=== PATIENT | male | born 1955 | race African-American/Black ===

== ENCOUNTER 2023-06-29 08:53 | Emergency (ER) | payer MEDICARE, SELFPAY ==
[2023-06-29 08:54] VITALS: BP 168/97; PULSE 81; RESP 14; TEMP 36.6; O2SAT 100; BMI 18.3
--- NOTE | 2023-06-29 09:11 | EDS_ITS ---
HPI History of Present Illness Chief Complaint: Hypertension Informant: patient Narrative Narrative: 67-year-old male with a history of hypertension presenting to the emergency room with a chief complaint of hypertension. Patient states he sees the MA in [place]. He states he was on a diuretic but does not know the name of it. He reports not being seen at the [facility] for some time . He states he ran out of his medication a month ago. He really has not been feeling too bad. The patient notes some lightheadedness intermittently. Took his blood pressure at home today and it was elevated so he came to emergency. He does not recall what his blood pressure was at home. Triage blood pressure 168/97. He states while he was on his blood pressure medication. His blood pressure was controlled. [facility] Medical History Hypertension Allergy/AdvReac Type Severity Reaction Status Date / Time No Known Allergies Allergy Verified 06/29/23 08:54 Social History Smoking Status: Current every day smoker ROS ROS ED ROS Narrative Intermittent lightheadedness Constitutional Constitutional ED: Denies chills, fever(s) or weight loss Eyes Eyes: Denies blurry vision, change in vision or diplopia ENT ENT ED: Denies ear pain, rhinorrhea or sore throat Cardiovascular Cardiovascular: Denies chest pain, orthopnea, palpitations or racing heartbeat Respiratory/Chest Respiratory/Chest: Denies cough, dyspnea or orthopnea Gastrointestinal Gastrointestinal: Denies abdominal pain, diarrhea, nausea or vomiting Genitourinary Genitourinary ED: Denies dysuria, hematuria or urinary frequency Musculoskeletal Musculoskeletal: Denies arthralgias or myalgias Integumentary Denies abscess or rash Neurologic Neurologic: Denies headache(s) or weakness Psychiatric Psychiatric: Denies anxiety, depression, suicidal ideation or suicidal thoughts Endocrine Endocrinology: Denies polydipsia, polyphagia or polyuria Allergic/Immunologic Allergic/Immunologic ED: Denies mouth swelling, tongue swelling or urticaria EXAM Physical Exam Const Vital Signs: 06/29/23 08:54 Temperature 97.8 F Temperature Source Temporal Pulse Rate 81 Respiratory Rate 14 Blood Pressure 168/97 H Blood Pressure Mean 120 Pulse Ox 100 Oxygen Delivery Method Room Air Positive well nourished and well developed General Appearance ED: well developed HEENT Reports normocephalic, head/scalp atraumatic and moist mucous membranes Eyes PERRL and EOMs intact bilaterally Neck no lymphadenopathy, supple and no JVD Resp normal respiratory effort and clear to auscultation bilaterally Cardio regular rate, regular rhythm and no murmurs GI normal to inspection, nondistended, normoactive bowel sounds and non-tender Palpation: soft Back/Spine no CVA tenderness and normal ROM Extremity normal to inspection General Extremety ED: Negative for edema General Extremity: Negative for edema Neuro oriented x3 and CN's II-XII intact bilaterally Sensorium / Orientation: alert Motor Exam: strength 5/5 throughout Psych mental status grossly normal Mood & Affect: Negative for depressed or tearful Skin no rashes or lesions noted and no wounds MDM MDM MDM Narrative Medical decision making narrative: [facility] [place] Patient has not been seen in their clinic since 2021. He states that he was a no-show for 2 appointments in August 2022. The patient was reported to be on hydrochlorothiazide 12.5 mg. I am going to prescribe 25 mg of HCTZ. I highly encouraged the patient to schedule an appointment to be seen at the clinic. At this point I do not see an emergent reason for emergency workup. He is otherwise basically asymptomatic. Discharge Plan Triage Chief Complaint: Hypertension ED Provider: Robbi Art
--- NOTE | 2023-06-29 09:30 | NURSING ---
[facility]
[2023-06-29 09:44] VITALS: BP 156/78; PULSE 64; RESP 14; TEMP 36.4; O2SAT 99
== END 2023-06-29 10:08 | disposition home or self-care (01) ==
LOC: ED 10:01
PROVIDERS: Emergency Provider Emergency Medicine; Visit Provider Emergency Medicine
DX: I10 Essential (primary) hypertension (principal); F17.200 Nicotine dependence, unspecified, uncomplicated
CPT/HCPCS: 99282

== ENCOUNTER → 2023-12-02 | Outpatient (CLI) | payer MEDICARE, SELFPAY ==
[2023-12-02 12:45] LABS: Absolute Lymphocyte Count 1.48 X10^3/uL (0.83-4.51); Absolute Neutrophil Count 4.4 X10^3/uL (2.0-7.7); Basophil# 0.04 X10^3/uL; Basophil% 0.6 % (0-1); Hematocrit 40.2 % (40-54); Hemoglobin 13.4 g/dL (13.0-16.5); Lymphocyte # 1.48 X10^3/ul (0.83-4.51); Lymphocyte % 21.9 % (19-41); Mean Corp Hgb Conc 33.3 g/dL (32-36); Mean Corpuscular Hgb 31.8 pg (27.0-32.0); Mean Corpuscular Volume 95.3 fL (80-94); Mean Platelet Vol. 11.2 fl (6.2-12.0); Monocyte# 0.59 X10^3/uL; Monocyte% 8.7 % (0-10); NRBC Flagged by Analyzer 0 % (0-5); Neutrophil # 4.44 X10^3/uL (2.7-7.7); Neutrophil % 65.7 % (47-70); Platelet Count 256 K/mm3 (150-450); RBC Distribution Width CV 13.1 % (11.6-14.6); RBC Distribution Width SD 45.8 fl (35.1-43.9); Red Blood Count 4.22 M/mm3 (4.6-6.2); White Blood Count 6.8 K/mm3 (4.4-11.0)
[2023-12-02 13:02] LABS: ALB/GLOB Ratio 0.8 RATIO (0.9-2.4); AST(SGOT) 26 U/L (15-37); Alanine Aminotransfer ALT/SGPT 23 U/L (16-61); Albumin, Serum 3.4 g/dL (3.2-5.0); Alkaline Phosphatase 98 U/L (45-117); Anion Gap 8 (5-15); BUN 7 mg/dL (7-18); BUN/Creat Ratio 8.9 RATIO (10-20); Calcium,Total 9.1 mg/dL (8.5-10.1); Chloride 102 mmol/L (98-107); Cholesterol 161 mg/dL (200); Creatinine, Serum 0.78 mg/dL (0.70-1.30); EST Glomerular Filtration Rate 105 mL/min (>60); Est Glom Filt Rate - Afr Amer 127 mL/min (>60); Globulin 4.3 g/dL (2.2-4.2); Glucose 99 mg/dL (74-106); High Density Lipoprotein 93 mg/dL; Potassium 3.9 mmol/L (3.5-5.1); Protein, Total 7.7 g/dL (6.4-8.2); Sodium Level 137 mmol/L (136-145); Thyroid Stim Hormone (TSH) 0.47 uIU/mL (0.358-3.74); Triglycerides 89 mg/dL; Very Low Density Lipoprotein 18 mg/dL (5-40)
== END | disposition home or self-care (01) ==
PROVIDERS: PCP Family Medicine; Visit Provider Family Medicine
DX: I10 Essential (primary) hypertension (principal); R35.0 Frequency of micturition
CPT/HCPCS: 36415; 80053; 80061; 84443; 85025

== ENCOUNTER → 2024-03-30 | Outpatient (CLI) | payer MEDICARE, SELFPAY ==
--- NOTE | 2024-03-30 08:26 | US_ITS ---
STUDY: SUPERFICIAL ULTRASOUND - LEFT WRIST REASON FOR EXAM: Male, 68 years old. left wrist dorsal ganglion cyst TECHNIQUE: A superficial ultrasound was performed with real-time and static galdamez-scale imaging. COMPARISON: Left wrist x-ray dated March 23, 2024 FINDINGS: There is no large or obvious wrist joint effusion. Normal visualized dorsal (extrinsic) ligaments. Normal visualized volar (extrinsic) ligaments. Significant extensor tenosynovitis is present in 4 compartments. The subcutaneous tissues are also diffusely swollen and edematous. Moderate tendinopathy/tendinosis is also present. This should be evaluated by MRI if the patient meets the criteria for MR imaging. Normal flexor tendons. Normal carpal tunnel with a normal median nerve. Normal carpometacarpal articulation of the thumb. Normal second through fifth carpometacarpal articulations. US/Ext Non Vasc Limited/Soft Tiss IMPRESSION: 1. Significant extensor tenosynovitis is present in 4 compartments. The subcutaneous tissues are also diffusely swollen and edematous. Moderate tendinopathy/tendinosis is also present. This should be evaluated by MRI if the patient meets the criteria for MR imaging. Electronically Signed: Cortes Waterman MD at 13:44 EDT ,
== END | disposition home or self-care (01) ==
LOC: US 08:23
PROVIDERS: PCP Family Medicine; Referring Provider Orthopaedic Surgery Sports Medicine; Visit Provider Orthopaedic Surgery Sports Medicine
DX: M67.432 Ganglion, left wrist (principal)
CPT/HCPCS: 76882

== ENCOUNTER → 2024-06-23 | Outpatient (CLI) | payer MEDICARE, SELFPAY ==
[2024-06-23 13:48] LABS: Magnesium 2.3 mg/dL (1.6-2.6)
== END | disposition home or self-care (01) ==
PROVIDERS: PCP Family Medicine
DX: N63.0 Unspecified lump in unspecified breast (principal)
CPT/HCPCS: 36415; 83735

== ENCOUNTER → 2024-07-03 | Outpatient (CLI) | payer MEDICARE, SELFPAY ==
[2024-07-03 12:53] LABS: Free T3 2.4 pg/mL (2.18-3.98); T4 Free Direct 0.77 ng/dL (0.76-1.46)
[2024-07-05 09:08] LABS: Thyroglobulin Antibody < 1.0 IU/mL (0.0-0.9); Thyroid Peroxidase AB 15 IU/mL (0-34); Thyroid Stim Immunoglob <0.10 IU/L (0.00-0.55)
== END | disposition home or self-care (01) ==
LOC: LAB 12:01
PROVIDERS: PCP Family Medicine; Referring Provider Family Medicine; Visit Provider Family Medicine
DX: R94.6 Abnormal results of thyroid function studies (principal)
CPT/HCPCS: 36415; 84439; 84443; 84445; 84481; 86376; 86800

== ENCOUNTER → 2024-07-07 | Outpatient (CLI) | payer MEDICARE, SELFPAY ==
--- NOTE | 2024-07-07 09:25 | BI_ITS ---
PROCEDURE: SCRN MAMM (CAD)W/JOCELYNN BILAT REASON FOR EXAM: M, Age 68 y/o , TECHNIQUE: Bilateral screening digital breast tomosynthesis with 2D and 3D images. Computer aided detection. COMPARISON: None. This is a baseline mammogram. FINDINGS: The breasts are heterogeneously dense which may obscure small masses. No suspicious masses, areas of developing architectural distortion, or suspicious calcifications. With the patient's history of a palpable lump in the left periareolar region, correlation with ultrasound recommended. BI/SCRN MAMM (CAD)W/JOCELYNN BILAT IMPRESSION: BI-RADS 0: INCOMPLETE - NEED ADDITIONAL IMAGING EVALUATION. Follow-up code: Ultrasound Recommended The patient will be notified of the results by letter. Reading Location: [place] [address]
--- NOTE | 2024-07-07 10:24 | US_ITS ---
PROCEDURE: BREAST LIMITED UNILATERAL REASON FOR EXAM: Left retroareolar lower palpable lump. COMPARISON: Comparison is made with prior mammogram done earlier in the day. Left retroareolar region. TECHNIQUE: Targeted bilateral breast ultrasound. FINDINGS: LEFT: Ultrasound targeted to the retroareolar region of the left breast. At the left breast. The breast tissue appears sonographically normal. No cyst, solid mass, or suspicious shadowing. US/Breast Limited Unilateral IMPRESSION: Findings suggestive of gynecomastia. BI-RADS 1: NEGATIVE. RECOMMEND ANNUAL MAMMOGRAPHIC SCREENING. Reading Location: [place] [id number]
== END | disposition home or self-care (01) ==
PROVIDERS: PCP Family Medicine; Referring Provider Family Medicine; Visit Provider Family Medicine
DX: Z12.31 Encounter for screening mammogram for malignant neoplasm of breast (principal); N63.25 Unspecified lump in the left breast, overlapping quadrants
CPT/HCPCS: 76642; 77062; 77063; 77067; G0279

== ENCOUNTER → 2024-07-18 | Outpatient (CLI) | payer MEDICARE, SELFPAY ==
--- NOTE | 2024-07-18 09:35 | RAD_ITS ---
EXAM: XR Abdomen, 1 View CLINICAL INDICATION: TECHNIQUE: Frontal supine view of the abdomen/pelvis. COMPARISON: No relevant prior studies available. FINDINGS: GASTROINTESTINAL TRACT: Unremarkable. No dilation. ORGANS: Probable punctate right nephrolithiasis. BONES/JOINTS: Unremarkable. No acute fracture. RAD/Abdomen Single View IMPRESSION: Probable punctate right nephrolithiasis. Reading Location: [facility]
--- NOTE | 2024-07-18 09:35 | RAD_ITS ---
PROCEDURE: CHEST PA AND LATERAL REASON FOR EXAM: Abnormal weight loss. TECHNIQUE: Three-view PA and lateral chest. COMPARISON: None. RAD/Chest PA and Lateral IMPRESSION: Lungs are moderately severely hyperinflated. No evidence of pulmonary edema. No focal infiltrate is seen. The lungs appear clear throughout. No pleural effusion or pneumothorax is seen. The cardiomediastinal silhouette is within the normal range for age. Mild thoracic spine degenerative changes are noted. No evidence of acute cardiopulmonary disease. Reading Location: [id number]
[2024-07-18 10:11] LABS: Absolute Lymphocyte Count 2.06 X10^3/uL (0.83-4.51); Absolute Neutrophil Count 2.5 X10^3/uL (2.0-7.7); Basophil# 0.03 X10^3/uL; Basophil% 0.6 % (0-1); Eosinophil# 0.09 X10^3/uL; Eosinophils% 1.7 % (0-5); Hematocrit 41.4 % (40-54); Hemoglobin 14.3 g/dL (13.0-16.5); Lymphocyte # 2.06 X10^3/ul (0.83-4.51); Lymphocyte % 38.6 % (19-41); Mean Corp Hgb Conc 34.5 g/dL (32-36); Mean Corpuscular Hgb 29.7 pg (27.0-32.0); Mean Corpuscular Volume 86.1 fL (80-94); Mean Platelet Vol. 10.3 fl (6.2-12.0); Monocyte# 0.66 X10^3/uL; Monocyte% 12.4 % (0-10); NRBC Flagged by Analyzer 0 % (0-5); Neutrophil # 2.48 X10^3/uL (2.7-7.7); Neutrophil % 46.3 % (47-70); Platelet Count 343 K/mm3 (150-450); RBC Distribution Width CV 13.5 % (11.6-14.6); RBC Distribution Width SD 42.5 fl (35.1-43.9); Red Blood Count 4.81 M/mm3 (4.6-6.2); White Blood Count 5.3 K/mm3 (4.4-11.0)
[2024-07-18 10:23] LABS: Erythrocyte Sedimentation Rate 25 mm/hr (0-20)
[2024-07-19 13:07] LABS: Anti-Centromere B Ab <0.2 AI (0.0-0.9); Anti-Chromatin <0.2 AI (0.0-0.9); Anti-Jo <0.2 AI (0.0-0.9); Anti-Scleroderma-70 AB <0.2 AI (0.0-0.9); Anti-dsDNA Ab 1 IU/mL (0-9); RNP Ab <0.2 AI (0.0-0.9); SJOGREN'S Anti-SS-A test < 0.2 AI (0.0-0.9); SJOGREN'S Anti-SS-B test < 0.2 AI (0.0-0.9); Smith Ab <0.2 AI (0.0-0.9)
== END | disposition home or self-care (01) ==
LOC: LAB 09:16
PROVIDERS: PCP Family Medicine
DX: R54 Age-related physical debility (principal); R63.4 Abnormal weight loss
CPT/HCPCS: 36415; 71046; 74018; 85025; 85652; 86140; 86225; 86235

== ENCOUNTER 2024-11-18 22:15 | Inpatient (IN) | payer MEDICARE, SELFPAY ==
[2024-11-18 22:16] VITALS: BP 131/85; PULSE 93; RESP 16; TEMP 35.8; O2SAT 100; BMI 17.4
--- NOTE | 2024-11-18 22:55 | CT_ITS ---
EXAM: BRAIN/HEAD WITHOUT CONTRAST CLINICAL HISTORY: 69 y/o M with DIZZINESS, HEADACHE. COMPARISON: None. TECHNIQUE: Routine CT imaging of the head without IV contrast. Additional multiplanar reformats were obtained. Dose reduction techniques were used including intermediate exposure control (AEC),iterative reconstruction technique, and/or mA and/or KV dose adjustments based on patient's size. FINDINGS: The ventricles, sulci and cisterns are prominent, suggestive of brain parenchymal volume loss. Asymmetric distention of the right lateral ventricle compared to the left with intraventricular septal bowing. There is no evidence of intracranial hemorrhage. There is no midline shift, mass effect, or extra-axial collection. Moderate patchy supratentorial white matter hypodensities. The orbits, visualized paranasal sinuses and mastoids are unremarkable. No acute calvarial fracture or scalp hematoma. CT/Brain/Head without Contrast IMPRESSION: 1. Asymmetric distention of the right lateral ventricle compared to the left wi th intraventricular septal bowing. Findings are indeterminate and may be an anatomic variant. Correlation with prior brain lenny ging recommended. 2. No acute intracranial finding. Reading Location: [id number]
--- NOTE | 2024-11-18 22:56 | EDS_ITS ---
HPI History of Present Illness Chief Complaint: Dizziness Informant: patient Narrative Narrative: Patient presents with dizziness. He states it feels like lightheadedness, like he could pass out or feel faint, when he stands. When he sits or lies down he feels better and it goes away. He also feels like when he is walking and he is feeling faint or dizzy, he is off balance and holding onto things. He denies any associated vision changes, focal neurologic deficits/symptoms, nausea or vomiting, tinnitus, diplopia. He states his appetite has been very poor for the past week, he has had diarrhea for the past week, watery nonbloody, he is not sure how many times a day, and he states his fluid intake he knows has been poor. He states in the past 2 days or so, he has had trouble swallowing. He states his throat feels like it may be a little swollen. He denies any odynophagia. He denies choking or vomiting or spitting up when trying to swallow liquids or foods, things are passing. He denies any abdominal pain or chest pain or cough or dyspnea. He states a month or so ago he had a biopsy in his left mandaen, he states it was normal, he had been having headaches before that but denied any vision changes then or now. He is urinating he denies d ysuria or hematuria. Patient is a very poor historian, answers all my questions but offers no additional information. [facility] Medical History Wears glasses Loose, teeth Alcohol use Marijuana use History of steroid therapy Rheumatoid arthritis Gastric reflux Shortness of breath on exertion Smoker Leg cramps Hypertension Osteoarthritis of right knee Extensor tenosynovitis of left wrist Ganglion cyst of dorsum of left wrist MCL sprain of right knee Right knee pain Home Medications ?Medication ?Instructions ?Recorded ?Last Taken ?Type lisinopril 20 1 tab PO QDAY 02/08/24 Unkno wn History mg-hydrochlorothiazide 25 mg tablet quinine-vitamin E capsule 1 cap PO QDAY 08/10/24 Unkno wn History tizanidine 4 mg capsule 4 mg PO QHS PRN muscle spast icity 08/10/24 Unknown History gabapentin 100 mg capsule 100 mg PO BID 11/18/24 Unkno wn History pantoprazole 40 mg tablet,delayed 40 mg PO DAILY 11/18 Unknown History release prednisone 20 mg tablet 20 mg PO DAILY 11/18/24 Unkn own History Allergy/AdvReac Type Severity Reaction Status Date / Time Penicillins Allergy Hives Verified 11/18/24 22:16 Surgical History No pertinent past surgical history Social History household members: none current occupational status: employed Smoking Status: Current every day smoker tobacco type: cigarettes alcohol intake: current substance use type: does not use ROS ROS ED Constitutional Constitutional ED: Reports anorexia, fatigue and weakness; Denies chills or fever(s) Eyes Eyes: Denies change in vision or diplopia ENT ENT ED: Reports other Details: dysphagia ; Denies rhinorrhea or sore throat Cardiovascular Cardiovascular: Denies chest pain or palpitations Respiratory/Chest Respiratory/Chest: Denies cough or dyspnea Gastrointestinal Gastrointestinal: Reports diarrhea; Denies abdominal pain, hematemesis, hematochezia, melena, nausea or vomiting Genitourinary Genitourinary ED: Denies dysuria or hematuria Musculoskeletal Musculoskeletal: Denies back pain or neck pain Integumentary Denies abscess or rash Neurologic Neurologic: Reports headache(s); Denies paresthesias or weakness Psychiatric Psychiatric: Denies anxiety or suicidal thoughts EXAM Physical Exam Const Vital Signs: 11/18/24 22:16 11/18/24 23:34 Temperature 96.5 F L Temperature Source Temporal Pulse Rate 93 Pulse Rate [Lying] 68 Pulse Rate [Sitting (for 1 minute prior to obtaining)] 65 Pulse Rate [Standing (for 1 minute prior to obtaining)] 93 Respiratory Rate 16 Blood Pressure 131/85 H Blood Pressure [Lying] 115/78 Blood Pressure [Sitting (for 1 minute prior to obtaining)] 130/80 H Blood Pressure [Standing (for 1 minute prior to obtaining)] 116/86 H Blood Pressure Mean 100 Blood Pressure Mean [Lying] 90 Blood Pressure Mean [Sitting (for 1 minute prior to obtaining)] 96 Blood Pressure Mean [Standing (for 1 minute prior to obtaining)] 96 Pulse Ox 100 Oxygen Delivery Method Room Air Positive well nourished and well developed Constitutional Narrative: thin General Appearance ED: well developed and NAD HEENT Reports moist mucous membranes HEENT Narrative: Prominent uvula normocephalic and atraumatic Eyes PERRL and EOMs intact bilaterally Neck full ROM and supple Resp normal respiratory effort and clear to auscultation bilaterally Cardio regular rate, regular rhythm and no murmurs Rate: Negative for tachycardic GI non-tender and non-distended Auscultation: normoactive bowel sounds Palpation: soft Back/Spine no CVA tenderness General Back: other FROM Extremity normal to inspection General Extremety ED: Negative for edema, pulses abnormal or tenderness General Extremity: Negative for edema or pulses abnormal Neuro oriented x3, CN's II-XII intact bilaterally and no sensory deficits noted Neuro Narrative: Negative Chuck-Hallpike Sensorium / Orientation: awake and alert Motor Exam: strength 5/5 throughout Psych mental status grossly normal Psych Narrative: Flat affect Skin no rashes or lesions noted and no wounds MDM MDM MDM Narrative Medical decision making narrative: I assessed patient many different ways about his dizziness, and he sounds like it is more likely to be orthostasis than vertigo but he has symptoms of both and with the dysphagia, I think reasonable to consider vertiginous symptoms and a possible central cause, so CT was obtained in addition to orthostatics which were negative, and a two-view chest x-ray which on my interpretation shows no pneumonia or other acute abnormality, and labs. The labs show sodium of 122, unclear if this is the etiology of his symptoms or the result of his symptoms, but he was started on slow normal saline. He is on HCTZ which may be related to this, in addition to his GI losses. He is certainly not fluid overloaded, he is either hypovolemic or euvolemic. I reviewed his CT images as well as result which I agree with, there is some asymmetry unclear if this is acute or chronic. And also unclear if this is related to any of this, certainly inconsistent with a stroke. His EKG is normal, initial troponin 23, still awaiting patient to be able to provide a urine specimen to rule out infection there; plan is for admission for further treatment and workup. Lab Data Attestation: I reviewed the patient's lab results. Labs: Laboratory Results - last 24 hr 11/18/24 22:37 WBC 4.4 RBC 4.83 Hgb 15.0 Hct 40.7 MCV 84.3 MCH 31.1 MCHC 36.9 H RDW Std Deviation 43.0 RDW Coeff of Brittany 14.0 Plt Count 221 MPV 9.9 Immature Gran % (Auto) 0.500 Neut % (Auto) 63.0 Lymph % (Auto) 30.8 [place] % (Auto) 5.7 Eos % (Auto) 0.0 Baso % (Auto) 0.0 Absolute Neuts (auto) 2.8 Absolute Lymphs (auto) 1.36 Nucleated RBC % 0 Sodium 122 L Potassium 4.2 Chloride 85 L Carbon Dioxide 19.6 L Anion Gap 17 H BUN 12 Creatinine 0.88 Estim Creat Clear Calc 64.43 Est GFR (MDRD) Non-Af 94 BUN/Creatinine Ratio 13.9 Glucose 106 H Calcium 8.6 Total Bilirubin 0.63 AST 33 ALT 34 Alkaline Phosphatase 75 Troponin T High Sens 23 H Total Protein 6.6 Albumin 3.9 Globulin 2.7 Albumin/Globulin Ratio 1.5 Radiography Diagnostic Testing: Clinical Impression(s) from Imaging Studies Brain CT 11/18/24 22:55 IMPRESSION: 1. Asymmetric distention of the right lateral ventricle compared to the left with intraventricular septal bowing. Findings are indeterminate and may be an anatomic variant. Correlation with prior brain imaging recommended. 2. No acute intracranial finding. Reading Location: [facility] Chest X-Ray 11/18/24 23:20 IMPRESSION: NO ACUTE FINDINGS. Reading Location: [facility] Rhythm Strip Rhythm Strip: Sinus Rhythm Rate: 65 Ectopy: None EKG Initial EKG: Attestation: I personally reviewed and interpreted this EKG as follows: Interpretation: Sinus Rhythm and No Acute Injury Pattern Management Discussion w/another healthcare provider: Hospitalist Discharge Plan Dx/Rx/DC Orders Clinical Impression: Acute hyponatremia, Acute diarrhea, Dizziness, Dysphagia, Abnormal brain CT Disposition Disposition: [facility]
--- NOTE | 2024-11-18 22:56 | EKG12_ITS ---
Test Reason : DYSRHYTHMIA Blood Pressure : */* mmHG Vent. Rate : 67 BPM Atrial Rate : 67 BPM P-R Int : 162 ms QRS Dur : 78 ms QT Int : 374 ms P-R-T Axes : 80 54 79 degrees QTcB Int : 395 ms Normal sinus rhythm Normal ECG Confirmed by FRANCIE MACEDO, RASHEED ([id number]), legal editor BUBBA ROGEL ([id number]) on 11/21/2024 7:41:50 AM Referred By: Confirmed By: RASHEED MARMOLEJO MD
--- OUTSIDE RECORDS SUMMARY | 2024-11-18 23:05 | XMS RPT_ITS | CCD ---
Author Organization [facility] Care Team Providers Care Marketing Director Name Role Phone Marjorie Be DO Unavailable [phone] Marjorie Be DO Primary Care Provider JOSÉ MIGUEL JIANG Admitting Unavailable JOSÉ MIGUEL JIANG Attending Unavailable [place] HUGO SUPRIYA Primary Care Unavailabl e [place] [facility], Holly Referring Unavailable Ghanshyam Stapleton Attending Unavailable [facility] Primary Care Unavailable [place] [facility], Holly Primary Care Unavailable Amena Cony N Referring Unavailable Amena, Cony N Attending Unavailable [place] [facility], Holly Primary Care Unavailable [place] [facility], Holly Attending Unavailable [place] [facility], Holly Primary Care Unavailable Steven Martinez Referring Unavailable Steven Martinez Attending Unavailable [place] [facility], Holly Primary Care Unavailable Steven Martinez Referring Unavailable Steven Martinez Attending Unavailable [place] [facility], Holly Primary Care Unavailable [place] [facility], Holly Referring Unavailable Steven Martinez Attending Unavailable Janis Bethea Attending Unavailable [place] [facility], Holly Primary Care Unavailable [place] [facility], Holly Primary Care Unavailable [place] [facility], Holly Referring Unavailable Steven Martinez Attending Unavailable [place] [facility], Holly Primary Care Unavailable [place] [facility], Holly Referring Unavailable Steven Martinez Attending Unavailable [place] [facility], Holly Primary Care Unavailable Xavier, Dewey Attending Unavailable [place] [facility], Holly Primary Care Unavailable Xavier, Sublimity Attending Unavailable [place] [facility], Holly Primary Care Unavailable Beam, Zebulun Referring Unavailable Beam, Zebulun Attending Unavailable [place] [facility], Holly Primary Care Unavailable [place] [facility], Holly Referring Unavailable [place] [facility], Holly Attending Unavailable [place] [facility], Holly Attending Unavailable [place] [facility], Holly Primary Care Unavailable [place] [facility], Holly Referring Unavailable [place] [facility], Holly Primary Care Unavailable Beam, Zebulun Attending Unavailable Beam, Zebulun Referring Unavailable [place] [facility], Holly Primary Care Unavailable [place] [facility], Holly Attending Unavailable AMENA, CONY Referring Unavailable AMENA, CONY Referring Unavailable AMENA, CONY Referring Unavailable MITZY, RENNY BEAN Attending Unavailable [place], MARJORIE EPPS Primary Care Unavailabl e AMENA, CONY Referring Unavailable AMENA, CONY Referring Unavailable AMENA, CONY Referring Unavailable AMENA, CONY Referring Unavailable AMENA, CONY Referring Unavailable AMENA, CONY Attending Unavailable [place]ORIE Referring Unavailabl e AMENA, CONY Referring Unavailable AMENA, CONY Attending Unavailable AMENA, CONY Referring Unavailable AMENA, CONY Attending Unavailable AMENA, CONY Referring Unavailable MITZY, RENNY BEAN Attending Unavailable MITZY, RENNY BEAN Referring Unavailable AMENA, CONY Attending Unavailable AMENA, CONY Referring Unavailable [place], MARJORIE EPPS Primary Care Unavailabl e Allergies Allergy Classification Reported Allergen(s) Allergy Type Date of Onset Reaction(s) Facility (10 sources) Penicillins; Translations: [PENICILLINS] Drug Allergy 5 Other: See Comments [facility] (1 source) Penicillins Drug allergy (disorder) 5 [facility] Repository Medications Current Medications Medication Drug Class(es) Dates Sig (Normalized) Sig (Original) iv contrast (will be provided with radiology test) (1 source) Start: 10-30-2024 End: 10-31-2024 inject 1 dose intravenously once iv contrast (will be provided with radiology test) CTA CHEST (NONGATED) ABD/PEL WO/W IVCON - No IV access, insert saline lock prior to the sedation, infusion, injection for imaging exam. Discontinue saline lock post exam. If Pt. has a central line or IVAD, may access for administration according to line specific nursing protocol. Once exam is complete flush line and de-access according to line specific nursing protocol in the CT contrast administration guidelines link. 1 each 10/30/2024 10/31/2024 Active lisinopril 10 mg oral tablet (20 sources) Angiotensin Converting Enzyme Inhibitor take 1 tablet by mouth once daily lisinopril (ZESTRIL) 10 mg tablet Take 10 mg by mouth once daily. Active pantoprazole 40 mg delayed release oral tablet (2 sources) Proton Pump Inhibitor Start: 10-25-2024 End: 01-23-2025 take 1 tablet by mouth once daily pantoprazole DR (PROTONIX) 40 mg tablet Take 1 tablet by mouth once daily. 30 tablet 2 10/25/2024 01/23/2025 Active predniSONE 20 mg oral tablet (19 sources) Start: 10-30-2024 End: 11-20-2024 take 2.5 tablets by mouth once daily, then take 2 tablets by mouth once daily predniSONE (DELTASONE) 20 mg tablet Take 2.5 tablets by mouth once daily for 7 days, THEN 2 tablets once daily for 14 days. 46 tablet 10/30/2024 11/20/2024 Active Start: 10-13-2024 End: 10-27-2024 take 3 tablets by mouth once daily predniSONE (DELTASONE) 20 mg tablet Take 3 tablets by mouth once daily. 21 tablet 10/25/2024 Active Start: 09-27-2024 End: 10-18-2024 take 1 tablet by mouth once daily predniSONE (DELTASONE) 20 mg tablet Take 1 tablet by mouth once daily for 14 days. Do not stop suddenly, call office when you are running low. 14 tablet 10/04/2024 10/13/2024 Discontinued tiZANidine 4 mg oral capsule (20 sources) Central alpha-2 Adrenergic Agonist Start: 06-18-2024 take 1 capsule by mouth once daily at bedtime as needed tiZANidine HCl (ZANAFLEX) 4 mg capsule Take 4 mg by mouth. Take 1 capsule everyday at bedtime as needed. 06/18/2024 Active Completed/Discontinued Medications Medication Drug Class(es) Dates Sig (Normalized) Sig (Original) naproxen 500 mg oral tablet (13 sources) Nonsteroidal Anti-inflammatory Drug Start: 04-15-2015 End: 10-13-2024 take 1 tablet by mouth twice daily as needed for pain naproxen (NAPROSYN) 500 mg tablet Indications: Rib pain on left side Take 1 tablet by mouth twice daily as needed (for pain/inflammation) . Take with food. 20 tablet 0 04/15/2015 10/13/2024 Discontinued Problems Active Problems Problem Classification Problem Date Documented Date Episodic/Chronic Delirium, dementia, and amnestic and other cognitive disorders (1 source) Age-related physical debility; Translations: [Age-related physical debility] Onset: 08-01-2024 Chronic Essential hypertension (20 sources) Essential hypertension; Translations: [Essential (primary) hypertension] Onset: 12-03-2023 09-14-2024 Chronic Immunizations and screening for infectious disease (6 sources) Autoantibody titer positive; Translations: [Other specified abnormal immunological findings in serum] Onset: 10-25-2024 10-14-2024 Episodic Malaise and fatigue (16 sources) Asthenia; Translations: [Weakness] Onset: 10-11-2024 09-14-2024 Episodic Other aftercare (1 source) Long-term current use of systemic steroid; Translations: [penitentiary (current) use of systemic steroids] 11-01-2024 Episodic 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; Translations: [Other specified congenital malformations of skin] Onset: 01-31-2010 01-31-2010 Chronic Other connective tissue disease (6 sources) Polymyalgia rheumatica; Translations: [Polymyalgia rheumatica] Onset: 11-01-2024 10-14-2024 Chronic Other connective tissue disease (2 sources) Polymyalgia rheumatica; Translations: [PMR (polymyalgia rheumatica) ([facility])] Onset: 10-25-2024 Chronic Other connective tissue disease (1 source) Ganglion cyst of left wrist; Translations: [Ganglion, left wrist] 09-14-2024 Episodic Other connective tissue disease (2 sources) Ganglion, left wrist; Translations: [Ganglion, left wrist] Onset: 04-24-2024 Episodic Other eye disorders (3 sources) Tear film insufficiency; Translations: [Dry eye syndrome of bilateral lacrimal glands] 09-14-2024 Episodic Other eye disorders (1 source) Dry eye syndrome of bilateral lacrimal glands; Translations: [Dry eye syndrome of both eyes] Onset: 09-14-2024 Episodic Other lower respiratory disease (6 sources) Interstitial lung disease; Translations: [Interstitial pulmonary disease, unspecified] 10-04-2024 Chronic Other lower respiratory disease (1 source) Interstitial pulmonary disease, unspecified; Translations: [Interstitial pulmonary disease (HCC)] Onset: 10-11-2024 Chronic Other lower respiratory disease (15 sources) Dyspnea; Translations: [Shortness of breath] 10-04-2024 Episodic Other lower respiratory disease (7 sources) Nodule of lung; Translations: [Solitary pulmonary nodule] Onset: 11-01-2024 10-14-2024 Episodic Other lower respiratory disease (1 source) Solitary pulmonary nodule; Translations: [Lung nodule] Onset: 10-25-2024 Episodic Other lower respiratory disease (2 sources) Shortness of breath; Translations: [Shortness of breath] Onset: 10-04-2024 Episodic Other nervous system disorders (2 sources) Other chronic pain; Translations: [Chronic pain of both shoulders] Onset: 09-14-2024 Chronic Other non-traumatic joint disorders (3 sources) Multiple joint pain; Translations: [Pain in unspecified joint] 09-14-2024 Episodic Other non-traumatic joint disorders (3 sources) Hip pain; Translations: [Pain in right hip] 09-14-2024 Episodic Other non-traumatic joint disorders (6 sources) Bilateral chronic pain of upper limbs; Translations: [Pain in right shoulder] 09-14-2024 Episodic Other non-traumatic joint disorders (4 sources) Pain in right knee; Translations: [Pain in joint, lower leg] Onset: 02-08-2024 09-14-2024 Episodic Other non-traumatic joint disorders (1 source) Pain in right shoulder; Translations: [Chronic pain of both shoulders] Onset: 10-11-2024 Episodic Other non-traumatic joint disorders (1 source) Pain in left shoulder; Translations: [Chronic pain of both shoulders] Onset: 10-11-2024 Episodic Other non-traumatic joint disorders (1 source) Pain in unspecified joint; Translations: [Polyarthralgia] Onset: 09-14-2024 Episodic Other non-traumatic joint disorders (1 source) Pain in right hip; Translations: [Bilateral hip pain] Onset: 09-14-2024 Episodic Other non-traumatic joint disorders (1 source) Pain in left hip; Translations: [Bilateral hip pain] Onset: 09-14-2024 Episodic Other non-traumatic joint disorders (1 source) Pain in left knee; Translations: [Chronic pain of both knees] Onset: 09-14-2024 Episodic Residual codes; unclassified (20 sources) Tobacco user; Translations: [Tobacco use] Onset: 09-14-2024 09-14-2024 Episodic Spondylosis; intervertebral disc disorders; other back problems (7 sources) Chronic neck pain; Translations: [Chronic low back pain] 11-01-2024 Episodic Systemic lupus erythematosus and connective tissue disorders (20 sources) Polymyositis; 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] Onset: 10-11-2024 10-04-2024 Chronic Unclassified (5 sources) Bilateral chronic pain of upper limbs 09-14-2024 Unclassified (1 source) Chronic pain of both knees 09-14-2024 Unclassified (1 source) Unspecified synovitis and tenosynovitis, left forearm; Translations: [Unspecified synovitis and tenosynovitis, left forearm] Onset: 04-04-2024 Past or Other Problems Problem Classification Problem Date Documented Da te Episodic/Chronic Nonmalignant breast conditions (1 source) Unspecified lump in unspecified breast; Translations: [Unspecified lump in unspecified breast] Onset: 07-13-2024 Episodic Other non-traumatic joint disorders (20 sources) Sesamoiditis; Translations: [Other specified joint disorders, unspecified joint] Onset: 01-31-2010 01-31-2010 Episodic Other screening for suspected conditions (not mental disorders or infectious disease) (2 sources) Encounter for screening mammogram for malignant neoplasm of breast; Translations: [Abnormal results of thyroid function studies] Onset: 07-19-2024 Episodic Sprains and strains (1 source) Sprain of medial collateral ligament of right knee, initial encounter; Translations: [Sprain of medial collateral ligament of right knee, initial encounter] Onset: 02-08-2024 Episodic Results Test Name Value Interpretation Reference Range Facility [facility] 11-07-2024 [facility] Telephone (RHWSTR) AROLDO NAVARRETE ([id number]) 1955 Jessica Date Time Provider Department 11/07/24 CONY BECKWITH [facility] During your visit today, we recorded the following information about you: Elizabeth Peters MA 11/07/2024 11:56 AM Signed Request for medical records from 10/05/2024 through [facility] All records have been faxed as requested. Allergies As of Date: 11/07/2024 Noted Allergy Reaction PENICILLINS 08/10/2024 14 - Other: See Comments Date Reviewed: 11/01/2024 Reviewed by: Elizabeth Peters MA - Fully Assessed Reason for Visit: Release Of Medical Records [2017] Prescriptions as of 11/07/2024 - predniSONE (DELTASONE) 20 mg tablet Take 2.5 tablets by mouth once daily for 7 days, THEN 2 tablets once daily for 14 days. - predniSONE (DELTASONE) 20 mg tablet Take 3 tablets by mouth once daily. - pantoprazole DR (PROTONIX) 40 mg tablet Take 1 tablet by mouth once daily. - tiZANidine HCl (ZANAFLEX) 4 mg capsule Take 4 mg by mouth. Take 1 capsule everyday at bedtime as needed. - lisinopril (ZESTRIL) 10 mg tablet Take 10 mg by mouth once daily. Problem List As Of Date 11/07/2024 Noted Resolved Porokeratosis [Q82.8] 01/31/2010 Sesamoiditis [M25.80] 01/31/2010 Hypertension [I10] 09/14/2024 Tobacco user [Z72.0] 09/14/2024 Lung nodule [R91.1] 11/01/2024 PMR (polymyalgia rheumatica) (HCC) [M35.3] 11/01/2024 MDA5 antibody positive [R76.8] 11/01/2024 Encounter Status:Closed by ELIZABETH PETERS on 11/07/24 [facility] CNOVon 11-01-2024 CNOV Office Visit (RHWSTR ) AROLDO NAVARRETE ([id number]) 1955 M Date Time Provider Department 11/01/24 2:00 PM CONY BECKWITH [facility] During your visit today, we recorded the following information about you: Pulse Blood pressure Weight 92/minute 127/82 59 kg Cony Beckwith PA-C 11/01/2024 4:24 PM Signed Rheumatology FOLLOW UP VISIT Date of Service: 11/01/2024 Patient: Aroldo Navarrete Medical Record: [id number] Primary Care Physician: Marjorie Be DO History of Present Illness Brief Rheum History: Diagnosis: PMR, ?GCA Year of diagnosis: 2024 Presentation at diagnosis: Early 2024 onset of muscle pain in shoulder/hip (described as achiness) as well as calves, back, and arms. Pain worse in the AM and improved during the day. Movement worsened symptoms. Significant Disease Course: - September 2024. 1st Rheum appt. Myalgias in hips/shoulders, mild weakness with cachexia, difficulty rising from chair. ESR, CRP, CK, aldolase normal. Started on prednisone 20mg for PMR with 40-60% improvement of symptoms but had persistent muscle pain. MDA5 Ab returned positive. - PFTs 10/04/24 - FVC 91, FEV1 64, FEV1/FVC 68, DLCO 58. - EMG without evidence of myopathy. CT Chest with emphysematous changes as well as 1 cm RUL ground glass nodule. - October 2024 1st appt with me. No signs/symptoms of dermatomyositis. Concern for GCA due to temporal headaches, fatigue, and incomplete resolution of symptoms on prednisone. Current Treatment Prednisone September 2024-present Previous Treatments None Case discussed with Dr. Forrester via shared medical record Her Last Phone Call patient visit follow up was 10/25/24 reviewed. Plan as below: Assessment Most likely diagnosis at this time remains PMR with concern for GCA given temporal headaches, fatigue, and incomplete resolution of his symptoms with moderate dose prednisone. Also consider paraneoplastic PMR rendering PMR difficult to treat given RUL nodule seen on CT Chest. He has had near resolution of his myalgias on high dose prednisone although has not had similar improvement in his temporal headache, although this is overall not very bothersome to him. Will plan for TA biopsy tomorrow for evaluation of GCA. If this is positive, will treat for GCA with steroid taper and consideration of Tocilizumab. If TA bx is negative, this would not exclude GCA given several weeks of prednisone prior to biopsy - would consider empiric treatment with prednisone taper given clinical suspicion and also obtain large vessel imaging + pulmonary consultation for lung nodule (due to potential paraneoplastic process and positive MDA5 Ab). For now, will continue on prednisone 60mg daily. Regarding positive MDA5 antibody, patient does not have clinical evidence of dermatomyositis at this time. EMG did not reveal and myopathy (normal CK and aldolase). Chest CT and PFTs are consistent with smoking related lung changes but are not consistent with ILD. He also does not have cutaneous manifestations or Raynaud's. An additional consideration is the RUL lung nodule seen on CT Chest which needs further surveillance for malignancy, especially considering patient's smoking history. If this is an early malignancy, then this could be driving this positive MDA5 antibody. Plan - Continue prednisone 60mg daily. Taper pending TA Bx result. - Start PPI for GI prophylaxis - TA biopsy tomorrow - If TA bx positive for GCA, will treat with prednisone taper + consider Tocilizumab - If TA bx negative for GCA, will obtain CTA C/A/P and pulmonary consult for lung nodule, and continue prednisone taper ---- INTERVAL HISTORY Aroldo is a 69-year-old male with a history of polymyalgia rheumatica, presenting for follow-up. He is currently taking prednisone. Aroldo is both RF - 12 (09/14/2024) and CCP - 13.5 (09/14/2024) negative. His most recent KAREN was negative (09/27/2024). Aroldo reports a 50% improvement in symptoms since starting prednisone 60?mg daily approximately 2.5 weeks ago, increased from 20?mg. He continues to experience intermittent, random pain in the bilateral shoulders and hips, described as an achy sensation located in the posterior regions. Pain is exacerbated by activities such as climbing stairs and carrying groceries or laundry. He also reports morning stiffness in the hips, making it difficult to get out of bed, though this improves as the day progresses. He continues to experience constant, dull, bilateral headaches described as a pressure sensation, unchanged since increasing the prednisone dose. He denies any improvement in headache symptoms. He reports weakness in the arms and legs, affecting his ability to perform heavy lifting and repetitive tasks at work, such as pushing heavy pipes and lifting buckets. He has been off work since June or July due to these (more content not included)... Normal [facility] NAV[facility] ([id number]) 1955 M Date Time Provider Department 10/30/24 CONY BECKWITH [facility] During your visit today, we recorded the following information about you: Cony Beckwith PA-C 10/30/2024 10:20 PM Signed Temporal Artery Biopsy result is negative for Giant Cell Arteritis I have been in discussion with Dr. Forrester from [facility]. She feels giant cell arteritis could still be at play even though the biopsy is negative. Since it is negative we would like to order additional CT/vessel imaging of the chest, abdomen, and pelvis to look for evidence of inflammation of large vessels. Also, she recommends pulmonary consult for the lung nodule We can taper the prednisone to 50 mg (2.5 tablets) x 1 week, then 40 mg until the imaging is complete. A new prescription was sent for him so he doesn't run out IF at any point he has return of his shoulder/hip symptoms, or headaches, or pain in his temples, or headaches, then at that time we would have to consider increasing the dose of prednisone again. HE should let us know. Please help schedule with me for follow up in the next 1-3 weeks whenever I have availability to review all these results in more detail and assess how he is doing with his prednisone taper. Thank you, Elizabeth Lechuga MA 10/31/2024 2:23 PM Addendum I called and spoke with the patient. Message from the provider given. Patient verbalized understanding. He reports he is currently on 60 mg of prednisone and his pain has slightly increased on the shoulders and hips. Patient asking if he should continue to be off work or if he should return? [facility] received to submit records from 10/05/2024 to present. Patient was transferred to [facility] to set up CTA's, consult to pulmonology and follow up with Cony Beckwith PA-C. Elizabeth Peters MA 10/31/2024 2:24 PM Signed Patient has been contacted and scheduled for a virtual visit tomorrow to discuss work restrictions. Allergies As of Date: 10/30/2024 Noted Allergy Reaction PENICILLINS 08/10/2024 14 - Other: See Comments Date Reviewed: 10/26/2024 Reviewed by: Coleen Coburn RN - Fully Assessed Reason for Visit: Results [95] Primary Visit Diagnosis:Giant cell arteritis (HCC) [M31.6] Other Visit Diagnoses:MDA5 antibody positive [R76.8] Lung nodule [R91.1] PMR (polymyalgia rheumatica) (HCC) [M35.3] Order(s):CTA CHEST (NONGATED) WO/W IVCON [[id number]] Order #: [id number] FUTURE CTA ABD/PEL WO/W IVCON [[id number]] Order #: [id number] FUTURE iv contrast (will be provided with radiology test)CTA CHEST (NONGATED) ABD/PEL WO/W IVCON - No IV access, insert saline lock prior to the sedation, infusion, injection for imaging exam. Discontinue saline lock post exam. If Pt. has a central line or IVAD, may access for administration according to line specific nursing protocol. Once exam is complete flush line and de-access according to line specific nursing protocol in the CT contrast administration guidelines link.Disp: 1 eachRfl: 0 CONSULT TO PULMONARY MEDICINE [[id number]] Order #: [id number]: 1 predniSONE (DELTASONE) 20 mg tabletTake 2.5 tablets by mouth once daily for 7 days, THEN 2 tablets once daily for 14 days.Disp: 46 tabletRfl: 0 Prescriptions as of 10/31/2024 - iv contrast (will be provided with radiology test) CTA CHEST (NONGATED) ABD/PEL WO/W IVCON - No IV access, insert saline lock prior to the sedation, infusion, injection for imaging exam. Discontinue saline lock post exam. If Pt. has a central line or IVAD, may access for administration according to line specific nursing protocol. Once exam is complete flush line and de-access according to line specific nursing protocol in the CT contrast administration guidelines link. - predniSONE (DELTASONE) 20 mg tablet Take 2.5 tablets by mouth once daily for 7 days, THEN 2 tablets once daily for 14 days. - predniSONE (DELTASONE) 20 mg tablet Take 3 tablets by mouth once daily. - pantoprazole DR (PROTONIX) 40 mg tablet Take 1 tablet by mouth once daily. - tiZANidine HCl (ZANAFLEX) 4 mg capsule Take 4 mg by mouth. Take 1 capsule everyday at bedtime as needed. - lisinopril (ZESTRIL) 10 mg tablet Take 10 mg by mouth once daily. Problem List As Of Date 10/30/2024 Noted Resolved Porokeratosis [Q82.8] 01/31/2010 Sesamoiditis [M25.80] 01/31/2010 Hypertension [I10] 09/14/2024 Tobacco user [Z72.0] 09/14/2024 Prescriptions ordered this encounter Disp Refills Start End IV CONTRAST (RADIOLOGY PROCEDURE) - * 1 ea* 0 10/30/2024 10/31/2024 Class: In Office Sig: CTA CHEST (NONGATED) ABD/PEL WO/W IVCON - No IV access, insert saline lock prior to the sedation, infusion, injection for imaging exam. Discontinue saline lock post exam. If Pt. has a central line or IVAD, may access for administration according to line specific nurs (more content not included)... Normal [facility] Basic metabolic 2000 panelon 10-26-2024 Anion gap [Moles/Vol] 14 mmol/L Normal 8-15 [facility] Comment on above: Order Comment: Speci men Type: BLOOD SPECIMEN Ordering Facility: [facility] Address: [address] [place] [address] Performed By: #### 2 4321-2 #### [facility] CLIA [id number] [address] [place] [address] [place] Calcium [Mass/Vol] 9.1 mg/dL Normal 8.5-10.2 [facility] Comment on above: Order Comment: Speci men Type: BLOOD SPECIMEN Ordering Facility: [facility] Address: [address] [place] [address] Performed By: #### 2 4321-2 #### [facility] CLIA [id number] [address] [place] [address] [place] [place] Chloride [Moles/Vol] 89 mmol/L Low 98-107 [facility] Comment on above: Order Comment: Speci men Type: BLOOD SPECIMEN Ordering Facility: [facility] Address: [address] [place] [address] Performed By: #### 2 4321-2 #### [facility] CLIA [id number] [address] [place] [address] [place] CO2 [Moles/Vol] 24 mmol/L Normal 22-30 [facility] Comment on above: Order Comment: Speci men Type: BLOOD SPECIMEN Ordering Facility: [facility] Address: [address] [place] [address] Performed By: #### 2 4321-2 #### [facility] CLIA [id number] [address] STATES OF [facility] Creatinine [Mass/Vol] 0.84 mg/dL Normal 0.73-1.22 [facility] Comment on above: Order Comment: Speci men Type: BLOOD SPECIMEN Ordering Facility: [facility] Address: [address] [place] [address] Performed By: #### 2 4321-2 #### [facility] CLIA [id number] [address] [place] Creatinine and Glomerular filtration rate.predicted panel (S/P/Bld) 95 mL/min/1.73m??? Normal >=60 [facility] Comment on above: Order Comment: Kenneth vogt Type: BLOOD SPECIMEN Ordering Facility: [facility] Address: [address] [place] [address] Result Comment: Jeannette mated Glomerular Filtration Rate (eGFR) is calculated using the 2020 CKD-EPI creatinine equation. This equation utilizes serum creatinine, sex, and age as parameters. The creatinine assay has traceable calibration to isotope dilution-mass spectrometry. Refer to KDIGO guidelines for clinical interpretation. In patients with unstable renal function, e.g. those with acute kidney injury, the eGFR may not accurately reflect actual GFR. Performed By: #### 2 4321-2 #### [facility] CLIA [id number] [address] [place] [address] [place] Glucose [Mass/Vol] 89 mg/dL Normal 74-99 [facility] Comment on above: Order Comment: Kenneth vogt Type: BLOOD SPECIMEN Ordering Facility: [facility] Address: [address] [place] [address] Result Comment: The [place] Diabetes Association (ADA) provides guidance for cutoff values for fasting glucose and random glucose. The ADA defines fasting as no caloric intake for at least 8 hours. Fasting plasma glucose results between 100 to 125 mg/dL indicate increased risk for diabetes (prediabetes). Fasting plasma glucose results greater than or equal to 126 mg/dL meet the criteria for diagnosis of diabetes. In the absence of unequivocal hyperglycemia, results should be confirmed by repeat testing. In a patient with classic symptoms of hyperglycemia or hyperglycemic crisis, random plasma glucose results greater than or equal to 200 mg/dL meet the criteria for diagnosis of diabetes. Reference: Standards of Medical Care in Diabetes 2016, [place] [employer] Association. Diabetes Care. 2016.39(Suppl 1). Performed By: #### 2 4321-2 #### [facility] CLIA [id number] [address] [place] [address] [place] Potassium [Moles/Vol] 4.4 mmol/L Normal 3.7-5.1 [facility] Comment on above: Order Comment: Kenneth vogt Type: BLOOD SPECIMEN Ordering Facility: [facility] Address: [address] [id number] Performed By: #### 2 4321-2 #### [facility] CLIA [id number] [address] [place] [address] [place] Sodium [Moles/Vol] 127 mmol/L Low 136-144 [facility] Comment on above: Order Comment: Speci men Type: BLOOD SPECIMEN Ordering Facility: [facility] Address: [address] [place] [address] Performed By: #### 2 4321-2 #### [facility] CLIA [id number] [address] [place] [address] [place] Urea nitrogen [Mass/Vol] 13 mg/dL Normal 9-24 [facility] Comment on above: Order Comment: Speci men Type: BLOOD SPECIMEN Ordering Facility: [facility] Address: [address] [place] [address] Performed By: #### 2 4321-2 #### [facility] CLIA [id number] [address] STATES OF [place] CBC panel Auto (Bld)on 10-26 Erythrocyte distribution width (RBC) [Ratio] 15.0 % Normal 11.5-15.0 [facility] Comment on above: Order Comment: Speci men Type: BLOOD SPECIMEN Ordering Facility: [facility] Address: [address] [place] [address] Performed By: #### 5 8410-2 #### [facility] CLIA [id number] [address] STATES [place] Hematocrit (Bld) [Volume fraction] 43.2 % Normal 39.0-51.0 [facility] Comment on above: Order Comment: Speci men Type: BLOOD SPECIMEN Ordering Facility: [facility] Address: [address] [place] [address] Performed By: #### 5 8410-2 #### [facility] CLIA [id number] [address] [place] [address] [place] Hemoglobin (Bld) [Mass/Vol] 15.6 g/dL Normal 13.0-17.0 [facility] Comment on above: Order Comment: Speci men Type: BLOOD SPECIMEN Ordering Facility: [facility] Address: [facility] [place] [address] Performed By: #### 5 8410-2 #### [facility] CLIA [id number] [address] MCH (RBC) [Entitic mass] 30.8 pg Normal 26.0-34.0 [facility] Comment on above: Order Comment: Speci men Type: BLOOD SPECIMEN Ordering Facility: [facility] Address: [address] [place] [address] Performed By: #### 5 8410-2 #### [facility] CLIA [id number] [address] MCHC (RBC) [Mass/Vol] 36.1 g/dL High 30.5-36.0 [facility] Comment on above: Order Comment: Speci men Type: BLOOD SPECIMEN Ordering Facility: [facility] Address: [address] [place] [address] Performed By: #### 5 8410-2 #### [facility] CLIA [id number] [address] MCV (RBC) [Entitic vol] 85.4 fL Normal 80.0-100.0 [facility] Comment on above: Order Comment: Speci men Type: BLOOD SPECIMEN Ordering Facility: [facility] Address: [address] [place] [address] Performed By: #### 5 8410-2 #### [facility] CLIA [id number] [address] Nucleated RBC (Bld) [#/Vol] 10*3/uL Normal <0.01 [facility] Comment on above: Order Comment: Speci men Type: BLOOD SPECIMEN Ordering Facility: [facility] Address: [address] [place] [address] Performed By: #### 5 8410-2 #### [facility] CLIA [id number] [address] Platelet mean volume (Bld) [Entitic vol] 9.4 fL Normal 9.0-12.7 [facility] Comment on above: Order Comment: Speci men Type: BLOOD SPECIMEN Ordering Facility: [facility] Address: [address] [place] [address] Performed By: #### 5 8410-2 #### [facility] CLIA [id number] [address] OF [place] Platelets (Bld) [#/Vol] 222 10*3/uL Normal 150-400 [facility] Comment on above: Order Comment: Speci men Type: BLOOD SPECIMEN Ordering Facility: [facility] Address: [address] [place] [address] Performed By: #### 5 8410-2 #### [facility] CLIA [id number] [address] OF [place] RBC (Bld) [#/Vol] 5.06 10*6/uL Normal 4.20-6.00 [facility] Comment on above: Order Comment: Speci men Type: BLOOD SPECIMEN Ordering Facility: [facility] Address: [address] [place] [address] Performed By: #### 5 8410-2 #### [facility] CLIA [id number] [address] WBC (Bld) [#/Vol] 8.51 10*3/uL Normal 3.70-11.00 [facility] Comment on above: Order Comment: Speci men Type: BLOOD SPECIMEN Ordering Facility: [facility] Address: [address] [place] [address] Performed By: #### 5 8410-2 #### [facility] CLIA [id number] [address] HISTORY PHYSICALon HISTORY PHYSICAL HNO ID: [id number] Author: JOSÉ MIGUEL JIANG MD Service: Vascular Surgery Author Type: Physician Type: H&P Filed: 10/26/2024 13:50 Note Text: UPDATED HISTORY AND PHYSICAL EXAMINATION SERVICE DATE: 10/26/2024 SERVICE TIME: 1:46 PM I had a discussion with Mr. Navarrete regarding the possibility of temporal arteritis. One option would be to move forward with bilateral biopsies. The technical aspects of the biopsy as well as the diagnostic benefit were explained in detail. The risks of the procedure were also discussed with the patient in detail including but not limited to bleeding, infection, DC, wound healing problems, nerve injury, negative biopsy, lingering pain. We also discussed the option of no biopsy with the inherent risk of missing the correct diagnosis. Mr. Navarrete expressed a clear understanding of our discussion and wish to proceed with temporal artery biopsy. PHYSICAL EXAM MUST BE COMPLETED ON ADMISSION The History and Physical (completed in the past 30 days) has been reviewed and the patient has been examined. The contents accurately reflect the patient's condition with the following additions or revisions since the HANDP was completed. General: WDWN in NAD Skin: No lesions; normal color, turgor HEENT: NCAT, EOMI, no icterus or adenopathy Carotid: Bruits none. Pulmonary: Clear to percussion and auscultation Coronary: Normal S1, S2; no murmurs, rubs or gallops Abdomen: No organomegaly, normal bowel sounds, non-tender Extremities: Normal range of motion, no edema or ulceration Vascular: 2+ Pulses throughout carotid, brachial radial, femoral, popliteal, PT, DP Neurologic: Awake, alert and oriented. Normal and symmetrical M/S function. This HANDP can be found in the Electronic Medical Record dated 10/14/2024. SIGNATURE: José Miguel Jiang MD PATIENT NAME: Aroldo Navarrete DATE: October 26, 2024 TIME: 1:46 PM [facility] OPERATIVE NOon 10-26-2024 OPERATIVE NO HNO ID: [id number] Author: JOSÉ MIGUEL JIANG MD Service: Vascular Surgery Author Type: Physician Type: Operative Report Filed: 11/06/2024 13:17 Note Text: OPERATIVE/PROCEDURE REPORT LOG ID: [id number] Surgery/Procedure Date: 10/26/2024 Incision/Procedure Start Time: 2:12 PM Incision Close/Procedure End Time: 2:40 PM Surgeon(s)/Procedurali st(s) and Php Magento Developer(s): Surgeons and Role: * José Miguel Jiang MD - Primary Registered Nurse Nurse Practical: Megan Napier RN Procedure(s): left temporal artery biopsy Anesthesia: Local Operative Indication: 69 year old male with left-sided headache, pain, vision changes with concern for temporal arteritis. Presents for biopsy. Procedure Details: Patient taken to the OR and laid supine on the table. The procedure as done under local. The patient's ipsilateral judaism and forehead were prepped and draped in the usual fashion. 1% lidocaine / 0.25% bupivacaine was used for local anesthetic. A 2 cm incision was made over the temporal artery pulse and the artery was identified with the use of a doppler, the artery was ligated with 3-0 silk in 2 areas and the portion between was cut and sent to pathology. The wound was irrigated, hemostasis achieved in the wound, and closed with 4-0 vicryl and 5-0 chromic suture. Skin glue was used for dressing. Patient was transferred to recovery in stable condition. Pre-Op/Pre-Procedure Diagnosis: left-sided headache, pain, vision changes Post-Op/Post-Procedure Diagnosis: same Estimated Blood Loss: 5 mls Specimens: left temporal artery Implantable Devices: None Drains: None Complications: None No qualified resident/fellow was available. I/primary surgeon/proceduralist performed the entire procedure. SIGNATURE: José Miguel Jiang MD PATIENT NAME: Aroldo Navarrete DATE: 10/26/2024 TIME: 2:41 PM PAGER/CONTACT #: [facility] Pathology biopsy report Ag (Tiss)on 10-26-2024 AP DISCLAIMER [facility] ital Comment on above: Order Comment: Speci men Type: TISSUE SPECIMEN Ordering Facility: [facility] Address: [address] [place] [address] Result Comment: Li hays Developed Test (LDT) Disclaimer: Performance characteristics of immunohistochemical, immunofluorescent, and chromogenic in-situ hybridization tests have been determined by the performing laboratory within [facility]'s [facility] Pathology and Laboratory Medicine Department ([facility], [facility], [facility], [facility], [facility], [facility], or [facility]) in a manner consistent with CLIA requirements. One or more of these tests may not have been cleared or approved by the FDA. [facility] is regulated under CLIA as qualified to perform high-complexity testing. These tests are used for clinical purposes. These should not be regarded as investigational or for research. Positive and negative controls stain appropriately. Performed By: #### 6 6121-5 #### [facility] CLIA [id number] [address] [place], [place] [address] [place] CASE REPORT Normal [facility] Comment on above: Order Comment: Speci men Type: TISSUE SPECIMEN Ordering Facility: [facility] Address: [address] [place] [address] Result Comment: Surg ica Pathology Report Case: [id number] Authorizing Provider: José Miguel Jiang MD Collected: 10/26/2024 02:12 PM Ordering Location: [facility] Surgery Received: 10/26/2024 02:55 PM Pathologist: Yani Trejo MD Specimen: Artery, Temporal, Biopsy, Left temporal artery Performed By: #### 6 6121-5 #### [facility] CLIA [id number] [address] [place] [address] OF [place] CLINICAL HISTORY Normal [facility] ospital Comment on above: Order Comment: Kenneth vogt Type: TISSUE SPECIMEN Ordering Facility: [facility] Address: [address] [place] [address] Result Comment: Pre- op diagnosis: GCA (giant cell arteritis) (HCC) [M31.6] Performed By: #### 6 6121-5 #### [facility] CLIA [id number] [address] [place] [address] [place] DIAGNOSIS COMMENT Movat stain was performed to assess the vascular architecture with adequate control. Movat stain shows a segment of muscular type artery with concentric intimal hyperplasia with approximately 40% luminal stenosis. There is focal loss and mild fragmentation of the internal elastic lamina involving half of the arterial circumference with elastic fiber reduplication. The subjacent media in this area shows no fibrosis or scarring. There is no neovascularization seen. There are no inflammatory infiltrates, giant cells or granulomas noted in the intima, media, adventitia or vasa vasorum. There is no evidence of active or healed arteritis. Normal [facility] Comment on above: Order Comment: Kenneth [facility] Type: TISSUE SPECIMEN Ordering Facility: [facility] Address: [address] [place] [address] Performed By: #### 6 6121-5 #### [facility] CLIA [id number] [address] [place] [address] [place] FINAL DIAGNOSIS Normal [facility] spital Comment on above: Order Comment: Speci men Type: TISSUE SPECIMEN Ordering Facility: [facility] Address: [address] [place] [address] Result Comment: A. L eft temporal artery, biopsy: - Negative for arteritis. at 1553 EDT Performed By: #### 6 6121-5 #### [facility] CLIA [id number] [address] [place] [address] FINAL PERFORMING LAB [facility] Comment on above: Order Comment: Speci men Type: TISSUE SPECIMEN Ordering Facility: [facility] Address: [address] [place] [address] Result Comment: Diag nostic interpretation performed at: [facility], [address] [place] [address] CLIA# [id number] Brand Sales Consultant: Caleb Hooper MD Performed By: #### 6 6121-5 #### [facility] CLIA [id number] [address] [place] [address] GROSS DESCRIPTION [facility] Comment on above: Order Comment: Speci men Type: TISSUE SPECIMEN Ordering Facility: [facility] Address: [address] [place] [address] Result Comment: A. A rtery, Temporal, Biopsy Received in formalin on Telfa gauze is one segment of cylindrical tissue measuring 1.5 x 0.3 x 0.2 cm, trejo-red and of a rubbery consistency. Totally submitted in one cassette. Gross examination performed at [facility], [address] [place] [address] AMS October 26, 2024 5:31 PM Performed By: #### 6 6121-5 #### [facility] CLIA [id number] [address] [place] [address] OF [place] CNPAlissa 10-18-2024 CNPN Telephone ([facility]) AROLDO NAVARRETE ([id number]) 1955 M Date Time Provider Department 10/18/24 CONY BECKWITHWSDIEGO During your visit today, we recorded the following information about you: Cony Beckwith PA-C 10/18/2024 11:08 AM Signed Repeat Chest CT ordered for 6-12 mo in future per radiology recommendation for lung nodule Cony Beckwith PA-C Allergies As of Date: 10/18/2024 Noted Allergy Reaction PENICILLINS 08/10/2024 14 - Other: See Comments Date Reviewed: 10/11/2024 Reviewed by: Salma Wilder RPFT - Fully Assessed Primary Visit Diagnosis:Lung nodule [R91.1] Order(s):CT CHEST WO NUNO [[id number]] Order #: [id number] FUTURE Prescriptions as of 10/18/2024 - predniSONE (DELTASONE) 20 mg tablet Take 3 tablets by mouth once daily for 14 days. Do not stop suddenly, call office when you are running low. - tiZANidine HCl (ZANAFLEX) 4 mg capsule Take 4 mg by mouth. Take 1 capsule everyday at bedtime as needed. - lisinopril (ZESTRIL) 10 mg tablet Take 10 mg by mouth once daily. Problem List As Of Date 10/18/2024 Noted Resolved Porokeratosis [Q82.8] 01/31/2010 Sesamoiditis [M25.80] 01/31/2010 Hypertension [I10] 09/14/2024 Tobacco user [Z72.0] 09/14/2024 Encounter Status:Closed by CONY BECKWITH on 10/18/24 Normal [facility] Telephone ([email or web address]) AROLDO NAVARRETE ([id number]) 1955 M Date Time Provider Department 10/18/24 CONY BECKWITH During your visit today, we recorded the following information about you: Ruby Fowler LPN 10/18/2024 2:11 PM Signed Received via fax: [facility] Date: 10/17/24 Noted: [facility] Ph. [phone] option #1 Requesting clarification to be faxed to their office regarding EMG on which side and which extremity Please fax back order to [phone] NILAY Aguilar Kaitlyn, PA-C 10/18/2024 3:19 PM Signed External order can be cancelled, pt had this done at [facility] on Wednesday. Cony Beckwith PA-C Allergies As of Date: 10/18/2024 Noted Allergy Reaction PENICILLINS 08/10/2024 14 - Other: See Comments Date Reviewed: 10/11/2024 Reviewed by: Salma Wilder RPFT - Fully Assessed Prescriptions as of 10/18/2024 - predniSONE (DELTASONE) 20 mg tablet Take 3 tablets by mouth once daily for 14 days. Do not stop suddenly, call office when you are running low. - tiZANidine HCl (ZANAFLEX) 4 mg capsule Take 4 mg by mouth. Take 1 capsule everyday at bedtime as needed. - lisinopril (ZESTRIL) 10 mg tablet Take 10 mg by mouth once daily. Problem List As Of Date 10/18/2024 Noted Resolved Porokeratosis [Q82.8] 01/31/2010 Sesamoiditis [M25.80] 01/31/2010 Hypertension [I10] 09/14/2024 Tobacco user [Z72.0] 09/14/2024 Encounter Status:Closed by RUBY FOWLER on 10/18/24 [facility] 10-16-2024 [facility] Telephone (WSTR) AROLDO NAVARRETE ([id number]) 1955 M Date Time Provider Department 10/16/24 CONY BECKWITH [facility] During your visit today, we recorded the following information about you: Roya Juarez LPN 10/16/2024 8:14 AM Signed Patient calling in wondering if his disability paperwork has been received via fax? Patient is requesting a call back. NILAY Fontenot Amy M, MA 10/17/2024 8:39 AM Signed Paperwork was received on 10/13/2024. I called and left a detailed message for the patient on his voicemail that it has been received, but has not been processed yet. Elizabeth Peters MA 10/18/2024 8:27 AM Signed Forms processed and records sent back to [facility] that have been requested. Confirmation received. Allergies As of Date: 10/16/2024 Noted Allergy Reaction PENICILLINS 08/10/2024 14 - Other: See Comments Date Reviewed: 10/11/2024 Reviewed by: Salma Wilder RPFT - Fully Assessed Reason for Visit: disability paperwork [Other] Prescriptions as of 10/18/2024 - predniSONE (DELTASONE) 20 mg tablet Take 3 tablets by mouth once daily for 14 days. Do not stop suddenly, call office when you are running low. - tiZANidine HCl (ZANAFLEX) 4 mg capsule Take 4 mg by mouth. Take 1 capsule everyday at bedtime as needed. - lisinopril (ZESTRIL) 10 mg tablet Take 10 mg by mouth once daily. Problem List As Of Date 10/16/2024 Noted Resolved Porokeratosis [Q82.8] 01/31/2010 Sesamoiditis [M25.80] 01/31/2010 Hypertension [I10] 09/14/2024 Tobacco user [Z72.0] 09/14/2024 Encounter Status:Closed by ELIZABETH PETERS on 10[facility]18/24 [facility] Tele[facility] (OPHTMN) AROLDO NAVARRETE ([id number]) 1955 M Date Time Provider Department 10/14/24 GUEVARA JIMÉNEZ [facility] During your visit today, we recorded the following information about you: Guevara Jiménez MD 10/14/2024 4:29 PM Signed Pre-Procedure Note Patient referred by Dr. Renny Forrester for consideration of GCA in setting of PMR symptoms with headache. Advised TABx, referred to oculofacial plastics. Treatment with oral prednisone 20 mg on 10/04/24, increased to 60 mg 10/13/24. Additional Work-up: TAUS pending 09/14/24 ESR 2 (nl), CRP <0.3 (nl), plt 173 (nl) Assessment: Concern for giant cell arteritis - Scenario described above. - Discussed temporal artery biopsy procedure in detail with patient. Goal is to take a segment of artery (~2cm) for the pathologist to examine for evidence of giant cell arteritis. Incision will be behind hairline or just in front of hairline (depending on artery course) usually 4-5 cm in length. A dressing will be placed and after removal on post-op day 2, bacitracin or erythromycin ointment will be applied 4x daily for 5 days. All sutures dissolve, no need for post op appt with Dr. Jiménez. A false negative result is possible and in some cases the referring doctor will subsequently recommend biopsy of the contralateral side in the setting of an initial negative result. This is at the discretion of the referring doctor. Risks of procedure include temporary discomfort or numbness in the area of the surgery. There will be a scar anywhere an incision is made, though behind hairline to make it less obvious. Less likely risks include inadequate specimen, hypertrophic scar, bleeding, hematoma, infection, inflammation, damage to nearby structures (nerve or muscle). Patient understands and would like to proceed. - Steroids managed by referring doctor, not Dr. Jiménez Plan: Patient will try to find another doctor to do the biopsy closer to his home in [place], [place]. Allergies As of Date: 10/14/2024 Noted Allergy Reaction PENICILLINS 08/10/2024 14 - Other: See Comments Date Reviewed: 10/11/2024 Reviewed by: Salma Wilder RPFT - Fully Assessed Prescriptions as of 10/14/2024 - predniSONE (DELTASONE) 20 mg tablet Take 3 tablets by mouth once daily for 14 days. Do not stop suddenly, call office when you are running low. - tiZANidine HCl (ZANAFLEX) 4 mg capsule Take 4 mg by mouth. Take 1 capsule everyday at bedtime as needed. - lisinopril (ZESTRIL) 10 mg tablet Take 10 mg by mouth once daily. Problem List As Of Date 10/14/2024 Noted Resolved Porokeratosis [Q82.8] 01/31/2010 Sesamoiditis [M25.80] 01/31/2010 Hypertension [I10] 09/14/2024 Tobacco user [Z72.0] 09/14/2024 Encounter Status:Closed by GUEVARA JIMÉNEZ on 10/14/24 [facility] CNOVon 10-13-2024 CNOV Office Visit (RHEUMN ) AROLDO NAVARRETE ([id number]) 1955 M Date Time Provider Department 10/13/24 3:00 PM RENNY FORRESTER During your visit today, we recorded the following information about you: Weight Height 59.4 kg 1.81 m Renny Forrester MD 10/14/2024 2:11 PM Addendum Rheumatology Clinic Follow-up Visit Date of Service: 10/13/2024 Patient: Aroldo Navarrete Medical Record: [id number] Primary Care Physician: No primary care provider on file. 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 History obtain from patient interview and chart review. - 3-4 months ago, onset of muscle pain in shoulder/hip (described as achiness) as well as calves, back, and arms. Pain worse in the AM and improved during the day. Movement worsened symptoms. - July 2024. He was seen at [facility] for headache, myalgia, fatigue, cough, congestion. Dx viral syndrome. - September 2024. 1st Rheum appt. Myalgias in hips/shoulders, mild weakness with cachexia, difficulty rising from chair. ESR, CRP, CK, aldolase normal. Started on prednisone 20mg for PMR with 40-60% improvement of symptoms but had persistent muscle pain. - PFTs 10/04/24 - FVC 91, FEV1 64, FEV1/FVC 68, DLCO 58. - EMG without evidence of myopathy. CT Chest with emphysematous changes as well as 1 cm RUL ground glass nodule. Other symptoms include - Blurrier vision over the past few months, no episodes of vision loss - Headache in temples bilaterally - No jaw issues, no scalp sensitivity, no anterior neck pain, no fever - He has had more fatigue and felt run down over the past few months. Unintentional 5-10 pound weight loss, attributes to lower appetite. - Trouble breathing going up stairs. This is not particularly new. He is a long time smoker. - About 1 month ago, developed all over muscle weakness. This started after his muscle pain. He was not on steroids when this started. - 1 month of all over muscle weakness, noticeable going up stairs - No raynauds - No rash, skin changes, photosensitiivty With prednisone 20mg, pain has improved 40%. Reports he is eating more but no other side effects. Notes he has been thin his whole life. No FH of autoimmune disease. Review of Systems Review of Systems CONSTITUTION: Positive for: Recent weight change Negative for: Fever HEENT: Negative for: Mouth sores, Trouble swallowing and Dry mouth RESPIRATORY: Positive for: Cough and Shortness of breath GASTROINTESTINAL: Negative for: Melena, Diarrhea and Abdominal pain MUSCULOSKELETAL: Positive for: Myalgias, Muscle weakness and Morning Joint Stiffness Negative for: Arthralgias and Joint swelling NEUROLOGICAL: Positive for: Headaches Negative for: Numbness SKIN: Negative for: Rash, Sun Sensitive Rash and Skin changes EYES: Negative for: Eye pain, Eye redness and Eye dryness CARDIOVASCULAR: Negative for: Chest pain and Leg swelling GENITOURINARY: Negative for: Dysuria and Hematuria HEMATOLOGIC/LYMPHATIC: Negative for: Swollen glands All other reviewed and negative other than HPI. Relevant Data Creatinine (mg/dL) Date Value 09/14/2024 0.97 AST (U/L) Date Value 09/14/2024 46 (H) ALT (U/L) Date Value 09/14/2024 34 WBC (k/uL) Date Value 09/14/2024 7.43 Hemoglobin (g/dL) Date Value 09/14/2024 16.6 Platelet Count (k/uL) Date Value 09/14/2024 173 CRP (mg/dL) Date Value 09/14/2024 <0.3 Sed Rate, Westergren (mm/hr) Date Value 09/14/2024 2 Current Medications Current Outpatient Medications on File Prior to Visit Medication Sig predniSONE (DELTASONE) 20 mg tablet Take 1 tablet by mouth once daily for 14 days. Do not stop suddenly, call office when you are running low. tiZANidine HCl (ZANAFLEX) 4 mg capsule Take 4 mg by mouth. Take 1 capsule everyday at bedtime as needed. lisinopril (ZESTRIL) 10 mg tablet Take 10 mg by mouth once daily. naproxen (NAPROSYN) 500 mg tablet Take 1 tablet by mouth twice daily as needed (for pain/inflammation). Take with food. (Patient not taking: Reported on 09/14/2024) No current facility-administered medications on file prior to visit. Physical Exam Ht 181 cm (5' 11.26) Wt 59.4 kg (130 lb 15.3 oz) BMI 18.13 kg/m? GENERAL: Well-appearing, no acute distress. HEENT: EOMI. No oral lesions. Moist mucous membranes. NODES: No cervical, submandibular, or subclavian LAD HEART: RRR, no murmur LUNGS: CTAB, no increased WOB SKIN: No rash, no excessive bruising, petechiae, or purpura. NEUROLOGIC: Alert and oriented. Neck flexion/extension 5/5 Shoulder abduction/adduction R 5/5, L 5/5 Elbow flexion R 4+/5, L 4+/5 Elbow extension R 4+/5, L 4+/5 Wrist extension R 5/5, L 5/5 Fruit Grading [employer] strength R 5/5, L 5/5 Hip flexion R 4+/5, L 4+/5 Knee flexion R 4+/5, L 4+/5 Knee (more content not included)... Normal [facility] EMG(NEURO/NI)on 10-13-2024 Results can be seen in attached scanned documents. If you are a patient reviewing this test result, call the doctor who ordered the test with any questions. [facility] CNCOon 10-12-2024 CNCO Letter Text Normal [facility] CT CHEST WO IVCONon 10-12-19 CT CHEST WO IVCON * * *Final Report* * * DATE OF EXAM: Oct 11 2024 10:57AM [facility] 0541 - CT CHEST WO IVCON / PROCEDURE REASON: multiple diagnoses * * * * Physician Interpretation * * * * EXAMINATION: CHEST CT WITHOUT CONTRAST CLINICAL HISTORY: Weakness Polymyositis with myopathy (HCC) Chronic pain of both shoulders Chronic pain of both shoulders Technique: Spiral CT acquisition of the chest from the thoracic inlet to the upper abdomen without contrast. MQ: CTCWO_6 CT Radiation dose: Integrated Dose-length product (DLP) for this visit = 171 mGy*cm CT Dose Reduction Employed: Automated exposure control(AEC) and iterative recon Comparison: None. RESULT: Limitations: None. Lines, tubes, and devices: None. Lung parenchyma and airways: No consolidation. A 5 mm anterior right upper lobe pulmonary nodule and adjacent linear scarring on image 81. A 10 mm groundglass nodule at the lateral right upper lobe on image 84. A few scattered calcified granulomas. Moderate upper lung predominant centrilobular and paraseptal emphysema. Mild biapical scarring, likely post inflammatory.. Layering nonobstructive secretions in the bilateral main bronchi.There are areas of mucus plugging and bronchial wall thickening in both lungs. Pleural space: No pleural effusion or thickening. No pneumothorax. Lower neck, lymph nodes, and mediastinum: The imaged thyroid gland is normal. No enlarged thoracic lymph nodes. Calcified aortopulmonary lymph nodes indicates evidence of prior granulomatous infection, such as histoplasmosis or tuberculosis There is mild diffuse esophageal dilatation. Heart, pericardium, and thoracic vessels: The thoracic aorta and main pulmonary artery are normal in caliber. The cardiac chambers are normal in size. No detectable coronary artery atherosclerotic calcifications are noted, although the study is not optimized for coronary assessment. No pericardial effusion or thickening. Mild atherosclerotic calcifications of the thoracic aorta and arch vessels. Bones and soft tissues: Degenerative changes are seen. Upper abdomen: No acute abnormality in the imaged upper abdomen. Localizer images: No additional findings. IMPRESSION: 1. A 1 cm right upper lobe groundglass nodule, which may be infectious/inflammator y vs. Lesion along the adenocarcinoma spectrum. Attention on follow-up is recommended. 2. No thoracic lymphadenopathy. 3. Smoking related lung injury. Incidental Finding: Follow-up Acuity: Incidental Finding: Non solid: 6 mm or greater (solitary nodule) Routing Code: RI_1 Recommendation: CT Chest WO IVCON Time Frame: 6-12 months Comments: If stable on follow-up imaging, repeat chest CT exams in 24 and 48 months are recommended (at 30-36 and 54-60 months from the initial exam) --END OF FINDING-- Airconditioning Drafting Officer: CLARSISA Transcribe Date/Time: Oct 11 2024 10:03P Dictated by : JEAN STOVER MD This examination was interpreted and the report reviewed and electronically signed by: JEAN STOVER MD on Oct 11 2024 10:07PM EST [id number] [id number] Invalid Interpretation Code [facility] CT Chest WO contrastOrdered By: [facility] Provider on 10-11-2024 Interpretation and review of laboratory results Abnormal [facility] Radiology Result ACTIONABLE Abnormal [facility] Comment on above: This report contains an incidental or actionable finding. This finding may be a new finding separate from the reason your provider ordered the imaging test or it may be an already known finding that needs additional or continued follow-up. Because of this incidental or actionable finding, you may need another test (imaging or a different type of test). Please contact your provider for the next steps. [facility] CT Chest WO contraston 10-11 IMPRESSION: 1. A 1 cm right upper lobe groundglass nodule, which may be infectious/inflammator y vs. Lesion along the adenocarcinoma spectrum. Attention on follow-up is recommended. 2. No thoracic lymphadenopathy. 3. Smoking related lung injury. Incidental Finding: Follow-up Acuity: Incidental Finding: Non solid: 6 mm or greater (solitary nodule) Routing Code: RI_1 Recommendation: CT Chest WO IVCON Time Frame: 6-12 months Comments: If stable on follow-up imaging, repeat chest CT exams in 24 and 48 months are recommended (at 30-36 and 54-60 months from the initial exam) --END OF FINDING-- Airconditioning Drafting Officer: CLARISSA Transcribe Date/Time: Oct 11 2024 10:03P Dictated by : JEAN STOVER MD This examination was interpreted and the report reviewed and electronically signed by: JEAN STOVER MD on Oct 11 2024 10:07PM [facility] DIVISION OF RADIOLOGY * * *Final Report* * * DATE OF EXAM: Oct 11 2024 10:57AM [facility] 0541 - CT CHEST WO IVCON / PROCEDURE REASON: multiple diagnoses * * * * Physician Interpretation * * * * EXAMINATION: CHEST CT WITHOUT CONTRAST CLINICAL HISTORY: Weakness Polymyositis with myopathy (HCC) Chronic pain of both shoulders Chronic pain of both shoulders Technique: Spiral CT acquisition of the chest from the thoracic inlet to the upper abdomen without contrast. MQ: CTCWO_6 CT Radiation dose: Integrated Dose-length product (DLP) for this visit = 171 mGy*cm CT Dose Reduction Employed: Automated exposure control(AEC) and iterative recon Comparison: None. RESULT: Limitations: None. Lines, tubes, and devices: None. Lung parenchyma and airways: No consolidation. A 5 mm anterior right upper lobe pulmonary nodule and adjacent linear scarring on image 81. A 10 mm groundglass nodule at the lateral right upper lobe on image 84. A few scattered calcified granulomas. Moderate upper lung predominant centrilobular and paraseptal emphysema. Mild biapical scarring, likely post inflammatory.. Layering nonobstructive secretions in the bilateral main bronchi.There are areas of mucus plugging and bronchial wall thickening in both lungs. Pleural space: No pleural effusion or thickening. No pneumothorax. Lower neck, lymph nodes, and mediastinum: The imaged thyroid gland is normal. No enlarged thoracic lymph nodes. Calcified aortopulmonary lymph nodes indicates evidence of prior granulomatous infection, such as histoplasmosis or tuberculosis There is mild diffuse esophageal dilatation. Heart, pericardium, and thoracic vessels: The thoracic aorta and main pulmonary artery are normal in caliber. The cardiac chambers are normal in size. No detectable coronary artery atherosclerotic calcifications are noted, although the study is not optimized for coronary assessment. No pericardial effusion or thickening. Mild atherosclerotic calcifications of the thoracic aorta and arch vessels. Bones and soft tissues: Degenerative changes are seen. Upper abdomen: No acute abnormality in the imaged upper abdomen. Localizer images: No additional findings. DIVISION OF RADIOLOGY Provider, [facility] - 10/11/2024 * * *Final Report* * * DATE OF EXAM: Oct 11 2024 10:57AM [facility] 0541 - CT CHEST WO IVCON / PROCEDURE REASON: multiple diagnoses * * * * Physician Interpretation * * * * EXAMINATION: CHEST CT WITHOUT CONTRAST CLINICAL HISTORY: Weakness Polymyositis with myopathy (HCC) Chronic pain of both shoulders Chronic pain of both shoulders Technique: Spiral CT acquisition of the chest from the thoracic inlet to the upper abdomen without contrast. MQ: CTCWO_6 CT Radiation dose: Integrated Dose-length product (DLP) for this visit = 171 mGy*cm CT Dose Reduction Employed: Automated exposure control(AEC) and iterative recon Comparison: None. RESULT: Limitations: None. Lines, tubes, and devices: None. Lung parenchyma and airways: No consolidation. A 5 mm anterior right upper lobe pulmonary nodule and adjacent linear scarring on image 81. A 10 mm groundglass nodule at the lateral right upper lobe on image 84. A few scattered calcified granulomas. Moderate upper lung predominant centrilobular and paraseptal emphysema. Mild biapical scarring, likely post inflammatory.. Layering nonobstructive secretions in the bilateral main bronchi.There are areas of mucus plugging and bronchial wall thickening in both lungs. Pleural space: No pleural effusion or thickening. No pneumothorax. Lower neck, lymph nodes, and mediastinum: The imaged thyroid gland is normal. No enlarged thoracic lymph nodes. Calcified aortopulmonary lymph nodes indicates evidence of prior granulomatous infection, such as histoplasmosis or tuberculosis There is mild diffuse esophageal dilatation. Heart, pericardium, and thoracic vessels: The thoracic aorta and main pulmonary artery are normal in caliber. The cardiac chambers are normal in size. No detectable coronary artery atherosclerotic calcifications are noted, although the study is not optimized for coronary assessment. No pericardial effusion or thickening. Mild atherosclerotic calcifications of the thoracic aorta and arch vessels. Bones and soft tissues: Degenerative changes are seen. Upper abdomen: No acute abnormality in the imaged upper abdomen. Localizer images: No additional findings. IMPRESSION IMPRESSION: 1. A 1 cm right upper lobe groundglass nodule, which may be infectious/inflammator y vs. Lesion along the adenocarcinoma spectrum. Attention on follow-up is recommended. 2. No thoracic lymphadenopathy. 3. Smoking related lung injury. Incidental Finding: Follow-up Acuity: Incidental Finding: Non solid: 6 mm or greater (solitary nodule) Routing Code: RI_1 Recommendation: CT Chest WO IVCON Time Frame: 6-12 months Comments: If stable on follow-up imaging, repeat chest CT exams in 24 and 48 months are recommended (at 30-36 and 54-60 months from the initial exam) --END OF FINDING-- Airconditioning Drafting Officer: CLARISSA Transcribe Date/Time: Oct 11 2024 10:03P Dictated by : JEAN STOVER MD This examination was interpreted and the report reviewed and electronically signed by: JEAN STOVER MD on Oct 11 2024 10:07PM EST [facility] Radiology Study observation (narrative) [facility] LUNG VOLUMESon 10-11-2024 ERV BOX (L) 1.78 L [facility] ERV PREDICTED (L) 1.44 L/S [facility] FRC Box (L) 4.7 L [facility] IC BOX (L) 2.02 L [facility] IC PREDICTED (L) 2.88 L/S [facility] d [facility] RV Box (L) 2.91 L [facility] RV Box PREDICTED (L) 2.48 L [facility] RV/TLC Box (%) 43 % [facility] RV/TLC Box PREDICTED (%) 35 % [facility] SVC LLN (L) 3.22 L/S [facility] SVC PREDICTED (L) 4.32 L/S [facility] SVC ULN (L) 5.43 L/S [facility] TLC Box (L) 6.69 L [facility] TLC Box PREDICTED (L) 7.27 L [facility] VC (L) BOX 3.8 L [facility] [address] [place] [address] Test Date: 2024-10-11 Pat Name: AROLDO NAVARRETE Department: Room: Gender: Male Residential Coordinator: : 1955 Requested By: Order Number: [id number] Reading MD: Irina Pretty MD Interpretive Statements Current ATS/ERS acceptability and repeatability standards for lung volumes met. IMPRESSION: Elevated lung volumes (RV and/or RV/TLC) indicate minimal air trapping. Electronically Signed On 10-11-2024 11:38:37 EDT by Irina Pretty MD ID: [id number] Name: AROLDO NAVARRETE Race: Black or Ht: 71.26 in Wt: 126.00 lbs Age: 69 Gender: Male : 1955 Dx: Shortness of breath Smoking Hx: Non-smoker Doctor: CONY BECKWITH Test Date: 10/11/2024 Site: WO Tech: Petush, Salma PRE-BRONCH POST-BRONCH Corinne LLN Pred ULN %Pred ZScore Cornine %Pred %Chg ZScore LUNG VOLUMES FRC(Pleth) 4.70 2.68 3.87 5.05 121 1.16 ERV 1.78 1.44 123 RV(Pleth) 2.91 1.86 2.48 3.09 117 1.15 SVC 3.80 3.22 4.32 5.43 88 -0.77 IC 2.02 2.88 70 TLC(Pleth) 6.69 5.97 7.27 8.58 92 -0.73 RV/TLC(Pleth) 43 28 35 42 123 1.90 Comments: Current ATS/ERS acceptability and repeatability standards for lung volumes met. PULMONARY FUNCTION LAB [facility] LUNG VOLUMES [facility] [place] [address] [place] [address] Test Date: 2024-10-11 Pat Name: AROLDO NAVARRETE Department: Room: Gender: Male Residential Coordinator: : 1955 Requested By: Order Number: [id number] Reading MD: Irina Pretty MD Interpretive Statements Current ATS/ERS acceptability and repeatability standards for lung volumes met. IMPRESSION: Elevated lung volumes (RV and/or RV/TLC) indicate minimal air trapping. Electronically Signed On 10-11-2024 11:38:37 EDT by Irina Pretty MD ID: [id number] Name: AROLDO NAVARRETE Race: Black or Ht: 71.26 in Wt: 126.00 lbs Age: 69 Gender: Male : 1955 Dx: Shortness of breath Smoking Hx: Non-smoker Doctor: CONY BECKWITH Test Date: 10/11/2024 Site: Tech: Meño Salma PRE-BRONCH POST-BRONCH Corinne LLN Pred ULN %Pred ZScore Corinne %Pred %Chg ZScore LUNG VOLUMES FRC(Pleth) 4.70 2.68 3.87 5.05 121 1.16 ERV 1.78 1.44 123 RV(Pleth) 2.91 1.86 2.48 3.09 117 1.15 SVC 3.80 3.22 4.32 5.43 88 -0.77 IC 2.02 2.88 70 TLC(Pleth) 6.69 5.97 7.27 8.58 92 -0.73 RV/TLC(Pleth) 43 28 35 42 123 1.90 Comments: Current ATS/ERS acceptability and repeatability standards for lung volumes met. VC BOX (L) : 3.80 L SVC_PRED (L) : 4.32 L/S SVC_LLN (L) : 3.22 L/S SVC_ULN (L/S) : 5.43 L/S IC BOX (L) : 2.02 L IC_PRED (L) : 2.88 L/S ERV BOX (L) : 1.78 L ERV_PREDICTED (L) : 1.44 L/S FRC BOX (L) : 4.70 L RV BOX (L) : 2.91 L RV_PLETH_PRED (L) : 2.48 L TLC BOX (L) : 6.69 L TLC_PLETH_PRED (L) : 7.27 L RV/TLC BOX (%) : 43 % RV_TLC_PLETH_PRED (%) : 35 % Normal [facility] CNOVon 10-04-2024 CNOV Office Visit (RHWSTR ) AROLDO NAVARRETE ([id number]) 1955 M Date Time Provider Department 10/04/24 10:00 AM CONY BECKWITH During your visit today, we recorded the following information about you: Pulse Respiration Blood pressure 75/minute 17/minute 118/82 Cony Beckwith PA-C 10/04/2024 11:13 AM Addendum Continue taking your prednisone as prescribed; a refill has been sent to [facility] in [place]. Schedule an EMG (nerve study) at any [facility] within the week - a referral has been provided to help confirm your diagnosis. Complete pulmonary function tests (breathing tests) to assess your lung function; these tests are important given your symptoms. Expect to be contacted regarding scheduling a follow-up appointment with a specialist experienced in this condition, preferably at a location closer to [place] if possible. The note from your visit on September 19 is on file with your employer; if additional paperwork is needed, they can send a fax request. You have an appointment at [facility] on 10/13/2024 at 3:[address] Forrester of [facility] rheumatology. Please arrive at 2:45 for this appointment/. Cony Beckwith PA-C 10/04/2024 4:21 PM Signed Rheumatology FOLLOW UP VISIT Date of Service: 10/04/2024 Patient: Aroldo Navarrete Medical Record: [id number] Primary Care Physician: No primary care provider on file. History of Present Illness Aroldo is a 69-year-old male presenting for follow-up on muscle pain and weakness. He is currently taking naproxen, prednisone. Aroldo is both RF - 12 (09/14/2024) and CCP - 13.5 (09/14/2024) negative. His most recent KAREN was negative (09/27/2024). Aroldo reports a 60% improvement in muscle pain since starting prednisone but notes persistent weakness. He also experiences intermittent dysphagia and dyspnea, which began around the same time as the muscle symptoms and have worsened concurrently. He reports ongoing lightheadedness, particularly when sitting up quickly or turning his head, but denies vertigo. He denies any rashes or ocular symptoms. He is currently out of prednisone and requests a refill. He is covered off work until next week and [facility] Pain Evaluation 04/15/2015 09/14/2024 09/27/2024 Pain Evaluation Pain Score 6 7 10 Location Chest -- -- Location Comment All over everywhere Description Aching;Sore Aching Cramping Duration (#) 1 4 -- Duration (Timeframe) Weeks Months Frequency Continuous Continuous Continuous Intervention Medication Other: See comment Patient-Entered Data None Review of Systems No Jaw claudication, no judaism swanson, no sudden vision loss. + Vision changes over time. Denies rashes on his eyelids, chest, Fingers. Admits shortness of breath. Admits dysphagia Past Medical History History reviewed. No pertinent past medical history. Past Surgical History History reviewed. No pertinent surgical history. Family History No family history on file. Social History Social History Tobacco Use Smoking status: Every Day Current packs/day: 0.50 Average packs/day: 0.5 packs/day for 20.0 years (10.0 ttl pk-yrs) Types: Cigarettes Smokeless tobacco: Never Vaping Use Vaping status: Former Substances: THC Substance Use Topics Alcohol use: Yes Comment: Beer everyday - 3- 16 oz cans Drug use: No Current Medications Current Outpatient Medications Medication Sig tiZANidine HCl (ZANAFLEX) 4 mg capsule Take 4 mg by mouth. Take 1 capsule everyday at bedtime as needed. lisinopril (ZESTRIL) 10 mg tablet Take 10 mg by mouth once daily. predniSONE (DELTASONE) 20 mg tablet Take 1 tablet by mouth once daily for 14 days. Do not stop suddenly, call office when you are running low. naproxen (NAPROSYN) 500 mg tablet Take 1 tablet by mouth twice daily as needed (for pain/inflammation). Take with food. (Patient not taking: Reported on 09/14/2024) Labs Latest Ref Rng AND Units 01/05/2012 09/14/2024 CBC WBC 3.70 - 11.00 k/uL 7.43 Hemoglobin 13.0 - 17.0 g/dL 16.6 Hemoglobin, [place] 13.0 - 17.0 g/dL 16.7 Hematocrit 39.0 - 51.0 % 48.1 Platelet Count 150 - 400 k/uL 173 Abs Neut, [place] 1.45 - 7.50 k/uL 2.73 Abs Lymp, [place] 1.00 - 4.00 k/uL 2.28 Latest Ref Rng AND Units 01/05/2012 09/14/2024 CMP Sodium 136 - 144 mmol/L 141 Sodium, [place] 135 - 146 mmol/L 142 Potassium 3.7 - 5.1 mmol/L 4.3 Potassium, [place] 3.5 - 5.0 mmol/L 4.7 Chloride 98 - 107 mmol/L 102 Chloride, [place] 98 - 110 mmol/L 102 CO2 22 - 30 mmol/L 28 CO2, [place] 23.0 - 32.0 mmol/L 29.6 Glucose 74 - 99 mg/dL 102 Glucose, [place] 65 - 100 mg/dL 97 BUN 9 - 24 mg/dL 11 BUN, [place] 10 - 25 mg/dL 9 Creatinine 0.73 - 1.22 mg/dL 0.97 Creatinine, [place] 0.7 - 1.4 mg/dL 1.1 Calcium, [place] 8.5 - 10.5 mg/dL 9.1 Calcium 8.5 - 10.2 mg/dL 10.0 AST 14 - 40 U/L 46 AST, [place] 7 - 40 (more content not included)... Normal [facility] AROLDO NAVARRETE ([id number]) 1955 M Date Time Provider Department 10/04/24 CONY BECKWITH [facility] During your visit today, we recorded the following information about you: Cony Beckwith PA-C 10/04/2024 11:59 AM Signed Patient needs CT scan, and EMG preferably before he goes to [facility] next week. Can this be scheduled in [place]? Cony Beckwith PA-C 10/04/2024 2:31 PM Signed Also, sorry for the trouble, but I forgot to order one of the pulmonary function tests before he went today (I wasn't expecting him to get in same day). Can we arrange for him to get that done before/After the CT scan? Order is in. Thanks! Sheryl Navarrete RN 10/04/2024 3:31 PM [facility]igned [facility] [facility] and Referral started. Made note asking for it to be done before 10/13/24. CT and Lung Volumes scheduled for 10/11. Called and left VM informing the patient. ELIZABETH Welch Amy M, MA 10/10/2024 11:37 AM Signed Received fax back from [facility] that the EMG order needs to be changed to include which side and whether this is upper or lower extremities. Cony Beckwith PA-C 10/10/2024 1:13 PM Signed New order placed. Lower extremity, would defer which extremity to the performing neurologist. Symptoms are bilateral in nature. If not able to get done at [facility] prior to Wednesday, maybe see if it can be done Wednesday at [facility] at the same time as the Rheum apt? Thanks Cony Christianson PA-C 10/10/2024 1:13 PM Signed Addended by: CONY BECKWITH on: 10/10/2024 01:13 PM Modules accepted: Sheryl Wu RN 10/11/2024 8:34 AM Signed New EMG order faxed to [facility]. Included request that they call us if patient unable to have done before Wednesday10/13/24. ELIZABETH Welch Amy M, MA 10/11/2024 9:31 AM Addendum Received a call from [facility] Neurology scheduling. They just received a new order, but it needs to specifically state which side is to be performed. Please addend and resend. They are currently scheduling out into November as they only perform testing one day per week. Sheryl Fried RN 10/11/2024 9:42 AM Signed Patient needs testing done before Rheumatology Appointment on 10/13 at [facility]. PSS to work on scheduling at [facility] 10/13. ELIZABETH Welch Danelle, RN 10/11/2024 11:10 AM Signed EMG scheduled for 10/13. Patient notified in person. ELIZABETH Welch Danelle, RN 10/12/2024 3:23 PM Signed Disability paperwork received with request for medical records. Forms given to Cony to fill out. Patient has testing and office visit at [facility]. Will wait for results to fax. ELIZABETH Welch Amy M, MA 10/18/2024 9:34 AM Signed Records sent to [facility]. Confirmation received. 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] Order(s):EMG(NEURO/NI) [[id number]] Order #: [id number]: 1 FUTURE Prescriptions as of 10/18/2024 - predniSONE (DELTASONE) 20 mg tablet Take 3 tablets by mouth once daily for 14 days. Do not stop suddenly, call office when you are running low. - tiZANidine HCl (ZANAFLEX) 4 mg capsule Take 4 mg by mouth. Take 1 capsule everyday at bedtime as needed. - lisinopril (ZESTRIL) 10 mg tablet Take 10 mg by mouth once daily. Problem List As Of Date 10/04/2024 Noted Resolved Porokeratosis [Q82.8] 01/31/2010 Sesamoiditis [M25.80] 01/31/2010 Hypertension [I10] 09/14/2024 Tobacco user [Z72.0] 09/14/2024 Encounter Status:Closed by CONY BECKWITH on 10/04/24 Normal [facility] Ferritin SerPl-mCncon 2024 Ferritin [Mass/Vol] 801.0 ng/mL High 30.3-565.7 [facility] Comment on above: Order Comment: Speci men Type: BLOOD SPECIMEN Ordering Facility: [facility] Address: [address] [place] [address] Performed By: #### 4 537-7 #### [facility] CLIA [id number] [address] [place] [address] [place] [address] [place] LUNG DIFFUSION CAPACITY (HAI O)on 10-04-2024 LUNG DIFFUSION CAPACITY (DLCO) [facility] [address] [place] [address] Test Date: 2024-10-04 Pat Name: AROLDO NAVARRETE Department: Room: Gender: Male Residential Coordinator: : 1955 Requested By: Order Number: [id number] Reading MD: Irina Pretty MD Interpretive Statements Medications and Allergies were reviewed for possible drug interactions per policy. No contraindications or sensitivities were noted. Meds taken: No inhaled respiratory medications taken before testing. Current ATS/ERS acceptability and repeatability standards for spirometry met. Start of test and EOFE criteria met. Current ATS/ERS acceptability and repeatability standards for DLCO met with 2 acceptable maneuvers. IMPRESSION: Spirometry indicates moderate obstruction. The diffusing capacity (uncorrected for hemoglobin) is reduced. The reduced kCO (DLCO/VA) reflects an alteration of the normal transfer/diffusion of CO from the alveolar regions to the blood. Clinical correlation recommended. Electronically Signed On 10-05-2024 12:47:57 EDT by Irina Pretty MD ID: [id number] Name: AROLDO NAVARRETE Race: Black or Ht: 71.26 in Wt: 126.00 lbs Age: 69 Gender: Male : 1955 Dx: Shortness of breath Smoking Hx: Non-smoker Doctor: CONY BECKWITH Test Date: 10/04/2024 Site: [facility] [place]: Salma Wilder PRE-BRONCH POST-BRONCH Corinne LLN Pred ULN %Pred ZScore Corinne %Pred %Chg ZScore SPIROMETRY FVC 3.97 3.22 4.32 5.43 91 -0.52 FEV1 2.09 2.39 3.27 4.09 64 -2.18 FEV1/FVC 0.53 0.64 0.77 0.87 68 -2.72 FEFMax 5.73 5.65 8.40 11.15 68 -1.60 FEF50 0.95 2.23 4.35 6.48 21 -2.63 FIF50 5.09 FEF50/FIF50 0.19 90-100 FIVC 3.77 RQQ65-70 0.67 0.85 2.28 4.42 29 -1.93 ExpiredTime 11.01 TimeToFEFMax 0.07 TIANA 0.05 VolExtrap% 1 LUNG DIFFUSION DLCOunc 16.03 17.19 27.13 37.06 59 -1.84 DLCOStdPB 15.78 17.19 27.13 37.06 58 -1.88 VA 5.85 5.70 7.06 8.43 82 -1.46 Kco 2.70 3.02 4.06 5.19 66 -2.20 Comments: Medications and Allergies were reviewed for possible drug interactions per policy. No contraindications or sensitivities were noted. Meds taken: No inhaled respiratory medications taken before testing. Current ATS/ERS acceptability and repeatability standards for spirometry met. Start of test and EOFE criteria met. Current ATS/ERS acceptability and repeatability standards for DLCO met with 2 acceptable maneuvers. FVC_PRE (L) : 3.97 L FVC_PRED (L) : 4.32 L FVC_LLN (L) : 3.22 L FVC_ULN (L) : 5.43 L FEV1_PRE (L) : 2.09 L FEV1_PRED (L) : 3.27 L FEV1_LLN (L) : 2.39 L FEV1_ULN (L) : 4.09 L FEV1/FVC_PRE (%) : 53 % FEV1/FVC_PRED (%) : 77 % FEV1/FVC_LLN (%) : 64 % PBE38_FRP (L/S) : 3.02 L/S CSN49_GUM (L/S) : 0.22 L/S ESN64_QAGV (L/S) : 0.55 L/S UAO72_ZOR (L/S) : 0.18 L/S LJJ44_ESF (L/S) : 1.56 L/S MMZ48-72%_PRE (L/S) : 0.67 L/S WFW70-01%_PRED (L/S) : 2.28 L/S AIN65-85%_LLN (L/S) : 0.85 L/S PEF_PRE (L/S) : 5.73 L/S PEFMAX_LLN (L/S) : 5.65 L/S PEFMAX_ULN (L/S) : 11.15 L/S SVC_PRED (L) : 4.32 L/S SVC_LLN (L) : 3.22 L/S SVC_ULN (L/S) : 5.43 L/S IC_PRED (L) : 2.88 L/S ERV_PREDICTED (L) : 1.44 L/S DLCO (ML/MIN/MMHG) : 16.03 ml/min/mmHg DLCO_PRED (ML/MIN/MMHG) : 27.13 ml/min/mmHg DLCO_LLN(ML/MIN/MMHG) : 17.19 ml/min/mmHg DLCO_ULN (ML/MIN/MMHG) : 37.06 ml/min/mmHg FET_PRE (S) : 11.01 S VA (L) : 5.85 L VA_PRD (L) : 7.06 L DLCO/VA (ML/MIN/MMHG/L) : 0.03 ml/min/mmHg/L DLCO_VA_PRED (L) : 0.04 ml/min/mmHg/L DLCOCOR (ML/MIN/MMHG) : 15.78 ml/min/mmHg DLCOCOR_PRED (ML/MIN/MMHG) : 27.13 ml/min/mmHg DLCO/VACOR (ML/MIN/MMHG/L) : 0.03 ml/min/mmHg/L Normal [facility] SPIROMETRY BASELINE ONLYon 0 10-04-2024 SPIROMETRY BASELINE ONLY [facility] [address] [place] [address] Test Date: 2024-10-04 Pat Name: AROLDO NAVARRETE Department: Room: Gender: Male Residential Coordinator: : 1955 Requested By: Order Number: [id number] Reading MD: Irina Pretty MD Interpretive Statements Medications and Allergies were reviewed for possible drug interactions per policy. No contraindications or sensitivities were noted. Meds taken: No inhaled respiratory medications taken before testing. Current ATS/ERS acceptability and repeatability standards for spirometry met. Start of test and EOFE criteria met. Current ATS/ERS acceptability and repeatability standards for DLCO met with 2 acceptable maneuvers. IMPRESSION: Spirometry indicates moderate obstruction. The diffusing capacity (uncorrected for hemoglobin) is reduced. The reduced kCO (DLCO/VA) reflects an alteration of the normal transfer/diffusion of CO from the alveolar regions to the blood. Clinical correlation recommended. Electronically Signed On 10-05-2024 12:47:57 EDT by Irina Pretty MD ID: [id number] Name: AROLDO NAVARRETE Race: Black or Ht: 71.26 in Wt: 126.00 lbs Age: 69 Gender: Male : 1955 Dx: Shortness of breath Smoking Hx: Non-smoker Doctor: CONY BECKWITH Test Date: 10/04/2024 Site: Tech: Salma Wilder PRE-BRONCH POST-BRONCH Corinne LLN Pred ULN %Pred ZScore Corinne %Pred %Chg ZScore SPIROMETRY FVC 3.97 3.22 4.32 5.43 91 -0.52 FEV1 2.09 2.39 3.27 4.09 64 -2.18 FEV1/FVC 0.53 0.64 0.77 0.87 68 -2.72 FEFMax 5.73 5.65 8.40 11.15 68 -1.60 FEF50 0.95 2.23 4.35 6.48 21 -2.63 FIF50 5.09 FEF50/FIF50 0.19 90-100 FIVC 3.77 MAP08-93 0.67 0.85 2.28 4.42 29 -1.93 ExpiredTime 11.01 TimeToFEFMax 0.07 TIANA 0.05 VolExtrap% 1 LUNG DIFFUSION DLCOunc 16.03 17.19 27.13 37.06 59 -1.84 DLCOStdPB 15.78 17.19 27.13 37.06 58 -1.88 VA 5.85 5.70 7.06 8.43 82 -1.46 Kco 2.70 3.02 4.06 5.19 66 -2.20 Comments: Medications and Allergies were reviewed for possible drug interactions per policy. No contraindications or sensitivities were noted. Meds taken: No inhaled respiratory medications taken before testing. Current ATS/ERS acceptability and repeatability standards for spirometry met. Start of test and EOFE criteria met. Current ATS/ERS acceptability and repeatability standards for DLCO met with 2 acceptable maneuvers. Normal [facility] TPMT PHENOTYPE/ENZYME ACTIVI TYon 10-04-2024 TPMT ACTIVITY 24.5 U/mL Normal 24.0-44.0 [facility] Comment on above: Order Comment: Speci men Type: BLOOD SPECIMENOrdering Facility: [facility] Address: [address] [place] [address] Result Comment: INTE RPRETIVE INFORMATION: Thiopurine Methyltransferase, RBC Normal TPMT activity: 24.0-44.0 U/mL................Individuals are predicted to be at low risk of bone marrow toxicity (myelosuppression) as a consequence of standard thiopurine therapy; no dose adjustment is recommended. Intermediate TPMT activity: 17.0-23.9 U/mL................Individuals are predicted to be at intermediate risk of bone marrow toxicity (myelosuppression) as a consequence of standard thiopurine therapy; a dose reduction and therapeutic drug management is recommended. Low TPMT activity: less than 17.0 U/mL...........Individuals are predicted to be at high risk of bone marrow toxicity (myelosuppression) as a consequence of standard thiopurine dosing. It is recommended to avoid the use of thiopurine drugs. High TPMT activity: greater than 44.0 U/mL........Individuals are not predicted to be at risk for bone marrow toxicity (myelosuppression) as a consequence of standard thiopurine dosing, but may be at risk for therapeutic failure due to excessive inactivation of thiopurine drugs. Individuals may require higher than the normal standard dose. Therapeutic drug management is recommended. The TPMT, RBC assay is used as a screen to detect individuals with low and intermediate TPMT activity who may be at risk for myelosuppression when exposed to standard doses of thiopurines, including azathioprine (Imuran) and 6-mercaptopurine (Purinethol). TPMT is the primary metabolic route for inactivation of thiopurine drugs in the bone marrow. When TPMT activity is low, it is predicted that proportionately more 6-mercaptopurine can be converted into the cytotoxic 6-thioguanine nucleotides that accumulate in the bone marrow causing excessive toxicity. The activity of TPMT is measured by the nanomoles of 6-methylmercaptopurine (inactive metabolite) produced per 1 mL of packed red blood cells, (U/mL). TPMT phenotype testing does not replace the need for clinical monitoring of patients treated with thiopurine drugs. Genotype for TPMT cannot be inferred from TPMT activity (phenotype). Phenotype testing should not be requested for patients currently treated with thiopurine drugs. Current TPMT phenotype may not reflect future TPMT phenotype, particularly in patients who received blood transfusion within 30-60 days of testing. TPMT enzyme activity can be inhibited by several drugs such as: naproxen (Aleve), ibuprofen (Advil, Motrin), ketoprofen (Orudis), furosemide (Lasix), sulfasalazine (Azulfidine), mesalamine (Asacol), olsalazine (Dipentum), mefenamic acid (Ponstel), thiazide diuretics, and benzoic acid inhibitors. TPMT inhibitors may contribute to falsely low results; patients should abstain from these drugs for at least 48 hours prior to TPMT testing. Falsely low results may also occur as a result of inappropriate specimen handling and hemolysis. This test was developed and its performance characteristics determined by [facility]. It has not been cleared or approved by the [place] Food and Drug Administration. This test was performed in a CLIA certified laboratory and is intended for clinical purposes. Performed By: [facility] [address] [id number] Brand Sales Consultant: Easton Wilde MD, PhD CLIA Number: [id number] Performed By: #### P MAGALIZ ####[facility] [id number] [place] [address] Brennen 09-28-2024 CADY Telephone (RHWSTR) AROLDO NAVARRETE ([id number]) 1955 M Date Time Provider Department 09/28/24 CONY BECKWITH WSTR During your visit today, we recorded the following information about you: Sheryl Fried RN 09/28/2024 2:03 PM Signed Patient called needing a date to give for extension of disability. Per letter patient given 2 week extension. Patient rescheduled to 2 week follow up to have date of 10/11/24. Discussed with Cony and patient needs both 1 week and 2 week follow up. Patient rescheduled for same time and called and left VM notifying the patient. Sheryl Fried RN Allergies As of Date: 09/28/2024 (No Known Allergies) Date Reviewed: 09/27/2024 Reviewed by: Elizabeth Peters MA - Fully Assessed Reason for Visit: Appointment [186] Prescriptions as of 10/04/2024 - predniSONE (DELTASONE) 20 mg tablet Take 1 tablet by mouth once daily for 14 days. Do not stop suddenly, call office when you are running low. - tiZANidine HCl (ZANAFLEX) 4 mg capsule Take 4 mg by mouth. Take 1 capsule everyday at bedtime as needed. - lisinopril (ZESTRIL) 10 mg tablet Take 10 mg by mouth once daily. - naproxen (NAPROSYN) 500 mg tablet Take 1 tablet by mouth twice daily as needed (for pain/inflammation). Take with food. Problem List As Of Date 09/28/2024 Noted Resolved Porokeratosis [Q82.8] 01/31/2010 Sesamoiditis [M25.80] 01/31/2010 Hypertension [I10] 09/14/2024 Tobacco user [Z72.0] 09/14/2024 Encounter Status:Closed by SHERYL FRIED on 10/04/24 Normal [facility] KAREN BY IFA SCREENon 09-28-19 Nuclear Ab Ql (S) Negative Normal Negative [facility] Comment on above: Order Comment: Speci men Type: BLOOD SPECIMEN Ordering Facility[facility] Address: [address] [place] [address] Result Comment: Anti -nuclear antibody test is used as an aid in diagnosis of systemic autoimmune diseases. Where positive and clinically warranted, follow-up using disease-specific testing is recommended. Low positive titers are not uncommon with advanced age, certain chronic infections, and malignancies among others. Test methodology: Indirect fluorescence immunoassay (IFA) using HEp-2 cells. Performed By: #### 4 537-7 #### [facility] CLIA [id number] [address] [place] [address] [place] ANTINUCLEAR AB, ALEXI GEIGER RN (REFLEX ONLY)on 09-27-2024 KAREN PATTERN Homogeneous Abnormal [facility] Comment on above: Order Comment: Kenneth vogt Type: BLOOD SPECIMEN Ordering Facility[facility] Address: [address] [place] [address] Performed By: #### 4 537-7 #### [facility] CLIA [id number] [address] [place] [address] [place] KAREN TITER 1:320 Abnormal [facility] Comment on above: Order Comment: Kenneth vogt Type: BLOOD SPECIMEN Ordering Facility: [facility] Address: [address] [place] [address] Result Comment: Perf ormed By: [facility] [address] [place] [address] Brand Sales Consultant: Easton Wilde MD, PhD CLIA Number: [id number] Performed By: #### 4 537-7 #### [facility] CLIA [id number] [address] [place] [address] [place] CNOVon 09-27-2024 CNOV Office Visit (RHWSTR ) AROLDO NAVARRETE ([id number]) 1955 M Date Time Provider Department 09/27/24 8:30 AM CONY BECKWITH During your visit today, we recorded the following information about you: Pulse Blood pressure Weight 97/minute 110/79 57.2 kg Cony Beckwith PA-C 09/27/2024 4:29 PM Signed Rheumatology FOLLOW UP VISIT Date of Service: 09/27/2024 Patient: Aroldo Navarrete Medical Record: [id number] Primary Care Physician: No primary care provider on file. Last Rheumatology visit: None at [facility] History of Present Illness Aroldo is a 68-year-old male presenting for follow-up and review of lab results. He is currently taking naproxen, prednisone. Aroldo reports a current pain level of 10 . He describes the pain as Cramping. The pain is Continuous . Interventions tried include Other: See comment (none). Aroldo is both RF - 12 (09/14/2024) and CCP - 13.5 (09/14/2024) negative. Aroldo reports persistent joint pain primarily in the neck, shoulders, and hips. He was previously prescribed gabapentin 100 mg for nerve pain but discontinued it after a few days due to lack of efficacy. He was also prescribed prednisone for a knee injury approximately 6 months ago, which he tolerated without side effects. He experiences lightheadedness and dizziness, which began 2 days ago and worsened last night, leading to a fall while going to the restroom. The dizziness is exacerbated by sitting up quickly. He also reports dyspnea associated with dizziness. He denies cephalalgia, jaw pain with mastication, or significant vision loss but notes blurry vision. He denies a history of vertigo. He reports a decreased appetite and is currently not working due to his symptoms, particularly the dizziness. He has not yet discussed the dizziness with his primary care provider. Pain Evaluation 04/15/2015 09/14/2024 09/27/2024 Pain Evaluation Pain Score 6 7 10 Location Chest -- -- Location Comment All over everywhere Description Aching;Sore Aching Cramping Duration (#) 1 4 -- Duration (Timeframe) Weeks Months Frequency Continuous Continuous Continuous Intervention Medication Other: See comment Patient-Entered Data None Review of Systems No Jaw claudication, no judaism swanson, no sudden vision loss. + Vision changes over time. Past Medical History No past medical history on file. Past Surgical History No past surgical history on file. Family History No family history on file. Social History Social History Tobacco Use Smoking status: Every Day Current packs/day: 0.50 Average packs/day: 0.5 packs/day for 20.0 years (10.0 ttl pk-yrs) Types: Cigarettes Smokeless tobacco: Never Vaping Use Vaping status: Former Substances: THC Substance Use Topics Alcohol use: Yes Comment: Beer everyday - 3- 16 oz cans Drug use: No Current Medications Current Outpatient Medications Medication Sig lisinopril (ZESTRIL) 10 mg tablet Take 10 mg by mouth once daily. predniSONE (DELTASONE) 20 mg tablet Take 1 tablet by mouth once daily for 7 days. tiZANidine HCl (ZANAFLEX) 4 mg capsule Take 4 mg by mouth. Take 1 capsule everyday at bedtime as needed. naproxen (NAPROSYN) 500 mg tablet Take 1 tablet by mouth twice daily as needed (for pain/inflammation). Take with food. (Patient not taking: Reported on 09/14/2024) Labs Latest Ref Rng AND Units 01/05/2012 09/14/2024 CBC WBC 3.70 - 11.00 k/uL 7.43 Hemoglobin 13.0 - 17.0 g/dL 16.6 Hemoglobin, [place] 13.0 - 17.0 g/dL 16.7 Hematocrit 39.0 - 51.0 % 48.1 Platelet Count 150 - 400 k/uL 173 Abs Neut, [place] 1.45 - 7.50 k/uL 2.73 Abs Lymp, [place] 1.00 - 4.00 k/uL 2.28 Latest Ref Rng AND Units 01/05/2012 09/14/2024 CMP Sodium 136 - 144 mmol/L 141 Sodium, [place] 135 - 146 mmol/L 142 Potassium 3.7 - 5.1 mmol/L 4.3 Potassium, [place] 3.5 - 5.0 mmol/L 4.7 Chloride 98 - 107 mmol/L 102 Chloride, [place] 98 - 110 mmol/L 102 CO2 22 - 30 mmol/L 28 CO2, [place] 23.0 - 32.0 mmol/L 29.6 Glucose 74 - 99 mg/dL 102 Glucose, [place] 65 - 100 mg/dL 97 BUN 9 - 24 mg/dL 11 BUN, [place] 10 - 25 mg/dL 9 Creatinine 0.73 - 1.22 mg/dL 0.97 Creatinine, [place] 0.7 - 1.4 mg/dL 1.1 Calcium, [place] 8.5 - 10.5 mg/dL 9.1 Calcium 8.5 - 10.2 mg/dL 10.0 AST 14 - 40 U/L 46 AST, [place] 7 - 40 U/L 18 ALT 10 - 54 U/L 34 ALT, [place] 5 - 50 U/L 12 Alkaline Phosphatase 38 - 113 U/L 105 Latest Ref Rng AND Units 09/14/2024 ESR, WSR WSR 0 - 15 mm/hr 2 Latest Ref Rng AND Units 09/14/2024 CRP CRP <0.9 mg/dL <0.3 Latest Ref Rng AND Units 09/14/2024 CK CK 51 - 298 U/L 107 Latest Ref Rng AND Units 09/14/2024 RF and CCP Rheumatoid Factor <16 IU/mL 12 CCP Antibody IgG Qualitative Negative Negative CCP Antibody, IgG <20 Units <15 Imaging Last XR Knee - Impression Only XR KNEE GENERAL 4V AP BOTH/PA BOTH/LAT/MERC LEFT Exam End: 09/14/2024 3:43 PM (F (more content not included)... Normal [facility] POLYMYOSITIS AND DERMATOMYOS ITIS PANELon 09-27-2024 KAREN INTERP COMMENT See Note Normal [facility] Comment on above: Order Comment: Speci men Type: BLOOD SPECIMEN [facility] Facility[facility] Address: [address] [place] [address] [place] [address] Result Comment: Homo geneous Pattern Clinical associations: SLE, drug-induced SLE or MAIDA. Main autoantibodies: Anti-dsDNA, anti-histones or anti-chromatin (anti-nucleosome) List of Abbreviations Antimitochondrial antibodies (AMA), Antisynthetase syndrome (ARS), chronic active hepatitis (CAH), inflammatory myopathies (IM) [dermatomyositis (DM), polymyositis (PM), necrotizing autoimmune myopathy (NAM)], interstitial lung disease (ILD), juvenile idiopathic arthritis (MAIDA), mixed connective tissue disease (MCTD), primary biliary cholangitis (PBC), rheumatoid arthritis (RA), systemic autoimmune rheumatic diseases (SARD), Sjogren syndrome (SjS), systemic lupus erythematosus (SLE), systemic sclerosis (SSc), undifferentiated connective tissue disease (UCTD). INTERPRETIVE INFORMATION: KAREN Interpretive Comment Presence of antinuclear antibodies (KAREN) is a hallmark feature of systemic autoimmune rheumatic diseases (SARD). However, KAREN lacks diagnostic specificity and is associated with a variety of diseases (cancers, autoimmune, infectious, and inflammatory conditions) and may also occur in healthy individuals in varying prevalence. The lack of diagnostic specificity requires confirmation of positive KAREN by more specific serologic tests. KAREN (nuclear reactivity) positive patterns reported include centromere, homogeneous, nuclear dots, nucleolar, or speckled. KAREN (cytoplasmic reactivity) positive patterns reported include reticular/AMA, discrete/GW body-like, polar/golgi-like, cytoplasmic speckled or rods and rings. All positive patterns are reported to endpoint titers (1:2560). Reported patterns may help guide differential diagnosis, although they may not be specific for individual antibodies or diseases. Mitotic staining patterns not reported. Negative results do not necessarily rule out SARD. Performed By: #### 4 537-7 #### [facility] CLIA [id number] [address] [place] [address] [place] ANTINUCLEAR ANTIBODY (KAREN) HEP-2, IGG Detected High <1:80 [facility] Comment on above: Order Comment: Speci men Type: BLOOD SPECIMEN [facility]ing [facility] Address: [address] [place] [address] Performed By: #### 4 537-7 #### [facility] CLIA [id number] [address] [place] [address] [place] EJ (GLYCYL-TRNA SYNTHETASE) ANTIBODY Negative Normal Negative [facility] Comment on above: Order Comment: Speci men Type: BLOOD SPECIMEN Ordering Facility: [facility] Address: [address] [place] [address] Performed By: #### 4 537-7 #### [facility] CLIA [id number] [address] [place] [address] [place] ZHAO (TYROSYL-TRNA SYNTHETASE) AB Negative Normal Negative [facility] Comment on above: Order Comment: Speci men Type: BLOOD SPECIMEN Ordering Facility: [facility] Address: [address] [place] [address] Result Comment: Zhao a ntibody negative by line immunoassay. No band corresponding to 65 kDa observed by immunoprecipitation. Performed By: #### 4 537-7 #### [facility] CLIA [id number] [address] [place] [address] CIARRA-1 (HISTIDYL-TRNA SYNTHETASE) AB, IGG 2 AU/mL Normal 0-40 [facility] Comment on above: Order Comment: Speci men Type: BLOOD SPECIMEN Ordering Facility: [facility] Address: [address] [place] [address] Result Comment: INTE RPRETIVE INFORMATION: Ciarra-1 Antibody, IgG 29 AU/mL or less.........Negative 30-40 AU/mL..............Equivocal 41 AU/mL or greater......Positive Presence of Ciarra-1 (antihistidyl transfer RNA [t-RNA] synthetase) antibody is associated with polymyositis and may also be seen in patients with dermatomyositis. Ciarra-1 antibody is associated with pulmonary involvement (interstitial lung disease), Raynaud phenomenon, arthritis, and new car make ready mechanic's hands (implicated in antisynthetase syndrome). Performed By: #### 4 537-7 #### [facility] CLIA [id number] [address] [place] [address] OF [facility] [place] (ASPARAGINYL-TRNA SYNTHETASE) AB Negative Normal Negative [facility] Comment on above: Order Comment: Speci men Type: BLOOD SPECIMEN Ordering Facility: [facility] Address: [address] [place] [address] Result Comment: Ks a ntibody negative by line immunoassay. No band corresponding to 65 kDa observed by immunoprecipitation. Performed By: #### 4 537-7 #### [facility] CLIA [id number] [address] [place] [address] [place] MDA5 (CADM-140) AB Positive Abnormal Negative [facility] Comment on above: Order Comment: Kenneth vogt Type: BLOOD SPECIMEN Ordering Facility: [facility] Address: [address] [place] [address] Performed By: #### 4 537-7 #### [facility] CLIA [id number] [address] [place] [address] OF [place] DC-2 (NUCLEAR HELICASE PROTEIN) ANTIBODY Negative Normal Negative [facility] Comment on above: Order Comment: Speci men Type: BLOOD SPECIMEN Ordering Facility: [facility] Address: [address] [place] [address] Performed By: #### 4 537-7 #### [facility] CLIA [id number] [address] [place] [address] [place] MYOSITIS INTERPRETIVE INFORMATION See Note Normal [facility] Comment on above: Order Comment: Ashleyi torie Type: BLOOD SPECIMEN Ordering Facility: [facility] Address: [address] [place] [address] Result Comment: INTE RPRETIVE INFORMATION: Dermatomyositis and Polymyositis Panel 2 If present, myositis-specific antibodies (MSAs) are specific for myositis, and may be useful in establishing diagnosis as well as prognosis. MSAs are generally regarded as mutually exclusive with rare exceptions; the occurrence of two or more MSAs should be carefully evaluated in the context of patient's clinical presentation. Myositis-associated antibodies (Venecia) may be found in patients with CTD, including overlap syndromes, and are generally not specific for myositis. The following table will help in identifying the association of any antibodies found as either MSAs or Venecia. Antibody Specificity . . . . . . . . . . . . MSAs . . . . Venecia Ciarra-1 (histidyl-tRNA synthetase) Ab, IgG . . X PL-12 (alanyl-tRNA synthetase) Antibody . . X PL-7 (threonyl-tRNA synthetase) Antibody . . X EJ (glycyl-tRNA synthetase) Antibody . . . . X OJ (isoleucyl-tRNA synthetase) Antibody . . X SRP (Signal Recognition Particle) Ab . . . . X Mi-2 (nuclear helicase protein) Antibody . . X P155/140 Antibody . . . . . . . . . . . . . X TIF-1 gamma (155 kDA) Ab . . . . . . . . . X SAE1 (SUMO activating enzyme) Ab . . . . . . X MDA5 (CADM-140) Ab . . . . . . . . . . . . . X NXP2 (Nuclear matrix protein-2) Ab . . . . . X Zhao (tyrosyl-tRNA synthetase) Ab. . . . . . . X Ks (asparaginyl-tRNA synthetase) Ab . . . . X Zo (phenylalanyl-tRNA synthetase) Ab . . . . X This test was developed and its performance characteristics determined by [facility]. It has not been cleared or approved by the US Food and Drug Administration. This test was performed in a CLIA certified laboratory and is intended for clinical purposes. Performed By: #### 4 537-7 #### [facility] [place] [id number] [address] [place] [address] [place] NXP2 (NUCLEAR MATRIX PROTEIN-2) AB Negative Normal Negative [facility] Comment on above: Order Comment: Speci men Type: BLOOD SPECIMEN Ordering Facility: [facility] Address: [address] [place] [address] Performed By: #### 4 537-7 #### [facility] [place] [id number] [address] [place] [address] [place] OJ (ISOLEUCYL-TRNA SYNTHETASE) ANTIBODY Negative Normal Negative [facility] Comment on above: Order Comment: Speci men Type: BLOOD SPECIMEN Ordering Facility: [facility] Address: [address] [place] [address] Performed By: #### 4 537-7 #### [facility] [place] [id number] [address] [place] [address] [place] P155/140 ANTIBODY Negative Normal Negative [facility] Comment on above: Order Comment: Speci men Type: BLOOD SPECIMEN Ordering Facility: [facility] Address: [address] [place] [address] Performed By: #### 4 537-7 #### [facility] CLIA [id number] [address] [place] [address] [place] PL-12 (ALANYL-TRNA SYNTHETASE) ANTIBODY Negative Normal Negative [facility] Comment on above: Order Comment: Speci men Type: BLOOD SPECIMEN Ordering Facility: [facility] Address: [address] [place] [address] Performed By: #### 4 537-7 #### [facility] CLIA [id number] [address] [place] [address] [place] PL-7 (THREONYL-TRNA SYNTHETASE) ANTIBODY Negative Normal Negative [facility] Comment on above: Order Comment: Speci men Type: BLOOD SPECIMEN Ordering Facility: [facility] Address: [address] [place] [address] Performed By: #### 4 537-7 #### [facility] CLIA [id number] [address] [place] [address] [place] SAE1 (SUMO ACTIVATING ENZYME) AB Negative Normal Negative [facility] Comment on above: Order Comment: Speci men Type: BLOOD SPECIMEN Ordering Facility: [facility] Address: [address] [place] [address] Performed By: #### 4 537-7 #### [facility] CLIA [id number] [address] [place] [address] [place] SRP (SIGNAL RECOGNITION PARTICLE) AB Negative Normal Negative [facility] Comment on above: Order Comment: Speci men Type: BLOOD SPECIMEN Ordering Facility: [facility] Address: [address] [place] [address] Performed By: #### 4 537-7 #### [facility] CLIA [id number] [address] [place] [address] [place] TIF-1 GAMMA (155 KDA) AB Negative Normal Negative [facility] Comment on above: Order Comment: Speci men Type: BLOOD SPECIMEN Ordering Facility: [facility] Address: [address] [place] [address] Performed By: #### 4 537-7 #### [facility] CLIA [id number] [address] [place] [address] [place] ZO (PHENYLALANYL-TRNA SYNTHETASE) AB Negative Normal Negative [facility] Comment on above: Order Comment: Speci men Type: BLOOD SPECIMEN Ordering Facility: [facility] Address: [address] [place] [address] Result Comment: Zo a ntibody negative by line immunoassay. No bands corresponding to 68 and 58 kDa observed by immunoprecipitation. Performed By: [facility] [address] [place] [address] Brand Sales Consultant: Easton Wilde MD, PhD CLIA Number: [id number] Performed By: #### 4 537-7 #### [facility] CLIA [id number] [address] [place] [address] [place] Brennen 09-18-2024 CNPN Telephone (WSTR) AROLDO NAVARRETE ([id number]) 1955 M Date Time Provider Department 09/18/24 CONY BECKWITH [facility] During your visit today, we recorded the following information about you: Roya Juarez LPN 09/18/2024 11:24 AM Signed Patient calling in wondering if a fax has been received from his [employer]. Patient requesting a call back. NILAY Fontenot Amy M, MA 09/19/2024 1:58 PM Signed Forms received from [employer] asking for office notes from visit. Notes were faxed back to the fax number on the forms. Confirmation received. Allergies As of Date: 09/18/2024 (No Known Allergies) Date Reviewed: 09/14/2024 Reviewed by: Cony Beckwith PA-C - Fully Assessed Reason for Visit: Insurance information [Other] Prescriptions as of 09/19/2024 - tiZANidine HCl (ZANAFLEX) 4 mg capsule Take 4 mg by mouth. Take 1 capsule everyday at bedtime as needed. - lisinopril (ZESTRIL) 10 mg tablet Take 10 mg by mouth once daily. - naproxen (NAPROSYN) 500 mg tablet Take 1 tablet by mouth twice daily as needed (for pain/inflammation). Take with food. Problem List As Of Date 09/18/2024 Noted Resolved Porokeratosis [Q82.8] 01/31/2010 Sesamoiditis [M25.80] 01/31/2010 Hypertension [I10] 09/14/2024 Tobacco user [Z72.0] 09/14/2024 Encounter Status:Closed by ELIZABETH PETERS on 09/19/24 Normal [facility] Aldolase SerPl-cCncon 2024 Aldolase [Catalytic activity/Vol] 6.7 mU/mL Normal 1.5-8.1 [facility] Comment on above: Order Comment: Speci men Type: BLOOD SPECIMEN Ordering Facility: [facility] Address: [address] [place] [address] Result Comment: This test was developed, and its performance characteristics determined by the [facility] Department of Pathology and Laboratory Medicine. It has not been cleared or approved by the FDA. The [facility] Department of Pathology and Laboratory Medicine is regulated under CLIA as qualified to perform high-complexity testing. This test is used for clinical purposes. It should not be regarded as investigational or for research. Performed By: #### 4 537-7 #### [facility] CLIA [id number] [address] [place] [address] [place] CBC panel Auto (Bld)on 09-14 Erythrocyte distribution width (RBC) [Ratio] 14.6 % 11.5 - 15.0 % [facility] Hematocrit (Bld) [Volume fraction] 48.1 % 39.0 - 51.0 % [facility] Hemoglobin (Bld) [Mass/Vol] 16.6 g/dL 13.0 - 17.0 g/dL [facility] Interpretation and review of laboratory results Normal [facility] MCH (RBC) [Entitic mass] 29.8 pg 26.0 - 34.0 pg [facility] MCHC (RBC) [Mass/Vol] 34.5 g/dL 30.5 - 36.0 g/dL [facility] MCV (RBC) [Entitic vol] 86.4 fL 80.0 - 100.0 fL [facility] Nucleated RBC (Bld) [#/Vol] NINF [facility] Platelet mean volume (Bld) [Entitic vol] 9.9 fL 9.0 - 12.7 fL [facility] Platelets (Bld) [#/Vol] 173 10*3/uL [facility] RBC (Bld) [#/Vol] 5.57 10*6/uL 4.20 - 6.0 0 m/uL [facility] WBC (Bld) [#/Vol] 7.43 10*3/uL [facility] Erythrocyte distribution width (RBC) [Ratio] 14.6 % Normal 11.5-15.0 [facility] Comment on above: Order Comment: Speci men Type: BLOOD SPECIMENOrdering Facility: [facility] Address: [address] [place] [address] Performed By: #### 5 8410-2 ####[facility] [id number] [address] STATES OF [facility] Hematocrit (Bld) [Volume fraction] 48.1 % Normal 39.0-51.0 [facility] Comment on above: Order Comment: Speci men Type: BLOOD SPECIMENOrdering Facility: [facility] Address: [address] [place] [address] Performed By: #### 5 8410-2 ####[facility] [id number] [place] [address] [place] Hemoglobin (Bld) [Mass/Vol] 16.6 g/dL Normal 13.0-17.0 [facility] Comment on above: Order Comment: Speci men Type: BLOOD SPECIMENOrdering Facility: [facility] Address: [address] [place] [address] Performed By: #### 5 8410-2 ####[facility] [id number] [place] [address] [place] MCH (RBC) [Entitic mass] 29.8 pg Normal 26.0-34.0 [facility] Comment on above: Order Comment: Speci men Type: BLOOD SPECIMENOrdering Facility: [facility] Address: [address] [place] [address] Performed By: #### 5 8410-2 ####[facility] [id number] [address] [place] MCHC (RBC) [Mass/Vol] 34.5 g/dL Normal 30.5-36.0 [facility] Comment on above: Order Comment: Speci men Type: BLOOD SPECIMENOrdering Facility: [facility] Address: [address] [place] [address] Performed By: #### 5 8410-2 ####[facility] [id number] [place] [address] [place] MCV (RBC) [Entitic vol] 86.4 fL Normal 80.0-100.0 [facility] Comment on above: Order Comment: Speci men Type: BLOOD SPECIMENOrdering Facility: [facility] Address: [address] [place] [address] Performed By: #### 5 8410-2 ####[facility] [id number] [place] [address] [place] Nucleated RBC (Bld) [#/Vol] 10*3/uL Normal <0.01 [facility] Comment on above: Order Comment: Speci men Type: BLOOD SPECIMENOrdering Facility: [facility] Address: [address] [place] [address] Performed By: #### 5 8410-2 ####[facility] SALLIE [id number] [place] [address] [place] Platelet mean volume (Bld) [Entitic vol] 9.9 fL Normal 9.0-12.7 [facility] Comment on above: Order Comment: Speci men Type: BLOOD SPECIMENOrdering Facility: [facility] Address: [address] [place] [address] Performed By: #### 5 8410-2 ####[facility] PENNIEYORKMICHELLEAyde [id number] [place] [address] [place] Platelets (Bld) [#/Vol] 173 10*3/uL Normal 150-400 [facility] Comment on above: Order Comment: Speci men Type: BLOOD SPECIMENOrdering Facility: [facility] Address: [address] [place] [address] Performed By: #### 5 8410-2 ####[facility] PENNIEYORKMICHELLETRACYA [id number] [place] [address] [place] RBC (Bld) [#/Vol] 5.57 10*6/uL Normal 4.20-6.00 [facility] Comment on above: Order Comment: Speci men Type: BLOOD SPECIMENOrdering Facility: [facility] Address: [address] [place] [address] Performed By: #### 5 8410-2 ####[facility] [id number] [place] [address] [place] WBC (Bld) [#/Vol] 7.43 10*3/uL Normal 3.70-11.00 [facility] Comment on above: Order Comment: Speci men Type: BLOOD SPECIMENOrdering Facility: [facility] Address: [address] [place] [address] Performed By: #### 5 8410-2 ####[facility] [id number] [place] [address] [place] CK SerPl-cCncon 09-14-2024 CK [Catalytic activity/Vol] 107 U/L Normal 51-298 [facility] Comment on above: Order Comment: Speci men Type: BLOOD SPECIMEN Ordering Facility: [facility] Address: [address] [place] [address] Performed By: #### 4 537-7 #### [facility] CLIA [id number] [address] [place] [address] [place] [address] [place] CNCOon 09-14-2024 CNCO Letter Text Normal [facility] CNOVon 09-14-2024 CNOV Office Visit (RHWSTR ) AROLDO NAVARRETE ([id number]) 1955 M Date Time Provider Department 09/14/24 2:30 PM CONY BECKWITH RHWSTR During your visit today, we recorded the following information about you: Pulse Blood pressure Weight 108/minute 150/102 57.2 kg Cony Beckwith PA-C 09/14/2024 3:51 PM Signed Rheumatology CONSULTATION Date of Service: 09/14/2024 Patient: Aroldo Navarrete Medical Record: [id number] Primary Care Physician: No primary care provider on file. Last Rheumatology visit: None at [facility] Referring Provider: Marjorie Be [address] [facility] [address] Aroldo Navarrete is here today at request of Dr. Marjorie Be specifically for consultation of my opinion in regards to the chief complaint listed below. Correspondence will be shared today via the [facility] electronic health record or through regular mail, where applicable. History of Present Illness Aroldo is a 68-year-old male with a history of HTN, presenting for evaluation of multiple joint pains and stiffness. Aroldo reports a current pain level of 7 . He describes the pain as Aching. The pain is Continuous, and has lasted for 4 Months. Interventions tried include Medication. He is currently taking naproxen. RHEUMATOLOGIC REVIEW OF SYSTEMS: NO ulcers in mouth or nose No photosensenitivity No history of blood clots + fatigue - Started around same time No fevers No painful eyes - Not painful, not red. + sicca Occasional sob with stairs or exertion. Years, no change recently. + cough - Longstanding, year, no hemoptysis NO diarrhea, no constipation No chronic back pain prior to this episode No history of psoriasis 4 lb weight loss in the last few months No Night sweats NO neuropathy FMHx - Denies family history of rheumatoid arthritis, SLE, PsA, IBD Pain Evaluation 04/15/2015 09/14/2024 Pain Evaluation Pain Score 6 7 Location Chest -- Location Comment All over Description Aching;Sore Aching Duration (#) 1 4 Duration (Timeframe) Weeks Months Frequency Continuous Continuous Intervention Medication Patient-Entered Data None Review of Systems Review of Systems CONSTITUTION: Positive for: Recent weight change Negative for: Fever HEENT: Negative for: Nosebleeds, Mouth sores, Trouble swallowing and Dry mouth RESPIRATORY: Positive for: Cough and Shortness of breath Negative for: Pain with breathing and Coughing up blood GASTROINTESTINAL: Negative for: Melena, Diarrhea and Abdominal pain MUSCULOSKELETAL: Positive for: Arthralgias, Myalgias, Muscle weakness, Joint swelling and Morning Joint Stiffness NEUROLOGICAL: SKIN: Positive for: Nail changes (brittle) Negative for: Rash EYES: Positive for: Eye redness and Eye dryness Negative for: Eye pain CARDIOVASCULAR: Positive for: Chest pain (occasional, burning pain, heartburn, Feels like he can't catch his breath) Negative for: Leg swelling GENITOURINARY: HEMATOLOGIC/LYMPHATIC: All other reviewed and negative other than HPI. Past Medical History History reviewed. No pertinent past medical history. Past Surgical History History reviewed. No pertinent surgical history. Family History History reviewed. No pertinent family history. FMHx - Denies family history of rheumatoid arthritis, SLE, PsA, IBD Social History Social History Tobacco Use Smoking status: Every Day Current packs/day: 0.50 Average packs/day: 0.5 packs/day for 20.0 years (10.0 ttl pk-yrs) Types: Cigarettes Smokeless tobacco: Never Vaping Use Vaping status: Some Days Substances: THC Substance Use Topics Alcohol use: Yes Comment: Beer everyday - 3- 16 oz cans Drug use: No Social Hx - Tobacco use: 1 pack per day - Alcohol use: 3 cans of 16 oz beer daily - Illicit drug use: Smokes and vapes marijuana - Occupation: Formerly employed at [employer] - Living conditions: Resides in [place] Current Medications Current Outpatient Medications Medication Sig tiZANidine HCl (ZANAFLEX) 4 mg capsule Take 4 mg by mouth. Take 1 capsule everyday at bedtime as needed. lisinopril (ZESTRIL) 10 mg tablet Take 10 mg by mouth once daily. naproxen (NAPROSYN) 500 mg tablet Take 1 tablet by mouth twice daily as needed (for pain/inflammation). Take with food. (Patient not taking: Reported on 09/14/2024) Labs Latest Ref Rng AND Units 01/05/2012 CBC Hemoglobin, [place] 13.0 - 17.0 g/dL 16.7 Abs Neut, [place] 1.45 - 7.50 k/uL 2.73 Abs Lymp, [place] 1.00 - 4.00 k/uL 2.28 Latest Ref Rng AND Units 01/05/2012 CMP Sodium, [place] 135 - 146 mmol/L 142 Potassium, [place] 3.5 - 5.0 mmol/L 4.7 Chloride, [place] 98 - 110 mmol/L 102 CO2, [place] 23.0 - 32.0 mmol/L 29.6 Glucose, [place] 65 - 100 mg/dL 97 BUN, [place] 10 - 25 mg/dL 9 Creatinine, [place] 0.7 - 1.4 mg/dL 1.1 Calcium, [place] 8.5 - 10.5 mg/dL 9.1 AST, [place] 7 - 40 U/L 18 (more content not included)... Normal [facility] Brennen 09-14-2024 CNPN Telephone (RHWSTR) AROLDO NAVARRETE ([id number]) 1955 M Date Time Provider Department 09/14/24 CONY BECKWITH During your visit today, we recorded the following information about you: Elizabeth Peters MA 09/14/2024 3:43 PM Signed Patient was referred here by [facility]. Patient had 3 high blood pressure readings today in the office. Provider asked if we could let [facility] know about the readings and see if they can follow up with the patient in the next day or two. I called and left a detailed message on nurse voicemail. Asked for them to contact the office back to confirm they received the message. If I don't hear back from them, I will follow up again tomorrow. Also, asked for them to fax over records from their office. Sheryl Fried RN 09/14/2024 4:31 PM Signed [facility] calling to update us that the patient is having a nurse visit for BP and med check at 9:30am tomorrow. ELIZABETH Welch Danelle, ELIZABETH 09/18/2024 12:50 PM Signed Notes from recent office visit with [facility] received and sent to [facility]. BP at was 138/84. ELIZABETH Welch Kaitlyn, PA-C 09/27/2024 1:32 PM Signed Additional Records from [facility] Dated 07/12/24 Pt reported 2 weeks of body aches, headaches, fatigue, cough, congestion. - initially attributed this to viral illness + Also noted gynecomastia causing his lump on chest Dated 07/17/24 Pt reported fatigue x few months. Body aches and cramping since this time. Also reported unexplained weight loss since mid 2023 despite trying to increase protein and put on more weight. - ordered labs (results in my original consult note, scanned), CXR, abdominal XR - Referred to GI fr colonoscopy Sent for scanning. [facility] Allergies As of Date: 09/14/2024 (No Known Allergies) Date Reviewed: 09/14/2024 Reviewed by: Cony Beckwith PA-C - Fully Assessed Prescriptions as of 09/27/2024 - predniSONE (DELTASONE) 20 mg tablet Take 1 tablet by mouth once daily for 7 days. - tiZANidine HCl (ZANAFLEX) 4 mg capsule Take 4 mg by mouth. Take 1 capsule everyday at bedtime as needed. - lisinopril (ZESTRIL) 10 mg tablet Take 10 mg by mouth once daily. - naproxen (NAPROSYN) 500 mg tablet Take 1 tablet by mouth twice daily as needed (for pain/inflammation). Take with food. Problem List As Of Date 09/14/2024 Noted Resolved Porokeratosis [Q82.8] 01/31/2010 Sesamoiditis [M25.80] 01/31/2010 Hypertension [I10] 09/14/2024 Tobacco user [Z72.0] 09/14/2024 Encounter Status:Closed by SHERYL FRIED on 09/18/24 Normal [facility] CRP SerPl-mCncon 09-14-2024 CRP [Mass/Vol] mg/L Normal <0.9 [facility] Comment on above: Order Comment: Speci men Type: BLOOD SPECIMEN Ordering Facility: [facility] Address: [address] [place] [address] Performed By: #### 4 537-7 #### [facility] CLIA [id number] [address] [place] [address] [place] Comprehensive metabolic 2000 panelOrdered By: Lyric Kirby on 09-14-2024 Albumin [Mass/Vol] 4.7 g/dL 3.9 - 4.9 g/dL [facility] ALP [Catalytic activity/Vol] 105 U/L 38 - 113 U/L [facility] ALT [Catalytic activity/Vol] 34 U/L 10 - 54 U/L [facility] Anion gap [Moles/Vol] 11 mmol/L 8 - 15 mmol/L [facility] AST [Catalytic activity/Vol] 46 U/L High 14 - 40 U/L [facility] Bilirubin [Mass/Vol] 0.8 mg/dL 0.2 - 1.3 mg/dL [facility] Calcium [Mass/Vol] 10 mg/dL 8.5 - 10. 2 mg/dL [facility] Chloride [Moles/Vol] 102 mmol/L 98 - 107 mmol/L [facility] CO2 [Moles/Vol] 28 mmol/L 22 - 30 mmol/L [facility] Creatinine [Mass/Vol] 0.97 mg/dL 0.73 - 1.22 mg/dL [facility] GFR/1.73 sq M.predicted among non-blacks MDRD (S/P/Bld) [Vol rate/Area] 86 mL/min/{1.73_m2} - PINF [facility] Comment on above: Estimated Glomerular Filtration Rate (eGFR) is calculated using the 2020 CKD-EPI creatinine equation. This equation utilizes serum creatinine, sex, and age as parameters. The creatinine assay has traceable calibration to isotope dilution-mass spectrometry. Refer to KDIGO guidelines for clinical interpretation. In patients with unstable renal function, e.g. those with acute kidney injury, the eGFR may not accurately reflect actual GFR. Glucose [Mass/Vol] 102 mg/dL High 74 - 99 mg/dL [facility] Comment on above: The [place] Di[employer] s Association (ADA) provides guidance for cutoff values for fasting glucose and random glucose. The ADA defines fasting as no caloric intake for at least 8 hours. Fasting plasma glucose results between 100 to 125 mg/dL indicate increased risk for diabetes (prediabetes). Fasting plasma glucose results greater than or equal to 126 mg/dL meet the criteria for diagnosis of diabetes. In the absence of unequivocal hyperglycemia, results should be confirmed by repeat testing. In a patient with classic symptoms of hyperglycemia or hyperglycemic crisis, random plasma glucose results greater than or equal to 200 mg/dL meet the criteria for diagnosis of diabetes. Reference: Standards of Medical Care in Diabetes 2016, [place] Diabetes Association. Diabetes Care. 2016.39(Suppl 1). Interpretation and review of laboratory results Abnormal [facility] Potassium [Moles/Vol] 4.3 mmol/L 3.7 - 5.1 mmol/L [facility] Protein [Mass/Vol] 7.9 g/dL 6.3 - 8.0 g/dL [facility] Sodium [Moles/Vol] 141 mmol/L 136 - 144 mmol/L [facility] Urea nitrogen [Mass/Vol] 11 mg/dL 9 - 24 mg/dL [facility] Comprehensive metabolic 2000 panelon 09-14-2024 Albumin [Mass/Vol] 4.7 g/dL Normal 3.9-4.9 [facility] Comment on above: Order Comment: Speci men Type: BLOOD SPECIMEN Ordering Facility: [facility] Address: [address] [place] [address] Performed By: #### 2 4323-8 #### [facility] CLIA [id number] [address] [place] [address] [place] ALP [Catalytic activity/Vol] 105 U/L Normal 38-113 [facility] Comment on above: Order Comment: Speci men Type: BLOOD SPECIMEN Ordering Facility: [facility] Address: [address] [place] [address] Performed By: #### 2 4323-8 #### [facility] CLIA [id number] [address] [place] [address] [place] ALT [Catalytic activity/Vol] 34 U/L Normal 10-54 [facility] Comment on above: Order Comment: Speci men Type: BLOOD SPECIMEN Ordering Facility: [facility] Address: [address] [place] [address] Performed By: #### 2 4323-8 #### [facility] CLIA [id number] [address] [place] [address] [place] Anion gap [Moles/Vol] 11 mmol/L Normal 8-15 [facility] Comment on above: Order Comment: Speci men Type: BLOOD SPECIMEN Ordering Facility: [facility] Address: [address] [place] [address] Performed By: #### 2 4323-8 #### [facility] CLIA [id number] [address] [place] [address] [place] AST [Catalytic activity/Vol] 46 U/L High 14-40 [facility] Comment on above: Order Comment: Speci men Type: BLOOD SPECIMEN Ordering Facility: [facility] Address: [address] [place], [place] [address], [place] [address] Performed By: #### 2 4323-8 #### [facility] CLIA [id number] [address] [place] [address] [place] Bilirubin [Mass/Vol] 0.8 mg/dL Normal 0.2-1.3 [facility] Comment on above: Order Comment: Speci men Type: BLOOD SPECIMEN Ordering Facility: [facility] Address: [address] [place] [address] Performed By: #### 2 4323-8 #### [facility] CLIA [id number] [address] [place] [address] [place] Calcium [Mass/Vol] 10.0 mg/dL Normal 8.5-10.2 [facility] Comment on above: Order Comment: Speci men Type: BLOOD SPECIMEN Ordering Facility: [facility] Address: [address] [place] [address] Performed By: #### 2 4323-8 #### [id number] [address] [place] [address] [place] Chloride [Moles/Vol] 102 mmol/L Normal 98-107 [facility] Comment on above: Order Comment: Speci men Type: BLOOD SPECIMEN Ordering Facility: [facility] Address: [address] [facility] [place] [address] Performed By: #### 2 4323-8 #### [facility] CLIA [id number] [address] [place] [address] [place] CO2 [Moles/Vol] 28 mmol/L Normal 22-30 [facility] Comment on above: Order Comment: Speci men Type: BLOOD SPECIMEN Ordering Facility: [facility] Address: [address] [place] [address] Performed By: #### 2 4323-8 #### [facility] CLIA [id number] [address] [place] [address] [place] Creatinine [Mass/Vol] 0.97 mg/dL Normal 0.73-1.22 [facility] Comment on above: Order Comment: Kenneth vogt Type: BLOOD SPECIMEN Ordering Facility: [facility] Address: [address] [place] [address] Performed By: #### 2 4323-8 #### [id number] [address] [place] [address] [place] Creatinine and Glomerular filtration rate.predicted panel (S/P/Bld) 86 mL/min/1.73m??? Normal >=60 [facility] Comment on above: Order Comment: Kenneth vogt Type: BLOOD SPECIMEN Ordering Facility: [facility] Address: [address] [place] [address] Result Comment: Jeannette mated Glomerular Filtration Rate (eGFR) is calculated using the 2020 CKD-EPI creatinine equation. This equation utilizes serum creatinine, sex, and age as parameters. The creatinine assay has traceable calibration to isotope dilution-mass spectrometry. Refer to KDIGO guidelines for clinical interpretation. In patients with unstable renal function, e.g. those with acute kidney injury, the eGFR may not accurately reflect actual GFR. Performed By: #### 2 4323-8 #### [facility] [id number] [address] [place] [address] [place] Glucose [Mass/Vol] 102 mg/dL High 74-99 [facility] Comment on above: Order Comment: Kenneth vogt Type: BLOOD SPECIMEN Ordering Facility: [facility] Address: [address] [place] [address] Result Comment: The [place] Diabetes Association (ADA) provides guidance for cutoff values for fasting glucose and random glucose. The ADA defines fasting as no caloric intake for at least 8 hours. Fasting plasma glucose results between 100 to 125 mg/dL indicate increased risk for diabetes (prediabetes). Fasting plasma glucose results greater than or equal to 126 mg/dL meet the criteria for diagnosis of diabetes. In the absence of unequivocal hyperglycemia, results should be confirmed by repeat testing. In a patient with classic symptoms of hyperglycemia or hyperglycemic crisis, random plasma glucose results greater than or equal to 200 mg/dL meet the criteria for diagnosis of diabetes. Reference: Standards of Medical Care in Diabetes 2016, [place] Diabetes [employer]. Diabetes Care. 2016.39(Suppl 1). Performed By: #### 2 4323-8 #### [facility] CLIA [id number] [address] [place] [address] [place] Potassium [Moles/Vol] 4.3 mmol/L Normal 3.7-5.1 [facility] Comment on above: Order Comment: Speci men Type: BLOOD SPECIMEN Ordering Facility: [facility] Address: [address] [place] [address] Performed By: #### 2 4323-8 #### [facility] [id number] [address] [place] [address] [place] Protein [Mass/Vol] 7.9 g/dL Normal 6.3-8.0 [facility] Comment on above: Order Comment: Speci men Type: BLOOD SPECIMEN Ordering Facility: [facility] Address: [address] [place], [place] [address] Performed By: #### 2 4323-8 #### [facility] [id number] [address] [place] [address] [place] Sodium [Moles/Vol] 141 mmol/L Normal 136-144 [facility] Comment on above: Order Comment: Speci men Type: BLOOD SPECIMEN Ordering Facility: [facility] Address: [address] [place] [address] Performed By: #### 2 4323-8 #### [facility] [id number] [address] [place] [address] [place] Urea nitrogen [Mass/Vol] 11 mg/dL Normal 9-24 [facility] Comment on above: Order Comment: Speci men Type: BLOOD SPECIMEN Ordering Facility: [facility] Address: [address] [place] [address] Performed By: #### 2 4323-8 #### [facility] CLIA [id number] [address] [place] [address] [place] Cyclic citrullinated peptide IgG Qnon 09-14-2024 CCP ANTIBODY IGG QUALITATIVE Negative Normal Negative [facility] Comment on above: Order Comment: Speci men Type: BLOOD SPECIMENOrdering Facility: [facility] Address: [address] [place] [address] Performed By: #### 3 3935-8 ####[facility] [id number] [place] [address] [place] ESR Westergren method (Bld) [Velocity]on 09-14-2024 ESR (Bld) [Velocity] 2 mm/h Normal 0-15 [facility] Comment on above: Order Comment: Speci men Type: BLOOD SPECIMEN Ordering Facility: [facility] Address: [address] [place] [address] Performed By: #### 4 537-7 #### [facility] CLIA [id number] [address] [place] [address] [place] Rheumatoid fact SerPl-aCncon 09-14-2024 Rheumatoid factor Qn 12 [IU]/mL Normal <16 [facility] Comment on above: Order Comment: Speci men Type: BLOOD SPECIMEN Ordering Facility: [facility] Address: [address] [place] [address] Performed By: #### 4 537-7 #### [facility] CLIA [id number] [address] [place] [address] [place] XR KNEE 4V AP/PA BOTH+LAT/ME R LTon 09-14-2024 XR KNEE 4V AP/PA BOTH+LAT/LUCA LT * * *Final Report* * * DATE OF EXAM: Sep 14 2024 3:43PM WRX 5202 - XR KNEE 4V AP/PA BOTH+LAT/LUCA LT / PROCEDURE REASON: multiple diagnoses * * * * Physician Interpretation * * * * TECHNIQUE: XR KNEE 4V AP/PA BOTH+LAT/LUCA LT, 4 views EXAM DATE: 09/14/2024 3:43 PM CLINICAL HISTORY: 68 years Male with Polyarthralgia Dry eye syndrome of both eyes Weakness Chronic pain of both shoulders; pain ofr 6 months medial left knee no inj COMPARISON: None RESULT: Bone mineralization is normal. No significant joint space narrowing. No erosions, abnormal bone lesion or joint effusion. 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 No bony erosions, abnormal bone lesion or fracture. IMPRESSION: Unremarkable left knee. Right knee Owen-Stieda lesion. Airconditioning Drafting Officer: PSCB Transcribe Date/Time: Sep 17 2024 10:08P Dictated by : JOE MUSA MD This examination was interpreted and the report reviewed and electronically signed by: JOE MUSA MD on Sep 17 2024 10:10PM EST [id number] Normal [facility] cCP IgG SerPl-aCncon 04-10-2 025 Cyclic citrullinated peptide IgG Qn <15 Normal <20 [facility] Comment on above: Order Comment: Speci men Type: BLOOD SPECIMENOrdering Facility: [facility] Address: [address] [place] [address] Performed By: #### 3 3935-8 ####[facility] [id number] [place] [address] [place] KAREN Comprehensive Panelon ANTI-DNA (DS)AB 1 IU/mL Normal 0-9 [facility] Comment on above: Result Comment: Nega tive <5 Equivocal 5 - 9 Positive >9 Performed By: #### L 101.9900, L100.0100, L3100.5440, L501.6710 #### [facility] [address], [address] ANTISCLERODERM <0.2 Normal 0.0-0.9 [facility] Comment on above: Performed By: #### L 101.9900, L100.0100, L3100.5440, L501.6710 #### [facility] [address] [place], [address] Abdomen Single Viewon 2024 Abdomen Single View [facility] Imaging Services [address] [place] [address] Abdomen Single View MR#: [id number] Acct: [id number] Name: AROLDO NAVARRETE Rep #: [id number] : 1955 M 68 From: Edd Ayers MD PCP: Holly Be DO Status: REG CLI Study: Abdomen Single View Date of Exam: 07/18/24 Exam# [id number] Ordering Dr: Fede Davenport [facility] [employer] C EXAM: XR Abdomen, 1 View CLINICAL INDICATION: TECHNIQUE: Frontal supine view of the abdomen/pelvis. COMPARISON: No relevant prior studies available. FINDINGS: GASTROINTESTINAL TRACT: Unremarkable. No dilation. ORGANS: Probable punctate right nephrolithiasis. BONES/JOINTS: Unremarkable. No acute fracture. RAD/Abdomen Single View IMPRESSION: Probable punctate right nephrolithiasis. Reading Location: [facility] CC: Holly Be DO; Fede [facility] [employer] Ethel Airconditioning Drafting Officer: Signed Normal [facility] CBC W/Diff, Automatedon 07-08 Absolute Lymph 2.06 X10 3/uL Normal 0.83-4.51 [facility] Comment on above: Performed By: #### L 101.9900, L100.0100, L3100.5440, L501.6710 #### [facility] [address] [place], [address] Absolute Neut 2.5 X10 3/uL Normal 2.0-7.7 [facility] Comment on above: Performed By: #### L 101.9900, L100.0100, L3100.5440, L501.6710 #### [facility] [address] [place], [address] Basophils/100 WBC (Bld) 0.6 % Normal 0-1 [facility] Comment on above: Performed By: #### L 101.9900, L100.0100, L3100.5440, L501.6710 #### [facility] [address] [place], [address] Eosinophils/100 WBC (Bld) 1.7 % Normal 0-5 [facility] Comment on above: Performed By: #### L 101.9900, L100.0100, L3100.5440, L501.6710 #### [facility] [address] [place], [address] Erythrocyte distribution width (RBC) [Ratio] 13.5 % Normal 11.6-14.6 [facility] Comment on above: Performed By: #### L 101.9900, L100.0100, L3100.5440, L501.6710 #### [facility] [address] [place], [address] Hematocrit (Bld) [Volume fraction] 41.4 % Normal 40-54 [facility] Comment on above: Performed By: #### L 101.9900, L100.0100, L3100.5440, L501.6710 #### [facility] [address] [place], [address] Hemoglobin (Bld) [Mass/Vol] 14.3 g/dL Normal 13.0-16.5 [facility] Comment on above: Performed By: #### L 101.9900, L100.0100, L3100.5440, L501.6710 #### [facility] [address] [place], [address] IG% 0.400 Normal 0.0-0.9 [facility] Comment on above: Result Comment: IG% - Immature Granulocytes (promyelocytes, myelocytes and metamyelocytes) > 1% indicates that a LEFT SHIFT is Present. Performed By: #### L 101.9900, L100.0100, L3100.5440, L501.6710 #### [facility] [address] [place], [address] Lymphocytes/100 WBC (Bld) 38.6 % Normal 19-41 [facility] Comment on above: Performed By: #### L 101.9900, L100.0100, L3100.5440, L501.6710 #### [facility] [address] [place], [address] MCH (RBC) [Entitic mass] 29.7 pg Normal 27.0-32.0 [facility] Comment on above: Performed By: #### L 101.9900, L100.0100, L3100.5440, L501.6710 #### [facility] [address] [place], [address] MCHC (RBC) [Mass/Vol] 34.5 g/dL Normal 32-36 [facility] Comment on above: Performed By: #### L 101.9900, L100.0100, L3100.5440, L501.6710 #### [facility] [address] [place], [address] MCV (RBC) [Entitic vol] 86.1 fL Normal 80-94 [facility] Comment on above: Performed By: #### L 101.9900, L100.0100, L3100.5440, L501.6710 #### [facility] [address] [place], [address] Monocytes/100 WBC (Bld) 12.4 % High 0-10 [facility] Comment on above: Performed By: #### L 101.9900, L100.0100, L3100.5440, L501.6710 #### [facility] [address] [place], [address] Neutrophils/100 WBC (Bld) 46.3 % Low 47-70 [facility] Comment on above: Performed By: #### L 101.9900, L100.0100, L3100.5440, L501.6710 #### [facility] [address] [place], [address] Nucleated RBC (Bld) [#/Vol] 0 10*3/uL Normal 0-5 [facility] Comment on above: Performed By: #### L 101.9900, L100.0100, L3100.5440, L501.6710 #### [facility] [address] [place], [address] Platelet mean volume (Bld) [Entitic vol] 10.3 fL Normal 6.2-12.0 [facility] Comment on above: Performed By: #### L 101.9900, L100.0100, L3100.5440, L501.6710 #### [facility] [address] [place], [address] Platelets (Bld) [#/Vol] 343 10*3/uL Normal 150-450 [facility] Comment on above: Performed By: #### L 101.9900, L100.0100, L3100.5440, L501.6710 #### [facility] [address] [place], [address] RBC (Bld) [#/Vol] 4.81 10*6/uL Normal 4.6-6.2 [facility] Comment on above: Performed By: #### L 101.9900, L100.0100, L3100.5440, L501.6710 #### [facility] [address] [place], [address] RDW SD 42.5 fl Normal 35.1-43.9 [facility] Comment on above: Performed By: #### L 101.9900, L100.0100, L3100.5440, L501.6710 #### [facility] [address] [place], [address] WBC (Bld) [#/Vol] 5.3 10*3/uL Normal 4.4-11.0 [facility] Comment on above: Performed By: #### L 101.9900, L100.0100, L3100.5440, L501.6710 #### [facility] [address] [place], [address] CRPon 07-18-2024 C-REACTIVE PROT 29.30 mg/L High 0.0-3.0 [facility] Comment on above: Result Comment: C-Re active Protein (CRP) provides useful information for the diagnosis, therapy and monitoring of inflammatory processes and associated diseases. For the evaluation of Relative Risk for Cardiovascular Disease, a High Sensitivity CRP (HSCRP) should be ordered. Performed By: #### L 101.9900, L100.0100, L3100.5440, L501.6710 ####[facility] [address] [place], [address] Chest PA and Lateralon 07-18 Chest PA and Lateral [facility] Imaging Services [address] [place] [address] Chest PA and Lateral MR#: [id number] Acct: [id number] Name: AROLDO NAVARRETE Rep #: [id number] : 1955 M 68 From: Soren Garcia PCP: Holly Be DO Status: REG CLI Study: Chest PA and Lateral Date of Exam: 07/18/24 Exam# [id number] Ordering Dr: Fede Davenport [facility] [employer] C PROCEDURE: CHEST PA AND LATERAL REASON FOR EXAM: Abnormal weight loss. TECHNIQUE: Three-view PA and lateral chest. COMPARISON: None. RAD/Chest PA and Lateral IMPRESSION: Lungs are moderately severely hyperinflated. No evidence of pulmonary edema. No focal infiltrate is seen. The lungs appear clear throughout. No pleural effusion or pneumothorax is seen. The cardiomediastinal silhouette is within the normal range for age. Mild thoracic spine degenerative changes are noted. No evidence of acute cardiopulmonary disease. Reading Location: [address] CC: Holly Be DO; Fede [facility] [employer] Beam Airconditioning Drafting Officer: Signed Normal [facility] Erythrocyte Sed Rateon 07-18 SED RATE 25 mm/hr High 0-20 [facility] Comment on above: Performed By: #### L 101.9900, L100.0100, L3100.5440, L501.6710 #### [facility] [address] [place], [place], [address] Breast Limited Unilateralon 07-07-2024 Breast Limited Unilateral [facility] Imaging Services [address] [place], [place] [address] Breast Limited Unilateral MR#: [id number] Acct: [id number] Name: AROLDO NAVARRETE Rep #: [id number] : 1955 M 68 From: Yuval winston MD PCP: Holly Be DO Status: REG CLI Study: Breast Limited Unilateral Date of Exam: Exam# [id number] Ordering Dr: Holly Be [facility] D O PROCEDURE: BREAST LIMITED UNILATERAL REASON FOR EXAM: Left retroareolar lower palpable lump. COMPARISON: Comparison is made with prior mammogram done earlier in the day. Left retroareolar region. TECHNIQUE: Targeted bilateral breast ultrasound. FINDINGS: LEFT: Ultrasound targeted to the retroareolar region of the left breast. At the left breast. The breast tissue appears sonographically normal. No cyst, solid mass, or suspicious shadowing. US/Breast Limited Unilateral IMPRESSION: Findings suggestive of gynecomastia. BI-RADS 1: NEGATIVE. RECOMMEND ANNUAL MAMMOGRAPHIC SCREENING. Reading Location: [place] [address] CC: Holly Be DO Airconditioning Drafting Officer: Signed Normal [facility] SCRN MAMM (CAD)W/JOCELYNN BILATo n 07-07-2024 SCRN MAMM (CAD)W/JOCELYNN BILAT [facility] Imaging Services [address] [place] [address] SCRN MAMM (CAD)W/JOCELYNN BILAT MR#: [id number] Acct: [id number] Name: AROLDO NAVARRETE Rep #: [id number] : 1955 M 68 From: Yuval winston MD PCP: Holly Be DO Status: REG CLI Study: SCRN MAMM (CAD)W/JOCELYNN BILAT Date of Exam: 06/09 07/01 Exam# [id number] Ordering Dr: Holly Be [facility] D O PROCEDURE: SCRN MAMM (CAD)W/JOCELYNN BILAT REASON FOR EXAM: M, Age 68 y/o , TECHNIQUE: Bilateral screening digital breast tomosynthesis with 2D and 3D images. Computer aided detection. COMPARISON: None. This is a baseline mammogram. FINDINGS: The breasts are heterogeneously dense which may obscure small masses. No suspicious masses, areas of developing architectural distortion, or suspicious calcifications. With the patient's history of a palpable lump in the left periareolar region, correlation with ultrasound recommended. BI/SCRN MAMM (CAD)W/JOCELYNN BILAT IMPRESSION: BI-RADS 0: INCOMPLETE - NEED ADDITIONAL IMAGING EVALUATION. Follow-up code: Ultrasound Recommended The patient will be notified of the results by letter. Reading Location: [place] [address] CC: Holly Be DO Airconditioning Drafting Officer: Signed Normal [facility] Thyroid Antibodieson 025 TG AB < 1.0 Normal 0.0-0.9 [facility] Comment on above: Result Comment: Thyr oglobulin Antibody measured by Tabatha [place] Methodology It should be noted that the presence of thyroglobulin antibodies may not be pathogenic nor diagnostic, especially at very low levels. The assay sql database developer has found that four percent of individuals without evidence of thyroid disease or autoimmunity will have positive TgAb levels up to 4 IU/mL. Performed at: [address] [id number] Hothouse Worker: Ovidio Edwards MD, Phone: [phone] Performed at: [address] [id number] Hothouse Worker: Felipe Johnson PhD, Phone: [phone] Performed By: #### L 501.40402, L506.0400, L3400.4700, L501.9520, L3300.6750 ####[facility] [address] [place], [place], [id number] THYR PEROX AB 15 IU/mL Normal 0-34 [facility] Comment on above: Performed By: #### L 501.72450, L506.0400, L3400.4700, L501.9520, L3300.6750 ####[facility] [address] [place], [place], [id number] Thyroid Stim Immunoglobon THY STIM IMMUNO <0.10 Normal 0.00-0.55 [facility] Comment on above: Performed By: #### L 501.34359, L506.0400, L3400.4700, L501.9520, L3300.6750 ####[facility] [address] [place], [place], [id number] Free T3on 07-03-2024 Free T3 [Mass/Vol] 2.4 pg/mL Normal 2.18-3.98 [facility] Comment on above: Performed By: #### L 501.92102, L506.0400, L3400.4700, L501.9520, L3300.6750 ####[facility] [address] [place], [place], [id number] T4 Free Directon 07-03-2024 T4 FREE DIRECT 0.77 ng/dL Normal 0.76-1.46 [facility] Comment on above: Performed By: #### L 501.62328, L506.0400, L3400.4700, L501.9520, L3300.6750 ####[facility] [address] [place], [place], [id number] Thyroid Stim Hormone (TSH)on 07-03-2024 TSH 1.260 uIU/mL Normal 0.358-3.740 [facility] Comment on above: Performed By: #### L 501.76228, L506.0400, L3400.4700, L501.9520, L3300.6750 ####[facility] [address] [place], [place], [address] Magnesiumon 06-23-2024 Magnesium [Mass/Vol] 2.3 mg/dL Normal 1.6-2.6 [facility] Comment on above: Performed By: #### L 501.5200 ####[facility] [address] [place], [place], [address] Orthopedic Visit Reporton Orthopedic Visit Report [facility] [address] [place] [address] [address] [place], [place] [address] OFFICE VISIT Date of Service: 04/04/24 MR#: [id number] Acct: [id number] Name: AROLDO NAVARRETE Rep #: [id number] : 1955 Provider: Dr. Steven warren MD Age/Sex: 68/M Location: [facility] Status: Signed Intake Vital Signs 04/03/24 13:59 Height 5 ft 11 in Intake Visit Reasons: LEFT HAND Chief Complaint: ultrasound review Accompanied by: Self Is patient in pain?: No Allergies Penicillins Allergy (Verified 04/04/24 10:29) Hives Medications ???Medication ???Instructions ???Recorded ???Confirmed ???Type lisinopril 20 1 tab PO QDAY 02/08/24 04/04/24 History mg-hydrochlorothiazide 25 mg tablet prednisone 5 mg tablets in a dose See Rx Instructions PO PER PKG DIR 04/04/24 04/04/24 Rx pack wrist tendonitis 10 days #48 tabs Have you fallen in the past year?: Yes PFSH Medical History (Updated 04/04/24 @ 10:42 by Steven Martinez MD) Osteoarthritis of right knee Extensor tenosynovitis of left wrist Ganglion cyst of dorsum of left wrist MCL sprain of right knee Right knee pain Hypertension Social History Smoking Status: Current every day smoker tobacco type: cigarettes alcohol intake: current HPI LEFT HAND Details: This documentation accurately reflects the service provided and the decisions made by me, Dr. Steven Martinez MD 04/04/24 1026. Part of today???s visit was documented by [ ], acting as scribe. AROLDO NAVARRETE is a 68 year old M here today for follow-up left wrist dorsal ultrasound for extensor tenosynovitis. Patient doing well the swelling is slowly improving. The patient is fnbn-fbth-qvwaqcpg. Patient is using a brace he has to use his left hand quite a bit for his job. He is here today to follow-up on the ultrasound. The patient also had a right knee injury fell on his knee about 2 months ago twisted it had a little bit of medial sided pain that is gradually improving. The swelling is improving as well. The pain is very minimal about 3 out of 10 very occasionally just last for couple seconds when he twisted his knee wrong. Supplemental Info [facility] Imaging Services [address] [place] [address] Ext Non Vasc Limited/Soft Tiss MR#: [id number] Acct: [id number] Name: AROLDO NAVARRETE Rep #: [id number] : 1955 M 68 From: Cortes Waterman MD PCP: Holly Be DO Status: REG CLI Study: Ext Non Vasc Limited/Soft Tiss Date of Exam: 03/30/24 Exam# [id number] Ordering Dr: Steven Martinez MD [id number] STUDY: SUPERFICIAL ULTRASOUND - LEFT WRIST REASON FOR EXAM: Male, 68 years old. left wrist dorsal ganglion cyst TECHNIQUE: A superficial ultrasound was performed with real-time and static galdamez-scale imaging. COMPARISON: Left wrist x-ray dated March 23, 2024 FINDINGS: There is no large or obvious wrist joint effusion. Normal visualized dorsal (extrinsic) ligaments. Normal visualized volar (extrinsic) ligaments. Significant extensor tenosynovitis is present in 4 compartments. The subcutaneous tissues are also diffusely swollen and edematous. Moderate tendinopathy/tendinosi s is also present. This should be evaluated by MRI if the patient meets the criteria for MR imaging. Normal flexor tendons. Normal carpal tunnel with a normal median nerve. Normal carpometacarpal articulation of the thumb. Normal second through fifth carpometacarpal articulations. US/Ext Non Vasc Limited/Soft Tiss IMPRESSION: 1. Significant extensor tenosynovitis is present in 4 compartments. The subcutaneous tissues are also diffusely swollen and edematous. Moderate tendinopathy/tendinosi s is also present. This should be evaluated by MRI if the patient meets the criteria for MR imaging. Electronically Signed: Cortes Waterman MD at 13:44 EDT Reading Location ID and State: [address] [place] [address] , Service support , [facility] [address] [facility] [place] [address] Knee 4 or More Views MR#: [id number] Acct: [id number] Name: AROLDO NAVARRETE Rep #: [id number] : 1955 M 68 From: Nilson Churchill MD PCP: Holly Be DO Status: DEP AMB Study: Knee 4 or More Views Date of Exam: 02/08/24 Exam# [id number] Ordering Dr: Steven Martinez MD (more content not included)... Normal [facility] Ext Non Vasc Limited/Soft Ti sson 03-30-2024 Ext Non Vasc Limited/Soft Tiss [facility] Imaging Services [address] [place] [address] Ext Non Vasc Limited/Soft Tiss MR#: [id number] Acct: [id number] Name: RONNIE NAVARRETEDORA Rep #: [id number] : 1955 M 68 From: Cortes dumont MD PCP: Holly Be DO Status: REG CLI Study: Ext Non Vasc Limited/Soft Tiss Date of Exam: Exam# [id number] Ordering Dr: Steven Martinez MD [id number] STUDY: SUPERFICIAL ULTRASOUND - LEFT WRIST REASON FOR EXAM: Male, 68 years old. left wrist dorsal ganglion cyst TECHNIQUE: A superficial ultrasound was performed with real-time and static galdamez-scale imaging. COMPARISON: Left wrist x-ray dated March 23, 2024 FINDINGS: There is no large or obvious wrist joint effusion. Normal visualized dorsal (extrinsic) ligaments. Normal visualized volar (extrinsic) ligaments. Significant extensor tenosynovitis is present in 4 compartments. The subcutaneous tissues are also diffusely swollen and edematous. Moderate tendinopathy/tendinosi s is also present. This should be evaluated by MRI if the patient meets the criteria for MR imaging. Normal flexor tendons. Normal carpal tunnel with a normal median nerve. Normal carpometacarpal articulation of the thumb. Normal second through fifth carpometacarpal articulations. US/Ext Non Vasc Limited/Soft Tiss IMPRESSION: 1. Significant extensor tenosynovitis is present in 4 compartments. The subcutaneous tissues are also diffusely swollen and edematous. Moderate tendinopathy/tendinosi s is also present. This should be evaluated by MRI if the patient meets the criteria for MR imaging. Electronically Signed: Cortes Waterman MD at 13:44 EDT , CC: Dr. Steven Martinez MD; Holly Be DO Airconditioning Drafting Officer: Signed Normal [facility] Orthopedic Visit Reporton Orthopedic Visit Report [facility] [address] [facility] [address] [place] [address] OFFICE VISIT Date of Service: 03/23/24 MR#: [id number] Acct: [id number] Name: AROLDO NAVARRETE Rep #: [id number] : 1955 Provider: Dr. Steven warren MD Age/Sex: 68/M Location: [facility] Status: Signed Intake Vital Signs 02/03/24 10:26 Height 5 ft 11 in Intake Visit Reasons: LET HAND Chief Complaint: cyst on left hand Accompanied by: Self Is patient in pain?: Yes Allergies Penicillins Allergy (Verified 03/23/24 08:18) Hives Medications ???Medication ???Instructions ???Recorded ???Confirmed ???Type lisinopril 20 1 tab PO QDAY 02/08/24 03/23/24 History mg-hydrochlorothiazide 25 mg tablet Have you fallen in the past year?: Yes PFSH Medical History MCL sprain of right knee Right knee pain Hypertension Social History Smoking Status: Current every day smoker tobacco type: cigarettes alcohol intake: current HPI LET HAND Details: This documentation accurately reflects the service provided and the decisions made by me, Dr. Steven Martinez MD 03/23/24 0815. Part of today???s visit was documented by [ ], acting as scribe. AROLDO NAVARRETE is a 68 year old M here today for L wrist. LHD. mass 1 year. no trauma. works making plastic pipes. comes and goes. burned it years ago. no f/c/ns/wt loss etc. minimal pain. swollen, mid dorsum of the wrist. TX - nothing. Ortho Exam General General: Yes no acute distress Neurologic: Yes alert and Yes oriented x3 Psychologic: Yes reasonable and appropriate Right Wrist/Hand Skin/Wound: Yes Swelling and No Ecchymosis Left Wrist/Hand Skin/Wound: Yes CDI, Yes Swelling, No Ecchymosis, Yes nail intact, Yes capillary refill normal and No erythema A1 anthony trigger: No Left Wrist: No Tender to palpate triangular fibrocartilage complex and No Distal radioulnar joint Motor: EPL: 5, FDP-2: 5, 1st Dorsal Interosseous: 5 and APB: 5 Sensation: Radial: I, Ulnar: I and Median: I WRIST: There is a large appearing swelling in the mid dorsum of the wrist looks like 2 compartments ganglion cyst soft mobile minimally tender flexion extension about 35 degrees either direction. Able to make a full fist. Supplemental Info X-rays taken today of the wrist left side 3 views obtained this demonstrates advanced OA of the wrist joint. Coding Level of Care Code Off vis,new,level 3 Diagnoses Ganglion cyst of dorsum of left wrist M67.432 Assessment and Plan Assessment and Plan (1) Ganglion cyst of dorsum of left wrist: Status: Acute Plan: 68-year-old man with what appears to be a ganglion cyst left wrist. Could also be swelling from extensor tenosynovitis. I will add an order an ultrasound to confirm the likely diagnosis of a ganglion cyst and follow patient up after that. I also explained the diagnosis prognosis different treatment options available including doing nothing rest ice anti-inflammatories bracing aspiration or surgical excision. The patient understands will follow-up after the ultrasound. Orders: Orders Wrist min 3 Views Today M67.432 - Ganglion, left wrist Clinical Quality Measures Falls Risk Screening/Assistive Devices Have you fallen in the past year?: Yes 03/23/24 0842 Date Steven Martinez MD Cosignodalis Signature: Date (if applicable) CC: Normal [facility] Wrist min 3 Viewson 03-23-20 24 Wrist min 3 Views [facility] [address] [address] Wrist min 3 Views MR#: [id number] Acct: [id number] Name: AROLDO NAVARRETE Rep #: [id number] : 1955 M 68 From: Malvin Garcia PCP: Holly Be DO Status: DEP AMB Study: Wrist min 3 Views Date of Exam: 03/23/24 Exam# [id number] Ordering Dr: Steven Martinez MD [id number] EXAM: XR LEFT WRIST COMPLETE, 3 OR MORE VIEWS CLINICAL INDICATION: pain, ganglion cyst TECHNIQUE: Frontal, lateral and oblique views of the left wrist. COMPARISON: No relevant prior studies available. FINDINGS: BONES/JOINTS: Degenerative changes in the radiocarpal joint. No acute fracture. No subluxation. Normal alignment. No sclerotic or destructive changes observed. SOFT TISSUES: Nonspecific soft tissue masslike area in the dorsum of the wrist measuring 42 x 14 mm. This is better evaluated with MRI and gadolinium. No soft tissue swelling or gas. No radiopaque foreign body. RAD/Wrist min 3 Views IMPRESSION: 1. Nonspecific soft tissue masslike area in the dorsum of the wrist measuring 42 x 14 mm. This is better evaluated with MRI and gadolinium. 2. Degenerative changes in the radiocarpal joint. Electronically Signed: Malvin Pizano MD at 19:22 EDT Reading Location ID and State: [facility] / [place] , Service support , CC: Dr. Steven Martinez MD; Holly Be DO Airconditioning Drafting Officer: Signed Normal [facility] Knee 4 or More Viewson 02-07 Knee 4 or More Views [facility] [address] [place] [address] Knee 4 or More Views MR#: [id number] Acct: [id number] Name: AROLDO NAVARRETE Rep #: [id number] : 1955 M 68 From: Nilson Churchill MD PCP: Holly Be DO Status: DEP AMB Study: Knee 4 or More Views Date of Exam: 02/08/24 Exam# [id number] Ordering Dr: Steven Martinez MD [id number] STUDY: X-RAY - RIGHT KNEE REASON FOR EXAM: Male, 68 years old. Pain. TECHNIQUE: 4 views of the right knee. COMPARISON: None. FINDINGS: There is ossific density adjacent to the medial femoral epicondyle, compatible with a Owen-Stieda lesion. Normal visualized distal femur. Normal visualized proximal tibia and fibula. Normal proximal tibiofibular articulation. There is no demonstrated acute fracture. Normal medial femorotibial compartment. Normal lateral femorotibial compartment. Normal patellofemoral articulation. There is a small right knee joint effusion. The soft tissue structures are unremarkable. RAD/Knee 4 or More Views IMPRESSION: Ossific density adjacent to the medial femoral epicondyle, compatible with a Owen-Stieda lesion. Small right knee joint effusion. Electronically Signed: Nilson Churchill MD at 9:02 EDT Reading Location ID and State: [address] [place] [address] , Service support , CC: Dr. Steven Martinez MD; Holly Be DO Airconditioning Drafting Officer: Signed Normal [facility] Orthopedic Visit Reporton Orthopedic Visit Report [facility] [address] [place] [address] OFFICE VISIT Date of Service: 02/08/24 MR#: [id number] Acct: [id number] Name: AROLDO NAVARRETE Rep #: [id number] : 1955 Provider: Dr. Steven warren MD Age/Sex: 68/M Location: [facility] Status: Signed Intake Vital Signs 06/29/23 08:54 02/03/24 10:26 Height 5 ft 11 in 5 ft 11 in Intake Visit Reasons: RIGHT KNEE Accompanied by: Self Is patient in pain?: Yes Pain scale (1-10): 6 Allergies Penicillins Allergy (Verified 02/08/24 08:22) Hives Medications ???Medication ???Instructions ???Recorded ???Confirmed ???Type lisinopril 20 1 tab PO QDAY 02/08/24 02/08/24 History mg-hydrochlorothiazide 25 mg tablet Have you fallen in the past year?: Yes PFSH Medical History Right knee pain Hypertension Social History (Updated 02/08/24 @ 08:24 by Barb Aceves) Smoking Status: Current every day smoker tobacco type: cigarettes alcohol intake: current HPI RIGHT KNEE Details: This documentation accurately reflects the service provided and the decisions made by me, Dr. Steven Martinez MD 02/08/24 0818. Part of today???s visit was documented by [ ], acting as scribe. AROLDO NAVARRETE is a 68 year old M here today for right knee pain. tripped down some steps. had an injury 6 years ago as well, bumped it then too. hard to move and bend it. medial side pain. no mechanical sx. hard to bend it all the way. laxity - no. felt like the knee went inward. TX - tried prednisone. ice Ortho Exam General General: Yes no acute distress Neurologic: Yes alert and Yes oriented x3 Psychologic: Yes reasonable and appropriate Right Knee Skin/Wound: Yes CDI, No erythema, No ecchymosis and Yes swelling 1+: Effusion Examination: Yes Med jt line tenderness, No Lat jt line tenderness, No TTP inf pole patella, No Crepitus, Yes Pain with flexion, Yes Pain with extention, No Asim's Test, No TTP Patellar tendon, No TTP Tibial tubercle, No TTP Pes Anserine and No Illiotibial band tenderness Quad Atrophy: No Stability: NML: Anterior Drawer, NML: Kait, NML: Posterior Drawer, NML: Valgus 0, NML: Varus 0 and NML: Varus 30 and 2+: Valgus 30 Patella Translation: 2 Apprehension with Lateral Translation: No Patellar Tilt Normal: Yes Patella Grind: No KNEE: nvi, antalgic gait, proximal origin MCL pain, rom 10-90, able to slr. Left Knee Patella Translation: 2 Supplemental Info xr 4 view r knee -calcification at the proximal origin of the MCL no acute findings mild medial compartment joint space narrowing. Coding Level of Care Code Off vis,new,level 3 Diagnoses Right knee pain M25.561 MCL sprain of right knee S83.411A Assessment and Plan Assessment and Plan (1) Right knee pain: Status: Acute Plan: AROLDO NAVARRETE is a 68 year old M here today for right knee pain and an MCL sprain grade 1-2 no laxity at full extension. Given the patient's age and MCL sprain I would recommend nonoperative treatment here hinged knee brace unlocked 0 to 90 degrees physical therapy referral and follow-up in 6 weeks time. I offer the patient an MRI he declined for now would like to try to treat this nonoperatively we will see how things go follow-up in 6 weeks time. Rest ice elevation gentle range of motion weightbearing as tolerated for pain and swelling. The patient understands no further questions or concerns. (2) MCL sprain of right knee: Status: Acute Orders: Orders Knee 4 or More Views Today M25.561 - Pain in right knee Referrals PT Referral M25.561 - Pain in right knee, S83.411A - Sprain of medial collateral ligament of right knee, initial encounter Medications: Discontinued hydrochlorothiazide Discontinued Reason: Pt no longer taking 25 mg PO DAILY 30 tabs 0RF Clinical Quality Measures Falls Risk Screening/Assistive Devices Have you fallen in the past year?: Yes 02/08/24 0850 Date Steven Carrasquillo Signature: Date (if applicable) CC: Normal [facility] CBC W/Diff, Automatedon 06-2 Absolute Lymph 1.48 X10 3/uL Normal 0.83-4.51 [facility] Comment on above: Performed By: #### L 100.0100, L500.4050, L501.9520, L500.4100 ####[facility] [address] [place], [address] Absolute Neut 4.4 X10 3/uL Normal 2.0-7.7 [facility] Comment on above: Performed By: #### L 100.0100, L500.4050, L501.9520, L500.4100 ####[facility] [address] [place], [address] Basophils/100 WBC (Bld) 0.6 % Normal 0-1 [facility] Comment on above: Performed By: #### L 100.0100, L500.4050, L501.9520, L500.4100 ####[facility] [address] [place], [address] Eosinophils/100 WBC (Bld) 3.0 % Normal 0-5 [facility] Comment on above: Performed By: #### L 100.0100, L500.4050, L501.9520, L500.4100 ####[facility] [address] [place], [address] Erythrocyte distribution width (RBC) [Ratio] 13.1 % Normal 11.6-14.6 [facility] Comment on above: Performed By: #### L 100.0100, L500.4050, L501.9520, L500.4100 ####[facility] [address] [place], [address] Hematocrit (Bld) [Volume fraction] 40.2 % Normal 40-54 [facility] Comment on above: Performed By: #### L 100.0100, L500.4050, L501.9520, L500.4100 ####[facility] [address] [place], [address] Hemoglobin (Bld) [Mass/Vol] 13.4 g/dL Normal 13.0-16.5 [facility] Comment on above: Performed By: #### L 100.0100, L500.4050, L501.9520, L500.4100 ####[facility] [address] [place], [address] IG% 0.100 Normal 0.0-0.9 [facility] Comment on above: Result Comment: IG% - Immature Granulocytes (promyelocytes, myelocytes and metamyelocytes) > 1% indicates that a LEFT SHIFT is Present. Performed By: #### L 100.0100, L500.4050, L501.9520, L500.4100 ####[facility] [address] [place], [address] Lymphocytes/100 WBC (Bld) 21.9 % Normal 19-41 [facility] Comment on above: Performed By: #### L 100.0100, L500.4050, L501.9520, L500.4100 ####[facility] [address] [place], [address] MCH (RBC) [Entitic mass] 31.8 pg Normal 27.0-32.0 [facility] Comment on above: Performed By: #### L 100.0100, L500.4050, L501.9520, L500.4100 ####[facility] [address] [place], [address] MCHC (RBC) [Mass/Vol] 33.3 g/dL Normal 32-36 [facility] Comment on above: Performed By: #### L 100.0100, L500.4050, L501.9520, L500.4100 ####[facility] [address] [place], [address] MCV (RBC) [Entitic vol] 95.3 fL High 80-94 [facility] Comment on above: Performed By: #### L 100.0100, L500.4050, L501.9520, L500.4100 ####[facility] [address] [place], [address] Monocytes/100 WBC (Bld) 8.7 % Normal 0-10 [facility] Comment on above: Performed By: #### L 100.0100, L500.4050, L501.9520, L500.4100 ####[facility] [address] [place], [address] Neutrophils/100 WBC (Bld) 65.7 % Normal 47-70 [facility] Comment on above: Performed By: #### L 100.0100, L500.4050, L501.9520, L500.4100 ####[facility] [address] [place], [address] Nucleated RBC (Bld) [#/Vol] 0 10*3/uL Normal 0-5 [facility] Comment on above: Performed By: #### L 100.0100, L500.4050, L501.9520, L500.4100 ####[facility] [address] [place], [address] Platelet mean volume (Bld) [Entitic vol] 11.2 fL Normal 6.2-12.0 [facility] Comment on above: Performed By: #### L 100.0100, L500.4050, L501.9520, L500.4100 ####[facility] [address] [place], [address] Platelets (Bld) [#/Vol] 256 10*3/uL Normal 150-450 [facility] Comment on above: Performed By: #### L 100.0100, L500.4050, L501.9520, L500.4100 ####[facility] [address] [place], [address] RBC (Bld) [#/Vol] 4.22 10*6/uL Low 4.6-6.2 [facility] Comment on above: Performed By: #### L 100.0100, L500.4050, L501.9520, L500.4100 ####[facility] [address] [place], [address] RDW SD 45.8 fl High 35.1-43.9 [facility] Comment on above: Performed By: #### L 100.0100, L500.4050, L501.9520, L500.4100 ####[facility] [address] [place], [address] WBC (Bld) [#/Vol] 6.8 10*3/uL Normal 4.4-11.0 [facility] Comment on above: Performed By: #### L 100.0100, L500.4050, L501.9520, L500.4100 ####[facility] [address] [place], [address] Comprehensive Metabolic Prof [facility] 12-02-2023 Albumin [Mass/Vol] 3.4 g/dL Normal 3.2-5.0 [facility] Comment on above: Performed By: #### L 100.0100, L500.4050, L501.9520, L500.4100 ####[facility] [address] [place], [address] Albumin/Globulin [Mass ratio] 0.8 {ratio} Low 0.9-2.4 [facility] Comment on above: Performed By: #### L 100.0100, L500.4050, L501.9520, L500.4100 ####[facility] [address] [place], [address] ALK P 98 U/L Normal 45-117 [facility] Comment on above: Performed By: #### L 100.0100, L500.4050, L501.9520, L500.4100 ####[facility] [address] [place], [address] ALT [Catalytic activity/Vol] 23 U/L Normal 16-61 [facility] Comment on above: Performed By: #### L 100.0100, L500.4050, L501.9520, L500.4100 ####[facility] [address] [place], [address] AST [Catalytic activity/Vol] 26 U/L Normal 15-37 [facility] Comment on above: Performed By: #### L 100.0100, L500.4050, L501.9520, L500.4100 ####[facility] [address] [place], [address] Bilirubin [Mass/Vol] 0.40 mg/dL Normal 0.20-1.00 [facility] Comment on above: Result Comment: For patients on eltrombopag therapy, use of Dimension [place] TBIL is not recommended. Performed By: #### L 100.0100, L500.4050, L501.9520, L500.4100 ####[facility] [address] [place], [address] BUN/CRE 8.9 RATIO Low 10-20 [facility] Comment on above: Performed By: #### L 100.0100, L500.4050, L501.9520, L500.4100 ####[facility] [address] [place], [address] CA,Total 9.1 mg/dL Normal 8.5-10.1 [facility] Comment on above: Performed By: #### L 100.0100, L500.4050, L501.9520, L500.4100 ####[facility] [address] [place], [address] Chloride [Moles/Vol] 102 mmol/L Normal 98-107 [facility] Comment on above: Performed By: #### L 100.0100, L500.4050, L501.9520, L500.4100 ####[facility] [address] [place], [address] CO2 [Moles/Vol] 27.0 mmol/L Normal 21.0-32.0 [facility] Comment on above: Performed By: #### L 100.0100, L500.4050, L501.9520, L500.4100 ####[facility] [address] [place], [address] Creatinine [Mass/Vol] 0.78 mg/dL Normal 0.70-1.30 [facility] Comment on above: Result Comment: The validity of the calculated GFR GFRAA in patients over 70 years has not been determined. Clinical correlation is essential. Performed By: #### L 100.0100, L500.4050, L501.9520, L500.4100 ####[facility] [address] [place], [address] EST GFR - AA 127 mL/min Normal >60 [facility] Comment on above: Result Comment: Afri can Georgian GFR Calc Performed By: #### L 100.0100, L500.4050, L501.9520, L500.4100 ####[facility] [address] [place], [address] GAP 8 Normal 5-15 [facility] Comment on above: Performed By: #### L 100.0100, L500.4050, L501.9520, L500.4100 ####[facility] [address] [place], [address] GFR/1.73 sq M.predicted among non-blacks MDRD (S/P/Bld) [Vol rate/Area] 105 mL/min/{1.73_m2} Normal >60 [facility] Comment on above: Result Comment: Non- GFR Calc Performed By: #### L 100.0100, L500.4050, L501.9520, L500.4100 ####[facility] [address] [place], [address] Globulin (S) [Mass/Vol] 4.3 g/dL High 2.2-4.2 [facility] Comment on above: Performed By: #### L 100.0100, L500.4050, L501.9520, L500.4100 ####[facility] [address] [place], [address] Glucose [Mass/Vol] 99 mg/dL Normal 74-106 [facility] Comment on above: Performed By: #### L 100.0100, L500.4050, L501.9520, L500.4100 ####[facility] [address] [place], [address] Potassium [Moles/Vol] 3.9 mmol/L Normal 3.5-5.1 [facility] Comment on above: Performed By: #### L 100.0100, L500.4050, L501.9520, L500.4100 ####[facility] [address] [place], [address] Sodium [Moles/Vol] 137 mmol/L Normal 136-145 [facility] Comment on above: Performed By: #### L 100.0100, L500.4050, L501.9520, L500.4100 ####[facility] [address] [place], [address] T PROT 7.7 g/dL Normal 6.4-8.2 [facility] Comment on above: Performed By: #### L 100.0100, L500.4050, L501.9520, L500.4100 ####[facility] [address] [place], [address] Urea nitrogen [Mass/Vol] 7 mg/dL Normal 7-18 [facility] Comment on above: Performed By: #### L 100.0100, L500.4050, L501.9520, L500.4100 ####[facility] [address] [place], [address] Lipid Profileon 12-02-2023 Cholesterol [Mass/Vol] 161 mg/dL Normal 200 [facility] Comment on above: Result Comment: <200 mg/dL Desirable 200-240 mg/dL Borderline >240 mg/dL High Risk Performed By: #### L 100.0100, L500.4050, L501.9520, L500.4100 ####[facility] [address] [place], [address] Cholesterol in HDL [Mass/Vol] 93 mg/dL Normal [facility] Comment on above: Result Comment: The drugs N-Acetylcysteine and Metamizole may falsely depress this assay. Reference Range HDL <40 mg/dL Low HDL Cholesterol HDL >or= 60 mg/dL High HDL Cholesterol Performed By: #### L 100.0100, L500.4050, L501.9520, L500.4100 ####[facility] [address] [place], [address] Cholesterol in LDL [Mass/Vol] 50 mg/dL Normal 0-130 [facility] Comment on above: Performed By: #### L 100.0100, L500.4050, L501.9520, L500.4100 ####[facility] [address] [place], [address] Cholesterol in VLDL [Mass/Vol] 18 mg/dL Normal 5-40 [facility] Comment on above: Performed By: #### L 100.0100, L500.4050, L501.9520, L500.4100 ####[facility] [address] [place], [address] Triglyceride [Mass/Vol] 89 mg/dL Normal [facility] Comment on above: Result Comment: The drugs N-Acetylcysteine and Metamizole may falsely depress this assay. Serum Triglycerides Reference Interval Normal <150 mg/dL Borderline high 150 - 199 mg/dL High 200 - 499 mg/dL Very High > or = 500 mg/dL Performed By: #### L 100.0100, L500.4050, L501.9520, L500.4100 ####[facility] [address] [place], [place], [address] Thyroid Stim Hormone (TSH)on 12-02-2023 TSH 0.47 uIU/mL Normal 0.358-3.74 [facility] Comment on above: Performed By: #### L 100.0100, L500.4050, L501.9520, L500.4100 ####[facility] [address] [place], [place], [id number] Vital Signs Date Time Vital Sign Value Performing Clinician Gavin you 11-01-2024 13:57-0400 Body mass index (BMI) [Ratio] 18 kg/m2 Cony Amena PA-C Work Phone: [facility] 11-01-2024 13:57-0400 Body weight 58.97 kg Cony Amena PA-C Work Phone: [facility] 11-01-2024 13:57-0400 Diastolic blood pressure 82 mm[Hg] Cony Amena PA-C Work Phone: [facility] 11-01-2024 13:57-0400 Heart rate 92 /min Cony Amena PA-C Work Phone: [facility] 11-01-2024 13:57-0400 SaO2% (BldA) [Mass fraction] 99 % Cony Amena PA-C Work Phone: [facility] 11-01-2024 13:57-0400 Systolic blood pressure 127 mm[Hg] Cony Amena PA-C Work Phone: [facility] 10-13-2024 13:42-0400 Body height 181 cm Renny Forrester MD Work Phone: [facility] 10-13-2024 13:42-0400 Body mass index (BMI) [Ratio] 18.13 kg/m2 Renny Forrester MD Work Phone: [facility] 10-13-2024 13:42-0400 Body weight 59.4 kg Renny Forrester MD Work Phone: [facility] 10-11-2024 10:57-0400 Body height 181 cm Pulm Wstr Work Phone: [facility] 10-11-2024 10:57-0400 Body mass index (BMI) [Ratio] 17.45 kg/m2 Pulm Wstr Work Phone: [facility] 10-11-2024 10:57-0400 Body weight 57.15 kg Pulm Wstr Work Phone: [facility] 10-04-2024 11:19-0400 Body height 181 cm Pulm Wstr Work Phone: [facility] 10-04-2024 11:19-0400 Body mass index (BMI) [Ratio] 17.45 kg/m2 Pulm Wstr Work Phone: [facility] 10-04-2024 11:19-0400 Body weight 57.15 kg Pulm Wstr Work Phone: [facility] 10-04-2024 09:51-0400 Diastolic blood pressure 82 mm[Hg] Cony Amena PA-C Work Phone: [facility] 10-04-2024 09:51-0400 Heart rate 75 /min Cony Amena PA-C Work Phone: [facility] 10-04-2024 09:51-0400 Respiratory rate 17 /min Cony Amena PA-C Work Phone: [facility] 10-04-2024 09:51-0400 SaO2% (BldA) [Mass fraction] 100 % Cony Amena PA-C Work Phone: [facility] 10-04-2024 09:51-0400 Systolic blood pressure 118 mm[Hg] Cony Amena PA-C Work Phone: [facility] 09-14-2024 14:23-0400 Diastolic blood pressure 102 mm[Hg] Cony Amena PA-C Work Phone: [facility] 09-14-2024 14:23-0400 Systolic blood pressure 150 mm[Hg] Cony Amena PA-C Work Phone: [facility] 09-14-2024 14:18-0400 Body weight 57.15 kg Cony Amena PA-C Work Phone: [facility] 09-14-2024 14:18-0400 Heart rate 108 /min Cony Amena PA-C Work Phone: [facility] 09-14-2024 14:18-0400 SaO2% (BldA) [Mass fraction] 98 % Cony Amena PA-C Work Phone: [facility] Encounters Encounter Date Encounter Type Care Provider Facility Start: 11-23-2024 ambulatory Holly Be [facility] Faci lity:[facility] Start: 11-01-2024 End: 11-01-2024 Patient encounter procedure Cony Amena PA-C Work Phone: Rheumatology Comment on above: Giant cell arteritis (HCC) (Primary Dx); PMR (polymyalgia rheumatica) (HCC); Lung nodule; MDA5 antibody positive; Chronic bilateral low back pain without sciatica; Chronic sacroiliac joint pain; Chronic neck pain; penitentiary (current) use of systemic steroids Start: 11-01-2024 End: 11-01-2024 ambulatory CONY AMENA Facility:[facility] Start: 10-30-2024 End: 10-30-2024 Telephone encounter Cony Amena PA-C Work Phone: Rheumatology Start: 10-26-2024 End: 10-26-2024 ambulatory JOSÉ MIGUEL JIANG Facility:[facility] Start: 10-25-2024 End: 10-25-2024 ambulatory RENNY FORRESTER Facility:[facility] Start: 10-18-2024 End: 10-18-2024 Telephone encounter Cony BENAVIDEZ-C Work Phone: Rheumatology Comment on above: GCA (giant cell matt ritis) ([facility]) (Primary Dx) Start: 10-17-2024 ambulatory Holly Be [facility] Faci lity:[facility] Start: 10-16-2024 End: 10-18-2024 Telephone encounter Cony BENAVIDEZ-C Work Phone: Rheumatology Comment on above: disability paperwork Start: 10-14-2024 End: 10-14-2024 Telephone encounter Guevara Jiménez MD Work Phone: Ophthalmology Start: 10-13-2024 End: 10-13-2024 Office outpatient visit 40 minutes Renny Forrester MD Work Phone: Rheumatology Comment on above: Polymyalgia rheumati ca ([facility]) (Primary Dx); MDA5 antibody positive; Lung nodule Start: 10-13-2024 End: 10-13-2024 Patient encounter procedure Emg 2 Neur Main (Max Weight: 1000) Work Phone: Neurology Start: 10-13-2024 End: 10-13-2024 ambulatory RENNY FORRESTER Neurology Start: 10-11-2024 End: 10-11-2024 Patient encounter procedure Pulm Lab [facility]str Work Phone: PULM LAB [facility] Start: 10-11-2024 End: 10-11-2024 [facility] Comment on above: Spirometry Start: 10-11-2024 End: 10-11-2024 Subsequent hospital visit by physician Ct [facility] Wstr (I-Stat) Work Phone: Cat Scan Comment on above: Weakness [R53.1] Start: 10-04-2024 End: 10-04-2024 Telephone encounter Cony BENAVIDEZ-C Work Phone: Rheumatology Start: 10-04-2024 End: 10-04-2024 ambulatory Pulm Lab [facility] Wstr Work Phone: PUL LAB [facility] Comment on above: Spirometry Start: 10-04-2024 End: 10-04-2024 Patient encounter procedure Pulm Lab [facility] Wstr Work Phone: PUL LAB [facility] Comment on above: Weakness (Primary Dx ); Polymyositis with myopathy (HCC); Chronic pain of both shoulders; Shortness of breath; Interstitial pulmonary disease (HCC) Start: 10-04-2024 End: 10-04-2024 ambulatory CONY AMENA Facility:[facility] Start: 09-28-2024 End: 10-04-2024 Telephone encounter Cony Amena PA-C Work Phone: Rheumatology Comment on above: Appointment Start: 09-27-2024 End: 09-27-2024 ambulatory CONY AMENA Facility:[facility] Start: 09-18-2024 End: 09-19-2024 Telephone encounter Cony Amena PA-C Work Phone: Rheumatology Comment on above: Insurance informatio n Start: 09-14-2024 End: 09-14-2024 Subsequent hospital visit by physician Xr [facility] Juan Pablo Monroy Work Phone: Radiology Comment on above: Polyarthralgia [M25. 50] Start: 09-14-2024 End: 09-14-2024 ambulatory CONY AMENA Facility:[facility] Start: 09-14-2024 End: 09-14-2024 Patient encounter procedure Cony Amena PA-C Work Phone: Rheumatology Comment on above: Polyarthralgia (Prim nguyen Dx); Ganglion, left wrist; Dry eye syndrome of both eyes; Weakness; Chronic pain of both shoulders; Bilateral hip pain; Chronic pain of both knees; Essential (primary) hypertension Start: 09-14-2024 End: 09-18-2024 Telephone encounter Cony Amena PA-C Work Phone: Rheumatology Start: 08-10-2024 ambulatory [facility] Facility:[facility] Start: 07-18-2024 End: 07-18-2024 ambulatory [facility] [place] [facility] Facility:[facility] Start: 07-07-2024 End: 07-07-2024 ambulatory Holly [place] [facility] Facility:[facility] Start: 07-03-2024 End: 07-03-2024 ambulatory Holly [place] [facility] Facility:[facility] Start: 06-23-2024 End: 06-23-2024 ambulatory Holly [place] [facility] Facility:[facility] Start: 04-04-2024 End: 04-04-2024 ambulatory Holly [place] [facility] Start: 03-30-2024 End: 03-30-2024 ambulatory Holly [place] [facility] Facility:[facility] Start: 03-23-2024 End: 03-23-2024 ambulatory Holly [place] [facility] Facility[facility] Start: 02-21-2024 ambulatory Holly [place] [facility] Faci lity:[facility] Start: 02-08-2024 End: 02-08-2024 ambulatory [place] [facility] Facility[facility] Start: 12-03-2023 ambulatory [place] [facility] Faci lity:[facility] Start: 12-02-2023 End: 12-02-2023 ambulatory [place] [facility] Facility:[facility] Procedures Date Procedure Procedure Detail Performing Clinician Start: 10-13-2024 Nerve conduction anton dies 5-6 studies Cony Amena PA-C Work Phone: Start: 10-11-2024 Plethysmography lung volumes w/wo airway resist Cony Amena PA-C Work Phone: Start: 10-11-2024 Ct thorax w/o contra st material Cony Amena PA-C Work Phone: Start: 10-04-2024 Spmtry w/vc expirato ry linh w/wo mxml vol vntj Cony Amena PA-C Work Phone: Start: 01-05-2012 Lipid 1996 panel - S felice or Plasma Cony Amena PA-C Work Phone: Plan of Treatment Date Care Activity Detail Author Start: 10-04-2031 RSV Vaccine (1 - 1-d ose 75+ series) RSV Vaccine (1 - 1-dose 75+ series) [facility] Start: 10-27-2027 Diabetes Screening Diabetes Screenin g [facility] Start: 09-15-2027 Diabetes Screening Diabetes Screenin g [facility] Start: 05-13-2026 Urine microalbumin profile DTaP,Tdap,Td Vaccine (2 - Td or Tdap) [facility] Start: 05-07-2025 End: 11-10-2025 CT Chest WO contrast CT CHEST WO IVCON Radiology Routine Lung nodule Expected: 05/07/2025, Expires: 11/10/2025 [facility] Work Phone: Comment on above: Expected: 05/07/2025 , Expires: 11/10/2025 Start: 02-05-2025 Influenza vaccination Influenz a Vaccine (Season Ended) [facility] Start: 11-21-2024 End: 11-21-2024 Patient encounter procedure 11/21/2024 11:00 AM EDT Office Visit Pulmonary Medicine [address] [place] [address] Irina Pretty MD [address] [place] [address] Comment: Lung nodule, R/O malignancy, patient with longstanding history of smoking, ? Paraneoplastic PMR and Positive MDA5 Ab Pulmonary Medicine Comment on above: Comment: Lung nodule , R/O malignancy, patient with longstanding history of smoking, ? Paraneoplastic PMR and Positive MDA5 Ab Start: 11-01-2024 End: 01-31-2025 C reactive protein [Mass/volume] in Serum or Plasma C-REACTIVE PROTEIN Lab Routine Giant cell arteritis (HCC) PMR (polymyalgia rheumatica) (HCC) Lung nodule MDA5 antibody positive Chronic bilateral low back pain without sciatica Chronic sacroiliac joint pain Chronic neck pain penitentiary (current) use of systemic steroids Expected: 11/01/2024, Expires: 01/31/2025 [facility] Comment on above: Expected: 11/01/2024 , Expires: 01/31/2025 Start: 11-01-2024 End: 01-31-2025 Erythrocyte sedimentation rate SEDIMENTATION RATE, WESTERGREN Lab Routine Giant cell arteritis (HCC) PMR (polymyalgia rheumatica) (HCC) Lung nodule MDA5 antibody positive Chronic bilateral low back pain without sciatica Chronic sacroiliac joint pain Chronic neck pain penitentiary (current) use of systemic steroids Expected: 11/01/2024, Expires: 01/31/2025 [facility] Comment on above: Expected: 11/01/2024 , Expires: 01/31/2025 Start: 11-01-2024 End: 01-31-2025 Ferritin [Mass/volume] in Serum or Plasma FERRITIN Lab Routine Giant cell arteritis (HCC) PMR (polymyalgia rheumatica) (HCC) Lung nodule MDA5 antibody positive Chronic bilateral low back pain without sciatica Chronic sacroiliac joint pain 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 Expected: 11/01/2024, Expires: 01/31/2025 [facility] Comment on above: Expected: 11/01/2024 , Expires: 01/31/2025 Start: 10-26-2024 End: 10-26-2024 Admission to same day surgery center 10/26/2024 2:26 PM EDT - 10/26/2024 4:25 PM EDT Surgery [facility] Surgery [address] [place] [address] José Miguel Jiang MD [address] [place] [id number] BIOPSY ARTERY TEMPORAL [facility] Surgery Comment on above: BIOPSY ARTERY TEMPOR AL Start: 10-26-2024 End: 10-26-2024 Ligation/biopsy temporal artery BIOPSY ARTERY TEMPORAL GCA (giant cell arteritis) (HCC) 10/26/2024 2:26 PM EDT ME OR Start: 10-26-2024 Subsequent hospital visit by physician 10/26/2024 2:26 PM EDT Hospital Encounter [facility] Surgery [address] [place] [id number] José Miguel Jiang MD [address] [address] GCA (giant cell arteritis) ([facility]) [M31.6] [facility] Surgery Comment on above: GCA (giant cell matt ritis) ([facility]) [M31.6] Start: 10-26-2024 End: 10-26-2024 ambulatory 10/26/2024 7:30 AM EDT [facility] Rheumatology [address] [address] Renny Forrester MD [address] [place] [address] add per provider Rheumatology Comment on above: add per provider Start: 10-20-2024 End: 10-20-2024 Patient encounter procedure 10/20/2024 9:00 AM EDT Appointment Radiology [address] [place] [address] *add on Approved by Elizabeth in [place] [facility]* Radiology Comment on above: *add on Approved by Elizabeth in [place] [facility]* Start: 10-13-2024 End: 10-13-2024 Patient encounter procedure 10/13/2024 3:00 PM EDT Office Visit Rheumatology [address] [id number] Renny Forrester MD [address] [place] [address] myositis per clarence beckwith Rheumatology Comment on above: myositis per clarence beckwith Start: 10-13-2024 End: 10-13-2024 ambulatory 10/13/2024 8:00 AM EDT Procedure Neurology [address] [phone] E MYOPATHY? Neurology Comment on above: E MYOPATHY? 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]; Chronic pain of both shoulders [M25.511, G89.29, M25.512]; Shortness of breath [R06.02]; Interstitial pulmonary disease (HCC) [J84.9]; SOB (shortness of breath) [R06.02] Cat Scan Comment on above: Dx: Weakness [R53.1] ; 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]; Chronic pain of both shoulders [M25.511, G89.29, M25.512]; Shortness of breath [R06.02]; Interstitial pulmonary disease (HCC) [J84.9]; SOB (shortness of breath) [R06.02] Start: 10-04-2024 End: 01-03-2025 Ferritin [Mass/volume] in Serum or Plasma [facility] Comment on above: Expected: 10/04/2024 , Expires: 01/03/2025 Start: 10-04-2024 End: 01-03-2025 TPMT PHENOTYPE/ENZYME ACTIVITY [facility] Comment on above: Expected: 10/04/2024 , Expires: 01/03/2025 Start: 09-27-2024 End: 09-27-2024 Patient encounter procedure 09/27/2024 8:30 AM EDT Office Visit Rheumatology [address] [place], [place] [phone] Cony Beckwith PA-C [address] [place], [place] [phone] Review results Rheumatology Comment on above: Review results Start: 09-14-2024 End: 12-14-2024 Aldolase [Enzymatic activity/volume] in Serum or Plasma [facility] Comment on above: Expected: 09/14/2024 , Expires: 12/14/2024 Start: 09-14-2024 End: 12-14-2024 KAREN BY IFA SCREEN KAREN BY IFA SCREEN Lab Routine Polyarthralgia Ganglion, left wrist Dry eye syndrome of both eyes Weakness Chronic pain of both shoulders Bilateral hip pain Chronic pain of both knees Essential (primary) hypertension Expected: 09/14/2024, Expires: 12/14/2024 [facility] Comment on above: Expected: 09/14/2024 , Expires: 12/14/2024 Start: 09-14-2024 End: 12-14-2024 C reactive protein [Mass/volume] in Serum or Plasma [facility] Comment on above: Expected: 09/14/2024 , Expires: 12/14/2024 Start: 09-14-2024 End: 12-14-2024 Creatine kinase [Enzymatic activity/volume] in Serum or Plasma [facility] Comment on above: Expected: 09/14/2024 , Expires: 12/14/2024 Start: 09-14-2024 End: 12-14-2024 Cyclic citrullinated peptide IgG Ab [Units/volume] in Serum or Plasma [facility] Comment on above: Expected: 09/14/2024 , Expires: 12/14/2024 Start: 09-14-2024 End: 12-14-2024 Erythrocyte sedimentation rate [facility] Comment on above: Expected: 09/14/2024 , Expires: 12/14/2024 Start: 09-14-2024 End: 12-14-2024 Rheumatoid factor [Units/volume] in Serum or Plasma [facility] Comment on above: Expected: 09/14/2024 , Expires: 12/14/2024 Start: 06-07-2024 Advance Directive Discussion Advance Directive Discussion [facility] Start: 02-06-2024 Covid-19 Vaccine () Covid-19 Vaccine () [facility] Start: 02-06-2024 Influenza vaccination Influenza Vacc ine (#1) [facility] Start: 01-04-2017 Lipid panel Lipid Screening [facility] Start: 01-04-2017 Prostate specific antigen measurement Prostate Cancer Screening Discussion [facility] Start: 2006 Shingrix Vaccine (1 of 2) Shingrix Vaccine (1 of 2) [facility] Start: 2001 Screening for malign ant neoplasm of colon [facility] Start: 10-04-1975 Pneumococcal Vaccine : 50+ (1 of 2 - PCV) Pneumococcal Vaccine: 50+ (1 of 2 - PCV) [facility] Start: 1974 Annual PCP Team Cost Engineer [email or web address] Disease Visit Annual PCP Team Chronic Disease Visit [facility] Start: 1974 Anxiety Screening Anxiety Screening [facility] Start: 1974 BP Controlled (<130/80) BP Controlle d (<130/80) [facility] Start: 1974 Depression Screening Depression Scre ening [facility] Start: 1974 Hepatitis C screening Hepatitis C Sc steph [facility] Start: 1956 Abdominal aortic aneurysm screening Abdominal Aortic Aneurysm Screening [facility] End: 11-03-2025 CT Chest WO contrast CT CHEST WO IVCON Radiology Routine Weakness Polymyositis with myopathy (HCC) Chronic pain of both shoulders Shortness of breath Interstitial pulmonary disease (HCC) 1 Occurrences starting 10/04/2024 until 11/03/2025 [facility] Comment on above: 1 Occurrences starti ng 10/04/2024 until 11/03/2025 End: 11-29-2025 CTA Abdominal vessels and Pelvis vessels WO and W contrast IV CTA ABD/PEL WO/W IVCON Radiology Routine Giant cell arteritis (HCC) 1 Occurrences starting 10/30/2024 until 11/29/2025 [facility] Comment on above: 1 Occurrences starti ng 10/30/2024 until 11/29/2025 End: 11-29-2025 CTA Chest vessels WO and W contrast IV CTA CHEST (NONGATED) WO/W IVCON Radiology Routine Giant cell arteritis (HCC) 1 Occurrences starting 10/30/2024 until 11/29/2025 [facility] Work Phone: Comment on above: 1 Occurrences starti ng 10/30/2024 until 11/29/2025 End: 10-04-2025 EMG(NEURO/NI) EMG(NEURO/NI) EMG Routine Weakness Polymyositis with myopathy (HCC) Chronic pain of both shoulders Shortness of breath 1 Occurrences starting 10/04/2024 until 10/04/2025 [facility] Work Phone: Comment on above: 1 Occurrences starti ng 10/04/2024 until 10/04/2025 LUNG DIFFUSION CAPAC ITY (DLCO) LUNG DIFFUSION CAPACITY (DLCO) PFT Routine Weakness Polymyositis with myopathy (HCC) Shortness of breath 10/04/2024 11:21 AM EDT [facility] Work Phone: End: 11-03-2025 LUNG VOLUMES LUNG VOLUMES PFT Routine Weakness Polymyositis with myopathy (HCC) Chronic pain of both shoulders Shortness of breath Interstitial pulmonary disease (HCC) 1 Occurrences starting 10/04/2024 until 11/03/2025 [facility] Comment on above: 1 Occurrences starti ng 10/04/2024 until 11/03/2025 Physical performance test/corinne w/reprt ea 15 min PHYSICAL PERFORMANCE TEST Procedures Routine Giant cell arteritis (HCC) PMR (polymyalgia rheumatica) (HCC) Lung nodule MDA5 antibody positive Ordered: 11/01/2024 [facility] Work Phone: Comment on above: Ordered: 11/01/2024 SPIROMETRY BASELINE ONLY SPIROME TRY BASELINE ONLY PFT Routine Weakness Polymyositis with myopathy (HCC) Shortness of breath 10/04/2024 11:21 AM EDT [facility] Work Phone: End: 11-12-2025 US.doppler Head US TEMPORAL ARTERY BILATERAL Radiology Routine Polymyalgia rheumatica (HCC) 1 Occurrences starting 10/13/2024 until 11/12/2025 [facility] Work Phone: Comment on above: 1 Occurrences starti ng 10/13/2024 until 11/12/2025 End: 12-01-2025 XR Cervical spine AP and Lateral and oblique XR CERV OTHER 4V AP/LAT/OBL Radiology Routine Chronic neck pain 1 Occurrences starting 11/01/2024 until 12/01/2025 [facility] Comment on above: 1 Occurrences starti ng 11/01/2024 until 12/01/2025 End: 10-14-2025 XR Knee - left 4 Views XR KNEE GENERAL 4V AP BOTH/PA BOTH/LAT/MERC LEFT Radiology Routine Polyarthralgia Dry eye syndrome of both eyes Weakness Chronic pain of both shoulders Bilateral hip pain Chronic pain of both knees 1 Occurrences starting 09/14/2024 until 10/14/2025 [facility] Work Phone: Comment on above: 1 Occurrences starti ng 09/14/2024 until 10/14/2025 XR Knee - left 4 Views XR KNEE G ENERAL 4V AP BOTH/PA BOTH/LAT/MERC LEFT Radiology Routine Polyarthralgia Dry eye syndrome of both eyes Weakness Chronic pain of both shoulders Bilateral hip pain Chronic pain of both knees 09/14/2024 3:43 PM EDT [facility] End: 12-01-2025 XR Sacroiliac Joint Views XR SACROILIAC JOINTS 2V AP PELVIS/FERGUESON Radiology Routine Giant cell arteritis (HCC) PMR (polymyalgia rheumatica) (HCC) Lung nodule MDA5 antibody positive Chronic bilateral low back pain without sciatica Chronic sacroiliac joint pain Chronic neck pain 1 Occurrences starting 11/01/2024 until 12/01/2025 [facility] Comment on above: 1 Occurrences starti ng 11/01/2024 until 12/01/2025 Immunizations Immunization Date Immunization Notes Care Provider Chadwick coppola 05-25-2022 influenza virus vacc ine, unspecified formulation Cony Beckwith PA-C Work Phone: [facility] Payers Date Payer Category Payer Self-pay 2023 Medicare (Managed Care) [employer] [place] [employer] [id number] 2023 Medicare [id number] 2021 Medicaid [id number] Unknown [id number]. 462 Unknown [id number]. 462 Unknown [id number]. 462 Unknown [id number]. 462 Unknown [id number] [id number]. 462 Unknown [id number] [id number]. 462 Unknown [id number] 2.16.840.1.657754.3.579.2. 462 Unknown [id number] 2.16.840.1.832413.3.579.2. 462 Unknown [id number] [id number]. 462 Unknown [id number] 2.16.840.1.699462.3.579.2. 462 Unknown [id number] 2.16.840.1.982090.3.579.2. 462 Unknown [id number] 2.16.840.1.314249.3.579.2. 462 Unknown [id number] 2.16.840.1.026425.3.579.2. 462 Unknown [id number] [id number]. 462 Unknown [id number] [id number]. 462 Unknown [id number]. 462 Social History Date Type Detail Facility Start: 09-14-2024 [facility] History of tobacco use Cigarette Smoker [facility] Start: 03-09-2023 End: 09-14-2024 Cigarettes smoked current (pack per day) - Reported 0.5 [facility] Start: 09-14-2024 Tobacco use and exposure Smoke less tobacco non-user [facility] Start: 09-14-2024 End: 11-01-2024 Alcoholic beverage intake Current drinker of alcohol (finding) [facility] Start: 03-09-2023 End: 09-14-2024 Tobacco use panel [facility] National Score (1-10 0), lower number is lower risk 89 [facility] Start: 09-14-2024 Alcohol Comment Beer everyday - 3- 16 oz cans [facility] Start: 1955 Sex assigned at Not on file [facility] Clinical Notes 09-14-2024 to 11-01-2024 Cony Beckwith PA-C - 11/01/2024 2:00 PM EDTTelephone Encounter - Cony Beckwith PA-C - 10/30/2024 10:08 PM EDTTelephone Encounter - Cony Beckwith PA-C - 10/30/2024 10:08 PM EDT Note Date & Type Note Facility 11-01-2024 History of Present illness Narrative Images from the original note were not included. Rheumatology FOLLOW UP VISIT Date of Service: 11/01/2024 Patient: Aroldo Navarrete Medical Record: [id number] Primary Care Physician: Marjorie Be DO History of Present Illness Brief Rheum History: Diagnosis: PMR, ?GCA Year of diagnosis: 2024 Presentation at diagnosis: Early 2024 onset of muscle pain in shoulder/hip (described as achiness) as well as calves, back, and arms. Pain worse in the AM and improved during the day. Movement worsened symptoms. Significant Disease Course: - September 2024. 1st Rheum appt. Myalgias in hips/shoulders, mild weakness with cachexia, difficulty rising from chair. ESR, CRP, CK, aldolase normal. Started on prednisone 20mg for PMR with 40-60% improvement of symptoms but had persistent muscle pain. MDA5 Ab returned positive. - PFTs 10/04/24 - FVC 91, FEV1 64, FEV1/FVC 68, DLCO 58. - EMG without evidence of myopathy. CT Chest with emphysematous changes as well as 1 cm RUL ground glass nodule. - October 2024 1st appt with me. No signs/symptoms of dermatomyositis. Concern for GCA due to temporal headaches, fatigue, and incomplete resolution of symptoms on prednisone. Current Treatment Prednisone September 2024-present Previous Treatments None Case discussed with Dr. Forrester via shared medical record Her Last Phone Call patient visit follow up was 10/25/24 reviewed. Plan as below: Assessment Most likely diagnosis at this time remains PMR with concern for GCA given temporal headaches, fatigue, and incomplete resolution of his symptoms with moderate dose prednisone. Also consider paraneoplastic PMR rendering PMR difficult to treat given RUL nodule seen on CT Chest. He has had near resolution of his myalgias on high dose prednisone although has not had similar improvement in his temporal headache, although this is overall not very bothersome to him. Will plan for TA biopsy tomorrow for evaluation of GCA. If this is positive, will treat for GCA with steroid taper and consideration of Tocilizumab. If TA bx is negative, this would not exclude GCA given several weeks of prednisone prior to biopsy - would consider empiric treatment with prednisone taper given clinical suspicion and also obtain large vessel imaging + pulmonary consultation for lung nodule (due to potential paraneoplastic process and positive MDA5 Ab). For now, will continue on prednisone 60mg daily. Regarding positive MDA5 antibody, patient does not have clinical evidence of dermatomyositis at this time. EMG did not reveal and myopathy (normal CK and aldolase). Chest CT and PFTs are consistent with smoking related lung changes but are not consistent with ILD. He also does not have cutaneous manifestations or Raynaud's. An additional consideration is the RUL lung nodule seen on CT Chest which needs further surveillance for malignancy, especially considering patient's smoking history. If this is an early malignancy, then this could be driving this positive MDA5 antibody. Plan - Continue prednisone 60mg daily. Taper pending TA Bx result. - Start PPI for GI prophylaxis - TA biopsy tomorrow - If TA bx positive for GCA, will treat with prednisone taper + consider Tocilizumab - If TA bx negative for GCA, will obtain CTA C/A/P and pulmonary consult for lung nodule, and continue prednisone taper INTERVAL HISTORY Aroldo is a 69-year-old male with a history of polymyalgia rheumatica, presenting for follow-up. He is currently taking prednisone. Aroldo is both RF - 12 (09/14/2024) and CCP - 13.5 (09/14/2024) negative. His most recent KAREN was negative (09/27/2024). Aroldo reports a 50% improvement in symptoms since starting prednisone 60?mg daily approximately 2.5 weeks ago, increased from 20?mg. He continues to experience intermittent, random pain in the bilateral shoulders and hips, described as an achy sensation located in the posterior regions. Pain is exacerbated by activities such as climbing stairs and carrying groceries or laundry. He also reports morning stiffness in the hips, making it difficult to get out of bed, though this improves as the day progresses. He continues to experience constant, dull, bilateral headaches described as a pressure sensation, unchanged since increasing the prednisone dose. He denies any improvement in headache symptoms. He reports weakness in the arms and legs, affecting his ability to perform heavy lifting and repetitive tasks at work, such as pushing heavy pipes and lifting buckets. He has been off work since June or July due to these symptoms and expresses concern about his ability to return to work given his current physical limitations. He is currently taking prednisone 60?mg daily and lisinopril. He has tizanidine available but has not been using it. He reports difficulty sleeping, which he attributes to the prednisone. He denies any new symptoms or changes in his condition. Pain Evaluation 10/26/2024 10/26/2024 10/26/2024 10/26/2024 10/26/2024 Pain Evaluation Pain Score 0 0 0 0 0 Patient-Entered Data None Review of Systems Review of Systems CONSTITUTION: Negative for: Fever HEENT: RESPIRATORY: Positive for: Cough and Shortness of breath GASTROINTESTINAL: MUSCULOSKELETAL: Positive for: Arthralgias, Myalgias, Muscle weakness and Morning Joint Stiffness NEUROLOGICAL: Positive for: Headaches SKIN: Negative for: Rash EYES: CARDIOVASCULAR: GENITOURINARY: HEMATOLOGIC/LYMPHATIC: No Jaw claudication, no judaism swanson, no sudden vision loss. + Vision changes over time. Denies rashes on his eyelids, chest, Fingers. Admits shortness of breath. Admits dysphagia Past Medical History No past medical history on file. Past Surgical History No past surgical history on file. Family History No family history on file. Social History Social History Tobacco Use Smoking status: Every Day Current packs/day: 0.50 Average packs/day: 0.5 packs/day for 20.0 years (10.0 ttl pk-yrs) Types: Cigarettes Smokeless tobacco: Never Vaping Use Vaping status: Former Substances: THC Substance Use Topics Alcohol use: Yes Comment: Beer everyday - 3- 16 oz cans Drug use: No Current Medications Current Outpatient Medications Medication Sig predniSONE (DELTASONE) 20 mg tablet Take 3 tablets by mouth once daily. pantoprazole DR (PROTONIX) 40 mg tablet Take 1 tablet by mouth once daily. lisinopril (ZESTRIL) 10 mg tablet Take 10 mg by mouth once daily. predniSONE (DELTASONE) 20 mg tablet Take 2.5 tablets by mouth once daily for 7 days, THEN 2 tablets once daily for 14 days. tiZANidine HCl (ZANAFLEX) 4 mg capsule Take 4 mg by mouth. Take 1 capsule everyday at bedtime as needed. Labs Latest Ref Rng & Units 01/05/2012 09/14/2024 10/26/2024 CBC WBC 3.70 - 11.00 k/uL 7.43 8.51 Hemoglobin 13.0 - 17.0 g/dL 16.6 15.6 Hemoglobin, [place] 13.0 - 17.0 g/dL 16.7 Hematocrit 39.0 - 51.0 % 48.1 43.2 Platelet Count 150 - 400 k/uL 173 222 Abs Neut, [place] 1.45 - 7.50 k/uL 2.73 Abs Lymp, [place] 1.00 - 4.00 k/uL 2.28 Latest Ref Rng & Units 01/05/2012 09/14/2024 10/26/2024 CMP Sodium 136 - 144 mmol/L 141 127 Sodium, [place] 135 - 146 mmol/L 142 Potassium 3.7 - 5.1 mmol/L 4.3 4.4 Potassium, [place] 3.5 - 5.0 mmol/L 4.7 Chloride 98 - 107 mmol/L 102 89 Chloride, [place] 98 - 110 mmol/L 102 CO2 22 - 30 mmol/L 28 24 CO2, [place] 23.0 - 32.0 mmol/L 29.6 Glucose 74 - 99 mg/dL 102 89 Glucose, [place] 65 - 100 mg/dL 97 BUN 9 - 24 mg/dL 11 13 BUN, [place] 10 - 25 mg/dL 9 Creatinine 0.73 - 1.22 mg/dL 0.97 0.84 Creatinine, [place] 0.7 - 1.4 mg/dL 1.1 Calcium, [place] 8.5 - 10.5 mg/dL 9.1 Calcium 8.5 - 10.2 mg/dL 10.0 9.1 AST 14 - 40 U/L 46 AST, [place] 7 - 40 U/L 18 ALT 10 - 54 U/L 34 ALT, [place] 5 - 50 U/L 12 Alkaline Phosphatase 38 - 113 U/L 105 Latest Ref Rng & Units 09/14/2024 ESR, WSR WSR 0 - 15 mm/hr 2 Latest Ref Rng & Units 09/14/2024 CRP CRP <0.9 mg/dL <0.3 Latest Ref Rng & Units 09/14/2024 CK CK 51 - 298 U/L 107 Latest Ref Rng & Units 09/14/2024 RF and CCP Rheumatoid Factor <16 IU/mL 12 CCP Antibody IgG Qualitative Negative Negative CCP Antibody, IgG <20 Units <15 Latest Ref Rng & Units 09/27/2024 Antibodies KAREN Negative Negative KAREN Titer 1:320 KAREN Pattern Homogeneous DC-[address] Negative Negative PL-12 ANTIBODY Negative Negative P155/140 ANTIBODY Negative Negative EJ ANTIBODY Negative Negative SRP ANTIBODY Negative Negative OJ ANTIBODY Negative Negative SAE1 ANTIBODY Negative Negative NXP-2 ANTIBODY Negative Negative MDA5 ANTIBODY Negative Positive TIF-1 GAMMA ANTIBODY Negative Negative Latest Ref Rng & Units 10/04/2024 TPMT amd G6PD TPMT Activity 24.0 - 44.0 U/mL 24.5 Imaging Last XR Knee - Impression Only XR KNEE GENERAL 4V AP BOTH/PA BOTH/LAT/MERC LEFT Exam End: 09/14/2024 3:43 PM (Final result) Impression: IMPRESSION: Unremarkable left knee. Right knee Owen-Stieda lesion. Airconditioning Drafting Officer: CLARISSA Transcribe Date/Time: Sep 17 2024 10:08P... Last XR Chest - Impression Only XR CHEST PA W RIBS LT Collected: 04/15/2015 12:03 PM (Final result) Impression: IMPRESSION: No radiographic evidence of rib fracture or other acute pathology. Airconditioning Drafting Officer: RADHA Transcribe Date/Time: Apr 16 2015 7:50A ... Health Maintenance Current Immunizations Never Reviewed Name Date COVID-19 vaccine, bivalent (PFIZER-BIONTECH) 05/25/2022 COVID-19 vaccine, monovalent (MODERNA) 05/11/2021, 11/04/2020, 2020 Physical Exam GENERAL APPEARANCE: Thin, cachectic. Alert and oriented x 3. In no distress. VITAL SIGNS: BP 127/82 Pulse 92 Wt 130 lb (59.0kg) SpO2 99% SKIN: No rash NECK: No mass or asymmetry. RESPIRATORY: Normal respiratory effort. Clear to auscultation and percussion. CARDIOVASCULAR: Heart RRR without gallop, murmur, or rub ENT: No Temporal artery tenderness MUSCULOSKELETAL EXAMINATION: Motor exam: 5/5 strength in bilateral upper arms and 4/5 strength proximal thighs. Uses hands to push up off the bench. Decreased bulk and tone in Proximal muscles. Spine: + trapezius muscle spasm and tenderness bilaterally painful ROM. Upper extremities: Shoulders: Fair overhead ROM in all álvarez bilaterally, + tenderness to palpation bilaterally. No swelling or effusion. Elbows: Full ROM in flexion and extension. No swelling or effusion Wrists: No swelling or synovitis. Hands: no swelling or synovitis Lower extremities: Hips: Able to stand with assistance from hands, appears less stiff, better mobility compared to prior visit. Impression (M31.6) Presumed Giant cell arteritis (HCC) (primary encounter diagnosis) (M35.3) PMR (polymyalgia rheumatica) ([facility]) Temporal artery biopsy was negative for active or healed arteritis. Sudden onset of shoulder/hip girdle pain and stiffness early 2024. With concomitant bilateral temporal headaches that come and go. Per initial report, the patient stated he had near complete resolution of his myalgias. However today he reports he continues to have AM stiffness especially in SI joint region, as well as in his cervical spine and cervical paraspinal muscle region. 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 To only have 50-60% improvement of his symptoms while on prednisone 60 mg is a bit atypical of PMR. I would consider SI joint films and Cervical Spine X-Ray to assess for concomitant DDD, or ? Inflammatory back disease? He does note his hip pain is in SI joint region, and is worse in the AM when getting out of bed and improves throughout the day. Which could be indicative of spA Spectrum disorder. Will keep this in mind throughout treatment course That said, given the concern of GCA and return of some of his symptoms, I'm hesitant to taper the prednisone yet. For now advised him to continue the prednisone 60 mg. Will discuss case with colleague As Dr. Forrester recommended, I ordered and encouraged CTA of Abdomen and pelvis and encouraged to schedule to assess for large vessel involvement. Will also order SI joint films and Cervical Spine XR. Patient did express concerns about paying for his testing that is recommended especially remaining off work. Regarding return to work restrictions, I did advise patient this may be his new baseline as we cannot further increase his prednisone at this time. Due to his concerns of his ability to perform his job and persistent symptoms, I recommend PT referral for Functional Capacity Exam for return to work restrictions. He may also discuss with his primary care provider who is the one who initially kept him off of work. Additional testing as above may help guide treatment and improvements. (R91.1) Lung nodule (R76.8) MDA5 antibody positive Per Dr. Forrester at [facility] Regarding positive MDA5 antibody, patient does not have clinical evidence of dermatomyositis at this time. EMG did not reveal and myopathy (normal CK and aldolase). Chest CT and PFTs are consistent with smoking related lung changes but are not consistent with ILD. He also does not have cutaneous manifestations or Raynaud's. An additional consideration is the RUL lung nodule seen on CT Chest which needs further surveillance for malignancy, especially considering patient's smoking history. If this is an early malignancy, then this could be driving this positive MDA5 antibody. - Will refer to Pulmonary to assess, is the nodule concerning for malignancy? This could explain poor response to steroids if this is paraneoplastic PMR (M54.50, G89.29) Chronic bilateral low back pain without sciatica (M53.3, G89.29) Chronic sacroiliac joint pain (M54.2, G89.29) Chronic neck pain - Check additional imaging as above - Advised to try tizanidine (already has prescription) at night time to help his symptoms (Z79.52) ocean transportation intermediary (current) use of systemic steroids Will likely need BMD, hold off for now given concerns of costs related to care Plan See above Orders this visit: Office Visit on 11/01/24 PHYSICAL PERFORMANCE TEST XR SACROILIAC JOINTS 2V AP PELVIS/FERGUESON XR CERVICAL 2V FLEX/EXT *Canceled* XR CERV OTHER 4V AP/LAT/OBL SEDIMENTATION RATE, [place] C-REACTIVE PROTEIN FERRITIN Recording using [employer] software for draft documentation of the visit was discussed with the patient/authorized airport representative; all questions welcomed and answered. Patient/authorized airport representative agreed to proceed Follow up 3-4 weeks, pending above evaluation I spent a total of 40 minutes on the date of the service which included preparing to see the patient, [id number] patient care, completing clinical documentation, obtaining and/or reviewing separately obtained history, performing a medically appropriate examination, and counseling and educating the patient/family/caregiver. Cony Beckwith PA-C Rheumatology documented in this encounter [facility] 11-01-2024 Note HNO ID: [id number] Author: CONY BECKWITH PA-C Service: ? Author Type: Physician Php Magento Developer Type: Progress Notes Filed: 11/01/2024 16:24 Note Text: Rheumatology FOLLOW UP VISIT Date of Service: 11/01/2024 Patient: Aroldo Navarrete Medical Record: [id number] Primary Care Physician: Marjorie Be DO History of Present Illness Brief Rheum History: Diagnosis: PMR, ?GCA Year of diagnosis: 2024 Presentation at diagnosis: Early 2024 onset of muscle pain in shoulder/hip (described as achiness) as well as calves, back, and arms. Pain worse in the AM and improved during the day. Movement worsened symptoms. Significant Disease Course: - September 2024. 1st Rheum appt. Myalgias in hips/shoulders, mild weakness with cachexia, difficulty rising from chair. ESR, CRP, CK, aldolase normal. Started on prednisone 20mg for PMR with 40-60% improvement of symptoms but had persistent muscle pain. MDA5 Ab returned positive. - PFTs 10/04/24 - FVC 91, FEV1 64, FEV1/FVC 68, DLCO 58. - EMG without evidence of myopathy. CT Chest with emphysematous changes as well as 1 cm RUL ground glass nodule. - October 2024 1st appt with me. No signs/symptoms of dermatomyositis. Concern for GCA due to temporal headaches, fatigue, and incomplete resolution of symptoms on prednisone. Current Treatment Prednisone September 2024-present Previous Treatments None Case discussed with Dr. Forrester via shared medical record Her Last Phone Call patient visit follow up was 10/25/24 reviewed. Plan as below: Assessment Most likely diagnosis at this time remains PMR with concern for GCA given temporal headaches, fatigue, and incomplete resolution of his symptoms with moderate dose prednisone. Also consider paraneoplastic PMR rendering PMR difficult to treat given RUL nodule seen on CT Chest. He has had near resolution of his myalgias on high dose prednisone although has not had similar improvement in his temporal headache, although this is overall not very bothersome to him. Will plan for TA biopsy tomorrow for evaluation of GCA. If this is positive, will treat for GCA with steroid taper and consideration of Tocilizumab. If TA bx is negative, this would not exclude GCA given several weeks of prednisone prior to biopsy - would consider empiric treatment with prednisone taper given clinical suspicion and also obtain large vessel imaging + pulmonary consultation for lung nodule (due to potential paraneoplastic process and positive MDA5 Ab). For now, will continue on prednisone 60mg daily. Regarding positive MDA5 antibody, patient does not have clinical evidence of dermatomyositis at this time. EMG did not reveal and myopathy (normal CK and aldolase). Chest CT and PFTs are consistent with smoking related lung changes but are not consistent with ILD. He also does not have cutaneous manifestations or Raynaud's. An additional consideration is the RUL lung nodule seen on CT Chest which needs further surveillance for malignancy, especially considering patient's smoking history. If this is an early malignancy, then this could be driving this positive MDA5 antibody. Plan - Continue prednisone 60mg daily. Taper pending TA Bx result. - Start PPI for GI prophylaxis - TA biopsy tomorrow - If TA bx positive for GCA, will treat with prednisone taper + consider Tocilizumab - If TA bx negative for GCA, will obtain CTA C/A/P and pulmonary consult for lung nodule, and continue prednisone taper INTERVAL HISTORY Aroldo is a 69-year-old male with a history of polymyalgia rheumatica, presenting for follow-up. He is currently taking prednisone. Aroldo is both RF - 12 (09/14/2024) and CCP - 13.5 (09/14/2024) negative. His most recent KAREN was negative (09/27/2024). Aroldo reports a 50% improvement in symptoms since starting prednisone 60?mg daily approximately 2.5 weeks ago, increased from 20?mg. He continues to experience intermittent, random pain in the bilateral shoulders and hips, described as an achy sensation located in the posterior regions. Pain is exacerbated by activities such as climbing stairs and carrying groceries or laundry. He also reports morning stiffness in the hips, making it difficult to get out of bed, though this improves as the day progresses. He continues to experience constant, dull, bilateral headaches described as a pressure sensation, unchanged since increasing the prednisone dose. He denies any improvement in headache symptoms. He reports weakness in the arms and legs, affecting his ability to perform heavy lifting and repetitive tasks at work, such as pushing heavy pipes and lifting buckets. He has been off work since June or July due to these symptoms and expresses concern about his ability to return to work given his current physical limitations. He is currently taking prednisone 60?mg daily and lisinopril. He has tizanidine available but has not been using it. He rep (more content not included)... [facility] 10-30-2024 Telephone encounter Note Temporal Artery Biopsy result is negative for Giant Cell Arteritis I have been in discussion with Dr. Forrester from [facility]. She feels giant cell arteritis could still be at play even though the biopsy is negative. Since it is negative we would like to order additional CT/vessel imaging of the chest, abdomen, and pelvis to look for evidence of inflammation of large vessels. Also, she recommends pulmonary consult for the lung nodule We can taper the prednisone to 50 mg (2.5 tablets) x 1 week, then 40 mg until the imaging is complete. A new prescription was sent for him so he doesn't run out IF at any point he has return of his shoulder/hip symptoms, or headaches, or pain in his temples, or headaches, then at that time we would have to consider increasing the dose of prednisone again. HE should let us know. Please help schedule with me for follow up in the next 1-3 weeks whenever I have availability to review all these results in more detail and assess how he is doing with his prednisone taper. Thank you, Cony [facility] 10-30-2024 Miscellaneous Notes Temporal Artery Biopsy result is negative for Giant Cell Arteritis I have been in discussion with Dr. Forrester from [facility]. She feels giant cell arteritis could still be at play even though the biopsy is negative. Since it is negative we would like to order additional CT/vessel imaging of the chest, abdomen, and pelvis to look for evidence of inflammation of large vessels. Also, she recommends pulmonary consult for the lung nodule We can taper the prednisone to 50 mg (2.5 tablets) x 1 week, then 40 mg until the imaging is complete. A new prescription was sent for him so he doesn't run out IF at any point he has return of his shoulder/hip symptoms, or headaches, or pain in his temples, or headaches, then at that time we would have to consider increasing the dose of prednisone again. HE should let us know. Please help schedule with me for follow up in the next 1-3 weeks whenever I have availability to review all these results in more detail and assess how he is doing with his prednisone taper. Thank you, Cony documented in this encounter [facility] 10-25-2024 Note HNO ID: [id number] Author: RENNY FORRESTER MD Service: ? Author Type: Physician Type: Progress Notes Filed: 10/25/2024 08:08 Note Text: Rheumatology Clinic Telephone Visit Date of Service: 10/25/2024 Patient: Aroldo Navarrete Medical Record: [id number] Primary Care Physician: Marjorie Be DO Last Rheumatology visit: 10/13/2024 (with Renny Forrester) I have communicated my name and active licensure. The patient's identity and physical location were verified at the time of this visit. Either the patient or their legal airport representative has been informed of the risks and benefits of -- and alternatives to -- treatment through a remote evaluation and consents to proceed with the evaluation remotely. Interval History Aroldo Navarrete is a 69 year old who presents for a virtual visit for PMR, concern for GCA. At last visit, prednisone increased to 60mg daily due to concern for GCA. TA biopsy scheduled for tomorrow. Patient reports 90% improvement in his myalgias with increase in prednisone. Also significant improvement in fatigue. He has not had much improvement in his temporal headache. No new symptoms - no vision changes, jaw pain. Disease History HISTORY OF PRESENT ILLNESS Rheumatologic History Diagnosis: PMR, ?GCA Year of diagnosis: 2024 Presentation at diagnosis: Early 2024 onset of muscle pain in shoulder/hip (described as achiness) as well as calves, back, and arms. Pain worse in the AM and improved during the day. Movement worsened symptoms. Significant Disease Course: - September 2024. 1st Rheum appt. Myalgias in hips/shoulders, mild weakness with cachexia, difficulty rising from chair. ESR, CRP, CK, aldolase normal. Started on prednisone 20mg for PMR with 40-60% improvement of symptoms but had persistent muscle pain. MDA5 Ab returned positive. - PFTs 10/04/24 - FVC 91, FEV1 64, FEV1/FVC 68, DLCO 58. - EMG without evidence of myopathy. CT Chest with emphysematous changes as well as 1 cm RUL ground glass nodule. - October 2024 1st appt with me. No signs/symptoms of dermatomyositis. Concern for GCA due to temporal headaches, fatigue, and incomplete resolution of symptoms on prednisone. Current Treatment Prednisone September 2024-present Previous Treatments None Review of Systems Review of Systems CONSTITUTION: Negative for: Fever and Recent weight change HEENT: RESPIRATORY: GASTROINTESTINAL: MUSCULOSKELETAL: Negative for: Arthralgias and Myalgias NEUROLOGICAL: Positive for: Headaches SKIN: EYES: Negative for: visual disturbance CARDIOVASCULAR: GENITOURINARY: HEMATOLOGIC/LYMPHATIC: All other reviewed and negative other than HPI. Relevant Data Creatinine (mg/dL) Date Value 09/14/2024 0.97 AST (U/L) Date Value 09/14/2024 46 (H) ALT (U/L) Date Value 09/14/2024 34 WBC (k/uL) Date Value 09/14/2024 7.43 Hemoglobin (g/dL) Date Value 09/14/2024 16.6 Platelet Count (k/uL) Date Value 09/14/2024 173 CRP (mg/dL) Date Value 09/14/2024 <0.3 Sed Rate, Westergren (mm/hr) Date Value 09/14/2024 2 Current Medications Current Outpatient Medications on File Prior to Visit Medication Sig predniSONE (DELTASONE) 20 mg tablet Take 3 tablets by mouth once daily for 14 days. Do not stop suddenly, call office when you are running low. tiZANidine HCl (ZANAFLEX) 4 mg capsule Take 4 mg by mouth. Take 1 capsule everyday at bedtime as needed. lisinopril (ZESTRIL) 10 mg tablet Take 10 mg by mouth once daily. No current facility-administered medications on file prior to visit. Physical Exam NA - telephone visit Impression and Plan (M35.3) Polymyalgia rheumatica (HCC) (primary encounter diagnosis) (R91.1) Lung nodule (R76.8) MDA5 antibody positive Assessment Most likely diagnosis at this time remains PMR with concern for GCA given temporal headaches, fatigue, and incomplete resolution of his symptoms with moderate dose prednisone. Also consider paraneoplastic PMR rendering PMR difficult to treat given RUL nodule seen on CT Chest. He has had near resolution of his myalgias on high dose prednisone although has not had similar improvement in his temporal headache, although this is overall not very bothersome to him. Will plan for TA biopsy tomorrow for evaluation of GCA. If this is positive, will treat for GCA with steroid taper and consideration of Tocilizumab. If TA bx is negative, this would not exclude GCA given several weeks of prednisone prior to biopsy - would consider empiric treatment with prednisone taper given clinical suspicion and also obtain large vessel imaging + pulmonary consultation for lung nodule (due to potential paraneoplastic process and positive MDA5 Ab). For now, will continue on prednisone 60mg daily. Regarding positive MDA5 antibody, patient does not have clinical evidence of dermatomyositis at this time. EMG did not reveal and myopathy (normal CK and aldolase). Chest CT and PFTs are consistent with s (more content not included)... [facility] 10-18-2024 Telephone encounter Note External order can be cancelled, pt had this done at [facility] on Wednesday. Cony Beckwith PA-C [facility] 10-18-2024 Miscellaneous Notes External order can be cancelled, pt had this done at [facility] on Wednesday. Cony Beckwith PA-C Received via fax: [facility] Date: 10/17/24 Noted: [facility] Ph. [phone] option #1 Requesting clarification to be faxed to their office regarding EMG on which side and which extremity Please fax back order to [phone] Ruby Fowler LPN documented in this encounter [facility] 10-18-2024 Telephone encounter Note Received via fax: [facility] Date: 10/17/24 Noted: [facility] Ph. [phone] option #1 Requesting clarification to be faxed to their office regarding EMG on which side and which extremity Please fax back order to [phone] Ruby Fowler LPN [facility] Work Phone: 10-18-2024 Telephone encounter Note Repeat Chest CT ordered for 6-12 mo in future per radiology recommendation for lung nodule Cony Beckwith PA-C [facility] 10-18-2024 Miscellaneous Notes Repeat Chest CT ordered for 6-12 mo in future per radiology recommendation for lung nodule Cony Beckwith PA-C documented in this encounter [facility] 10-18-2024 Telephone encounter Note Forms processed and records sent back to [employer] that have been requested. Confirmation received. [facility] 10-18-2024 Miscellaneous Notes [facility]. Confirmation received. Paperwork was received on 10/13/2024. I called and left a detailed message for the patient on his voicemail that it has been received, but has not been processed yet. Patient calling in wondering if his disability paperwork has been received via fax? Patient is requesting a call back. Roya Juarez LPN documented in this encounter [facility] 10-17-2024 Telephone encounter Note Paperwork was received on 10/13/2024. I called and left a detailed message for the patient on his voicemail that it has been received, but has not been processed yet. [facility] 10-16-2024 Telephone encounter Note Patient calling in wondering if his disability paperwork has been received via fax? Patient is requesting a call back. Roya Juarez LPN [facility] 10-14-2024 Telephone encounter Note Pre-Procedure Note Patient referred by Dr. Renny Forrester for consideration of GCA in setting of PMR symptoms with headache. Advised TABx, referred to oculofacial plastics. Treatment with oral prednisone 20 mg on 10/04/24, increased to 60 mg 10/13/24. Additional Work-up: TAUS pending 09/14/24 ESR 2 (nl), CRP <0.3 (nl), plt 173 (nl) Assessment: Concern for giant cell arteritis - Scenario described above. - Discussed temporal artery biopsy procedure in detail with patient. Goal is to take a segment of artery (~2cm) for the pathologist to examine for evidence of giant cell arteritis. Incision will be behind hairline or just in front of hairline (depending on artery course) usually 4-5 cm in length. A dressing will be placed and after removal on post-op day 2, bacitracin or erythromycin ointment will be applied 4x daily for 5 days. All sutures dissolve, no need for post op appt with Dr. Jiménez. A false negative result is possible and in some cases the referring doctor will subsequently recommend biopsy of the contralateral side in the setting of an initial negative result. This is at the discretion of the referring doctor. Risks of procedure include temporary discomfort or numbness in the area of the surgery. There will be a scar anywhere an incision is made, though behind hairline to make it less obvious. Less likely risks include inadequate specimen, hypertrophic scar, bleeding, hematoma, infection, inflammation, damage to nearby structures (nerve or muscle). Patient understands and would like to proceed. - Steroids managed by referring doctor, not Dr. Jiménez Plan: Patient will try to find another doctor to do the biopsy closer to his home in [place], [place]. [facility] Work Phone: 10-14-2024 Miscellaneous Notes Pre-Procedure Note Patient referred by Dr. Renny Forrester for consideration of GCA in setting of PMR symptoms with headache. Advised TABx, referred to oculofacial plastics. Treatment with oral prednisone 20 mg on 10/04/24, increased to 60 mg 10/13/24. Additional Work-up: TAUS pending 09/14/24 ESR 2 (nl), CRP <0.3 (nl), plt 173 (nl) Assessment: Concern for giant cell arteritis - Scenario described above. - Discussed temporal artery biopsy procedure in detail with patient. Goal is to take a segment of artery (~2cm) for the pathologist to examine for evidence of giant cell arteritis. Incision will be behind hairline or just in front of hairline (depending on artery course) usually 4-5 cm in length. A dressing will be placed and after removal on post-op day 2, bacitracin or erythromycin ointment will be applied 4x daily for 5 days. All sutures dissolve, no need for post op appt with Dr. Jiménez. A false negative result is possible and in some cases the referring doctor will subsequently recommend biopsy of the contralateral side in the setting of an initial negative result. This is at the discretion of the referring doctor. Risks of procedure include temporary discomfort or numbness in the area of the surgery. There will be a scar anywhere an incision is made, though behind hairline to make it less obvious. Less likely risks include inadequate specimen, hypertrophic scar, bleeding, hematoma, infection, inflammation, damage to nearby structures (nerve or muscle). Patient understands and would like to proceed. - Steroids managed by referring doctor, not Dr. Jiménez Plan: Patient will try to find another doctor to do the biopsy closer to his home in [place], [place]. documented in this encounter [facility] 10-13-2024 Instructions Renny Forrester MD - 10/13/2024 4:01 PM EDT Increase prednisone to 60mg daily. Take in the morning. Call to schedule temporal artery ultrasound. If this is not available close to you, please let me know - and we can change this order to a CT of your blood vessels. Recommend biopsy of temporal artery. I will reach out to the doctor that does this procedure. And their team will be in touch with you regarding scheduling the procedure. Follow-up: October 24 7:30a, telephone visit Renny Forrester MD Department of Rheumatic & Immunologic Diseases [facility] [place] Office: [phone] Appt: [phone] Address: [address] [place] [address] / [address] Central [phone] You can go to any [facility] lab location (link of locations below) for your labs and/or x-rays unless I have told you otherwise. You do not need an appointment for the labs or to bring the lab any additional information. If you would like to schedule an appointment, you can call [phone] to do so or schedule through [employer]. [email or web address] documented in this encounter [facility] 10-13-2024 History of Present illness Narrative Images from the original note were not included. Rheumatology Clinic Follow-up Visit Date of Service: 10/13/2024 Patient: Aroldo Navarrete Medical Record: [id number] Primary Care Physician: No primary care provider on file. 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 History obtain from patient interview and chart review. - 3-4 months ago, onset of muscle pain in shoulder/hip (described as achiness) as well as calves, back, and arms. Pain worse in the AM and improved during the day. Movement worsened symptoms. - July 2024. He was seen [facility] for headache, myalgia, fatigue, cough, congestion. Dx viral syndrome. - September 2024. 1st Rheum appt. Myalgias in hips/shoulders, mild weakness with cachexia, difficulty rising from chair. ESR, CRP, CK, aldolase normal. Started on prednisone 20mg for PMR with 40-60% improvement of symptoms but had persistent muscle pain. - PFTs 10/04/24 - FVC 91, FEV1 64, FEV1/FVC 68, DLCO 58. - EMG without evidence of myopathy. CT Chest with emphysematous changes as well as 1 cm RUL ground glass nodule. Other symptoms include - Blurrier vision over the past few months, no episodes of vision loss - Headache in temples bilaterally - No jaw issues, no scalp sensitivity, no anterior neck pain, no fever - He has had more fatigue and felt run down over the past few months. Unintentional 5-10 pound weight loss, attributes to lower appetite. - Trouble breathing going up stairs. This is not particularly new. He is a long time smoker. - About 1 month ago, developed all over muscle weakness. This started after his muscle pain. He was not on steroids when this started. - 1 month of all over muscle weakness, noticeable going up stairs - No raynauds - No rash, skin changes, photosensitiivty With prednisone 20mg, pain has improved 40%. Reports he is eating more but no other side effects. Notes he has been thin his whole life. No FH of autoimmune disease. Review of Systems Review of Systems CONSTITUTION: Positive for: Recent weight change Negative for: Fever HEENT: Negative for: Mouth sores, Trouble swallowing and Dry mouth RESPIRATORY: Positive for: Cough and Shortness of breath GASTROINTESTINAL: Negative for: Melena, Diarrhea and Abdominal pain MUSCULOSKELETAL: Positive for: Myalgias, Muscle weakness and Morning Joint Stiffness Negative for: Arthralgias and Joint swelling NEUROLOGICAL: Positive for: Headaches Negative for: Numbness SKIN: Negative for: Rash, Sun Sensitive Rash and Skin changes EYES: Negative for: Eye pain, Eye redness and Eye dryness CARDIOVASCULAR: Negative for: Chest pain and Leg swelling GENITOURINARY: Negative for: Dysuria and Hematuria HEMATOLOGIC/LYMPHATIC: Negative for: Swollen glands All other reviewed and negative other than HPI. Relevant Data Creatinine (mg/dL) Date Value 09/14/2024 0.97 AST (U/L) Date Value 09/14/2024 46 (H) ALT (U/L) Date Value 09/14/2024 34 WBC (k/uL) Date Value 09/14/2024 7.43 Hemoglobin (g/dL) Date Value 09/14/2024 16.6 Platelet Count (k/uL) Date Value 09/14/2024 173 CRP (mg/dL) Date Value 09/14/2024 <0.3 Sed Rate, Westergren (mm/hr) Date Value 09/14/2024 2 Current Medications Current Outpatient Medications on File Prior to Visit Medication Sig predniSONE (DELTASONE) 20 mg tablet Take 1 tablet by mouth once daily for 14 days. Do not stop suddenly, call office when you are running low. tiZANidine HCl (ZANAFLEX) 4 mg capsule Take 4 mg by mouth. Take 1 capsule everyday at bedtime as needed. lisinopril (ZESTRIL) 10 mg tablet Take 10 mg by mouth once daily. naproxen (NAPROSYN) 500 mg tablet Take 1 tablet by mouth twice daily as needed (for pain/inflammation). Take with food. (Patient not taking: Reported on 09/14/2024) No current facility-administered medications on file prior to visit. Physical Exam Ht 181 cm (5' 11.26) Wt 59.4 kg (130 lb 15.3 oz) BMI 18.13 kg/m GENERAL: Well-appearing, no acute distress. HEENT: EOMI. No oral lesions. Moist mucous membranes. NODES: No cervical, submandibular, or subclavian LAD HEART: RRR, no murmur LUNGS: CTAB, no increased WOB SKIN: No rash, no excessive bruising, petechiae, or purpura. NEUROLOGIC: Alert and oriented. Neck flexion/extension 5/5 Shoulder abduction/adduction R 5/5, L 5/5 Elbow flexion R 4+/5, L 4+/5 Elbow extension R 4+/5, L 4+/5 Wrist extension R 5/5, L 5/5 Fruit Grading [employer] strength R 5/5, L 5/5 Hip flexion R 4+/5, L 4+/5 Knee flexion R 4+/5, L 4+/5 Knee extension R 4+/5, L 4+/5 Ankle flexion R 4+/5, L 4+/5 Ankle extension R 4+/5, L 4+/5 MSK: Spine: No visible abnormalities. Full ROM. No tenderness to palpation. Upper extremities: Normal inspection of joints. Shoulder, elbows, wrists, and hand joints without synovitis, swelling, tenderness, deformity, or lack of ROM. Lower extremities: Normal inspection of joints. Hips, knees, ankles, and feet without synovitis, swelling, tenderness, deformity, or lack of ROM. 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 His temporal headaches, fatigue, and incomplete resolution of his symptoms with moderate dose prednisone are concerning for giant cell arteritis. Also consider paraneoplastic PMR rendering PMR difficult to treat given RUL nodule seen on CT Chest. We discussed this diagnosis including potential complication of blindness. Recommended increasing prednisone to high dose while obtaining diagnostic evaluation with TA biopsy and ultrasound - patient is agreeable to this. Patient also has a positive MDA5 antibody, but does not have clinical evidence of dermatomyositis at this time. While he does have generalized weakness on exam, this is not limited to his proximal muscles and EMG did not reveal and myopathy (along with normal CK and aldolase). Chest CT and PFTs are consistent with smoking related lung changes but are not consistent with ILD. He also does not have cutaneous manifestations or Raynaud's. At this time, I think this positive MDA5 Ab is clinically quiescent. Patient will need close monitoring in the future to evaluate for new symptoms consistent with this. An additional consideration is the RUL lung nodule seen on CT Chest which needs further surveillance for malignancy, especially considering patient's smoking history. If this is an early malignancy, then this could be driving this positive MDA5 antibody. Also advised age appropriate malignancy screening, reports has colonoscopy scheduled for next week, and can check PSA with next lab draw. Plan - Increase prednisone to 60mg daily - Temporal artery biopsy and ultrasound - Can consider CTA C/A/P pending above results - CT Chest in 6 months to monitor nodule v referral to Pulmonology sooner than this pending above results and response to treatment Patient will follow-up in 2 weeks. Orders this visit: Office Visit on 10/13/24 US TEMPORAL ARTERY BILATERAL predniSONE (DELTASONE) 20 mg tablet CC: PCP: No primary care provider on file. No primary provider on file. Phone #: None I spent a total of 52 minutes on the date of the service which included preparing to see the patient, [id number] patient care, completing clinical documentation, obtaining and/or reviewing separately obtained history, performing a medically appropriate examination, counseling and educating the patient/family/caregiver, and ordering medications, tests, or procedures. Parts of this note may be have been copied from previous progress notes, but all of it was reviewed for accuracy. Renny Forrester MD Department of Rheumatic & Immunologic Diseases Medical Special[facility] [place] documented in this encounter [facility] 10-13-2024 Note HNO ID: [id number] Author: RENNY FORRESTER MD Service: ? Author Type: Physician Type: Progress Notes Filed: 10/14/2024 14:11 Note Text: Rheumatology Clinic Follow-up Visit Date of Service: 10/13/2024 Patient: Aroldo Navarrete Medical Record: [id number] Primary Care Physician: No primary care provider on file. 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 History obtain from patient interview and chart review. - 3-4 months ago, onset of muscle pain in shoulder/hip (described as achiness) as well as calves, back, and arms. Pain worse in the AM and improved during the day. Movement worsened symptoms. - July 2024. He was seen at [facility] for headache, myalgia, fatigue, cough, congestion. Dx viral syndrome. - September 2024. 1st Rheum appt. Myalgias in hips/shoulders, mild weakness with cachexia, difficulty rising from chair. ESR, CRP, CK, aldolase normal. Started on prednisone 20mg for PMR with 40-60% improvement of symptoms but had persistent muscle pain. - PFTs 10/04/24 - FVC 91, FEV1 64, FEV1/FVC 68, DLCO 58. - EMG without evidence of myopathy. CT Chest with emphysematous changes as well as 1 cm RUL ground glass nodule. Other symptoms include - Blurrier vision over the past few months, no episodes of vision loss - Headache in temples bilaterally - No jaw issues, no scalp sensitivity, no anterior neck pain, no fever - He has had more fatigue and felt run down over the past few months. Unintentional 5-10 pound weight loss, attributes to lower appetite. - Trouble breathing going up stairs. This is not particularly new. He is a long time smoker. - About 1 month ago, developed all over muscle weakness. This started after his muscle pain. He was not on steroids when this started. - 1 month of all over muscle weakness, noticeable going up stairs - No raynauds - No rash, skin changes, photosensitiivty With prednisone 20mg, pain has improved 40%. Reports he is eating more but no other side effects. Notes he has been thin his whole life. No FH of autoimmune disease. Review of Systems Review of Systems CONSTITUTION: Positive for: Recent weight change Negative for: Fever HEENT: Negative for: Mouth sores, Trouble swallowing and Dry mouth RESPIRATORY: Positive for: Cough and Shortness of breath GASTROINTESTINAL: Negative for: Melena, Diarrhea and Abdominal pain MUSCULOSKELETAL: Positive for: Myalgias, Muscle weakness and Morning Joint Stiffness Negative for: Arthralgias and Joint swelling NEUROLOGICAL: Positive for: Headaches Negative for: Numbness SKIN: Negative for: Rash, Sun Sensitive Rash and Skin changes EYES: Negative for: Eye pain, Eye redness and Eye dryness CARDIOVASCULAR: Negative for: Chest pain and Leg swelling GENITOURINARY: Negative for: Dysuria and Hematuria HEMATOLOGIC/LYMPHATIC: Negative for: Swollen glands All other reviewed and negative other than HPI. Relevant Data Creatinine (mg/dL) Date Value 09/14/2024 0.97 AST (U/L) Date Value 09/14/2024 46 (H) ALT (U/L) Date Value 09/14/2024 34 WBC (k/uL) Date Value 09/14/2024 7.43 Hemoglobin (g/dL) Date Value 09/14/2024 16.6 Platelet Count (k/uL) Date Value 09/14/2024 173 CRP (mg/dL) Date Value 09/14/2024 <0.3 Sed Rate, W[place]gren (mm/hr) Date Value 09/14/2024 2 Current Medications Current Outpatient Medications on File Prior to Visit Medication Sig predniSONE (DELTASONE) 20 mg tablet Take 1 tablet by mouth once daily for 14 days. Do not stop suddenly, call office when you are running low. tiZANidine HCl (ZANAFLEX) 4 mg capsule Take 4 mg by mouth. Take 1 capsule everyday at bedtime as needed. lisinopril (ZESTRIL) 10 mg tablet Take 10 mg by mouth once daily. naproxen (NAPROSYN) 500 mg tablet Take 1 tablet by mouth twice daily as needed (for pain/inflammation). Take with food. (Patient not taking: Reported on 09/14/2024) No current facility-administered medications on file prior to visit. Physical Exam Ht 181 cm (5' 11.26) Wt 59.4 kg (130 lb 15.3 oz) BMI 18.13 kg/m? GENERAL: Well-appearing, no acute distress. HEENT: EOMI. No oral lesions. Moist mucous membranes. NODES: No cervical, submandibular, or subclavian LAD HEART: RRR, no murmur LUNGS: CTAB, no increased WOB SKIN: No rash, no excessive bruising, petechiae, or purpura. NEUROLOGIC: Alert and oriented. Neck flexion/extension 5/5 Shoulder abduction/adduction R 5/5, L 5/5 Elbow flexion R 4+/5, L 4+/5 Elbow extension R 4+/5, L 4+/5 Wrist extension R 5/5, L 5/5 Fruit Grading Supervisor strength R 5/5, L 5/5 Hip flexion R 4+/5, L 4+/5 Knee flexion R 4+/5, L 4+/5 Knee extension R 4+/5, L 4+/5 Ankle flexion R 4+/5, L 4+/5 Ankle extension R 4+/5, L 4+/5 MSK: Spine: No visible abnormalities. Full ROM. No tenderness to palpation. Upper extremities: Normal inspection of joints. Shoulder, elbow (more content not included)... [facility] 10-13-2024 Note HNO ID: [id number] Author: MARY XIONG MD Service: ? Author Type: Physician Type: Progress Notes Filed: 10/13/2024 10:59 Note Text: UNIVERSAL PROTOCOL / SAFETY CHECKLIST Procedure to be Performed: EMG Sign In: A Moment of CARE was completed. Personnel directly involved with the procedure wore the appropriate PPE (Personal Protective Equipment). Patient/Surrogate Stated/Verified: Patient name, Date of , Relevant allergies, and The intended procedure Time Out Communication: Intended patient and procedure match the source documents. Correct side/site marked and visible. Sign Out: SIGN OUT (optional for EMERGENT procedures): Post-procedure follow-up management communicated and Plan of Care Visit completed when applicable. Foster BustilloNCS.T Mary Xiong MD [facility] 10-13-2024 History of Present illness Narrative UNIVERSAL PROTOCOL / SAFETY CHECKLIST Procedure to be Performed: EMG Sign In: A Moment of CARE was completed. Personnel directly involved with the procedure wore the appropriate PPE (Personal Protective Equipment). Patient/Surrogate Stated/Verified: Patient name, Date of , Relevant allergies, and The intended procedure Time Out Communication: Intended patient and procedure match the source documents. Correct side/site marked and visible. Sign Out: SIGN OUT (optional for EMERGENT procedures): Post-procedure follow-up management communicated and Plan of Care Visit completed when applicable. Foster BustilloNCS.T Mary Xiong MD documented in this encounter [facility] 10-11-2024 History of Present illness Narrative Radiology Service Progress Note PATIENT NAME: Aroldo Navarrete DATE OF SERVICE: October 11, 2024 TIME: 12:22 PM PATIENT IDENTITY VERIFICATION COMPLETED USING TWO (2) IDENTIFIERS: Name and Date of confirmed by patient verbally. FALL SCREENING: Has the patient had 2 falls in the last year or 1 fall with injury or currently using an Ambulatory Assistive Device (Walker, Cane, Wheelchair, Crutches, etc.)? No PATIENT GENDER DATA: Assigned male at PATIENT RELEVANT IMPLANT DATA REVIEWED: Yes PATIENT PRESENTS WITH AN IMPLANTABLE OR ATTACHED SENIOR MARKETING COORDINATOR: No RADIOLOGY DEPARTMENT: CT; Exam(s) Completed: Chest PERIPHERAL IV DATA: Not applicable SIGNED BY: RT Jessica(Mitchel) October 11, 2024 12:22 PM documented in this encounter [facility] 10-11-2024 Note HNO ID: [id number] Author: ANGELLA NINO RT (R) Service: ? Author Type: Residential Coordinator Type: Progress Notes Filed: 10/11/2024 12:22 Note Text: Radiology Service Progress Note PATIENT NAME: Aroldo Navarrete DATE OF SERVICE: October 11, 2024 TIME: 12:22 PM PATIENT IDENTITY VERIFICATION COMPLETED USING TWO (2) IDENTIFIERS: Name and Date of confirmed by patient verbally. FALL SCREENING: Has the patient had 2 falls in the last year or 1 fall with injury or currently using an Ambulatory Assistive Device (Walker, Cane, Wheelchair, Crutches, etc.)? No PATIENT GENDER DATA: Assigned male at PATIENT RELEVANT IMPLANT DATA REVIEWED: Yes PATIENT PRESENTS WITH AN IMPLANTABLE OR ATTACHED SENIOR MARKETING COORDINATOR: No RADIOLOGY DEPARTMENT: CT; Exam(s) Completed: Chest PERIPHERAL IV DATA: Not applicable SIGNED BY: RT Jessica(Mitchel) October 11, 2024 12:22 PM [facility] 10-04-2024 Telephone encounter Note EMG order faxed to [facility] and Referral started. Made note asking for it to be done before 10/13/24. CT and Lung Volumes scheduled for 10/11. Called and left VM informing the patient. Sheryl Fried RN [facility] 10-04-2024 Miscellaneous Notes EMG order faxed to [facility] and Referral started. Made note asking for it to be done before 10/13/24. CT and Lung Volumes scheduled for 10/11. Called and left VM informing the patient. Sheryl Fried, RN Also, sorry for the trouble, but I forgot to order one of the pulmonary function tests before he went today (I wasn't expecting him to get in same day). Can we arrange for him to get that done before/After the CT scan? Order is in. Thanks! KG Patient needs CT scan, and EMG preferably before he goes to [facility] next week. Can this be scheduled in [place]? documented in this encounter [facility] 10-04-2024 Telephone encounter Note Also, sorry for the trouble, but I forgot to order one of the pulmonary function tests before he went today (I wasn't expecting him to get in same day). Can we arrange for him to get that done before/After the CT scan? Order is in. Thanks! KG [facility] 10-04-2024 Note HNO ID: [id number] Author: CONY BECKWITH PA-C Service: ? Author Type: Physician Php Magento Developer Type: Progress Notes Filed: 10/04/2024 16:21 Note Text: Rheumatology FOLLOW UP VISIT Date of Service: 10/04/2024 Patient: Aroldo Navarrete Medical Record: [id number] Primary Care Physician: No primary care provider on file. History of Present Illness Aroldo is a 69-year-old male presenting for follow-up on muscle pain and weakness. He is currently taking naproxen, prednisone. Aroldo is both RF - 12 (09/14/2024) and CCP - 13.5 (09/14/2024) negative. His most recent KAREN was negative (09/27/2024). Aroldo reports a 60% improvement in muscle pain since starting prednisone but notes persistent weakness. He also experiences intermittent dysphagia and dyspnea, which began around the same time as the muscle symptoms and have worsened concurrently. He reports ongoing lightheadedness, particularly when sitting up quickly or turning his head, but denies vertigo. He denies any rashes or ocular symptoms. He is currently out of prednisone and requests a refill. He is covered off work until next week and may need documentation sent to [facility]. Pain Evaluation 04/15/2015 09/14/2024 09/27/2024 Pain Evaluation Pain Score 6 7 10 Location Chest -- -- Location Comment All over everywhere Description Aching;Sore Aching Cramping Duration (#) 1 4 -- Duration (Timeframe) Weeks Months Frequency Continuous Continuous Continuous Intervention Medication Other: See comment Patient-Entered Data None Review of Systems No Jaw claudication, no judaism swanson, no sudden vision loss. + Vision changes over time. Denies rashes on his eyelids, chest, Fingers. Admits shortness of breath. Admits dysphagia Past Medical History History reviewed. No pertinent past medical history. Past Surgical History History reviewed. No pertinent surgical history. Family History No family history on file. Social History Social History Tobacco Use Smoking status: Every Day Current packs/day: 0.50 Average packs/day: 0.5 packs/day for 20.0 years (10.0 ttl pk-yrs) Types: Cigarettes Smokeless tobacco: Never Vaping Use Vaping status: Former Substances: THC Substance Use Topics Alcohol use: Yes Comment: Beer everyday - 3- 16 oz cans Drug use: No Current Medications Current Outpatient Medications Medication Sig tiZANidine HCl (ZANAFLEX) 4 mg capsule Take 4 mg by mouth. Take 1 capsule everyday at bedtime as needed. lisinopril (ZESTRIL) 10 mg tablet Take 10 mg by mouth once daily. predniSONE (DELTASONE) 20 mg tablet Take 1 tablet by mouth once daily for 14 days. Do not stop suddenly, call office when you are running low. naproxen (NAPROSYN) 500 mg tablet Take 1 tablet by mouth twice daily as needed (for pain/inflammation). Take with food. (Patient not taking: Reported on 09/14/2024) Labs Latest Ref Rng AND Units 01/05/2012 09/14/2024 CBC WBC 3.70 - 11.00 k/uL 7.43 Hemoglobin 13.0 - 17.0 g/dL 16.6 Hemoglobin, [place] 13.0 - 17.0 g/dL 16.7 Hematocrit 39.0 - 51.0 % 48.1 Platelet Count 150 - 400 k/uL 173 Abs Neut, [place] 1.45 - 7.50 k/uL 2.73 Abs Lymp, [place] 1.00 - 4.00 k/uL 2.28 Latest Ref Rng AND Units 01/05/2012 09/14/2024 CMP Sodium 136 - 144 mmol/L 141 Sodium, [place] 135 - 146 mmol/L 142 Potassium 3.7 - 5.1 mmol/L 4.3 Potassium, [place] 3.5 - 5.0 mmol/L 4.7 Chloride 98 - 107 mmol/L 102 Chloride, [place] 98 - 110 mmol/L 102 CO2 22 - 30 mmol/L 28 CO2, [place] 23.0 - 32.0 mmol/L 29.6 Glucose 74 - 99 mg/dL 102 Glucose, [place] 65 - 100 mg/dL 97 BUN 9 - 24 mg/dL 11 BUN, [place] 10 - 25 mg/dL 9 Creatinine 0.73 - 1.22 mg/dL 0.97 Creatinine, [place] 0.7 - 1.4 mg/dL 1.1 Calcium, [place] 8.5 - 10.5 mg/dL 9.1 Calcium 8.5 - 10.2 mg/dL 10.0 AST 14 - 40 U/L 46 AST, [place] 7 - 40 U/L 18 ALT 10 - 54 U/L 34 ALT, [place] 5 - 50 U/L 12 Alkaline Phosphatase 38 - 113 U/L 105 Latest Ref Rng AND Units 09/14/2024 ESR, WSR WSR 0 - 15 mm/hr 2 Latest Ref Rng AND Units 09/14/2024 CRP CRP <0.9 mg/dL <0.3 Latest Ref Rng AND Units 09/14/2024 CK CK 51 - 298 U/L 107 Latest Ref Rng AND Units 09/14/2024 RF and CCP Rheumatoid Factor <16 IU/mL 12 CCP Antibody IgG Qualitative Negative Negative CCP Antibody, IgG <20 Units <15 Latest Ref Rng AND Units 09/27/2024 Antibodies KAREN Negative Negative DC-[address] AN[address] Negative Negative PL-12 ANTIBODY Negative Negative P155/140 ANTIBODY Negative Negative EJ ANTIBODY Negative Negative SRP ANTIBODY Negative Negative OJ ANTIBODY Negative Negative SAE1 ANTIBODY Negative Negative NXP-2 ANTIBODY Negative Negative MDA5 ANTIBODY Negative Positive TIF-1 GAMMA ANTIBODY Negative Negative Imaging Last XR Knee - Impression Only XR KNEE GENERAL 4V AP BOTH/PA BOTH/LAT/MERC LEFT Exam End: 09/14/2024 3:43 PM (Final result) Impression: IMPRESSION: Unremarkable left knee. Right knee Owen-Stieda les (more content not included)... [facility] 10-04-2024 History of Present illness Narrative Images from the original note were not included. Rheumatology FOLLOW UP VISIT Date of Service: 10/04/2024 Patient: Aroldo Navarrete Medical Record: [id number] Primary Care Physician: No primary care provider on file. History of Present Illness Aroldo is a 69-year-old male presenting for follow-up on muscle pain and weakness. He is currently taking naproxen, prednisone. Aroldo is both RF - 12 (09/14/2024) and CCP - 13.5 (09/14/2024) negative. His most recent KAREN was negative (09/27/2024). Aroldo reports a 60% improvement in muscle pain since starting prednisone but notes persistent weakness. He also experiences intermittent dysphagia and dyspnea, which began around the same time as the muscle symptoms and have worsened concurrently. He reports ongoing lightheadedness, particularly when sitting up quickly or turning his head, but denies vertigo. He denies any rashes or ocular symptoms. He is currently out of prednisone and requests a refill. He is covered off work until next week and may need documentation sent to [employer]. Pain Evaluation 04/15/2015 09/14/2024 09/27/2024 Pain Evaluation Pain Score 6 7 10 Location Chest -- -- Location Comment All over everywhere Description Aching;Sore Aching Cramping Duration (#) 1 4 -- Duration (Timeframe) Weeks Months Frequency Continuous Continuous Continuous Intervention Medication Other: See comment Patient-Entered Data None Review of Systems No Jaw claudication, no judaism swanson, no sudden vision loss. + Vision changes over time. Denies rashes on his eyelids, chest, Fingers. Admits shortness of breath. Admits dysphagia Past Medical History History reviewed. No pertinent past medical history. Past Surgical History History reviewed. No pertinent surgical history. Family History No family history on file. Social History Social History Tobacco Use Smoking status: Every Day Current packs/day: 0.50 Average packs/day: 0.5 packs/day for 20.0 years (10.0 ttl pk-yrs) Types: Cigarettes Smokeless tobacco: Never Vaping Use Vaping status: Former Substances: THC Substance Use Topics Alcohol use: Yes Comment: Beer everyday - 3- 16 oz cans Drug use: No Current Medications Current Outpatient Medications Medication Sig tiZANidine HCl (ZANAFLEX) 4 mg capsule Take 4 mg by mouth. Take 1 capsule everyday at bedtime as needed. lisinopril (ZESTRIL) 10 mg tablet Take 10 mg by mouth once daily. predniSONE (DELTASONE) 20 mg tablet Take 1 tablet by mouth once daily for 14 days. Do not stop suddenly, call office when you are running low. naproxen (NAPROSYN) 500 mg tablet Take 1 tablet by mouth twice daily as needed (for pain/inflammation). Take with food. (Patient not taking: Reported on 09/14/2024) Labs Latest Ref Rng & Units 01/05/2012 09/14/2024 CBC WBC 3.70 - 11.00 k/uL 7.43 Hemoglobin 13.0 - 17.0 g/dL 16.6 Hemoglobin, [place] 13.0 - 17.0 g/dL 16.7 Hematocrit 39.0 - 51.0 % 48.1 Platelet Count 150 - 400 k/uL 173 Abs Neut, [place] 1.45 - 7.50 k/uL 2.73 Abs Lymp, [place] 1.00 - 4.00 k/uL 2.28 Latest Ref Rng & Units 01/05/2012 09/14/2024 CMP Sodium 136 - 144 mmol/L 141 Sodium, [place] 135 - 146 mmol/L 142 Potassium 3.7 - 5.1 mmol/L 4.3 Potassium, [place] 3.5 - 5.0 mmol/L 4.7 Chloride 98 - 107 mmol/L 102 Chloride, [place] 98 - 110 mmol/L 102 CO2 22 - 30 mmol/L 28 CO2, [place] 23.0 - 32.0 mmol/L 29.6 Glucose 74 - 99 mg/dL 102 Glucose, [place] 65 - 100 mg/dL 97 BUN 9 - 24 mg/dL 11 BUN, [place] 10 - 25 mg/dL 9 Creatinine 0.73 - 1.22 mg/dL 0.97 Creatinine, [place] 0.7 - 1.4 mg/dL 1.1 Calcium, [place] 8.5 - 10.5 mg/dL 9.1 Calcium 8.5 - 10.2 mg/dL 10.0 AST 14 - 40 U/L 46 AST, [place] 7 - 40 U/L 18 ALT 10 - 54 U/L 34 ALT, [place] 5 - 50 U/L 12 Alkaline Phosphatase 38 - 113 U/L 105 Latest Ref Rng & Units 09/14/2024 ESR, WSR WSR 0 - 15 mm/hr 2 Latest Ref Rng & Units 09/14/2024 CRP CRP <0.9 mg/dL <0.3 Latest Ref Rng & Units 09/14/2024 CK CK 51 - 298 U/L 107 Latest Ref Rng & Units 09/14/2024 RF and CCP Rheumatoid Factor <16 IU/mL 12 CCP Antibody IgG Qualitative Negative Negative CCP Antibody, IgG <20 Units <15 Latest Ref Rng & Units 09/27/2024 Antibodies KAREN Negative Negative DC-[address] AN[address] Negative Negative PL-12 ANTIBODY Negative Negative P155/140 ANTIBODY Negative Negative EJ ANTIBODY Negative Negative SRP ANTIBODY Negative Negative OJ ANTIBODY Negative Negative SAE1 ANTIBODY Negative Negative NXP-2 ANTIBODY Negative Negative MDA5 ANTIBODY Negative Positive TIF-1 GAMMA ANTIBODY Negative Negative Imaging Last XR Knee - Impression Only XR KNEE GENERAL 4V AP BOTH/PA BOTH/LAT/MERC LEFT Exam End: 09/14/2024 3:43 PM (Final result) Impression: IMPRESSION: Unremarkable left knee. Right knee Owen-Stieda lesion. Airconditioning Drafting Officer: CLARISSA Transcribe Date/Time: Sep 17 2024 10:08P... Last XR Chest - Impression Only XR CHEST PA W RIBS LT Collected: 04/15/2015 12:03 PM (Final result) Impression: IMPRESSION: No radiographic evidence of rib fracture or other acute pathology. Airconditioning Drafting Officer: RADHA Transcribe Date/Time: Apr 16 2015 7:50A ... Health Maintenance Current Immunizations Never Reviewed Name Date COVID-19 vaccine, bivalent (PFIZER-BIONTECH) 05/25/2022 COVID-19 vaccine, monovalent (MODERNA) 05/11/2021, 11/04/2020, 2020 Physical Exam GENERAL APPEARANCE: Thin, cachectic. Alert and oriented x 3. In no distress. VITAL SIGNS: BP 118/82 Pulse 75 Resp 17 SpO2 100% SKIN: No rash NECK: No mass or asymmetry. RESPIRATORY: Normal respiratory effort. Clear to auscultation and percussion. CARDIOVASCULAR: Heart RRR without gallop, murmur, or rub ENT: No Temporal artery tenderness, no artery thickening MUSCULOSKELETAL EXAMINATION: Motor exam: 4/5 strength in bilateral upper arms and proximal legs. Decreased bulk and tone in Proximal muscles. Upper extremities: Shoulders: Painful limited ROM in all álvarez bilaterally, + tenderness to palpation bilaterally. No swelling or effusion. Elbows: Full ROM in flexion and extension. No swelling or effusion Wrists: No swelling or synovitis. Lower extremities: Hips: Difficulty standing from chair due to weakness and pain in hips. 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 Initially seen by PCP they diagnosed as viral syndrome and did conservative treatment. He returned to their clinic 1 week later with persistent symptoms. He also reported fatigue x few months, myalgias, and unexplained weight loss since mid 2023. At that time they ordered labs (results in my original consult note, scanned), CXR (normal, hyperinflated), abdominal XR and Referred to GI fr colonoscopy. Labs at that time showed Elevated ESR/CRP. They referred him to rheumatology. I first saw him in September with presentation of pain and stiffness in the neck, shoulders, and hips. Additional laboratory results from that consult show negative rheumatoid factor and CCP, normal inflammation markers (ESR and CRP), and normal muscle enzymes (CK) Patient denies pain today. However states symptoms overall have improved by 60 % with predinsone use. Patient reports perceived persistent weakness despite improvement in pain. Also with persistent shortness of breath. PM/DM panel positive for MDA5 Ab. He has no classic DM rashes including Shawl sign, heliotrope rash, Gottron's papules. Discussed that EMG and nerve conduction studies are necessary to confirm diagnosis. Also discussed risk of ILD related to this condition and the positive MDA5 Ab. 4/5 strength in bilateral upper extremities. Movement of shoulders and hip is improving. - Continue current prednisone dosage; refill sent to [facility] in [place]. - Ordered EMG and nerve conduction studies to be performed at [facility] within a week. - Referral to a specialist in polymyositis for further evaluation at [facility] # Shortness of breath (R06.02) # Interstitial pulmonary disease (HCC) (J84.9) Onset of dyspnea coincided with muscle weakness. Positive lab markers suggest risk of ILD involvement - Ordered pulmonary function tests to assess lung function. - Ordered Hr-CT scan of the chest to evaluate for interstitial lung disease; to be completed within a week.. - Provided a letter for work absence extension due to new diagnosis, new medication, and referral to myositis specialist next Wednesday. - No GCA symptoms. Educated patient on symptoms to watch out for and when to notify us if they develop. Plan Orders this visit: Office Visit on 10/04/24 CT CHEST WO IVCON TPMT PHENOTYPE/ENZYME ACTIVITY FERRITIN EMG(NEURO/NI) LUNG DIFFUSION CAPACITY (DLCO) SPIROMETRY BASELINE ONLY SPIROMETRY BASELINE ONLY LUNG VOLUMES predniSONE (DELTASONE) 20 mg tablet Continue taking your prednisone as prescribed; a refill has been sent to [facility] in [place]. Schedule an EMG (nerve study) at any [facility] within the week - a referral has been provided to help confirm your diagnosis. Complete pulmonary function tests (breathing tests) to assess your lung function; these tests are important given your symptoms. - Schedule CT scan of chest. - Follow up next Wednesday with specialist at [facility] Recording using [employer] software for draft documentation of the visit was discussed with the patient/authorized airport representative; all questions welcomed and answered. Patient/authorized airport representative agreed to proceed Refer for 1 week follow up with Dr. Forrester at [facility] 10/13/24 as scheduled Cancel my appointment next week Will send her a staff message for continuity of care I spent a total of 30 minutes on the date of the service which included preparing to see the patient, [id number] patient care, completing clinical documentation, obtaining and/or reviewing separately obtained history, performing a medically appropriate examination, counseling and educating the patient/family/caregiver, and ordering medications, tests, or procedures. Cony Beckwith PA-C Rheumatology Date: October 04, 2024 Time: 3:01 PM documented in this encounter [facility] 10-04-2024 Telephone encounter Note Patient needs CT scan, and EMG preferably before he goes to [facility] next week. Can this be scheduled in [place]? [facility] 10-04-2024 Instructions Cony Beckwith PA-C - 10/04/2024 10:37 AM EDT Continue taking your prednisone as prescribed; a refill has been sent to [facility] in [place]. Schedule an EMG (nerve study) at any [facility] within the week - a referral has been provided to help confirm your diagnosis. Complete pulmonary function tests (breathing tests) to assess your lung function; these tests are important given your symptoms. Expect to be contacted regarding scheduling a follow-up appointment with a specialist experienced in this condition, preferably at a location closer to [place] if possible. The note from your visit on September 19 is on file with your employer; if additional paperwork is needed, they can send a fax request. You have an appointment at [facility] on 10/13/2024 at 3:[address] Forrester of [facility] rheumatology. Please arrive at 2:45 for this appointment/. documented in this encounter [facility] 09-28-2024 Telephone encounter Note Patient called needing a date to give for extension of disability. Per letter patient given 2 week extension. Patient rescheduled to 2 week follow up to have date of 10/11/24. Discussed with Cony and patient needs both 1 week and 2 week follow up. Patient rescheduled for same time and called and left VM notifying the patient. Sheryl Fried RN [facility] 09-28-2024 Miscellaneous Notes Patient called needing a date to give for extension of disability. Per letter patient given 2 week extension. Patient rescheduled to 2 week follow up to have date of 10/11/24. Discussed with Cony and patient needs both 1 week and 2 week follow up. Patient rescheduled for same time and called and left VM notifying the patient. Sheryl Fried RN documented in this encounter [facility] 09-27-2024 Note HNO ID: [id number] Author: CONY BECKWITH PA-C Service: ? Author Type: Physician Php Magento Developer Type: Progress Notes Filed: 09/27/2024 16:29 Note Text: Rheumatology FOLLOW UP VISIT Date of Service: 09/27/2024 Patient: Aroldo Navarrete Medical Record: [id number] Primary Care Physician: No primary care provider on file. Last Rheumatology visit: None at [facility] History of Present Illness Aroldo is a 68-year-old male presenting for follow-up and review of lab results. He is currently taking naproxen, prednisone. Aroldo reports a current pain level of 10 . He describes the pain as Cramping. The pain is Continuous . Interventions tried include Other: See comment (none). Aroldo is both RF - 12 (09/14/2024) and CCP - 13.5 (09/14/2024) negative. Aroldo reports persistent joint pain primarily in the neck, shoulders, and hips. He was previously prescribed gabapentin 100 mg for nerve pain but discontinued it after a few days due to lack of efficacy. He was also prescribed prednisone for a knee injury approximately 6 months ago, which he tolerated without side effects. He experiences lightheadedness and dizziness, which began 2 days ago and worsened last night, leading to a fall while going to the restroom. The dizziness is exacerbated by sitting up quickly. He also reports dyspnea associated with dizziness. He denies cephalalgia, jaw pain with mastication, or significant vision loss but notes blurry vision. He denies a history of vertigo. He reports a decreased appetite and is currently not working due to his symptoms, particularly the dizziness. He has not yet discussed the dizziness with his primary care provider. Pain Evaluation 04/15/2015 09/14/2024 09/27/2024 Pain Evaluation Pain Score 6 7 10 Location Chest -- -- Location Comment All over everywhere Description Aching;Sore Aching Cramping Duration (#) 1 4 -- Duration (Timeframe) Weeks Months Frequency Continuous Continuous Continuous Intervention Medication Other: See comment Patient-Entered Data None Review of Systems No Jaw claudication, no judaism swanson, no sudden vision loss. + Vision changes over time. Past Medical History No past medical history on file. Past Surgical History No past surgical history on file. Family History No family history on file. Social History Social History Tobacco Use Smoking status: Every Day Current packs/day: 0.50 Average packs/day: 0.5 packs/day for 20.0 years (10.0 ttl pk-yrs) Types: Cigarettes Smokeless tobacco: Never Vaping Use Vaping status: Former Substances: THC Substance Use Topics Alcohol use: Yes Comment: Beer everyday - 3- 16 oz cans Drug use: No Current Medications Current Outpatient Medications Medication Sig lisinopril (ZESTRIL) 10 mg tablet Take 10 mg by mouth once daily. predniSONE (DELTASONE) 20 mg tablet Take 1 tablet by mouth once daily for 7 days. tiZANidine HCl (ZANAFLEX) 4 mg capsule Take 4 mg by mouth. Take 1 capsule everyday at bedtime as needed. naproxen (NAPROSYN) 500 mg tablet Take 1 tablet by mouth twice daily as needed (for pain/inflammation). Take with food. (Patient not taking: Reported on 09/14/2024) Labs Latest Ref Rng AND Units 01/05/2012 09/14/2024 CBC WBC 3.70 - 11.00 k/uL 7.43 Hemoglobin 13.0 - 17.0 g/dL 16.6 Hemoglobin, [place] 13.0 - 17.0 g/dL 16.7 Hematocrit 39.0 - 51.0 % 48.1 Platelet Count 150 - 400 k/uL 173 Abs Neut, [place] 1.45 - 7.50 k/uL 2.73 Abs Lymp, [place] 1.00 - 4.00 k/uL 2.28 Latest Ref Rng AND Units 01/05/2012 09/14/2024 CMP Sodium 136 - 144 mmol/L 141 Sodium, [place] 135 - 146 mmol/L 142 Potassium 3.7 - 5.1 mmol/L 4.3 Potassium, [place] 3.5 - 5.0 mmol/L 4.7 Chloride 98 - 107 mmol/L 102 Chloride, [place] 98 - 110 mmol/L 102 CO2 22 - 30 mmol/L 28 CO2, [place] 23.0 - 32.0 mmol/L 29.6 Glucose 74 - 99 mg/dL 102 Glucose, [place] 65 - 100 mg/dL 97 BUN 9 - 24 mg/dL 11 BUN, [place] 10 - 25 mg/dL 9 Creatinine 0.73 - 1.22 mg/dL 0.97 Creatinine, [place] 0.7 - 1.4 mg/dL 1.1 Calcium, [place] 8.5 - 10.5 mg/dL 9.1 Calcium 8.5 - 10.2 mg/dL 10.0 AST 14 - 40 U/L 46 AST, [place] 7 - 40 U/L 18 ALT 10 - 54 U/L 34 ALT, [place] 5 - 50 U/L 12 Alkaline Phosphatase 38 - 113 U/L 105 Latest Ref Rng AND Units 09/14/2024 ESR, WSR WSR 0 - 15 mm/hr 2 Latest Ref Rng AND Units 09/14/2024 CRP CRP <0.9 mg/dL <0.3 Latest Ref Rng AND Units 09/14/2024 CK CK 51 - 298 U/L 107 Latest Ref Rng AND Units 09/14/2024 RF and CCP Rheumatoid Factor <16 IU/mL 12 CCP Antibody IgG Qualitative Negative Negative CCP Antibody, IgG <20 Units <15 Imaging Last XR Knee - Impression Only XR KNEE GENERAL 4V AP BOTH/PA BOTH/LAT/MERC LEFT Exam End: 09/14/2024 3:43 PM (Final result) Impression: IMPRESSION: Unremarkable left knee. Right knee Owen-Stieda lesion. Airconditioning Drafting Officer: CLARISSA Transcribe Date/Time: Sep 17 2024 10:08P... Last XR Chest - Impression Only XR CHEST PA W RIBS LT Colle (more content not included)... [facility] 09-19-2024 Telephone encounter Note Forms received from [employer] asking for office notes from visit. Notes were faxed back to the fax number on the forms. Confirmation received. [facility] 09-19-2024 Miscellaneous Notes Forms received from [employer] asking for office notes from visit. Notes were faxed back to the fax number on the forms. Confirmation received. Patient calling in wondering if a fax has been received from his insurance [employer]. Patient requesting a call back. Roya Juarez LPN documented in this encounter [facility] 09-18-2024 Telephone encounter Note Patient calling in wondering if a fax has been received from his insurance [employer]. Patient requesting a call back. Roya Juarez LPN [facility] 09-14-2024 Telephone encounter Note [facility] calling to update us that the patient is having a nurse visit for BP and med check at 9:30am tomorrow. Sheryl Fried RN [facility] 09-14-2024 Miscellaneous Notes [facility] calling to update us that the patient is having a nurse visit for BP and med check at 9:30am tomorrow. Sheryl Fried RN Patient was referred here by [facility]. Patient had 3 high blood pressure readings today in the office. Provider asked if we could let [facility] know about the readings and see if they can follow up with the patient in the next day or two. I called and left a detailed message on nurse voicemail. Asked for them to contact the office back to confirm they received the message. If I don't hear back from them, I will follow up again tomorrow. Also, asked for them to fax over records from their office. documented in this encounter [facility] 09-14-2024 History of Present illness Narrative Radiology Service Progress Note PATIENT NAME: Aroldo Navarrete DATE OF SERVICE: September 14, 2024 TIME: 3:29 PM PATIENT IDENTITY VERIFICATION COMPLETED USING TWO (2) IDENTIFIERS: Name and Date of confirmed by patient verbally. FALL SCREENING: Has the patient had 2 falls in the last year or 1 fall with injury or currently using an Ambulatory Assistive Device (Walker, Cane, Wheelchair, Crutches, etc.)? No PATIENT GENDER DATA: Assigned male at PATIENT RELEVANT IMPLANT DATA REVIEWED: Not Applicable PATIENT PRESENTS WITH AN IMPLANTABLE OR ATTACHED SENIOR MARKETING COORDINATOR: No RADIOLOGY DEPARTMENT: General X-ray: Exam(s) Completed: Lower Extremity X-Ray(s): Knee, AP / Lat / Tunne / Merchant Left and Wt. Bearing PERIPHERAL IV DATA: Not applicable SIGNED BY: RT Jagdish(Mitchel) September 14, 2024 3:29 PM documented in this encounter [facility] 09-14-2024 Note HNO ID: [id number] Author: KAY NICHOLAS RT(R) Service: Radiology Author Type: Technologist Type: Progress Notes Filed: 09/14/2024 15:43 Note Text: Radiology Service Progress Note PATIENT NAME: Aroldo Navarrete DATE OF SERVICE: September 14, 2024 TIME: 3:29 PM PATIENT IDENTITY VERIFICATION COMPLETED USING TWO (2) IDENTIFIERS: Name and Date of confirmed by patient verbally. FALL SCREENING: Has the patient had 2 falls in the last year or 1 fall with injury or currently using an Ambulatory Assistive Device (Walker, Cane, Wheelchair, Crutches, etc.)? No PATIENT GENDER DATA: Assigned male at PATIENT RELEVANT IMPLANT DATA REVIEWED: Not Applicable PATIENT PRESENTS WITH AN IMPLANTABLE OR ATTACHED SENIOR MARKETING COORDINATOR: No RADIOLOGY DEPARTMENT: General X-ray: Exam(s) Completed: Lower Extremity X-Ray(s): Knee, AP / Lat / Tunne / Merchant Left and Wt. Bearing PERIPHERAL IV DATA: Not applicable SIGNED BY: RT Jagdish(R) September 14, 2024 3:29 PM [facility] 09-14-2024 Telephone encounter Note Patient was referred here by [facility]. Patient had 3 high blood pressure readings today in the office. Provider asked if we could let [facility] know about the readings and see if they can follow up with the patient in the next day or two. I called and left a detailed message on nurse voicemail. Asked for them to contact the office back to confirm they received the message. If I don't hear back from them, I will follow up again tomorrow. Also, asked for them to fax over records from their office. [facility] 09-14-2024 Instructions Cony Beckwith PA-C - 09/14/2024 3:11 PM EDT Blood work Today X-Ray of Knee today Take Blood Pressure medications TONY when you get home. Call Dr. Be's office to schedule follow up for blood pressure, repeat reading while on medication. Nurse visit is OK. Depending on labs results, we may start prednisone taper. Will call with results next week. documented in this encounter [facility] 09-14-2024 Note HNO ID: [id number] Author: CONY BECKWITH PA-C Service: ? Author Type: Physician Php Magento Developer Type: Progress Notes Filed: 09/14/2024 15:51 Note Text: Rheumatology CONSULTATION Date of Service: 09/14/2024 Patient: Aroldo Navarrete Medical Record: [id number] Primary Care Physician: No primary care provider on file. Last Rheumatology visit: None at [facility] Referring Provider: Marjorie Be [address] [facility] [id number] Aroldo Navarrete is here today at request of Dr. Marjorie Be specifically for consultation of my opinion in regards to the chief complaint listed below. Correspondence will be shared today via the [facility] electronic health record or through regular mail, where applicable. History of Present Illness Aroldo is a 68-year-old male with a history of HTN, presenting for evaluation of multiple joint pains and stiffness. Aroldo reports a current pain level of 7 . He describes the pain as Aching. The pain is Continuous, and has lasted for 4 Months. Interventions tried include Medication. He is currently taking naproxen. RHEUMATOLOGIC REVIEW OF SYSTEMS: NO ulcers in mouth or nose No photosensenitivity No history of blood clots + fatigue - Started around same time No fevers No painful eyes - Not painful, not red. + sicca Occasional sob with stairs or exertion. Years, no change recently. + cough - Longstanding, year, no hemoptysis NO diarrhea, no constipation No chronic back pain prior to this episode No history of psoriasis 4 lb weight loss in the last few months No Night sweats NO neuropathy FMHx - Denies family history of rheumatoid arthritis, SLE, PsA, IBD Pain Evaluation 04/15/2015 09/14/2024 Pain Evaluation Pain Score 6 7 Location Chest -- Location Comment All over Description Aching;Sore Aching Duration (#) 1 4 Duration (Timeframe) Weeks Months Frequency Continuous Continuous Intervention Medication Patient-Entered Data None Review of Systems Review of Systems CONSTITUTION: Positive for: Recent weight change Negative for: Fever HEENT: Negative for: Nosebleeds, Mouth sores, Trouble swallowing and Dry mouth RESPIRATORY: Positive for: Cough and Shortness of breath Negative for: Pain with breathing and Coughing up blood GASTROINTESTINAL: Negative for: Melena, Diarrhea and Abdominal pain MUSCULOSKELETAL: Positive for: Arthralgias, Myalgias, Muscle weakness, Joint swelling and Morning Joint Stiffness NEUROLOGICAL: SKIN: Positive for: Nail changes (brittle) Negative for: Rash EYES: Positive for: Eye redness and Eye dryness Negative for: Eye pain CARDIOVASCULAR: Positive for: Chest pain (occasional, burning pain, heartburn, Feels like he can't catch his breath) Negative for: Leg swelling GENITOURINARY: HEMATOLOGIC/LYMPHATIC: All other reviewed and negative other than HPI. Past Medical History History reviewed. No pertinent past medical history. Past Surgical History History reviewed. No pertinent surgical history. Family History History reviewed. No pertinent family history. FMHx - Denies family history of rheumatoid arthritis, SLE, PsA, IBD Social History Social History Tobacco Use Smoking status: Every Day Current packs/day: 0.50 Average packs/day: 0.5 packs/day for 20.0 years (10.0 ttl pk-yrs) Types: Cigarettes Smokeless tobacco: Never Vaping Use Vaping status: Some Days Substances: THC Substance Use Topics Alcohol use: Yes Comment: Beer everyday - 3- 16 oz cans Drug use: No Social Hx - Tobacco use: 1 pack per day - Alcohol use: 3 cans of 16 oz beer daily - Illicit drug use: Smokes and vapes marijuana - Occupation: Formerly employed at [employer] - Living conditions: Resides in [place] Current Medications Current Outpatient Medications Medication Sig tiZANidine HCl (ZANAFLEX) 4 mg capsule Take 4 mg by mouth. Take 1 capsule everyday at bedtime as needed. lisinopril (ZESTRIL) 10 mg tablet Take 10 mg by mouth once daily. naproxen (NAPROSYN) 500 mg tablet Take 1 tablet by mouth twice daily as needed (for pain/inflammation). Take with food. (Patient not taking: Reported on 09/14/2024) Labs Latest Ref Rng AND Units 01/05/2012 CBC Hemoglobin, [place] 13.0 - 17.0 g/dL 16.7 Abs Neut, [place] 1.45 - 7.50 k/uL 2.73 Abs Lymp, [place] 1.00 - 4.00 k/uL 2.28 Latest Ref Rng AND Units 01/05/2012 CMP Sodium, [place] 135 - 146 mmol/L 142 Potassium, [place] 3.5 - 5.0 mmol/L 4.7 Chloride, [place] 98 - 110 mmol/L 102 CO2, [place] 23.0 - 32.0 mmol/L 29.6 Glucose, [place] 65 - 100 mg/dL 97 BUN, [place] 10 - 25 mg/dL 9 Creatinine, [place] 0.7 - 1.4 mg/dL 1.1 Calcium, [place] 8.5 - 10.5 mg/dL 9.1 AST, [place] 7 - 40 U/L 18 ALT, [place] 5 - 50 U/L 12 [facility] Labs: (07/18/2024) - ESR: 25 (elevated) - CBC: - WBC: 5.3 (normal) - Platelets: 343 (normal) - Hemoglobin: 14.3 (normal) - Hematocrit: 41.4 (normal) - CRP: 29 (elevate (more content not included)... [facility] 09-14-2024 History of Present illness Narrative Images from the original note were not included. Rheumatology CONSULTATION Date of Service: 09/14/2024 Patient: Aroldo Navarrete Medical Record: [id number] Primary Care Physician: No primary care provider on file. Last Rheumatology visit: None at [facility] Referring Provider: Marjorie Be [address] [facility] [place] [address] Aroldo Navarrete is here today at request of Dr. Marjorie Be specifically for consultation of my opinion in regards to the chief complaint listed below. Correspondence will be shared today via the [facility] electronic health record or through regular mail, where applicable. History of Present Illness Aroldo is a 68-year-old male with a history of HTN, presenting for evaluation of multiple joint pains and stiffness. Aroldo reports a current pain level of 7 . He describes the pain as Aching. The pain is Continuous, and has lasted for 4 Months. Interventions tried include Medication. He is currently taking naproxen. RHEUMATOLOGIC REVIEW OF SYSTEMS: NO ulcers in mouth or nose No photosensenitivity No history of blood clots + fatigue - Started around same time No fevers No painful eyes - Not painful, not red. + sicca Occasional sob with stairs or exertion. Years, no change recently. + cough - Longstanding, year, no hemoptysis NO diarrhea, no constipation No chronic back pain prior to this episode No history of psoriasis 4 lb weight loss in the last few months No Night sweats NO neuropathy FMHx - Denies family history of rheumatoid arthritis, SLE, PsA, IBD Pain Evaluation 04/15/2015 09/14/2024 Pain Evaluation Pain Score 6 7 Location Chest -- Location Comment All over Description Aching;Sore Aching Duration (#) 1 4 Duration (Timeframe) Weeks Months Frequency Continuous Continuous Intervention Medication Patient-Entered Data None Review of Systems Review of Systems CONSTITUTION: Positive for: Recent weight change Negative for: Fever HEENT: Negative for: Nosebleeds, Mouth sores, Trouble swallowing and Dry mouth RESPIRATORY: Positive for: Cough and Shortness of breath Negative for: Pain with breathing and Coughing up blood GASTROINTESTINAL: Negative for: Melena, Diarrhea and Abdominal pain MUSCULOSKELETAL: Positive for: Arthralgias, Myalgias, Muscle weakness, Joint swelling and Morning Joint Stiffness NEUROLOGICAL: SKIN: Positive for: Nail changes (brittle) Negative for: Rash EYES: Positive for: Eye redness and Eye dryness Negative for: Eye pain CARDIOVASCULAR: Positive for: Chest pain (occasional, burning pain, heartburn, Feels like he can't catch his breath) Negative for: Leg swelling GENITOURINARY: HEMATOLOGIC/LYMPHATIC: All other reviewed and negative other than HPI. Past Medical History History reviewed. No pertinent past medical history. Past Surgical History History reviewed. No pertinent surgical history. Family History History reviewed. No pertinent family history. FMHx - Denies family history of rheumatoid arthritis, SLE, PsA, IBD Social History Social History Tobacco Use Smoking status: Every Day Current packs/day: 0.50 Average packs/day: 0.5 packs/day for 20.0 years (10.0 ttl pk-yrs) Types: Cigarettes Smokeless tobacco: Never Vaping Use Vaping status: Some Days Substances: THC Substance Use Topics Alcohol use: Yes Comment: Beer everyday - 3- 16 oz cans Drug use: No Social Hx - Tobacco use: 1 pack per day - Alcohol use: 3 cans of 16 oz beer daily - Illicit drug use: Smokes and vapes marijuana - Occupation: Formerly employed at [employer] - Living conditions: Resides in [place] Current Medications Current Outpatient Medications Medication Sig tiZANidine HCl (ZANAFLEX) 4 mg capsule Take 4 mg by mouth. Take 1 capsule everyday at bedtime as needed. lisinopril (ZESTRIL) 10 mg tablet Take 10 mg by mouth once daily. naproxen (NAPROSYN) 500 mg tablet Take 1 tablet by mouth twice daily as needed (for pain/inflammation). Take with food. (Patient not taking: Reported on 09/14/2024) Labs Latest Ref Rng & Units 01/05/2012 CBC Hemoglobin, [place] 13.0 - 17.0 g/dL 16.7 Abs Neut, [place] 1.45 - 7.50 k/uL 2.73 Abs Lymp, [place] 1.00 - 4.00 k/uL 2.28 Latest Ref Rng & Units 01/05/2012 CMP Sodium, [place] 135 - 146 mmol/L 142 Potassium, [place] 3.5 - 5.0 mmol/L 4.7 Chloride, [place] 98 - 110 mmol/L 102 CO2, [place] 23.0 - 32.0 mmol/L 29.6 Glucose, [place] 65 - 100 mg/dL 97 BUN, [place] 10 - 25 mg/dL 9 Creatinine, [place] 0.7 - 1.4 mg/dL 1.1 Calcium, [place] 8.5 - 10.5 mg/dL 9.1 AST, [place] 7 - 40 U/L 18 ALT, [place] 5 - 50 U/L 12 [place] [facility] Labs: (07/18/2024) - ESR: 25 (elevated) - CBC: - WBC: 5.3 (normal) - Platelets: 343 (normal) - Hemoglobin: 14.3 (normal) - Hematocrit: 41.4 (normal) - CRP: 29 (elevated) - Double-stranded DNA: Normal - SSA: Normal - SSB: Normal - Chromatin Antibody: Normal - Ciarra-1 Antibody: Normal - ADJUSTER AND INSPECTOR Antibody: Normal - Scleroderma Antibody: Normal - Galdamez Antibody: Normal - Centromere Antibody: Normal - Magnesium: 2.3 - TSH: 1.26 (normal) - Thyroid Peroxidase Antibody: Normal at 15 - Thyroglobulin Antibody: Normal at 1 - T3: 2.3 (normal) - T4: 0.7 (normal) Imaging Imaging done at [facility]: (07/18/2024) - Chest X-ray: Moderate to severe hyperinflation, no focal infiltrate, no pleural effusion, normal cardiomediastinal silhouette, mild thoracic spine degenerative changes, no acute pulmonary or cardiac disease - Abdominal X-ray: Probable right nephrolithiasis, otherwise unremarkable GI tract (03/30/2024) Left Wrist Ultrasound: Ganglion cyst, significant extensor tenosynovitis in four compartments, diffuse subcutaneous swelling and edema, moderate tendinopathy and tendinosis (03/23/2024) Left Wrist X-ray: Non-specific soft tissue mass on the dorsal wrist; recommended further evaluation with MRI and gadolinium (02/08/2024) Right Knee X-ray: 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 Airconditioning Drafting Officer: RADHA Transcribe Date/Time: Apr 16 2015 7:50A ... Health Maintenance Current Immunizations Never Reviewed Name Date COVID-19 vaccine, bivalent (PFIZER-BIONTECH) 05/25/2022 COVID-19 vaccine, monovalent (MODERNA) 05/11/2021, 11/04/2020, 2020 Physical Exam GENERAL APPEARANCE: Well groomed. Alert and oriented x 3. In no distress. VITAL SIGNS: BP 150/102 Pulse 108 Wt 126 lb (57.2kg) SpO2 98% SKIN: No rash, thickening, nodules, discoloration. L thumb nail dystrophy due to history of trauma. No gottron's papules, no heliotrope rash. EYES: PERRL, EOMI, red conjunctiva HENT: Normal external examination of the ears and nose, lips, oropharynx and tongue. No oropharyngeal lesions, exudate, or sores. NECK: No mass or asymmetry. RESPIRATORY: Normal respiratory effort. Decreased breath sounds. Clear to auscultation CARDIOVASCULAR: Heart RRR without gallop, murmur, or rub ABDOMEN: BS normal. No bruits, No tenderness, mass, or hepatosplenomegaly. NEUROLOGIC: Sensory exam normal. MUSCULOSKELETAL EXAMINATION: Soft tissue tender points: None Motor exam: Normal 4/5 muscle strength in bilateral proximal arm muscles and proximal hip muscles. Spine: Cervical spine: No visible abnormalities. Thoracic spine: No visible abnormalities. Lumbar spine: No visible abnormalities. SI Joints: No tenderness to palpation. Upper extremities: Shoulders: Painful Overhead ROM, unable to internally rotate behind back, Positive push-off test. 4/5 Weakness noted in bilateral shoulders + tenderness to palpation Elbows: Full ROM in flexion and extension. No swelling or effusion. + tenderness to R lateral epicondyle Wrists: Full ROM in all álvarez. L wrist with dorsal ganglion visible and tenderness. No pain with pronation/supination. No tenderness to palpation on the Right wrist Hands: Full ROM in flexion and extension. Full registered clinical dietitian strength. No swelling or synovitis along the MCPs, PIPs, and DIPs. No tenderness along the MCPs, PIPs, and DIPs. Negative Carolyn s test. Lower extremities: Hips: Painful flexion/Extension, difficulty rising from chair and getting on/off exam table. Tenderness over bilateral Greater trochanters. Knees: Full ROM in flexion and extension. No swelling or effusion. + tenderness to palpation. Painful full extension/flexion of R knee Ankles: Full ROM in all álvarez. No swelling or effusion. Feet: Full ROM in toe flexion/extension. No effusion. No tenderness to palpation. No evidence of MTP swelling. Hypertrophic skin on base of foot in lateral aspect and base of great toe. Poor foot Hygiene/care. There is currently no information documented on the homunculus. Go to the Rheumatology activity and complete the [facility] joint exam. Joint Exam 09/14/2024 No joint exam has been documented for this visit Joint Exam Data (across time) Impression # Polyarthralgia (M25.50) # Weakness (R53.1) # Chronic pain of both shoulders (M25.511) . # Bilateral hip pain (M25.551) # Chronic pain of both knees (M25.561) Chronic pain in both shoulders, hips, and knees with significant stiffness lasting up to four hours or more. Pain in shoulders rated as 6/10, with difficulty performing overhead activities. Right knee pain and swelling began after a fall six months ago; left knee pain is more recent. 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 Given his polyarthralgia with associated weakness in both upper and lower extremities, differential diagnosis includes polymyalgia rheumatica (PMR), Polymyositis, and inflammatory arthitis which typically presents with pain and stiffness in the shoulders and hips. Outside Sed rate/CRP elevated in July. Previous prednisone treatment provided significant relief for knee pain, suggesting a possible inflammatory component to knee pain as well. - Ordered comprehensive blood work and labs to assess for inflammatory arthritis (RF/CCP), inflammatory markers and polymyositis panel and muscle enzyme markers given proximal muscle weakness - Will consider initiating a prednisone taper pending lab results. - Scheduled follow-up appointment in one week to review lab results and assess response to potential treatment. # Ganglion, left wrist (M67.432) Left wrist ganglion cyst with associated tenderness and swelling. Previous ultrasound showed significant extensor tenosynovitis in four compartments and moderate tendinopathy and tendinosis. - Monitor for changes in size or symptoms. - Consider further imaging or referral to orthopedics if symptoms worsen. # Dry eye syndrome of both eyes (H04.123) Chronic redness and dryness in both eyes, no pain or blurriness reported. SSA/SSB negative. Sjogren's less likely - Recommended use of artificial tears to alleviate dryness. - Monitor for any changes or worsening symptoms. # Essential (primary) hypertension (I10) Blood pressure is significantly elevated today. Patient did not take lisinopril this morning. - Advised patient to take lisinopril immediately upon returning home and to monitor blood pressure. - Recommended follow-up with Dr. Be within the next week to reassess blood pressure control. - Sent a copy of today's note to Dr. Be to inform of current blood pressure readings. Plan Orders this visit: Office Visit on 09/14/24 tiZANidine HCl (ZANAFLEX) 4 mg capsule lisinopril (ZESTRIL) 10 mg tablet - Take your blood pressure medication (Lisinopril) as soon as you get home. - Monitor your blood pressure after taking your medication. You can use your home machine or visit a pharmacy with a blood pressure machine. - Schedule an appointment with Dr. Be to check your blood pressure within the next week. - Complete the blood work and knee X-ray as scheduled today. - Follow up appointment on September 28 to review test results and discuss further treatment options. - Depending on lab results, you may start a prednisone taper; you will be contacted with further instructions. - A letter will be provided to extend your disability leave; use this to request an extension if needed. Follow up 1 week I spent a total of 70 minutes on the date of the service which included preparing to see the patient, [id number] patient care, completing clinical documentation, obtaining and/or reviewing separately obtained history, performing a medically appropriate examination, counseling and educating the patient/family/caregiver, and ordering medications, tests, or procedures. Cony Beckwith PA-C Rheumatology Date: September 14, 2024 Time: 3:48 PM documented in this encounter [facility] Evaluation note Diagnosis Polyarthralgia- Primary Pain in joint, multiple sites Ganglion, left wrist Dry eye syndrome of both eyes Weakness Other malaise and fatigue Chronic pain of both shoulders Pain in joint, shoulder region Bilateral hip pain Pain in joint, pelvic region and thigh Chronic pain of both knees Essential (primary) hypertension Unspecified essential hypertension [facility] Diagnosis Polyarthralgia Pain in joint, multiple sites Dry eye syndrome of both eyes Weakness Other malaise and fatigue Chronic pain of both shoulders Pain in joint, shoulder region Bilateral hip pain Pain in joint, pelvic region and thigh Chronic pain of both knees [facility] Weakness Other malaise and fatigue Polymyositis with myopathy (HCC) Polymyositis Shortness of breath [facility] Diagnosis Weakness Other malaise and fatigue Polymyositis with myopathy (HCC) Polymyositis Shortness of breath [facility] Diagnosis Weakness- Primary Other malaise and fatigue Polymyositis with myopathy (HCC) Polymyositis Chronic pain of both shoulders Pain in joint, shoulder region Shortness of breath Interstitial pulmonary disease (HCC) Postinflammatory pulmonary fibrosis [facility] Diagnosis Weakness Other malaise and fatigue Polymyositis with myopathy (HCC) Polymyositis Chronic pain of both shoulders Pain in joint, shoulder region Shortness of breath Interstitial pulmonary disease (HCC) Postinflammatory pulmonary fibrosis [facility] Diagnosis Weakness Other malaise and fatigue Polymyositis with myopathy (HCC) Polymyositis Chronic pain of both shoulders Pain in joint, shoulder region Shortness of breath Interstitial pulmonary disease (HCC) Postinflammatory pulmonary fibrosis [facility] Diagnosis Weakness Other malaise and fatigue Polymyositis with myopathy (HCC) Polymyositis Chronic pain of both shoulders Pain in joint, shoulder region Shortness of breath [facility] Diagnosis Polymyalgia rheumatica (HCC)- Primary Polymyalgia rheumatica MDA5 antibody positive Lung nodule Solitary pulmonary nodule [facility] Lung nodule- Primary Solitary pulmonary nodule GCA (giant cell arteritis) (HCC) Giant cell arteritis [facility] Diagnosis GCA (giant cell arteritis) (HCC)- Primary Giant cell arteritis GCA (giant cell arteritis) (HCC) Giant cell arteritis [facility] Diagnosis Giant cell arteritis (HCC)- Primary Giant cell arteritis MDA5 antibody positive Lung nodule Solitary pulmonary nodule PMR (polymyalgia rheumatica) ([facility]) Polymyalgia rheumatica [facility] Diagnosis Giant cell arteritis (HCC)- Primary Giant cell arteritis PMR (polymyalgia rheumatica) (HCC) Polymyalgia rheumatica Lung nodule Solitary pulmonary nodule MDA5 antibody positive Chronic bilateral low back pain without sciatica Chronic sacroiliac joint pain Disorders of sacrum Chronic neck pain Cervicalgia ocean transportation intermediary (current) use of systemic steroids documented in this encounter [facility] for visit Narrative* Diagnostic Procedure Only (Routine) - Closed Specialty Diagnoses / Procedures Referred By Julio César t Referred To Contact XR IMAGING Diagnoses Polyarthralgia Dry eye syndrome of both eyes Weakness Chronic pain of both shoulders Bilateral hip pain Chronic pain of both knees Procedures XR KNEE GENERAL 4V AP BOTH/PA BOTH/LAT/MERC LEFT RADIOLOGIC EXAM KNEE COMPLETE 4/MORE VIEWS Cony Beckwith PA-C [address] [place] [address] Phone: tel: fax: XR IMAGING [place] [id number] Referral ID Status Reason Start Date Expiration Date V isits Requested Visits Authorized [id number] Closed Auto-Generate d Referral 09/14/2024 10/14/2025 1 1 [facility] for visit Narrative* Outpatient Procedure (Routine) - Closed Specialty Diagnoses / Procedures Referred By Julio César mendez Referred To Contact [facility] Diagnoses Weakness Polymyositis with myopathy ([facility]) Chronic pain of both shoulders Shortness of breath Procedures EMG(NEURO/NI) NERVE CONDUCTION STUDIES 9-10 STUDIES NERVE CONDUCTION STUDIES 5-6 STUDIES NERVE CONDUCTION STUDIES 11-12 STUDIES NEEDLE EMG EA EXTREMITY W/PARASPINL AREA LIMITED NEEDLE EMG EA EXTREMTY W/PARASPINL AREA COMPLETE NEEDLE EMG NONEXTREMTY MSCLES W/NERVE CONDUCTION NDL EMG 1 XTR W/WO RELATED PARASPINAL AREAS NEEDLE EMG LMTD STD MUSC 1 XTR/NON-LIMB UNI/BI Cony Beckwith PA-C [address] [place] [address] Phone: tel: fax: Neurology [address] [place] [address] Phone: tel: Referral ID Status Reason Start Date Expiration Date V isits Requested Visits Authorized [id number] Closed Auto-Generate d Referral 10/12/2024 06/06/2025 1 [facility] Consult, Test, Treat (Routine) - Closed Specialty Diagnoses / Procedures Referred By Julio César mendez Referred To Contact Rheumatology / RHEUMATOLOGY Diagnoses myositis per clarence beckwith Procedures [facility] Renny Forrester MD [address] [place] [address] Phone: tel: fax: Renny Forrester MD [address] [place] [address] Phone: tel: fax: Referral ID Status Reason Start Date Expiration Date Visits Re quested Visits Authorized [id number] Closed 10/13/2024 06/06/2025 1 1 [facility] Summary Purpose Family History No Family History Records FoundNo Family History Records FoundNo Family History Records Found Advance Directives No Advanced Directives Records FoundNo Advanced Directives Records FoundNo Advanced Directives Records Found Additional Source Comments Source Comments (unrecognize d section and content) In the event this informatio n is protected by the Federal Confidentiality of Alcohol and Drug Abuse Patient Records regulations: The Federal rules restrict any use of the information to criminally investigate or prosecute any alcohol or drug abuse patient.[facility] the event this information is protected by the Federal Confidentiality of Alcohol and Drug Abuse Patient Records regulations: The Federal rules restrict any use of the information to criminally investigate or prosecute any alcohol or drug abuse patient.[facility] the event this information is protected by the Federal Confidentiality of Alcohol and Drug Abuse Patient Records regulations: The Federal rules restrict any use of the information to criminally investigate or prosecute any alcohol or drug abuse patient.[facility] the event this information is protected by the Federal Confidentiality of Alcohol and Drug Abuse Patient Records regulations: The Federal rules restrict any use of the information to criminally investigate or prosecute any alcohol or drug abuse patient.[facility] the event this information is protected by the Federal Confidentiality of Alcohol and Drug Abuse Patient Records regulations: The Federal rules restrict any use of the information to criminally investigate or prosecute any alcohol or drug abuse patient.[facility] the event this information is protected by the Federal Confidentiality of Alcohol and Drug Abuse Patient Records regulations: The Federal rules restrict any use of the information to criminally investigate or prosecute any alcohol or drug abuse patient.[facility] the event this information is protected by the Federal Confidentiality of Alcohol and Drug Abuse Patient Records regulations: The Federal rules restrict any use of the information to criminally investigate or prosecute any alcohol or drug abuse patient.[facility] the event this information is protected by the Federal Confidentiality of Alcohol and Drug Abuse Patient Records regulations: The Federal rules restrict any use of the information to criminally investigate or prosecute any alcohol or drug abuse patient.[facility] the event this information is protected by the Federal Confidentiality of Alcohol and Drug Abuse Patient Records regulations: The Federal rules restrict any use of the information to criminally investigate or prosecute any alcohol or drug abuse patient.[facility] the event this information is protected by the Federal Confidentiality of Alcohol and Drug Abuse Patient Records regulations: The Federal rules restrict any use of the information to criminally investigate or prosecute any alcohol or drug abuse patient.[facility] the event this information is protected by the Federal Confidentiality of Alcohol and Drug Abuse Patient Records regulations: The Federal rules restrict any use of the information to criminally investigate or prosecute any alcohol or drug abuse patient.[facility] Hospital[facility] the event this information is protected by the Federal Confidentiality of Alcohol and Drug Abuse Patient Records regulations: The Federal rules restrict any use of the information to criminally investigate or prosecute any alcohol or drug abuse patient.[facility] Hospital[facility] the event this information is protected by the Federal Confidentiality of Alcohol and Drug Abuse Patient Records regulations: The Federal rules restrict any use of the information to criminally investigate or prosecute any alcohol or drug abuse patient.[facility] Hospital[facility] the event this information is protected by the Federal Confidentiality of Alcohol and Drug Abuse Patient Records regulations: The Federal rules restrict any use of the information to criminally investigate or prosecute any alcohol or drug abuse patient.[facility] Hospital[facility] the event this information is protected by the Federal Confidentiality of Alcohol and Drug Abuse Patient Records regulations: The Federal rules restrict any use of the information to criminally investigate or prosecute any alcohol or drug abuse patient.[facility] Hospital[facility] the event this information is protected by the Federal Confidentiality of Alcohol and Drug Abuse Patient Records regulations: The Federal rules restrict any use of the information to criminally investigate or prosecute any alcohol or drug abuse patient.[facility] Hospital[facility] the event this information is protected by the Federal Confidentiality of Alcohol and Drug Abuse Patient Records regulations: The Federal rules restrict any use of the information to criminally investigate or prosecute any alcohol or drug abuse patient.[facility] Hospital[facility] the event this information is protected by the Federal Confidentiality of Alcohol and Drug Abuse Patient Records regulations: The Federal rules restrict any use of the information to criminally investigate or prosecute any alcohol or drug abuse patient.[facility] Hospital[facility] the event this information is protected by the Federal Confidentiality of Alcohol and Drug Abuse Patient Records regulations: The Federal rules restrict any use of the information to criminally investigate or prosecute any alcohol or drug abuse patient.[facility] HospitalIn the event this information is protected by the Federal Confidentiality of Alcohol and Drug Abuse Patient Records regulations: The Federal rules restrict any use of the information to criminally investigate or prosecute any alcohol or drug abuse patient.[facility] Reason for Visit (unrecogniz ed section and content) Reason Comments New patient Specialty Diagnoses / Procedures Referred By Contac t Referred To Contact Internal Medicine / RHEUMATOLOGY Diagnoses Joint pain M25.50 Joint pain Procedures OFFICE/OUTPATIENT NEW [facility] 60 MINUTES [id number] [facility] Marjorie Love DO [address] [place] [address] Phone: tel: fax: Cony Beckwith PA-C [address] [place] [address] Phone: tel: fax: Referral ID Status Reason Start Date Expiration Date Visits Re quested Visits Authorized [id number] Closed 09/01/2024 06/06/2025 1 1 Reason Comments Insurance information Reason Comments Spirometry Specialty Diagnoses / Procedures Referred By Julio César t Referred To Contact [facility] Diagnoses Weakness Polymyositis with myopathy (HCC) Shortness of breath Procedures SPIROMETRY BASELINE ONLY SPMTRY W/VC EXPIRATORY LINH W/WO MXML VOL VNTJ Cony Beckwith PA-C [address] [place] [address] Phone: tel: fax: [facility] [place] [address] [place] [address] Referral ID Status Reason Start Date Expiration Date V isits Requested Visits Authorized [id number] Closed Auto-Generate d Referral 10/04/2024 11/03/2025 1 1 Specialty Diagnoses / Procedures Referred By Julio César mendez Referred To Contact [facility] Diagnoses Weakness Polymyositis with myopathy (HCC) Shortness of breath Procedures LUNG DIFFUSION CAPACITY (DLCO) DIFFUSING CAPACITY Cony Beckwith PA-C [address] [place] [address] Phone: tel: fax: Respiratory [place] [phone] Referral ID Status Reason Start Date Expiration Date V isits Requested Visits Authorized [id number] Closed Auto-Generate d Referral 10/04/2024 11/03/2025 1 1 Reason Comments Appointment Reason Comments Follow Up Specialty Diagnoses / Procedures Referred By Julio César mendez Referred To Contact Rheumatology / RHEUMATOLOGY Diagnoses Encounter for medical record review Review results Procedures OFFICE/OUTPATIENT ESTABLISHED SF MDM 10 MIN OFFICE/OUTPATIENT ESTABLISHED LOW MDM 20 MIN OFFICE/OUTPATIENT ESTABLISHED MOD MDM 30 MIN OFFICE/OUTPATIENT ESTABLISHED HIGH MDM 40 MIN [facility] Cony Beckwith PA-C [address] [place] [address] Phone: tel: fax: Cnoy Beckwith PA-C [address] [place] [address] Phone: tel: fax: Referral ID Status Reason Start Date Expiration Date V isits Requested Visits Authorized [id number] Authorized 09/19/2024 06/06/2025 99 99 Specialty Diagnoses / Procedures Referred By Contac t Referred To Contact [facility] Diagnoses Weakness Polymyositis with myopathy (HCC) Chronic pain of both shoulders Shortness of breath Interstitial pulmonary disease (HCC) SOB (shortness of breath) Procedures LUNG VOLUMES Cony Beckwith PA-C [address] [place] [address] Phone: tel: fax: Respiratory [place] [address] [place] [address] Referral ID Status Reason Start Date Expiration Date V isits Requested Visits Authorized [id number] Closed Auto-Generate d Referral 10/04/2024 11/03/2025 [address] Specialty Diagnoses / Procedures Referred By Contac t Referred To Contact CT IMAGING Diagnoses Weakness Polymyositis with myopathy (HCC) Chronic pain of both shoulders Shortness of breath Interstitial pulmonary disease (HCC) SOB (shortness of breath) Procedures CT CHEST WO IVCON DIAGNOSTIC COMPUTED TOMOGRAPHY THORAX W/O CNTRST Cony Beckwith PA-C [address] [place] [address] Phone: tel: fax: [place] [phone] Referral ID Status Reason Start Date Expiration Date V isits Requested Visits Authorized [id number] Closed Auto-Generate d Referral 10/04/2024 11/03/2025 1 1 Reason Comments disability paperwork Reason Comments Established Patient Specialty Diagnoses / Procedures Referred By Contac t Referred To Contact Rheumatology / RHEUMATOLOGY Diagnoses Encounter for medical record review Review results Procedures OFFICE/OUTPATIENT ESTABLISHED SF MDM 10 MIN OFFICE/OUTPATIENT ESTABLISHED LOW MDM 20 MIN OFFICE/OUTPATIENT ESTABLISHED MOD MDM 30 MIN OFFICE/OUTPATIENT ESTABLISHED HIGH MDM 40 MIN [facility] Cony Beckwith PA-C [address] [place] [address] Phone: tel: fax: Cony Beckwith PA-C [address] [facility] [address] [place] [address] Phone: tel: fax: Care Teams (unrecognized sec tion and content) Marketing Director Relationship Specialty [place] [address] [place] [id number] Referring Family Medicine 07/27/24 Marketing Director Relationship Specialty [place] [address] [place] [address] Referring Family Medicine 07/27/24 Marketing Director Relationship Specialty Start Date End Date Marjorie Be DO [address] [place] [address] Referring Family Medicine 07/27/24 Marketing Director Relationship Specialty Start Date End Date Marjorie Be DO [address] [place] [address] Referring Family Medicine 07/27/24 Marketing Director Relationship Specialty Start Date End Date Marjorie Be DO [address] [place] [address] Referring Family Medicine 07/27/24 Marketing Director Relationship Specialty Start [place] [address] [place] [address] Referring Family Medicine 07/27/24 Marketing Director Relationship Specialty Start Date End Date Marjorie Be DO [address] [place] [address] Referring Family Medicine 07/27/24 Marketing Director Relationship Specialty Start Date End Date Marjorie Be DO [address] [place] [address] Referring Family Medicine 07/27/24 Marketing Director Relationship Specialty Start Date End Date Marjorie Be DO [address] [place] [address] Referring Family Medicine 07/27/24 Marketing Director Relationship Specialty Start Date End Date Marjorie Be DO [address] [place] [address] Referring Family Medicine 07/27/24 Marketing Director Relationship Specialty Start [place] [address] [place] [address] Referring Family Medicine 07/27/24 Marketing Director Relationship Specialty Start Date End Date Marjorie Be DO [address] [place] [address] Referring Family Medicine 07/27/24 Marketing Director Relationship Specialty Start Date End Date Marjorie Be DO [address] [place] [address] Referring Family Medicine 07/27/24 Marketing Director Relationship Specialty Start Date End Date Marjorie Be DO [address] [place] [address] Referring Family Medicine 07/27/24 Marketing Director Relationship Specialty Start Date End Date Marjorie Be DO [facility] [place] [address] PCP - General Family Medicine 10/23/24 Marjorie Be DO [address] [place] [address] Referring Family Medicine 07/27/24 Marketing Director Relationship Specialty Start Date End Date Marjorie Be DO [address] [place] [address] PCP - General Family Medicine 10/23/24 Marjorie Be DO [address] [place] [address] Referring Family Medicine 07/27/24 (unrecognized sect ion and content) No Status Records FoundNo Status Records FoundNo Status Records Found INFORMATION SOURCE (unrecogn ized section and content) DATE CREATED AUTHOR 11/07/2024 [facility] DATE CREATED AUTHOR AUTHOR'S ORGANIZ ATION 11/08/2024 [facility] DATE CREATED AUTHOR AUTHOR'S ORGANIZ ATION 11/08/2024 [facility] FOR RECORDS PERTAINING TO PATIENTS WHO ARE OR HAVE BEEN ENROLLED IN A CHEMICAL DEPENDENCY/SUBSTANCEABUSE PROGRAM, SOME INFORMATION MAY BE OMITTED. This clinical summary was aggregated from multiple sources. Caution should be exercised in using it in the provision of clinical care. This summary normalizes information from multiple sources, and as a consequence, information in this document may materially change the coding, format and clinical context of patient data. In addition, data may be omitted in some cases. CLINICAL DECISIONS SHOULD BE BASED ON THE PRIMARY CLINICAL RECORDS. [employer] provides no warranty or guarantee of the accuracy or completeness of information in this document.
[2024-11-18 23:12] LABS: Absolute Lymphocyte Count 1.36 X10^3/uL (0.83-4.51); Absolute Neutrophil Count 2.8 X10^3/uL (2.0-7.7); Hematocrit 40.7 % (40-54); Lymphocyte # 1.36 X10^3/ul (0.83-4.51); Lymphocyte % 30.8 % (19-41); Mean Corp Hgb Conc 36.9 g/dL (32-36); Mean Corpuscular Hgb 31.1 pg (27.0-32.0); Mean Corpuscular Volume 84.3 fL (80-94); Mean Platelet Vol. 9.9 fl (6.2-12.0); Monocyte# 0.25 X10^3/uL; Monocyte% 5.7 % (0-10); NRBC Flagged by Analyzer 0 % (0-5); Neutrophil # 2.79 X10^3/uL (2.7-7.7); Platelet Count 221 K/mm3 (150-450); Red Blood Count 4.83 M/mm3 (4.6-6.2); White Blood Count 4.4 K/mm3 (4.4-11.0)
--- NOTE | 2024-11-18 23:20 | RAD_ITS ---
PROCEDURE: CHEST PA AND LATERAL 11/18/2024 REASON FOR EXAM: WEAKNESS TECHNIQUE: CHEST PA AND LATERAL COMPARISON: Chest radiograph 07/18/2024. FINDINGS: Hardware: None. Heart: The heart size is normal. Mediastinum: The mediastinal contour is unremarkable. Lungs: No focal consolidation, pleural effusion or pneumothorax. Bones: Degenerative changes are identified within the thoracic spine. RAD/Chest PA and Lateral IMPRESSION: NO ACUTE FINDINGS. Reading Location: [id number]
[2024-11-18 23:34] VITALS: BP 115/78; BP 116/86; BP 130/80; PULSE 65; PULSE 68; PULSE 93
[2024-11-18 23:41] LABS: ALB/GLOB Ratio 1.5 RATIO (0.9-2.4); AST(SGOT) 33 U/L (<=37); Alanine Aminotransfer ALT/SGPT 34 U/L (<=46); Albumin, Serum 3.9 g/dL (3.4-4.8); Alkaline Phosphatase 75 U/L (40-129); Anion Gap 17 (5-15); BUN 12 mg/dL (4-19); BUN/Creat Ratio 13.9 RATIO (10-20); Calcium,Total 8.6 mg/dL (7.6-11.0); Carbon Dioxide 19.6 mmol/L (21.0-32.0); Chloride 85 mmol/L (98-108); Creatinine, Serum 0.88 mg/dL (0.70-1.20); EST Glomerular Filtration Rate 94 (>60); Estimated Creatinine Clearance 64.43 ml/min (50-250); Globulin 2.7 g/dL (2.2-4.2); Glucose 106 mg/dL (70-99); Potassium 4.2 mmol/L (3.3-5.1); Protein, Total 6.6 g/dL (5.9-8.4); Sodium Level 122 mmol/L (133-145); Total Bilirubin 0.63 mg/dL (0.00-1.30)
[2024-11-18 23:59] LABS: Troponin T High Sensitivity 23 ng/L (<=22)
[2024-11-19] VITALS (9 sets, daily range): BP systolic 102–143; BP diastolic 65–108; PULSE 55–108; RESP 16–20; TEMP 36.1–36.8; O2SAT 94–100; BMI 17.3
--- NOTE | 2024-11-19 00:21 | HP.PCM.HOS_ITS ---
HPI - General General Date of Admission: 11/19/24 Date of Service: 11/19/24 Chief Complaint: Dizziness/lightheadedness HPI Narrative AROLDO NAVARRETE, is a 69 M who presented to the emergency department at [facility] [place] on 11/18/2024 with a chief complaint of lightheadedness/dizziness. Patient reported that he feels like he could pass out when he stands up. He is fine when he is lying down or sitting but when he goes from sitting to standing he gets significantly lightheaded. It is transient and goes away. He also complains of associated dysphagia. He states over about the last week he has had diarrhea and some nausea with some abdominal cramping. He is still having diarrhea at the time of presentation but still able to drink alcohol. He close drink about 3-6 tall beers a day. He also states he has been having difficulty swallowing. He had a left temporal biopsy about a month ago as he had been having headaches but denied vision changes. Unclear where this was performed and he is unable to tell us but it does appear that he may be getting treatment for temporal arteritis as he is currently on prednisone which was written by a PA for rheumatological office. Vital signs on presentation showed temperature 96.5, heart rate 93, respiratory rate 16, blood pressure was 131/85 pulse ox was 100% on room air. CBC is unremarkable. Chemistry panel shows significant hyponatremia with a sodium of 122, chloride of 85, serum bicarb of 19.6 with an anion gap of 17. Creatinine is normal. Glucose is 106. Liver functions normal. Initial troponin was 23. CT (8 minutes symmetric distention of the right lateral ventricle compared to the left with intraventricular septal bowing which may be anatomic variant per report. Chest x-ray showed no acute findings but does show hyperinflation with flattened diaphragms consistent with COPD. IV fluids were initiated in the emergency department as we do suspect this is hypovolemic hyponatremia plus his orthostatic vital signs were positive. Will admit to telemetry given marked hyponatremia and anticipate length of stay will be greater than 2 midnights. [facility] Medical History Wears glasses Loose, teeth Alcohol use Marijuana use History of steroid therapy Rheumatoid arthritis Gastric reflux Shortness of breath on exertion Smoker Leg cramps Hypertension Osteoarthritis of right knee Extensor tenosynovitis of left wrist Ganglion cyst of dorsum of left wrist MCL sprain of right knee Right knee pain Home Medications ?Medication ?Instructions ?Recorded ?Last Taken ?Type lisinopril 20 1 tab PO QDAY 02/08/24 Unkno wn History mg-hydrochlorothiazide 25 mg tablet quinine-vitamin E capsule 1 cap PO QDAY 08/10/24 Unkno wn History tizanidine 4 mg capsule 4 mg PO QHS PRN muscle spast icity 08/10/24 Unknown History gabapentin 100 mg capsule 100 mg PO BID 11/18/24 Unkno wn History pantoprazole 40 mg tablet,delayed 40 mg PO DAILY 11/18 Unknown History release prednisone 20 mg tablet 20 mg PO DAILY 11/18/24 Unkn own History Allergy/AdvReac Type Severity Reaction Status Date / Time Penicillins Allergy Hives Verified 11/18/24 22:16 Surgical History No pertinent past surgical history Social History household members: none current occupational status: employed Smoking Status: Current every day smoker tobacco type: cigarettes alcohol intake: current substance use type: does not use ROS Constitutional Constitutional: Reports anorexia and malaise; Denies change in weight, chills, fatigue, fever(s), night sweats, weakness or other Eyes Eyes: Denies blurry vision, change in eye color, change in vision, discharge from eye(s), double vision, erythema, eye pain, loss of vision or other ENT HEENT: Denies abnormal hearing, dysphagia, ear pain, epistaxis, headache(s), hearing loss, nasal congestion, nasal discharge, post nasal drip, sinus pressure, sore throat or other Cardiovascular Cardiovascular: Reports lightheadedness; Denies chest pain, claudication, dyspnea on exertion, edema, orthopnea, palpitations, paroxysmal nocturnal dyspnea, rapid heart rate, syncope or other Respiratory/Chest Respiratory/Chest: Denies cough, dyspnea, excessive phlegm production, hemoptysis, productive cough, shortness of breath at rest, shortness of breath with exertion, wheezing or other Gastrointestinal Gastrointestinal: Reports abdominal pain, diarrhea and nausea; Denies coffee ground emesis, constipation, dyspepsia, hematemesis, hematochezia, loose stools, melena, vomiting or other Genitourinary Genitourinary: Denies burning urination, difficulty urinating, dysuria, hematuria, nocturia, urinary frequency, urinary hesitancy, urinary incontinence, urinary urgency or other Musculoskeletal Musculoskeletal: Reports back pain; Denies arthralgias, joint pain, joint stiffness, joint swelling, myalgias, neck pain or other Neurologic Neurologic: Reports abnormal gait, disequilibrium and dizziness; Denies abnormal speech, confusion, focal weakness, headache(s), numbness, paresthesias, seizure- like activity, seizures, syncope, tingling, tremor(s) or other Psychiatric Psychiatric: Denies anxiety, depression, homicidal ideation, suicidal ideation or other Endocrine Endocrinology: Denies change in body appearance, cold intolerance, excessive sweating, heat intolerance, polydipsia, polyuria or other Hematologic/Lymphatic Hematologic/Lymphatic: Denies anemia, easy bleeding, easy bruising, lymphadenopathy or other Allergic/Immunologic Allergic/Immunologic: Denies rhinitis, hives, eczemia, asthma or other Vital Signs Vital Signs Vital Signs: 11/18/24 22:16 11/18/24 23:34 Temperature 96.5 F L Temperature Source Temporal Pulse Rate 93 Pulse Rate [Lying] 68 Pulse Rate [Sitting (for 1 minute prior to obtaining)] 65 Pulse Rate [Standing (for 1 minute prior to obtaining)] 93 Respiratory Rate 16 Blood Pressure 131/85 H Blood Pressure [Lying] 115/78 Blood Pressure [Sitting (for 1 minute prior to obtaining)] 130/80 H Blood Pressure [Standing (for 1 minute prior to obtaining)] 116/86 H Blood Pressure Mean 100 Blood Pressure Mean [Lying] 90 Blood Pressure Mean [Sitting (for 1 minute prior to obtaining)] 96 Blood Pressure Mean [Standing (for 1 minute prior to obtaining)] 96 Pulse Ox 100 Oxygen Delivery Method Room Air Weight Weight: 56.699 kg Body Mass Index (BMI) 17.4 Physical Exam Const alert, oriented x3 and no apparent distress; Negative for average body habitus, healthy appearing or well nourished Constitutional Narrative: Thin, -Georgian, male, sitting up in bed, appears comfortable, does not look toxic General Appearance: cooperative HEENT normocephalic, head/scalp atraumatic, hearing grossly normal bilaterally and moist oral mucous membranes HEENT Narrative: temporal wasting bilaterally, bottom dentition poor, edentulous on top Eyes EOMs intact bilaterally and conjunctivae normal Eyes Narrative: No scleral icterus Neck no lymphadenopathy and supple Neck Narrative: Trachea midline, neck veins are flat Resp normal respiratory effort, no retractions, no use of accessory muscles and clear to auscultation bilaterally Resp Narrative: Diffusely diminished with few scattered end expiratory wheezes Auscultation: wheezes; Negative for rales or rhonchi Cardio regular rate, regular rhythm, S1 normal heart sound, S2 normal heart sound, no murmurs, no rub, no gallops and no clicks GI normal to inspection, nondistended, normoactive bowel sounds and soft to palpation GI Narrative: Scaphoid abdomen Extremity no clubbing, cyanosis or edema Extremity Narrative: 2+ pedal and radial pulses, decreased lean muscle mass Skin no jaundice, no petechiae and no mottling Skin Narrative: No specific lesions noted Neuro oriented x3, moves all extremities and no focal motor deficits Neuro Narrative: Generalized weakness noted but no focal deficits Speech: speech normal Psych affect normal Psych Narrative: Pleasant, Interacts appropriately Results Lab / Micro Data 11/18/24 22:37 11/18/24 22:37 Labs: Laboratory Results - last 24 hr 11/18/24 22:37: WBC 4.4, RBC 4.83, Hgb 15.0, Hct 40.7, MCV 84.3, MCH 31.1, MCHC 36.9 H, RDW Std Deviation 43.0, RDW Coeff of Brittany 14.0, Plt Count 221, MPV 9.9, Immature Gran % (Auto) 0.500, Neut % (Auto) 63.0, Lymph % (Auto) 30.8, [place] % (Auto) 5.7, Eos % (Auto) 0.0, Baso % (Auto) 0.0, Absolute Neuts (auto) 2.8, Absolute Lymphs (auto) 1.36, Nucleated RBC % 0, Sodium 122 L, Potassium 4.2, C hloride 85 L, Carbon Dioxide 19.6 L, Anion Gap 17 H, BUN 12, Creatinine 0.88, Estim Creat Clear Calc 64.43, Est GFR (MDRD) Non-Af 94, BUN/Creatinine Ratio 13.9, Glucose 106 H, Calcium 8.6, Total Bilirubin 0.63, AST 33, ALT 34, Alkaline Phosphatase 75, Troponin T High Sens 23 H, Total Protein 6.6, Albumin 3.9, Globulin 2.7, Albumin/Globulin Ratio 1.5 Rhythm Strip Rhythm Strip: Sinus Rhythm Rate: 65 Ectopy: None Imaging Radiology Impression Brain CT 11/18/24 22:55 IMPRESSION: 1. Asymmetric distention of the right lateral ventricle compared to the left with intraventricular septal bowing. Findings are indeterminate and may be an anatomic variant. Correlation with prior brain imaging recommended. 2. No acute intracranial finding. Reading Location: [facility] Chest X-Ray 11/18/24 23:20 IMPRESSION: NO ACUTE FINDINGS. Reading Location: [facility] Assessment & Plan Assessment/Plan (1) Abnormal brain CT: (2) Dysphagia: (3) Dizziness: (4) Acute diarrhea: (5) Acute hyponatremia: PLAN: Plan Lightheadedness/dizziness - Appears to be hypovolemic related as orthostatic vitals appear to be positive from sitting to standing - IV fluids at 100 cc/h - repeat orthostatic vitals in a.m - MRI of the brain pending for below Hyponatremia - Suspect hypovolemic hyponatremia with decreased oral intake, diarrhea, decreased solute intake, alcohol use, and HCTZ at baseline - Continue IV fluids at 100 cc/h right now until can better delineate etiology of hyponatremia - Check urine and serum osmolality - Check urine sodium - Check uric acid - check TSH and cortisol level - Check UA - Will trend with every 6 hours sodium levels - Hold hydrochlorothiazide - May need advanced chest imaging depending on etiology of hyponatremia due to patient's tobacco abuse history Diarrhea and nausea - As needed antiemetics - check stool sample for enteric pathogens and C. difficile - Check lactoferrin Abnormal CT brain - CT of the brain shows abnormal asymmetric distention of the right lateral ventricle with left intraventricular septal bowing-->states it may be a anatomic variant - Check MRI with and without contrast of the brain especially with dysphagia and lightheadedness Dysphagia - Speech therapy consultation - Will place on finger foods for now - MRI of the brain with and without contrast as noted above Suspect malnutrition - Will start supplements high-protein to assist with hyponatremia - consult dietitian Headache with recent temporal artery biopsy - patient is currently on prednisone that seemingly started at 50 mg and is now 40 mg - To be on 40 mg x 14 days - Prescription was written by a rheumatological physician chiropractic assistant so suspect this may be consistent with temporal arteritis - Outpatient follow-up with rheumatology after discharge GERD - Continue on PPI Essential hypertension - Hold HCTZ - Lisinopril 20 mg daily - As needed hydralazine for systolic pressure greater than 160 - Would recommend discontinuation of HCTZ at discharge especially of alcohol use Neuropathy - Continue home gabapentin Alcohol abuse - Patient states he drinks 3-4 tall boys a day - Has never had withdrawals but has never not been drinking - Will check CIWA and if starts to trend up will place on phenobarbital with as needed Ativan for breakthrough Tobacco abuse - Recommend cessation - Patient admits to smoking greater than 1 pack/day - As needed nicotine patch available as patient was not sure if he wanted at the time of admission Marijuana use - recommend cessation DVT prophylaxis - Lovenox subcu daily CODE STATUS - Full code is verified on admission Charges/Coding Visit Charges Inpatient E&M: 32515 Init Hosp L2
--- NOTE | 2024-11-19 00:48 | MRI_ITS ---
PROCEDURE: BRAIN W/WO CONTRAST 11/20/2024 REASON FOR EXAM: DIZZINESS AND DYSPHAGIA TECHNIQUE: Routine brain MRI without and with intravenous contrast. Multiplanar and multisequence images were obtained. CONTRAST: Clariscan VOLUME: 10 mL FINDINGS: Brain: No midline shift of brain parenchyma. The interventricular membrane is convex toward the left. No intra-axial or extra-axial hemorrhage. Minimal hyperintense T2/FLAIR periventricular white matter suggesting early or mild developing chronic small-vessel ischemic disease. No abnormal signal in the white matter otherwise. 7th and 8th nerve complexes in the internal auditory canals normal symmetric appearance. No abnormal enhancement associated with the cerebellar pontine angle Diffusion: No restricted diffusion. Ventricles: Bilateral ventricular enlargement, but the right side is asymmetrically larger than the left. Major Intracranial Vessels: Sinuses: Small right maxillary sinus mucous retention cyst. Mild mucosal thickening ethmoid air cells and opacified posterior left ethmoid air cell. Frontal and sphenoid sinuses are clear. Mastoids: Predominantly clear. MRI/Brain W/WO Contrast IMPRESSION: Asymmetric ventricular enlargement, most commonly a normal variant, but nonspec ific. Other findings as above. Reading [facility]
--- OUTSIDE RECORDS SUMMARY | 2024-11-19 00:58 | XMS RPT_ITS | CCD ---
Author Organization [facility] Care Team Providers Care Computer Tester Name Role Phone Marjorie Be DO Unavailable Marjorie Be DO Primary Care Provider JOSÉ MIGUEL JIANG Admitting Unavailable JOSÉ MIGUEL JIANG Attending Unavailable [place]IE HUGO SUPRIYA Primary Care Unavailabl e [place] [facility], Holly Referring Unavailable Ghanshyam Stapletno Attending [facility]available [facility] [place] [facility] Unavailable [place] [facility], Holly Primary Care Unavailable Amena Cony N Referring Unavailable Amena, Cony N Attending Unavailable [place] [facility], Holly Primary Care Unavailable [place] [facility], Holly Attending Unavailable [place] [facility], Holly Primary Care Unavailable Steven Martinez Referring Unavailable Steven Martinez Attending Unavailable [place] [facility], Holly Primary Care Unavailable Steven Mratinez Referring Unavailable Steven Martinez Attending Unavailable [place] [facility], Holly Primary Care Unavailable [place] [facility], Holly Referring Unavailable Steven Martinez Attending Unavailable Janis Bethea Attending Unavailable [place] [facility], Holly Primary Care Unavailable [place] [facility], [place] Primary Care Unavailable [place] [facility], Holly Referring Unavailable Steven Martinez Attending Unavailable [place] [facility], [place] Primary Care Unavailable [place] [facility], Holly Referring Unavailable Steven Martinez Attending Unavailable [place] [facility], Holly Primary Care Unavailable Xavier, Dewey Attending Unavailable [place] [facility], Holly Primary Care Unavailable Xavier, [place] Attending Unavailable [place] [facility], Holly Primary Care Unavailable Beam, Zebulun Referring Unavailable Beam, Zebulun Attending Unavailable [place] [facility], Holly Primary Care Unavailable [place] [facility], Holly Referring Unavailable [place] [facility], [place] Attending Unavailable [place] [facility], [place] Attending Unavailable [place] [facility], Holly Primary Care Unavailable [place] [facility], [place] Referring Unavailable [place] [facility], Holly Primary Care Unavailable Beam, Zebulun Attending Unavailable Beam, Zebulun Referring Unavailable [place] [facility], Holly Primary Care Unavailable [place] [facility], [...] [PENICILLINS] Drug Allergy 5 Other: See Comments [facility] (1 source) Penicillins Drug allergy (disorder) 5 [facility] Repository Medications Current Medications Medication Drug [...] Long-term current use of systemic steroid; Translations: [custodial (current) use of systemic steroids] 11-01-2024 Episodic 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; Translations: [Other specified congenital malformations of skin] Onset: 01-31-2010 01-31-2010 Chronic Other connective tissue disease (6 sources) Polymyalgia rheumatica; Translations: [Polymyalgia rheumatica] Onset: 11-01-2024 10-14-2024 Chronic Other connective tissue disease (2 sources) Polymyalgia rheumatica; Translations: [PMR (polymyalgia rheumatica) ([facility])] Onset: 10-25-2024 Chronic Other connective tissue disease [...] Test Name Value Interpretation Reference Range Facility [facility] 11-07-2024 [facility] Telephone (RHWSTR) AROLDO NAVARRETE ([id number]) 1955 Jessica Date Time Provider Department 11/07/24 CONY BECKWITH [facility] During your visit today, we recorded the following information about you: Elizabeth Peters MA 11/07/2024 11:56 AM Signed Request for medical records from 10/05/2024 through present [facility] All records have been faxed as requested. [...] Encounter Status:Closed by ELIZABETH PETERS on 11/07/24 [facility] CNOVon 11-01-2024 CNOV Office Visit (RHWSTR ) AROLDO NAVARRETE ([id number]) 1955 M Date Time Provider Department 11/01/24 2:00 PM CONY BECKWITH RHWSTR During your visit today, we recorded the following information about you: Pulse Blood pressure Weight 92/minute 127/82 59 kg Cony Beckwith PA-C 11/01/2024 4:24 PM Signed Rheumatology FOLLOW UP VISIT Date of Service: 11/01/2024 Patient: Aroldo Navarrete Medical Record: [id number] Primary Care Physician: Marjorie Be DO History [...] to these (more content not included)... Normal [facility] ([id number]) 1955 M Date Time Provider Department 10/30/24 CONY BECKWITH [facility] During your visit today, we recorded the following information about you: Cony Beckwith PA-C 10/30/2024 10:20 PM Signed Temporal Artery Biopsy result is negative for Giant Cell Arteritis I have been in discussion with Dr. Forrester from [facility]. She feels giant cell arteritis [...] or if he should return? Paperwork from [facility] received to submit records from 10/05/2024 to present. Patient was transferred to [facility] to set up CTA's, consult to pulmonology [...] (HCC) [M35.3] Order(s):CTA CHEST (NONGATED) WO/W IVCON [[id number]] Order #: [id number] FUTURE CTA ABD/PEL WO/W IVCON [[id number]] Order #: [id number] FUTURE iv contrast (will be provided with [...] 1 eachRfl: 0 CONSULT TO PULMONARY MEDICINE [[id number]] Order #: [id number]: 1 predniSONE (DELTASONE) 20 mg tabletTake 2.5 [...] specific nurs (more content not included)... Normal [facility] Basic metabolic 2000 panelon 10-26-2024 Anion gap [Moles/Vol] 14 mmol/L Normal 8-15 [facility] Comment on above: Order Comment: Speci men Type: BLOOD SPECIMEN Ordering Facility: [facility] Address: [address] [place] [address] Performed By: #### 2 4321-2 #### [facility] CLIA [id number] [address] [place] [address] [place] Calcium [Mass/Vol] 9.1 mg/dL Normal 8.5-10.2 [facility] Comment on above: Order Comment: Speci men Type: BLOOD SPECIMEN Ordering Facility: [facility] Address: [address] [place] [address] Performed By: #### 2 4321-2 #### [facility] CLIA [id number] [address] [place] [address] [place] Chloride [Moles/Vol] 89 mmol/L Low 98-107 [facility] Comment on above: Order Comment: Speci men Type: BLOOD SPECIMEN Ordering Facility: [facility] Address: [address] [place] [address] Performed By: #### 2 4321-2 #### [facility] CLIA [id number] [address] [place] [address] [place] CO2 [Moles/Vol] 24 mmol/L Normal 22-30 [facility] Comment on above: Order Comment: Speci men Type: BLOOD SPECIMEN Ordering Facility: [facility] Address: [address] [place] [address] Performed By: #### 2 4321-2 #### [facility] CLIA [id number] [address] STATES OF [facility] Creatinine [Mass/Vol] 0.84 mg/dL Normal 0.73-1.22 [facility] Comment on above: Order Comment: Speci men Type: BLOOD SPECIMEN Ordering Facility: [facility] Address: [address] [place] [address] Performed By: #### 2 4321-2 #### [facility] CLIA [id number] [address] [place] Creatinine and Glomerular filtration rate.predicted panel (S/P/Bld) 95 mL/min/1.73m??? Normal >=60 [facility] Comment on above: Order Comment: Kenneth vogt Type: BLOOD SPECIMEN Ordering Facility: [facility] Address: [address] [place] [address] Result Comment: Jeannette mated Glomerular Filtration Rate [...] GFR. Performed By: #### 2 4321-2 #### [facility] CLIA [id number] [address] [place] [address] [place] Glucose [Mass/Vol] 89 mg/dL Normal 74-99 [facility] Comment on above: Order Comment: Kenneth vogt Type: BLOOD SPECIMEN Ordering Facility: [facility] Address: [address] [place] [address] Result Comment: The [place] Diabetes Association (ADA) provides guidance for cutoff [...] Standards of Medical Care in Diabetes 2016, [place] Diabetes Association. Diabetes Care. 2016.39(Suppl 1). Performed By: #### 2 4321-2 #### [facility] CLIA [id number] [address] [place] [address] [place] Potassium [Moles/Vol] 4.4 mmol/L Normal 3.7-5.1 [facility] Comment on above: Order Comment: Kenneht vogt Type: BLOOD SPECIMEN Ordering Facility: [facility] Address: [address] [place] [id number] Performed By: #### 2 4321-2 #### [facility] CLIA [id number] [address] [place] [address] [place] Sodium [Moles/Vol] 127 mmol/L Low 136-144 [facility] Comment on above: Order Comment: Speci men Type: BLOOD SPECIMEN Ordering Facility: [facility] Address: [address] [place] [address] Performed By: #### 2 4321-2 #### [facility] CLIA [id number] [address] [place] [address] [place] Urea nitrogen [Mass/Vol] 13 mg/dL Normal 9-24 [facility] Comment on above: Order Comment: Speci men Type: BLOOD SPECIMEN Ordering Facility: [facility] Address: [address] [place] [address] Performed By: #### 2 4321-2 #### [facility] CLIA [id number] [address] [place] CBC panel Auto (Bld)on 10-26 Erythrocyte distribution width (RBC) [Ratio] 15.0 % Normal 11.5-15.0 [facility] Comment on above: Order Comment: Speci men Type: BLOOD SPECIMEN Ordering Facility: [facility] Address: [address] [place] [address] Performed By: #### 5 8410-2 #### [facility] CLIA [id number] [address] [place] Hematocrit (Bld) [Volume fraction] 43.2 % Normal 39.0-51.0 [facility] Comment on above: Order Comment: Speci men Type: BLOOD SPECIMEN Ordering Facility: [facility] Address: [address] [place] [address] Performed By: #### 5 8410-2 #### [facility] CLIA [id number] [address] [place] [address] [place] Hemoglobin (Bld) [Mass/Vol] 15.6 g/dL Normal 13.0-17.0 [facility] Comment on above: Order Comment: Speci men Type: BLOOD SPECIMEN Ordering Facility: [facility] Address: [facility] [place] [address] Performed By: #### 5 8410-2 #### [facility] CLIA [id number] [address] MCH (RBC) [Entitic mass] 30.8 pg Normal 26.0-34.0 [facility] Comment on above: Order Comment: Speci men Type: BLOOD SPECIMEN Ordering Facility: [facility] Address: [address] [place] [address] Performed By: #### 5 8410-2 #### [facility] CLIA [id number] [address] MCHC (RBC) [Mass/Vol] 36.1 g/dL High 30.5-36.0 [facility] Comment on above: Order Comment: Speci men Type: BLOOD SPECIMEN Ordering Facility: [facility] Address: [address] [place] [address] Performed By: #### 5 8410-2 #### [facility] CLIA [id number] [address] MCV (RBC) [Entitic vol] 85.4 fL Normal 80.0-100.0 [facility] Comment on above: Order Comment: Speci men Type: BLOOD SPECIMEN Ordering Facility: [facility] Address: [address] [place] [address] Performed By: #### 5 8410-2 #### [facility] CLIA [id number] [address] Nucleated RBC (Bld) [#/Vol] 10*3/uL Normal <0.01 [facility] Comment on above: Order Comment: Speci men Type: BLOOD SPECIMEN Ordering Facility: [facility] Address: [address] [place] [address] Performed By: #### 5 8410-2 #### [facility] CLIA [id number] [address] Platelet mean volume (Bld) [Entitic vol] 9.4 fL Normal 9.0-12.7 [facility] Comment on above: Order Comment: Speci men Type: BLOOD SPECIMEN Ordering Facility: [facility] Address: [address] [place] [address] Performed By: #### 5 8410-2 #### [facility] CLIA [id number] [address] [place] Platelets (Bld) [#/Vol] 222 10*3/uL Normal 150-400 [facility] Comment on above: Order Comment: Speci men Type: BLOOD SPECIMEN Ordering Facility: [facility] Address: [address] [place] [address] Performed By: #### 5 8410-2 #### [facility] CLIA [id number] [address] [place] RBC (Bld) [#/Vol] 5.06 10*6/uL Normal 4.20-6.00 [facility] Comment on above: Order Comment: Speci men Type: BLOOD SPECIMEN Ordering Facility: [facility] Address: [address] [place] [address] Performed By: #### 5 8410-2 #### [facility] CLIA [id number] [address] WBC (Bld) [#/Vol] 8.51 10*3/uL Normal 3.70-11.00 [facility] Comment on above: Order Comment: Speci men Type: BLOOD SPECIMEN Ordering Facility: [facility] Address: [address] [place] [address] Performed By: #### 5 8410-2 #### [facility] CLIA [id number] [address] HISTORY PHYSICALon HISTORY PHYSICAL HNO ID: [id number] Author: JOSÉ MIGUEL JIANG MD Service: Vascular [...] including but not limited to bleeding, infection, SD, wound healing problems, nerve injury, negative biopsy, [...] DATE: October 26, 2024 TIME: 1:46 PM [facility] OPERATIVE NOon 10-26-2024 OPERATIVE NO HNO ID: [id number] Author: JOSÉ MIGUEL JIANG MD Service: Vascular Surgery Author Type: Physician Type: Operative Report Filed: 11/06/2024 13:17 Note Text: OPERATIVE/PROCEDURE REPORT LOG ID: [id number] Surgery/Procedure Date: 10/26/2024 Incision/Procedure Start Time: 2:12 PM Incision Close/Procedure End Time: 2:40 PM Surgeon(s)/Procedurali st(s) and Chair And Couch Maker(s): Surgeons and Role: * José Miguel Jiang MD - Primary Registered Nurse Client Specialist: Megan Napier RN Procedure(s): left temporal artery biopsy Anesthesia: Local Operative Indication: 69 year old male with left-sided headache, pain, vision changes with concern for temporal arteritis. Presents for biopsy. Procedure Details: Patient taken to the OR and laid supine on the table. The procedure as done under local. The patient's ipsilateral pentecostal and forehead were prepped and draped in [...] DATE: 10/26/2024 TIME: 2:41 PM PAGER/CONTACT #: [facility] Pathology biopsy report Ag (Tiss)on 10-26-2024 AP DISCLAIMER [facility] ital Comment on above: Order Comment: Speci men Type: TISSUE SPECIMEN Ordering Facility: [facility] Address: [address] [place] [address] Result Comment: Li hays Developed Test (LDT) Disclaimer: Performance characteristics of immunohistochemical, immunofluorescent, and chromogenic in-situ hybridization tests have been determined by the performing laboratory within [facility]'s Luis A Louis Pathology and Laboratory Medicine Department ([facility], [facility], [facility], [facility], [facility], [facility], or [facility]) in a manner consistent with CLIA requirements. One or more of these tests may not have been cleared or approved by the FDA. [facility] is regulated under CLIA as qualified to perform high-complexity testing. These tests are used for clinical purposes. These should not be regarded as investigational or for research. Positive and negative controls stain appropriately. Performed By: #### 6 6121-5 #### [facility] CLIA [id number] [address] [place], [place] [address] [place] CASE REPORT Normal [facility] al Comment on above: Order Comment: Speci men Type: TISSUE SPECIMEN Ordering Facility: [facility] Address: [address] [place] [address] Result Comment: Surg ica Pathology Report Case: [id number] Authorizing Provider: José Miguel Jiang MD Collected: 10/26/2024 02:12 PM Ordering Location: [facility] Surgery Received: 10/26/2024 02:55 PM Pathologist: Yani Trejo MD Specimen: Artery, Temporal, Biopsy, Left temporal artery Performed By: #### 6 6121-5 #### [facility] CLIA [id number] [address] [place] [address] [place] CLINICAL HISTORY Normal [facility] ospital Comment on above: Order Comment: Kenneth vogt Type: TISSUE SPECIMEN Ordering Facility: [facility] Address: [address] [place] [address] Result Comment: Pre- op diagnosis: GCA (giant cell arteritis) (HCC) [M31.6] Performed By: #### 6 6121-5 #### [facility] CLIA [id number] [address] [place] [address] [place] DIAGNOSIS COMMENT Movat stain was performed [...] evidence of active or healed arteritis. Normal [facility] Comment on above: Order Comment: Kenneth [facility] Type: TISSUE SPECIMEN Ordering Facility: [facility] Address: [address] [place] [address] Performed By: #### 6 6121-5 #### [facility] CLIA [id number] [address] [place] [address] [place] FINAL DIAGNOSIS Normal [facility] spital Comment on above: Order Comment: Speci men Type: TISSUE SPECIMEN Ordering Facility: [facility] Address: [address] [place] [address] Result Comment: A. L eft temporal artery, biopsy: - Negative for arteritis. at 1553 EDT Performed By: #### 6 6121-5 #### [facility] CLIA [id number] [address] [place] [address] FINAL PERFORMING LAB [facility] Comment on above: Order Comment: Speci men Type: TISSUE SPECIMEN Ordering Facility: [facility] Address: [address] [place] [address] Result Comment: Diag nostic interpretation performed at: [facility], [address] [place] [address] CLIA# [id number] Operations Consultant: Caleb Hooper MD Performed By: #### 6 6121-5 #### [facility] CLIA [id number] [address] [place] [address] GROSS DESCRIPTION [facility] Comment on above: Order Comment: Speci men Type: TISSUE SPECIMEN Ordering Facility: [facility] Address: [address] [place] [address] Result Comment: A. A rtery, Temporal, Biopsy Received in formalin on Telfa gauze is one segment of cylindrical tissue measuring 1.5 x 0.3 x 0.2 cm, trejo-red and of a rubbery consistency. Totally submitted in one cassette. Gross examination performed at [facility], [address] [place] [address] AMS October 26, 2024 5:31 PM Performed By: #### 6 6121-5 #### [facility] CLIA [id number] [address] [place] [address] OF [place] CNPAlissa 10-18-2024 CNPN Telephone ([facility]) AROLDO NAVARRETE ([id number]) 1955 M Date Time Provider Department 10/18/24 [...] Diagnosis:Lung nodule [R91.1] Order(s):CT CHEST WO NUNO [[id number]] Order #: [id number] FUTURE Prescriptions as of 10/18/2024 - predniSONE [...] Status:Closed by CONY BECKWITH on 10/18/[address] [facility] Telephone (PrelertI) AROLDO NAVARRETE ([id number]) 1955 M Date Time Provider Department 10/18/24 CONY BECKWITH During your visit today, we recorded the following information about you: Ruby Fowler LPN 10/18/2024 2:11 PM Signed Received via fax: [facility] Date: 10/17/24 Noted: Pulmonary[facility]Neurology[facility] Ph. [phone] option #1 Requesting clarification to be faxed to their office regarding EMG on which side and which extremity Please fax back order to [phone] NILAY Aguilar Kaitlyn, PA-C 10/18/2024 3:19 PM Signed External order can be cancelled, pt had this done at [facility] on Wednesday. Cony Beckwith PA-C Allergies [...] Encounter Status:Closed by RUBY FOWLER on 10/18/24 [facility] 10-16-2024 [facility] Telephone (WSTR) AROLDO NAVARRETE ([id number]) 1955 M Date Time Provider Department 10/16/24 CONY BECKWITH [facility] During your visit today, we recorded [...] Forms processed and records sent back to [facility] that have been requested. Confirmation received. Allergies [...] Encounter Status:Closed by ELIZABETH PETERS [facility]18[facility]OPHT[facility] AROLDO NAVARRETE ([id number]) 1955 M Date Time Provider Department 10/14/24 GUE[address]IMÉ[address]Z [facility] During your visit today, we recorded the [...] the biopsy closer to his home in [place], [place]. Allergies As of Date: 10/14/2024 Noted [...] Encounter Status:Closed by GUEVARA JIMÉNEZ on 10/14/24 [facility] CNOVon 10-13-2024 CNOV Office Visit (RHEUMN ) AROLDO NAVARRETE ([id number]) 1955 M Date Time Provider Department 10/13/24 3:00 PM RENNY FORRESTER During your visit today, we recorded the following information about you: Weight Height 59.4 kg 1.81 m Renny Forrester MD 10/14/2024 2:11 PM Addendum Rheumatology Clinic Follow-up Visit Date of Service: 10/13/2024 Patient: Aroldo Navarrete Medical Record: [id number] Primary Care Physician: No primary care provider on file. Last Rheumatology visit: None at [facility] Interval History Aroldo Navarrete is a 69 [...] - July 2024. He was seen at [facility] for headache, myalgia, fatigue, cough, congestion. [...] 4+/5 Wrist extension R 5/5, L 5/5 Armored Vehicle Officer strength R 5/5, L 5/5 Hip flexion R 4+/5, L 4+/5 Knee flexion R 4+/5, L 4+/5 Knee (more content not included)... Normal [facility] EMG(NEURO/NI)on 10-13-2024 Results can be seen in attached scanned documents. If you are a patient reviewing this test result, call the doctor who ordered the test with any questions. [facility] CNCOon 10-12-2024 CNCO Letter Text Normal [facility] [place] CT CHEST WO IVCONon 10-12-19 CT CHEST WO IVCON * * *Final Report* * * DATE OF EXAM: Oct 11 2024 10:57AM [facility] 0541 - CT CHEST WO IVCON / [...] from the initial exam) --END OF FINDING-- Vp Product Marketing: CLARISSA Transcribe Date/Time: Oct 11 2024 10:03P Dictated by : JEAN STOVER MD This examination was interpreted and the report reviewed and electronically signed by: JEAN STOVER MD on Oct 11 2024 10:07PM EST [id number] ACTIONABLE Invalid Interpretation Code [facility] CT Chest WO contrastOrdered By: Ccf Provider on 10-11-2024 Interpretation and review of laboratory results Abnormal [facility] Radiology Result ACTIONABLE Abnormal [facility] Comment on above: This report contains an [...] contact your provider for the next steps. [facility] CT Chest WO contraston 10-11 IMPRESSION: 1. [...] from the initial exam) --END OF FINDING-- Vp Product Marketing: CLARISSA Transcribe Date/Time: Oct 11 2024 10:03P Dictated by : JEAN STOVER MD This examination was interpreted and the report reviewed and electronically signed by: JEAN STOVER MD on Oct 11 2024 10:07PM [facility] DIVISION OF RADIOLOGY * * *Final Report* * * DATE OF EXAM: Oct 11 2024 10:57AM [facility] 0541 - CT CHEST WO IVCON / [...] No additional findings. DIVISION OF RADIOLOGY Provider, [facility] - 10/11/2024 * * *Final Report* * * DATE OF EXAM: Oct 11 2024 10:57AM [facility] 0541 - CT CHEST WO IVCON / [...] from the initial exam) --END OF FINDING-- Vp Product Marketing: CLARISSA Transcribe Date/Time: Oct 11 2024 10:03P Dictated by : JEAN STOVER MD This examination was interpreted and the report reviewed and electronically signed by: JEAN STOVER MD on Oct 11 2024 10:07PM EST [facility] Radiology Study observation (narrative) [facility] LUNG VOLUMESon 10-11-2024 ERV BOX (L) 1.78 L [facility] ERV PREDICTED (L) 1.44 L/S [facility] FRC Box (L) 4.7 L [facility] IC BOX (L) 2.02 L [facility] IC PREDICTED (L) 2.88 L/S [facility] RV Box (L) 2.91 L [facility] RV Box PREDICTED (L) 2.48 L [facility] RV/TLC Box (%) 43 % [facility] RV/TLC Box PREDICTED (%) 35 % [facility] SVC LLN (L) 3.22 L/S [facility] SVC PREDICTED (L) 4.32 L/S [facility] SVC ULN (L) 5.43 L/S [facility] TLC Box (L) 6.69 L [facility] TLC Box PREDICTED (L) 7.27 L [facility] VC (L) BOX 3.8 L [facility] [address] [place] [address] Test Date: 2024-10-11 Pat Name: AROLDO NAVARRETE Department: Room: Gender: Male Data Support Specialist: : 1955 Requested By: Order Number: [id number] Reading MD: Irina Pretty MD Interpretive Statements Current ATS/ERS acceptability and repeatability standards for lung volumes met. IMPRESSION: Elevated lung volumes (RV and/or RV/TLC) indicate minimal air trapping. Electronically Signed On 10-11-2024 11:38:37 EDT by Irina Pretty MD ID: [id number] Name: AROLDO NAVARRETE Race: Black or Ht: 71.26 in Wt: 126.00 lbs Age: 69 Gender: Male : 1955 Dx: Shortness of breath Smoking Hx: Non-smoker Doctor: CONY BECKWITH Test Date: 10/11/2024 Site: WO Tech: Petush, Salam PRE-BRONCH POST-BRONCH Corinne LLN Pred ULN %Pred [...] for lung volumes met. PULMONARY FUNCTION LAB [facility] LUNG VOLUMES [facility] [place] [address] [place] [address] Test Date: 2024-10-11 Pat Name: AROLDO NAVARRETE Department: Room: Gender: Male Data Support Specialist: : 1955 Requested By: Order Number: [id number] Reading MD: Irina Pretty MD Interpretive Statements Current ATS/ERS acceptability and repeatability standards for lung volumes met. IMPRESSION: Elevated lung volumes (RV and/or RV/TLC) indicate minimal air trapping. Electronically Signed On 10-11-2024 11:38:37 EDT by Irina Pretty MD ID: [id number] Name: AROLDO NAVARRETE Race: Black or Ht: [...] % RV_TLC_PLETH_PRED (%) : 35 % Normal [facility] CNOVon 10-04-2024 CNOV Office Visit (RHWSTR ) AROLDO NAVARRETE ([id number]) 1955 M Date Time Provider Department 10/04/24 10:00 AM CONY BECKWITH During your visit today, we recorded the following information about you: Pulse Respiration Blood pressure 75/minute 17/minute 118/82 Cony Beckwith PA-C 10/04/2024 11:13 AM Addendum Continue taking your prednisone as prescribed; a refill has been sent to [facility] in [place]. Schedule an EMG (nerve study) at any [facility] within the week - a referral has been provided to help confirm your diagnosis. Complete pulmonary function tests (breathing tests) to assess your lung function; these tests are important given your symptoms. Expect to be contacted regarding scheduling a follow-up appointment with a specialist experienced in this condition, preferably at a location closer to [place] if possible. The note from your visit on September 19 is on file with your employer; if additional paperwork is needed, they can send a fax request. You have an appointment at [facility] on 10/13/2024 at 3:[address] Forrester of [facility] rheumatology. Please arrive at 2:45 for this appointment/. Cony Beckwith PA-C 10/04/2024 4:21 PM Signed Rheumatology FOLLOW UP VISIT Date of Service: 10/04/2024 Patient: Aroldo Navarrete Medical Record: [id number] Primary Care Physician: No primary care provider [...] week and may need documentation [facility]. Pain Evaluation 04/15/2015 09/14/2024 09/27/2024 Pain Evaluation Pain Score 6 7 10 Location Chest -- -- Location Comment All over everywhere Description Aching;Sore Aching Cramping Duration (#) 1 4 -- Duration (Timeframe) Weeks Months Frequency Continuous Continuous Continuous Intervention Medication Other: See comment Patient-Entered Data None Review of Systems No Jaw claudication, no pentecostal swanson, no sudden vision loss. + Vision [...] 1.45 - 7.50 k/uL 2.73 Abs Lymp, [place] 1.00 - 4.00 k/uL 2.28 Latest Ref Rng AND Units 01/05/2012 09/14/2024 CMP Sodium 136 - 144 mmol/L 141 Sodium, [place] 135 - 146 mmol/L 142 Potassium 3.7 - 5.1 mmol/L 4.3 Potassium, [place] 3.5 - 5.0 mmol/L 4.7 Chloride 98 - 107 mmol/L 102 Chloride, [place] 98 - 110 mmol/L 102 CO2 22 - 30 mmol/L 28 CO2, [place] 23.0 - 32.0 mmol/L 29.6 Glucose 74 - 99 mg/dL 102 Glucose, [place] 65 - 100 mg/dL 97 BUN 9 - 24 mg/dL 11 BUN, [place] 10 - 25 mg/dL 9 Creatinine 0.73 - 1.22 mg/dL 0.97 Creatinine, [place] 0.7 - 1.4 mg/dL 1.1 Calcium, [place] 8.5 - 10.5 mg/dL 9.1 Calcium 8.5 - 10.2 mg/dL 10.0 AST 14 - 40 U/L 46 AST, [place] 7 - 40 (more content not included)... Normal [facility] AROL[facility] NAVARRETE ([id number]) 1955 M Date Time Provider Department 10/04/24 CONY BECKWITH [facility] During your visit today, we recorded the following information about you: Cony Beckwith PA-C 10/04/2024 11:59 AM Signed Patient needs CT scan, and EMG preferably before he goes to [facility] next week. Can this be [...] 3:31 PM Signed EMG order faxed to [facility] and Referral started. Made note asking for it to be done before 10/13/24. CT and Lung Volumes scheduled for 10/11. Called and left VM informing the patient. ELIZABETH Welch Amy M, MA 10/10/2024 11:37 AM Signed Received fax back from [facility] that the EMG order needs to be changed to include which side and whether this is upper or lower extremities. Cony Beckwith PA-C 10/10/2024 1:13 PM Signed New order placed. Lower extremity, would defer which extremity to the performing neurologist. Symptoms are bilateral in nature. If not able to get done at [facility] prior to Wednesday, maybe see if it can be done Wednesday at [facility] at the same time as the Rheum apt? Thanks Cony Christianson PA-C 10/10/2024 1:13 PM Signed Addended by: CONY BECKWITH on: 10/10/2024 01:13 PM Modules accepted: Sheryl Wu RN 10/11/2024 8:34 AM Signed New EMG order faxed to [facility]. Included request that they call us if patient unable to have done before Wednesday10/13/24. ELIZABETH Welch Amy M, MA 10/11/2024 9:31 AM Addendum Received a call from [facility] Neurology scheduling. They just received a new order, but it needs to specifically state which side is to be performed. Please addend and resend. They are currently scheduling out into November as they only perform testing one day per week. Sheryl Fried RN 10/11/2024 9:42 AM Signed Patient needs testing done before Rheumatology Appointment on 10/13 at [facility]. PSS to work on scheduling at [facility] 10/13. ELIZABETH Welch Danelle, RN 10/11/2024 11:10 AM Signed EMG scheduled for 10/13. Patient notified in person. ELIZABETH Welch Danelle, RN 10/12/2024 3:23 PM Signed Disability paperwork received with request for medical records. Forms given to Cony to fill out. Patient has testing and office visit at [facility]. Will wait for results to fax. ELIZABETH Welch Amy M, MA 10/18/2024 9:34 AM Signed Records sent to [facility]. Confirmation received. 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] Order(s):EMG(NEURO/NI) [[id number]] Order #: [id number]: 1 FUTURE Prescriptions as of 10/18/2024 - [...] Status:Closed by CONY BECKWITH on 10/04/24 Normal [facility] Ferritin SerPl-mCncon 2024 Ferritin [Mass/Vol] 801.0 ng/mL High 30.3-565.7 [facility] Comment on above: Order Comment: Speci men Type: BLOOD SPECIMEN Ordering Facility: [facility] Address: [address] [place] [address] Performed By: #### 4 537-7 #### [facility] CLIA [id number] [address] [place] [address] [place] [address] [place] LUNG DIFFUSION CAPACITY (HAI O)on 10-04-2024 LUNG DIFFUSION CAPACITY (DLCO) [facility] [place] [address] [place] [address] Test Date: 2024-10-04 Pat Name: AROLDO NAVARRETE Department: Room: Gender: Male Data Support Specialist: : 1955 Requested By: Order Number: [id number] Reading MD: Irina Pretty MD Interpretive Statements [...] 12:47:57 EDT by Irina Pretty MD ID: [id number] Name: AROLDO NAVARRETE Race: Black or Ht: [...] FIF50 5.09 FEF50/FIF50 0.19 90-100 FIVC 3.77 LXH27-76 0.67 0.85 2.28 4.42 29 -1.93 ExpiredTime [...] 77 % FEV1/FVC_LLN (%) : 64 % JUE54_KDA (L/S) : 3.02 L/S UAY09_UBX (L/S) : 0.22 L/S PRK11_WKYT (L/S) : 0.55 L/S WGY60_WJY (L/S) : 0.18 L/S TRD60_OGK (L/S) : 1.56 L/S FAN54-07%_PRE (L/S) : 0.67 L/S JGF56-96%_PRED (L/S) : 2.28 L/S HID65-92%_LLN (L/S) : 0.85 L/S PEF_PRE (L/S) : [...] ml/min/mmHg DLCO/VACOR (ML/MIN/MMHG/L) : 0.03 ml/min/mmHg/L Normal [facility] SPIROMETRY BASELINE ONLYon 0 10-04-2024 SPIROMETRY BASELINE ONLY [facility] [place] [address] [place] [address] Test Date: 2024-10-04 Pat Name: AROLDO NAVARRETE Department: Room: Gender: Male Data Support Specialist: : 1955 Requested By: Order Number: [id number] Reading MD: Irina Pretty MD Interpretive Statements [...] 12:47:57 EDT by Irina Pretty MD ID: [id number] Name: AROLDO NAVARRETE Race: Black or Ht: [...] FIF50 5.09 FEF50/FIF50 0.19 90-100 FIVC 3.77 KBQ12-34 0.67 0.85 2.28 4.42 29 -1.93 ExpiredTime [...] DLCO met with 2 acceptable maneuvers. Normal [facility] TPMT PHENOTYPE/ENZYME ACTIVI TYon 10-04-2024 TPMT ACTIVITY 24.5 U/mL Normal 24.0-44.0 [facility] Comment on above: Order Comment: Speci men Type: BLOOD SPECIMENOrdering Facility: [facility] Address: [address] [place] [address] Result Comment: INTE RPRETIVE INFORMATION: Thiopurine Methyltransferase, [...] developed and its performance characteristics determined by [facility]. It has not been cleared or approved by the US Food and Drug Administration. This test was performed in a CLIA certified laboratory and is intended for clinical purposes. Performed By: [facility] [address] [id number] Operations Consultant: Easton Wilde MD, PhD CLIA Number: [id number] Performed By: #### P MAGALIZ ####[facility] [id number] [place] [address] Brennen 09-28-2024 CADY Telephone (RHWSTR) AROLDO NAVARRETE ([id number]) 1955 M Date Time Provider Department 09/28/24 [...] Status:Closed by SHERYL FRIED on 10/04/24 Normal [facility] KAREN BY IFA SCREENon 09-28-19 Nuclear Ab Ql (S) Negative Normal Negative [facility] Comment on above: Order Comment: Speci men Type: BLOOD SPECIMEN Ordering Facility: [facility] Address: [address] [place] [address] Result Comment: Anti -nuclear antibody test is used as an aid in diagnosis of systemic autoimmune diseases. Where positive and clinically warranted, follow-up using disease-specific testing is recommended. Low positive titers are not uncommon with advanced age, certain chronic infections, and malignancies among others. Test methodology: Indirect fluorescence immunoassay (IFA) using HEp-2 cells. Performed By: #### 4 537-7 #### [facility] CLIA [id number] [address] [place] [address] [place] ANTINUCLEAR AB, ALEXI GEIGER RN (REFLEX ONLY)on 09-27-2024 KAREN PATTERN Homogeneous Abnormal [facility] Comment on above: Order Comment: Kenneth vogt Type: BLOOD SPECIMEN Ordering Facility: [facility] Address: [address] [place] [address] Performed By: #### 4 537-7 #### [facility] CLIA [id number] [address] [place] [address] [place] KAREN TITER 1:320 Abnormal [facility] Comment on above: Order Comment: Kenneth vogt Type: BLOOD SPECIMEN Ordering Facility: [facility] Address: [address] [place] [address] Result Comment: Perf ormed By: [facility] [address] [place] [address] Operations Consultant: Easton Wilde MD, PhD CLIA Number: [id number] Performed By: #### 4 537-7 #### [facility] CLIA [id number] [address] [place] [address] [place] CNOVon 09-27-2024 CNOV Office Visit (RHWSTR ) AROLDO NAVARRETE ([id number]) 1955 M Date Time Provider Department 09/27/24 8:30 AM CONY BECKWITH During your visit today, we recorded the following information about you: Pulse Blood pressure Weight 97/minute 110/79 57.2 kg Cony Beckwith PA-C 09/27/2024 4:29 PM Signed Rheumatology FOLLOW UP VISIT Date of Service: 09/27/2024 Patient: Aroldo Navarrete Medical Record: [id number] Primary Care Physician: No primary care provider on file. Last Rheumatology visit: None at [facility] History of Present Illness Aroldo is a [...] Review of Systems No Jaw claudication, no pentecostal swanson, no sudden vision loss. + Vision [...] CO2 22 - 30 mmol/L 28 CO2, [place] 23.0 - 32.0 mmol/L 29.6 Glucose 74 - 99 mg/dL 102 Glucose, [place] 65 - 100 mg/dL 97 BUN 9 - 24 mg/dL 11 BUN, [place] 10 - 25 mg/dL 9 Creatinine 0.73 - 1.22 mg/dL 0.97 Creatinine, [place] 0.7 - 1.4 mg/dL 1.1 Calcium, [place] 8.5 - 10.5 mg/dL 9.1 Calcium 8.5 [...] PM (F (more content not included)... Normal [facility] POLYMYOSITIS AND DERMATOMYOS ITIS PANELon 09-27-2024 KAREN INTERP COMMENT See Note Normal [facility] Comment on above: Order Comment: Speci men Type: BLOOD SPECIMEN Ordering Facility: [facility] Address: [address] [place] [address] [place] [address] Result Comment: Homo geneous Pattern Clinical associations: [...] SARD. Performed By: #### 4 537-7 #### [facility] CLIA [id number] [address] [place] [address] [place] ANTINUCLEAR ANTIBODY (KAREN) HEP-2, IGG Detected High <1:80 [facility] Comment on above: Order Comment: Speci men Type: BLOOD SPECIMEN Ordering Facility: [facility] Address: [address] [place] [address] Performed By: #### 4 537-7 #### [facility] CLIA [id number] [address] [place] [address] [place] EJ (GLYCYL-TRNA SYNTHETASE) ANTIBODY Negative Normal Negative [facility] Comment on above: Order Comment: Speci men Type: BLOOD SPECIMEN Ordering Facility: [facility] Address: [address] [place] [address] Performed By: #### 4 537-7 #### [facility] CLIA [id number] [address] [place] [address] [place] ZHAO (TYROSYL-TRNA SYNTHETASE) AB Negative Normal Negative [facility] Comment on above: Order Comment: Speci men Type: BLOOD SPECIMEN Ordering Facility: [facility] Address: [address] [place] [address] Result Comment: Zhao a ntibody negative by line immunoassay. No band corresponding to 65 kDa observed by immunoprecipitation. Performed By: #### 4 537-7 #### [facility] CLIA [id number] [address] [place] [address] CIARRA-1 (HISTIDYL-TRNA SYNTHETASE) AB, IGG 2 AU/mL Normal 0-40 [facility] Comment on above: Order Comment: Speci men Type: BLOOD SPECIMEN Ordering Facility: [facility] Address: [address] [place] [address] Result Comment: INTE RPRETIVE INFORMATION: Ciarra-1 Antibody, IgG 29 AU/mL or less.........Negative 30-40 AU/mL..............Equivocal 41 AU/mL or greater......Positive Presence of Ciarra-1 (antihistidyl transfer RNA [t-RNA] synthetase) antibody is associated with polymyositis and may also be seen in patients with dermatomyositis. Ciarra-1 antibody is associated with pulmonary involvement (interstitial lung disease), Raynaud phenomenon, arthritis, and assistant hvac mechanic's hands (implicated in antisynthetase syndrome). Performed By: #### 4 537-7 #### [facility] CLIA [id number] [address] [place] [address] OF [facility] [place] (ASPARAGINYL-TRNA SYNTHETASE) AB Negative Normal Negative [facility] Comment on above: Order Comment: Speci men Type: BLOOD SPECIMEN Ordering Facility: [facility] Address: [address] [place] [address] Result Comment: Ks a ntibody negative by line immunoassay. No band corresponding to 65 kDa observed by immunoprecipitation. Performed By: #### 4 537-7 #### [facility] CLIA [id number] [address] [place] [address] [place] MDA5 (CADM-140) AB Positive Abnormal Negative [facility] Comment on above: Order Comment: Kenneth vogt Type: BLOOD SPECIMEN Ordering Facility: [facility] Address: [address] [place] [address] Performed By: #### 4 537-7 #### [facility] CLIA [id number] [address] [place] [address] [place] SD-2 (NUCLEAR HELICASE PROTEIN) ANTIBODY Negative Normal Negative [facility] Comment on above: Order Comment: Speci men Type: BLOOD SPECIMEN Ordering Facility: [facility] Address: [address] [place] [address] Performed By: #### 4 537-7 #### [facility] CLIA [id number] [address] [place] [address] [place] MYOSITIS INTERPRETIVE INFORMATION See Note Normal [facility] Comment on above: Order Comment: Ashleyi torie Type: BLOOD SPECIMEN Ordering Facility: [facility] Address: [address] [place] [address] Result Comment: INTE RPRETIVE INFORMATION: Dermatomyositis and [...] developed and its performance characteristics determined by [facility]. It has not been cleared or approved by the US Food and Drug Administration. This test was performed in a CLIA certified laboratory and is intended for clinical purposes. Performed By: #### 4 537-7 #### [facility] [place] [id number] [address] [place] [address] [place] NXP2 (NUCLEAR MATRIX PROTEIN-2) AB Negative Normal Negative [facility] Comment on above: Order Comment: Speci men Type: BLOOD SPECIMEN Ordering Facility: [facility] Address: [address] [place] [address] Performed By: #### 4 537-7 #### [facility] IA [id number] [address] [place] [address] [place] OJ (ISOLEUCYL-TRNA SYNTHETASE) ANTIBODY Negative Normal Negative [facility] Comment on above: Order Comment: Speci men Type: BLOOD SPECIMEN Ordering Facility: [facility] Address: [address] [place] [address] Performed By: #### 4 537-7 #### [facility] [place] [id number] [address] [place] [address] [place] P155/140 ANTIBODY Negative Normal Negative [facility] Comment on above: Order Comment: Speci men Type: BLOOD SPECIMEN Ordering Facility: [facility] Address: [address] [place] [address] Performed By: #### 4 537-7 #### [facility] CLIA [id number] [address] [place] [address] [place] PL-12 (ALANYL-TRNA SYNTHETASE) ANTIBODY Negative Normal Negative [facility] Comment on above: Order Comment: Speci men Type: BLOOD SPECIMEN Ordering Facility: [facility] Address: [address] [place] [address] Performed By: #### 4 537-7 #### [facility] CLIA [id number] [address] [place] [address] [place] PL-7 (THREONYL-TRNA SYNTHETASE) ANTIBODY Negative Normal Negative [facility] Comment on above: Order Comment: Speci men Type: BLOOD SPECIMEN Ordering Facility: [facility] Address: [address] [place] [address] Performed By: #### 4 537-7 #### [facility] CLIA [id number] [address] [place] [address] [place] SAE1 (SUMO ACTIVATING ENZYME) AB Negative Normal Negative [facility] Comment on above: Order Comment: Speci men Type: BLOOD SPECIMEN Ordering Facility: [facility] Address: [address] [place] [address] Performed By: #### 4 537-7 #### [facility] CLIA [id number] [address] [place] [address] [place] SRP (SIGNAL RECOGNITION PARTICLE) AB Negative Normal Negative [facility] Comment on above: Order Comment: Speci men Type: BLOOD SPECIMEN Ordering Facility: [facility] Address: [address] [place] [address] Performed By: #### 4 537-7 #### [facility] CLIA [id number] [address] [place] [address] [place] TIF-1 GAMMA (155 KDA) AB Negative Normal Negative [facility] Comment on above: Order Comment: Speci men Type: BLOOD SPECIMEN Ordering Facility: [facility] Address: [address] [place] [address] Performed By: #### 4 537-7 #### [facility] CLIA [id number] [address] [place] [address] [place] ZO (PHENYLALANYL-TRNA SYNTHETASE) AB Negative Normal Negative [facility] Comment on above: Order Comment: Speci men Type: BLOOD SPECIMEN Ordering Facility: [facility] Address: [address] [place] [address] Result Comment: Zo a ntibody negative by line immunoassay. No bands corresponding to 68 and 58 kDa observed by immunoprecipitation. Performed By: [facility] [address] [place] [address] Operations Consultant: Easton Wilde MD, PhD CLIA Number: [id number] Performed By: #### 4 537-7 #### [facility] CLIA [id number] [address] [place] [address] [place] Brennen 09-18-2024 CNPN Telephone (WSTR) AROLDO NAVARRETE ([id number]) 1955 M Date Time Provider Department 09/18/24 CONY BECKWITH [facility] During your visit today, we recorded the following information about you: Roya Juarez LPN 09/18/2024 11:24 AM Signed Patient calling in wondering if a fax has been received from his [employer]. Patient requesting a call back. NILAY Fontenot Amy M, MA 09/19/2024 1:58 PM Signed Forms received from [employer] asking for office notes from visit. Notes [...] Status:Closed by ELIZABETH PETERS on 09/19/24 Normal [facility] Aldolase SerPl-cCncon 2024 Aldolase [Catalytic activity/Vol] 6.7 mU/mL Normal 1.5-8.1 [facility] [facility] Comment on above: Order Comment: Speci men Type: BLOOD SPECIMEN Ordering Facility: [facility] Address: [address] [place] [address] Result Comment: This test was developed, and its performance characteristics determined by the [facility] Department of Pathology and Laboratory Medicine. It has not been cleared or approved by the FDA. The [facility] Department of Pathology and Laboratory Medicine is regulated under CLIA as qualified to perform high-complexity testing. This test is used for clinical purposes. It should not be regarded as investigational or for research. Performed By: #### 4 537-7 #### [facility] CLIA [id number] [address] [place] [address] [place] CBC panel Auto (Bld)on 09-14 Erythrocyte distribution width (RBC) [Ratio] 14.6 % 11.5 - 15.0 % [facility] Hematocrit (Bld) [Volume fraction] 48.1 % 39.0 - 51.0 % [facility] Hemoglobin (Bld) [Mass/Vol] 16.6 g/dL 13.0 - 17.0 g/dL [facility] Interpretation and review of laboratory results Normal [facility] MCH (RBC) [Entitic mass] 29.8 pg 26.0 - 34.0 pg [facility] MCHC (RBC) [Mass/Vol] 34.5 g/dL 30.5 - 36.0 g/dL [facility] MCV (RBC) [Entitic vol] 86.4 fL 80.0 - 100.0 fL [facility] Nucleated RBC (Bld) [#/Vol] NINF [facility] Platelet mean volume (Bld) [Entitic vol] 9.9 fL 9.0 - 12.7 fL [facility] Platelets (Bld) [#/Vol] 173 10*3/uL [facility] RBC (Bld) [#/Vol] 5.57 10*6/uL 4.20 - 6.0 0 m/uL [facility] WBC (Bld) [#/Vol] 7.43 10*3/uL [facility] Erythrocyte distribution width (RBC) [Ratio] 14.6 % Normal 11.5-15.0 [facility] Comment on above: Order Comment: Speci men Type: BLOOD SPECIMENOrdering Facility: [facility] Address: [address] [place] [address] Performed By: #### 5 8410-2 ####[facility] [id number] [address] STATES OF [facility] Hematocrit (Bld) [Volume fraction] 48.1 % Normal 39.0-51.0 [facility] Comment on above: Order Comment: Speci men Type: BLOOD SPECIMENOrdering Facility: [facility] Address: [address] [place] [address] Performed By: #### 5 8410-2 ####[facility] [id number] [place] [address] [place] Hemoglobin (Bld) [Mass/Vol] 16.6 g/dL Normal 13.0-17.0 [facility] Comment on above: Order Comment: Speci men Type: BLOOD SPECIMENOrdering Facility: [facility] Address: [address] [place] [address] Performed By: #### 5 8410-2 ####[facility] [id number] [place] [address] [place] MCH (RBC) [Entitic mass] 29.8 pg Normal 26.0-34.0 [facility] Comment on above: Order Comment: Speci men Type: BLOOD SPECIMENOrdering Facility: [facility] Address: [address] [place] [address] Performed By: #### 5 8410-2 ####[facility] [id number] [address] [place] MCHC (RBC) [Mass/Vol] 34.5 g/dL Normal 30.5-36.0 [facility] Comment on above: Order Comment: Speci men Type: BLOOD SPECIMENOrdering Facility: [facility] Address: [address] [place] [address] Performed By: #### 5 8410-2 ####[facility] [id number] [place] [address] [place] MCV (RBC) [Entitic vol] 86.4 fL Normal 80.0-100.0 [facility] Comment on above: Order Comment: Speci men Type: BLOOD SPECIMENOrdering Facility: [facility] Address: [address] [place] [address] Performed By: #### 5 8410-2 ####[facility] [id number] [place] [address] [place] Nucleated RBC (Bld) [#/Vol] 10*3/uL Normal <0.01 [facility] Comment on above: Order Comment: Speci men Type: BLOOD SPECIMENOrdering Facility: [facility] Address: [address] [place] [address] Performed By: #### 5 8410-2 ####[facility] SALLIE [id number] [place] [address] [place] Platelet mean volume (Bld) [Entitic vol] 9.9 fL Normal 9.0-12.7 [facility] Comment on above: Order Comment: Speci men Type: BLOOD SPECIMENOrdering Facility: [facility] Address: [address] [place] [address] Performed By: #### 5 8410-2 ####[facility] PENNIENEW YORKMICHELLEAyde [id number] [place] [address] [place] Platelets (Bld) [#/Vol] 173 10*3/uL Normal 150-400 [facility] Comment on above: Order Comment: Speci men Type: BLOOD SPECIMENOrdering Facility: [facility] Address: [address] [place] [address] Performed By: #### 5 8410-2 ####[facility] PENNIENEW YORKMICHELLETRACYA [id number] [place] [address] [place] RBC (Bld) [#/Vol] 5.57 10*6/uL Normal 4.20-6.00 [facility] Comment on above: Order Comment: Speci men Type: BLOOD SPECIMENOrdering Facility: [facility] Address: [address] [place] [address] Performed By: #### 5 8410-2 ####[facility] [id number] [place] [address] [place] WBC (Bld) [#/Vol] 7.43 10*3/uL Normal 3.70-11.00 [facility] Comment on above: Order Comment: Speci men Type: BLOOD SPECIMENOrdering Facility: [facility] Address: [address] [place] [address] Performed By: #### 5 8410-2 ####[facility] [id number] [place] [address] [place] CK SerPl-cCncon 09-14-2024 CK [Catalytic activity/Vol] 107 U/L Normal 51-298 [facility] Comment on above: Order Comment: Speci men Type: BLOOD SPECIMEN Ordering Facility: [facility] Address: [address] [place] [address] Performed By: #### 4 537-7 #### [facility] CLIA [id number] [address] [place] [address] [place] [address] [place] CNCOon 09-14-2024 CNCO Letter Text Normal [facility] CNOVon 09-14-2024 CNOV Office Visit (RHWSTR ) AROLDO NAVARRETE ([id number]) 1955 M Date Time Provider Department 09/14/24 2:30 PM CONY BECKWITH RHWSTR During your visit today, we recorded the following information about you: Pulse Blood pressure Weight 108/minute 150/102 57.2 kg Cony Beckwith PA-C 09/14/2024 3:51 PM Signed Rheumatology CONSULTATION Date of Service: 09/14/2024 Patient: Aroldo Navarrete Medical Record: [id number] Primary Care Physician: No primary care provider on file. Last Rheumatology visit: None at [facility] Referring Provider: Marjorie Be [address] [facility] [address] Aroldo Navarrete is here today at request of Dr. Marjorie Be specifically for consultation of my opinion in regards to the chief complaint listed below. Correspondence will be shared today via the [employer] electronic health record or through regular mail, [...] vapes marijuana - Occupation: Formerly employed at [employer] - Living conditions: Resides in [place] Current Medications Current Outpatient Medications Medication Sig [...] 13.0 - 17.0 g/dL 16.7 Abs Neut, [place] 1.45 - 7.50 k/uL 2.73 Abs Lymp, Juan Pablo 1.00 - 4.00 k/uL 2.28 Latest Ref Rng AND Units 01/05/2012 CMP Sodium, [place] 135 - 146 mmol/L 142 Potassium, [place] 3.5 - 5.0 mmol/L 4.7 Chloride, [place] 98 - 110 mmol/L 102 CO2, [place] 23.0 - 32.0 mmol/L 29.6 Glucose, [place] 65 - 100 mg/dL 97 BUN, [place] 10 - 25 mg/dL 9 Creatinine, [place] 0.7 - 1.4 mg/dL 1.1 Calcium, [place] 8.5 - 10.5 mg/dL 9.1 AST, [place] 7 - 40 U/L 18 (more content not included)... Normal [facility] Brennen 09-14-2024 CNPN Telephone (RHWSTR) AROLDO NAVARRETE ([id number]) 1955 M Date Time Provider Department 09/14/24 CONY BECKWITH During your visit today, we recorded the following information about you: Elizabeth Peters MA 09/14/2024 3:43 PM Signed Patient was referred here by [facility]. Patient had 3 high blood pressure readings today in the office. Provider asked if we could let [facility] know about the readings and see [...] Sheryl Fried RN 09/14/2024 4:31 PM Signed [facility] calling to update us that the patient is having a nurse visit for BP and med check at 9:30am tomorrow. ELIZABETH Welch Danelle, ELIZABETH 09/18/2024 12:50 PM Signed Notes from recent office visit with [facility] received and sent to [facility]. BP at was 138/84. ELIZABETH Welch Kaitlyn, PA-C 09/27/2024 1:32 PM Signed Additional Records from [facility] Dated 07/12/24 Pt reported 2 weeks [...] Status:Closed by SHERYL FRIED on 09/18/24 Normal [facility] CRP SerPl-mCncon 09-14-2024 CRP [Mass/Vol] mg/L Normal <0.9 [facility] Comment on above: Order Comment: Speci men Type: BLOOD SPECIMEN Ordering Facility: [facility] Address: [address] [place] [address] Performed By: #### 4 537-7 #### [facility] CLIA [id number] [address] [place] [address] [place] Comprehensive metabolic 2000 panelOrdered By: Lyric Kirby on 09-14-2024 Albumin [Mass/Vol] 4.7 g/dL 3.9 - 4.9 g/dL [facility] ALP [Catalytic activity/Vol] 105 U/L 38 - 113 U/L [facility] ALT [Catalytic activity/Vol] 34 U/L 10 - 54 U/L [facility] Anion gap [Moles/Vol] 11 mmol/L 8 - 15 mmol/L [facility] AST [Catalytic activity/Vol] 46 U/L High 14 - 40 U/L [facility] Bilirubin [Mass/Vol] 0.8 mg/dL 0.2 - 1.3 mg/dL [facility] Calcium [Mass/Vol] 10 mg/dL 8.5 - 10. 2 mg/dL [facility] Chloride [Moles/Vol] 102 mmol/L 98 - 107 mmol/L [facility] CO2 [Moles/Vol] 28 mmol/L 22 - 30 mmol/L [facility] Creatinine [Mass/Vol] 0.97 mg/dL 0.73 - 1.22 mg/dL [facility] GFR/1.73 sq M.predicted among non-blacks MDRD (S/P/Bld) [Vol rate/Area] 86 mL/min/{1.73_m2} - PINF [facility] Comment on above: Estimated Glomerular Filtration Rate [...] 102 mg/dL High 74 - 99 mg/dL [facility] Comment on above: The [place] Diabete s Association (ADA) provides guidance for [...] Standards of Medical Care in Diabetes 2016, [place] Diabetes Association. Diabetes Care. 2016.39(Suppl 1). Interpretation and review of laboratory results Abnormal [facility] Potassium [Moles/Vol] 4.3 mmol/L 3.7 - 5.1 mmol/L [facility] Protein [Mass/Vol] 7.9 g/dL 6.3 - 8.0 g/dL [facility] Sodium [Moles/Vol] 141 mmol/L 136 - 144 mmol/L [facility] Urea nitrogen [Mass/Vol] 11 mg/dL 9 - 24 mg/dL [facility] Comprehensive metabolic 2000 panelon 09-14-2024 Albumin [Mass/Vol] 4.7 g/dL Normal 3.9-4.9 [facility] Comment on above: Order Comment: Speci men Type: BLOOD SPECIMEN Ordering Facility: [facility] Address: [address] [place] [address] Performed By: #### 2 4323-8 #### [facility] CLIA [id number] [address] [place] [address] [place] ALP [Catalytic activity/Vol] 105 U/L Normal 38-113 [facility] Comment on above: Order Comment: Speci men Type: BLOOD SPECIMEN Ordering Facility: [facility] Address: [address] [place] [address] Performed By: #### 2 4323-8 #### [facility] CLIA [id number] [address] [place] [address] [place] ALT [Catalytic activity/Vol] 34 U/L Normal 10-54 [facility] Comment on above: Order Comment: Speci men Type: BLOOD SPECIMEN Ordering Facility: [facility] Address: [address] [place] [address] Performed By: #### 2 4323-8 #### [facility] CLIA [id number] [address] [place] [address] [place] Anion gap [Moles/Vol] 11 mmol/L Normal 8-15 [facility] Comment on above: Order Comment: Speci men Type: BLOOD SPECIMEN Ordering Facility: [facility] Address: [address] [place] [address] Performed By: #### 2 4323-8 #### [facility] CLIA [id number] [address] [place] [address] [place] AST [Catalytic activity/Vol] 46 U/L High 14-40 [facility] Comment on above: Order Comment: Speci men Type: BLOOD SPECIMEN Ordering Facility: [facility] Address: [address] [place], [place] [address], [place] [address] Performed By: #### 2 4323-8 #### [facility] CLIA [id number] [address] [place] [address] [place] Bilirubin [Mass/Vol] 0.8 mg/dL Normal 0.2-1.3 [facility] Comment on above: Order Comment: Speci men Type: BLOOD SPECIMEN Ordering Facility: [facility] Address: [address] [place] [address] Performed By: #### 2 4323-8 #### [facility] CLIA [id number] [address] [place] [address] [place] Calcium [Mass/Vol] 10.0 mg/dL Normal 8.5-10.2 [facility] Comment on above: Order Comment: Speci men Type: BLOOD SPECIMEN Ordering Facility: [facility] Address: [address] [place] [address] Performed By: #### 2 4323-8 #### [facility] [id number] [address] [place] [address] [place] Chloride [Moles/Vol] 102 mmol/L Normal 98-107 [facility] Comment on above: Order Comment: Speci men Type: BLOOD SPECIMEN Ordering Facility: [facility] Address: [address] [facility] [place] [address] Performed By: #### 2 4323-8 #### [facility] CLIA [id number] [address] [place] [address] [place] CO2 [Moles/Vol] 28 mmol/L Normal 22-30 [facility] Comment on above: Order Comment: Speci men Type: BLOOD SPECIMEN Ordering Facility: [facility] Address: [address] [place] [address] Performed By: #### 2 4323-8 #### [facility] CLIA [id number] [address] [place] [address] [place] Creatinine [Mass/Vol] 0.97 mg/dL Normal 0.73-1.22 [facility] Comment on above: Order Comment: Kenneth vogt Type: BLOOD SPECIMEN Ordering Facility: [facility] Address: [address] [place] [address] Performed By: #### 2 4323-8 #### [facility] [id number] [address] [place] [address] [place] Creatinine and Glomerular filtration rate.predicted panel (S/P/Bld) 86 mL/min/1.73m??? Normal >=60 [facility] Comment on above: Order Comment: Kenneth vogt Type: BLOOD SPECIMEN Ordering Facility: [facility] Address: [address] [place] [address] Result Comment: Jeannette mated Glomerular Filtration Rate [...] GFR. Performed By: #### 2 4323-8 #### [facility] [id number] [address] [place] [address] [place] Glucose [Mass/Vol] 102 mg/dL High 74-99 [facility] Comment on above: Order Comment: Kenneth vogt Type: BLOOD SPECIMEN Ordering Facility: [facility] Address: [address] [place] [address] Result Comment: The [place] Diabetes Association (ADA) provides guidance for cutoff [...] Standards of Medical Care in Diabetes 2016, [place] Diabetes Association. Diabetes Care. 2016.39(Suppl 1). Performed By: #### 2 4323-8 #### [facility] CLIA [id number] [address] [place] [address] [place] Potassium [Moles/Vol] 4.3 mmol/L Normal 3.7-5.1 [facility] Comment on above: Order Comment: Speci men Type: BLOOD SPECIMEN Ordering Facility: [facility] Address: [address] [place] [address] Performed By: #### 2 4323-8 #### [facility] [id number] [address] [place] [address] [place] Protein [Mass/Vol] 7.9 g/dL Normal 6.3-8.0 [facility] Comment on above: Order Comment: Speci men Type: BLOOD SPECIMEN Ordering Facility: [facility] Address: [address] [place], [place] [address] Performed By: #### 2 4323-8 #### [facility] [id number] [address] [place] [address] [place] Sodium [Moles/Vol] 141 mmol/L Normal 136-144 [facility] Comment on above: Order Comment: Speci men Type: BLOOD SPECIMEN Ordering Facility: [facility] Address: [address] [place] [address] Performed By: #### 2 4323-8 #### [facility] [id number] [address] [place] [address] [place] Urea nitrogen [Mass/Vol] 11 mg/dL Normal 9-24 [facility] Comment on above: Order Comment: Speci men Type: BLOOD SPECIMEN Ordering Facility: [facility] Address: [address] [place] [address] Performed By: #### 2 4323-8 #### [facility] CLIA [id number] [address] [place] [address] [place] Cyclic citrullinated peptide IgG Qnon 09-14-2024 CCP ANTIBODY IGG QUALITATIVE Negative Normal Negative [facility] Comment on above: Order Comment: Speci men Type: BLOOD SPECIMENOrdering Facility: [facility] Address: [address] [place] [address] Performed By: #### 3 3935-8 ####[facility] [id number] [place] [address] [place] ESR Westergren method (Bld) [Velocity]on 09-14-2024 ESR (Bld) [Velocity] 2 mm/h Normal 0-15 [facility] Comment on above: Order Comment: Speci men Type: BLOOD SPECIMEN Ordering Facility: [facility] Address: [address] [place] [address] Performed By: #### 4 537-7 #### [facility] CLIA [id number] [address] [place] [address] [place] Rheumatoid fact SerPl-aCncon 09-14-2024 Rheumatoid factor Qn 12 [IU]/mL Normal <16 [facility] Comment on above: Order Comment: Speci men Type: BLOOD SPECIMEN Ordering Facility: [facility] Address: [address] [place] [address] Performed By: #### 4 537-7 #### [facility] CLIA [id number] [address] [place] [address] [place] XR KNEE 4V [...] Unremarkable left knee. Right knee Owen-Stieda lesion. [employer]: PSCB Transcribe Date/Time: Sep 17 2024 10:08P Dictated by : JOE MUSA MD This examination was interpreted and the report reviewed and electronically signed by: JOE MUSA MD on Sep 17 2024 10:10PM EST [id number] Normal [facility] cCP IgG SerPl-aCncon 04-10-2 025 Cyclic citrullinated peptide IgG Qn <15 Normal <20 [facility] Comment on above: Order Comment: Speci men Type: BLOOD SPECIMENOrdering Facility: [facility] Address: [address] [place] [address] Performed By: #### 3 3935-8 ####[facility]IA [id number] [place] [address] [place] KAREN Comprehensive Panelon ANTI-DNA (DS)AB 1 IU/mL Normal 0-9 [facility] Comment on above: Result Comment: Nega tive <5 Equivocal 5 - 9 Positive >9 Performed By: #### L 101.9900, L100.0100, L3100.5440, L501.6710 #### [facility] [address] [place], [address] ANTISCLERODERM <0.2 Normal 0.0-0.9 [facility] Comment on above: Performed By: #### L 101.9900, L100.0100, L3100.5440, L501.6710 #### [facility] [address] [place], [address] Abdomen Single Viewon 2024 Abdomen Single View [facility] Imaging Services [address] [place] [address] Abdomen Single View MR#: [id number] Acct: [id number] Name: AROLDO NAVARRETE Rep #: [id number] : 1955 M 68 From: Edd Ayers MD PCP: Holly Be DO Status: REG CLI Study: Abdomen Single View Date of Exam: 07/18/24 Exam# [id number] Ordering Dr: Fede Davenport [facility] COMPLIANCE DIRECTOR- C EXAM: XR Abdomen, 1 View CLINICAL INDICATION: TECHNIQUE: Frontal supine view of the abdomen/pelvis. COMPARISON: No relevant prior studies available. FINDINGS: GASTROINTESTINAL TRACT: Unremarkable. No dilation. ORGANS: Probable punctate right nephrolithiasis. BONES/JOINTS: Unremarkable. No acute fracture. RAD/Abdomen Single View IMPRESSION: Probable punctate right nephrolithiasis. Reading [facility] CC: Holly Be DO; Fede [facility] COMPLIANCE DIRECTOR-C Ethel Vp Product Marketing: Signed Normal [facility] CBC W/Diff, Automatedon 07-08 Absolute Lymph 2.06 X10 3/uL Normal 0.83-4.51 [facility] Comment on above: Performed By: #### L 101.9900, L100.0100, L3100.5440, L501.6710 #### [facility] [address] [place], [address] Absolute Neut 2.5 X10 3/uL Normal 2.0-7.7 [facility] Comment on above: Performed By: #### L 101.9900, L100.0100, L3100.5440, L501.6710 #### [facility] [address] [place], [address] Basophils/100 WBC (Bld) 0.6 % Normal 0-1 [facility] Comment on above: Performed By: #### L 101.9900, L100.0100, L3100.5440, L501.6710 #### [facility] [address] [place], [address] Eosinophils/100 WBC (Bld) 1.7 % Normal 0-5 [facility] Comment on above: Performed By: #### L 101.9900, L100.0100, L3100.5440, L501.6710 #### [facility] [address] [place], [address] Erythrocyte distribution width (RBC) [Ratio] 13.5 % Normal 11.6-14.6 [facility] Comment on above: Performed By: #### L 101.9900, L100.0100, L3100.5440, L501.6710 #### [facility] [address] [place], [address] Hematocrit (Bld) [Volume fraction] 41.4 % Normal 40-54 [facility] Comment on above: Performed By: #### L 101.9900, L100.0100, L3100.5440, L501.6710 #### [facility] [address] [place], [address] Hemoglobin (Bld) [Mass/Vol] 14.3 g/dL Normal 13.0-16.5 [facility] Comment on above: Performed By: #### L 101.9900, L100.0100, L3100.5440, L501.6710 #### [facility] [address] [place], [address] IG% 0.400 Normal 0.0-0.9 [facility] Comment on above: Result Comment: IG% - Immature Granulocytes (promyelocytes, myelocytes and metamyelocytes) > 1% indicates that a LEFT SHIFT is Present. Performed By: #### L 101.9900, L100.0100, L3100.5440, L501.6710 #### [facility] [address] [place], [address] Lymphocytes/100 WBC (Bld) 38.6 % Normal 19-41 [facility] Comment on above: Performed By: #### L 101.9900, L100.0100, L3100.5440, L501.6710 #### [facility] [address] [place], [address] MCH (RBC) [Entitic mass] 29.7 pg Normal 27.0-32.0 [facility] Comment on above: Performed By: #### L 101.9900, L100.0100, L3100.5440, L501.6710 #### [facility] [address] [place], [address] MCHC (RBC) [Mass/Vol] 34.5 g/dL Normal 32-36 [facility] Comment on above: Performed By: #### L 101.9900, L100.0100, L3100.5440, L501.6710 #### [facility] [address] [place], [address] MCV (RBC) [Entitic vol] 86.1 fL Normal 80-94 [facility] Comment on above: Performed By: #### L 101.9900, L100.0100, L3100.5440, L501.6710 #### [facility] [address] [place], [address] Monocytes/100 WBC (Bld) 12.4 % High 0-10 [facility] Comment on above: Performed By: #### L 101.9900, L100.0100, L3100.5440, L501.6710 #### [facility] [address] [place], [address] Neutrophils/100 WBC (Bld) 46.3 % Low 47-70 [facility] Comment on above: Performed By: #### L 101.9900, L100.0100, L3100.5440, L501.6710 #### [facility] [address] [place], [address] Nucleated RBC (Bld) [#/Vol] 0 10*3/uL Normal 0-5 [facility] Comment on above: Performed By: #### L 101.9900, L100.0100, L3100.5440, L501.6710 #### [facility] [address] [place], [address] Platelet mean volume (Bld) [Entitic vol] 10.3 fL Normal 6.2-12.0 [facility] Comment on above: Performed By: #### L 101.9900, L100.0100, L3100.5440, L501.6710 #### [facility] [address] [place], [address] Platelets (Bld) [#/Vol] 343 10*3/uL Normal 150-450 [facility] Comment on above: Performed By: #### L 101.9900, L100.0100, L3100.5440, L501.6710 #### [facility] [address] [place], [address] RBC (Bld) [#/Vol] 4.81 10*6/uL Normal 4.6-6.2 [facility] Comment on above: Performed By: #### L 101.9900, L100.0100, L3100.5440, L501.6710 #### [facility] [address] [place], [address] RDW SD 42.5 fl Normal 35.1-43.9 [facility] Comment on above: Performed By: #### L 101.9900, L100.0100, L3100.5440, L501.6710 #### [facility] [address] [place], [address] WBC (Bld) [#/Vol] 5.3 10*3/uL Normal 4.4-11.[address] [facility] Comment on above: Performed By: #### L 101.9900, L100.0100, L3100.5440, L501.6710 #### [facility] [address] [place], [address] CRPon 07-18-2024 C-REACTIVE PROT 29.30 mg/L High 0.0-3.0 [facility] Comment on above: Result Comment: C-Re active Protein (CRP) provides useful information for the diagnosis, therapy and monitoring of inflammatory processes and associated diseases. For the evaluation of Relative Risk for Cardiovascular Disease, a High Sensitivity CRP (HSCRP) should be ordered. Performed By: #### L 101.9900, L100.0100, L3100.5440, L501.6710 ####[facility] [address] [place], [address] Chest PA and Lateralon 07-18 Chest PA and Lateral [facility] Services [address] [place] [address] Chest PA and Lateral MR#: [id number] Acct: [id number] Name: AROLDO NAVARRETE Rep #: [id number] : 1955 M 68 From: Soren Garcia PCP: Holly Be DO Status: REG CLI Study: Chest PA and Lateral Date of Exam: 07/18/24 Exam# [id number] Ordering Dr: Fede Davenport [facility] COMPLIANCE DIRECTOR- C PROCEDURE: CHEST PA AND LATERAL REASON [...] evidence of acute cardiopulmonary disease. Reading Location: [address] CC: Holly Be DO; Fede [facility] COMPLIANCE DIRECTOR-C Beam Vp Product Marketing: Signed Normal [facility] Erythrocyte Sed Rateon 07-18 SED RATE 25 mm/hr High 0-20 [facility] Comment on above: Performed By: #### L 101.9900, L100.0100, L3100.5440, L501.6710 #### [facility] [address] [place], [place], [address] Breast Limited Unilateralon 07-07-2024 Breast Limited Unilateral [facility] Imaging Services [address] [place], [place] [address] Breast Limited Unilateral MR#: [id number] Acct: [id number] Name: AROLDO NAVARRETE Rep #: [id number] : 1955 M 68 From: Yuval winston MD PCP: Holly Be DO Status: REG CLI Study: Breast Limited Unilateral Date of Exam: Exam# [id number] Ordering Dr: Holly Be [facility] D O PROCEDURE: BREAST LIMITED UNILATERAL REASON [...] NEGATIVE. RECOMMEND ANNUAL MAMMOGRAPHIC SCREENING. Reading Location: [place] [address] CC: Holly Be DO Vp Product Marketing: Signed Normal [facility] SCRN MAMM (CAD)W/JOCELYNN BILATo n 07-07-2024 SCRN MAMM (CAD)W/JOCELYNN BILAT [facility] Imaging Services [address] [place] [address] SCRN MAMM (CAD)W/JCOELYNN BILAT MR#: [id number] Acct: [id number] Name: AROLDO NAVARRETE Rep #: [id number] : 1955 M 68 From: Yuval winston MD PCP: Holly Be DO Status: REG CLI Study: SCRN MAMM (CAD)W/JOCELYNN BILAT Date of Exam: 06/09 07/01 Exam# [id number] Ordering Dr: Holly Be [facility] D O PROCEDURE: SCRN MAMM (CAD)W/JOCELYNN BILAT [...] of the results by letter. Reading Location: [place] [address] CC: Holly Be DO Vp Product Marketing: Signed Normal [facility] Thyroid Antibodieson 025 TG AB < 1.0 Normal 0.0-0.9 [facility] Comment on above: Result Comment: Thyr oglobulin Antibody measured by [facility] [place] Methodology It should be noted that the presence of thyroglobulin antibodies may not be pathogenic nor diagnostic, especially at very low levels. The assay box tender has found that four percent of individuals without evidence of thyroid disease or autoimmunity will have positive TgAb levels up to 4 IU/mL. Performed at: [address] [id number] [employer] Trimmer: Ovidio Edwards MD, Phone: [phone] Performed at: [address] [id number] [employer]: Felipe Johnson PhD, Phone: [phone] Performed By: #### L 501.44164, L506.0400, L3400.4700, L501.9520, L3300.6750 ####[facility] [address] [place], [place], [address] THYR PEROX AB 15 IU/mL Normal 0-34 [facility] Comment on above: Performed By: #### L 501.94966, L506.0400, L3400.4700, L501.9520, L3300.6750 ####[facility] [address] [place], [place], [address] Thyroid Stim Immunoglobon THY STIM IMMUNO <0.10 Normal 0.00-0.55 [facility] Comment on above: Performed By: #### L 501.12240, L506.0400, L3400.4700, L501.9520, L3300.6750 ####[facility] [address] [place], [place], [address] Free T3on 07-03-2024 Free T3 [Mass/Vol] 2.4 pg/mL Normal 2.18-3.[address] [facility] Comment on above: Performed By: #### L 501.74309, L506.0400, L3400.4700, L501.9520, L3300.6750 ####[facility] [address] [place], [place], [address] T4 Free Directon 07-03-2024 T4 FREE DIRECT 0.77 ng/dL Normal 0.76-1.46 [facility] Comment on above: Performed By: #### L 501.70233, L506.0400, L3400.4700, L501.9520, L3300.6750 ####[facility] [address] [place], [place], [address] Thyroid Stim Hormone (TSH)on 07-03-2024 TSH 1.260 uIU/mL Normal 0.358-3.740 [facility] Comment on above: Performed By: #### L 501.53875, L506.0400, L3400.4700, L501.9520, L3300.6750 ####[facility] [address] [place], [place], [address] Magnesiumon 06-23-2024 Magnesium [Mass/Vol] 2.3 mg/dL Normal 1.6-2.6 [facility] Comment on above: Performed By: #### L 501.5200 ####[facility] [address] [place], [place], [address] Orthopedic Visit Reporton Orthopedic Visit Report [facility] [address] [place] [address] [address] [place], [place] [address] OFFICE VISIT Date of Service: 04/04/24 MR#: [id number] Acct: [id number] Name: AROLDO NAVARRETE Rep #: [id number] : 1955 Provider: Dr. Steven warren MD Age/Sex: 68/M Location: [facility] Status: Signed Intake Vital Signs 04/03/24 13:59 [...] swelling is slowly improving. The patient is ubba-lily-sacxxfxf. Patient is using a brace he has [...] he twisted his knee wrong. Supplemental Info [facility] Imaging Services [address] [place] [address] Ext Non Vasc Limited/Soft Tiss MR#: [id number] Acct: [id number] Name: AROLDO NAVARRETE Rep #: [id number] : 1955 M 68 From: Cortes Waterman MD PCP: Holly Be DO Status: REG CLI Study: Ext Non Vasc Limited/Soft Tiss Date of Exam: 03/30/24 Exam# [id number] Ordering Dr: Steven Martinez MD [id number] STUDY: SUPERFICIAL ULTRASOUND - LEFT WRIST REASON [...] 13:44 EDT Reading Location ID and State: [address] [place] [address] , Service support , [facility] [address] [facility] [place] [address] Knee 4 or More Views MR#: [id number] Acct: [id number] Name: AROLDO NAVARRETE Rep #: [id number] : 1955 M 68 From: Nilson Churchill MD PCP: Holly Be DO Status: DEP AMB Study: Knee 4 or More Views Date of Exam: 02/08/24 Exam# [id number] Ordering Dr: Steven Martinez MD (more content not included)... Normal [facility] Ext Non Vasc Limited/Soft Ti sson 03-30-2024 Ext Non Vasc Limited/Soft Tiss [facility] Imaging Services [address] [place] [address] Ext Non Vasc Limited/Soft Tiss MR#: [id number] Acct: [id number] Name: RONNIE NAVARRETEDORA Rep #: [id number] : 1955 M 68 From: Cortes dumont MD PCP: Holly Be DO Status: REG CLI Study: Ext Non Vasc Limited/Soft Tiss Date of Exam: Exam# [id number] Ordering Dr: Steven Martinez MD [id number] STUDY: SUPERFICIAL ULTRASOUND - LEFT WRIST REASON [...] Dr. Steven Martinez MD; Holly Be DO Vp Product Marketing: Signed Normal [facility] Orthopedic Visit Reporton Orthopedic Visit Report [facility] [address] [facility] [address] [place] [address] OFFICE VISIT Date of Service: 03/23/24 MR#: [id number] Acct: [id number] Name: AROLDO NAVARRETE Rep #: [id number] : 1955 Provider: Dr. Steven warren MD Age/Sex: 68/M Location: [facility] Status: Signed Intake Vital Signs 02/03/24 10:26 [...] Cosignodalis Signature: Date (if applicable) CC: Normal [facility] Wrist min 3 Viewson 03-23-20 24 Wrist min 3 Views [facility] [address] [place] [address] Wrist min 3 Views MR#: [id number] Acct: [id number] Name: AROLDO NAVARRETE Rep #: [id number] : 1955 M 68 From: Malvin Garcia PCP: Holly Be DO Status: DEP AMB Study: Wrist min 3 Views Date of Exam: 03/23/24 Exam# [id number] Ordering Dr: Steven Martinez MD [id number] EXAM: XR LEFT WRIST COMPLETE, 3 OR [...] 19:22 EDT Reading Location ID and State: [facility] / [place] , Service support , CC: Dr. Steven Martinez MD; Holly Be DO Vp Product Marketing: Signed Normal [facility] Knee 4 or More Viewson 02-07 Knee 4 or More Views [facility] [address] [place] [address] Knee 4 or More Views MR#: [id number] Acct: [id number] Name: AROLDO NAVARRETE Rep #: [id number] : 1955 M 68 From: Nilson Churchill MD PCP: Holly Be DO Status: DEP AMB Study: Knee 4 or More Views Date of Exam: 02/08/24 Exam# [id number] Ordering Dr: Steven Martinez MD [id number] STUDY: X-RAY - RIGHT KNEE REASON FOR [...] 9:02 EDT Reading Location ID and State: [address] [place] [address] , Service support , CC: Dr. Steven Martinez MD; Holly Be DO Vp Product Marketing: Signed Normal [facility] Orthopedic Visit Reporton Orthopedic Visit Report [facility] [address] [place] [address] OFFICE VISIT Date of Service: 02/08/24 MR#: [id number] Acct: [id number] Name: AROLDO NAVARRETE Rep #: [id number] : 1955 Provider: Dr. Steven warren MD Age/Sex: 68/M Location: [facility] Status: Signed Intake Vital Signs 06/29/23 08:54 [...] [place] Signature: Date (if applicable) CC: Normal [facility] CBC W/Diff, Automatedon 06-2 Absolute Lymph 1.48 X10 3/uL Normal 0.83-4.51 [facility] Comment on above: Performed By: #### L 100.0100, L500.4050, L501.9520, L500.4100 ####[facility] [address] [place], [address] Absolute Neut 4.4 X10 3/uL Normal 2.0-7.7 [facility] Comment on above: Performed By: #### L 100.0100, L500.4050, L501.9520, L500.4100 ####[facility] [address] [place], [address] Basophils/100 WBC (Bld) 0.6 % Normal 0-1 [facility] Comment on above: Performed By: #### L 100.0100, L500.4050, L501.9520, L500.4100 ####[facility] [address] [place], [address] Eosinophils/100 WBC (Bld) 3.0 % Normal 0-5 [facility] Comment on above: Performed By: #### L 100.0100, L500.4050, L501.9520, L500.4100 ####[facility] [address] [place], [address] Erythrocyte distribution width (RBC) [Ratio] 13.1 % Normal 11.6-14.6 [facility] Comment on above: Performed By: #### L 100.0100, L500.4050, L501.9520, L500.4100 ####[facility] [address] [place], [address] Hematocrit (Bld) [Volume fraction] 40.2 % Normal 40-54 [facility] Comment on above: Performed By: #### L 100.0100, L500.4050, L501.9520, L500.4100 ####[facility] [address] [place], [address] Hemoglobin (Bld) [Mass/Vol] 13.4 g/dL Normal 13.0-16.5 [facility] Comment on above: Performed By: #### L 100.0100, L500.4050, L501.9520, L500.4100 ####[facility] [address] [place], [address] IG% 0.100 Normal 0.0-0.9 [facility] Comment on above: Result Comment: IG% - Immature Granulocytes (promyelocytes, myelocytes and metamyelocytes) > 1% indicates that a LEFT SHIFT is Present. Performed By: #### L 100.0100, L500.4050, L501.9520, L500.4100 ####[facility] [address] [place], [address] Lymphocytes/100 WBC (Bld) 21.9 % Normal 19-41 [facility] Comment on above: Performed By: #### L 100.0100, L500.4050, L501.9520, L500.4100 ####[facility] [address] [place], [address] MCH (RBC) [Entitic mass] 31.8 pg Normal 27.0-32.0 [facility] Comment on above: Performed By: #### L 100.0100, L500.4050, L501.9520, L500.4100 ####[facility] [address] [place], [address] MCHC (RBC) [Mass/Vol] 33.3 g/dL Normal 32-36 [facility] Comment on above: Performed By: #### L 100.0100, L500.4050, L501.9520, L500.4100 ####[facility] [address] [place], [address] MCV (RBC) [Entitic vol] 95.3 fL High 80-94 [facility] Comment on above: Performed By: #### L 100.0100, L500.4050, L501.9520, L500.4100 ####[facility] [address] [place], [address] Monocytes/100 WBC (Bld) 8.7 % Normal 0-10 [facility] Comment on above: Performed By: #### L 100.0100, L500.4050, L501.9520, L500.4100 ####[facility] [address] [place], [address] Neutrophils/100 WBC (Bld) 65.7 % Normal 47-70 [facility] Comment on above: Performed By: #### L 100.0100, L500.4050, L501.9520, L500.4100 ####[facility] [address] [place], [address] Nucleated RBC (Bld) [#/Vol] 0 10*3/uL Normal 0-5 [facility] Comment on above: Performed By: #### L 100.0100, L500.4050, L501.9520, L500.4100 ####[facility] [address] [place], [address] Platelet mean volume (Bld) [Entitic vol] 11.2 fL Normal 6.2-12.0 [facility] Comment on above: Performed By: #### L 100.0100, L500.4050, L501.9520, L500.4100 ####[facility] [address] [place], [address] Platelets (Bld) [#/Vol] 256 10*3/uL Normal 150-450 [facility] Comment on above: Performed By: #### L 100.0100, L500.4050, L501.9520, L500.4100 ####[facility] [address] [place], [address] RBC (Bld) [#/Vol] 4.22 10*6/uL Low 4.6-6.2 [facility] Comment on above: Performed By: #### L 100.0100, L500.4050, L501.9520, L500.4100 ####[facility] [address] [place], [address] RDW SD 45.8 fl High 35.1-43.9 [facility] Comment on above: Performed By: #### L 100.0100, L500.4050, L501.9520, L500.4100 ####[facility] [address] [place], [address] WBC (Bld) [#/Vol] 6.8 10*3/uL Normal 4.4-11.[address] [facility] Comment on above: Performed By: #### L 100.0100, L500.4050, L501.9520, L500.4100 ####[facility] [address] [place], [address] Comprehensive Metabolic Prof [facility] 12-02-2023 Albumin [Mass/Vol] 3.4 g/dL Normal 3.2-5.[address] [facility] Comment on above: Performed By: #### L 100.0100, L500.4050, L501.9520, L500.4100 ####[facility] [address] [place], [address] Albumin/Globulin [Mass ratio] 0.8 {ratio} Low 0.9-2.4 [facility] Comment on above: Performed By: #### L 100.0100, L500.4050, L501.9520, L500.4100 ####[facility] [address] [place], [address] ALK P 98 U/L Normal 45-117 [facility] Comment on above: Performed By: #### L 100.0100, L500.4050, L501.9520, L500.4100 ####[facility] [address] [place], [address] ALT [Catalytic activity/Vol] 23 U/L Normal 16-61 [facility] Comment on above: Performed By: #### L 100.0100, L500.4050, L501.9520, L500.4100 ####[facility] [address] [place], [address] AST [Catalytic activity/Vol] 26 U/L Normal 15-37 [facility] Comment on above: Performed By: #### L 100.0100, L500.4050, L501.9520, L500.4100 ####[facility] [address] [place], [address] Bilirubin [Mass/Vol] 0.40 mg/dL Normal 0.20-1.00 [facility] Comment on above: Result Comment: For patients on eltrombopag therapy, use of Dimension Glide TBIL is not recommended. Performed By: #### L 100.0100, L500.4050, L501.9520, L500.4100 ####[facility] [address] [place], [address] BUN/CRE 8.9 RATIO Low 10-20 [facility] Comment on above: Performed By: #### L 100.0100, L500.4050, L501.9520, L500.4100 ####[facility] [address] [place], [address] CA,Total 9.1 mg/dL Normal 8.5-10.1 [facility] Comment on above: Performed By: #### L 100.0100, L500.4050, L501.9520, L500.4100 ####[facility] [address] [place], [address] Chloride [Moles/Vol] 102 mmol/L Normal 98-107 [facility] Comment on above: Performed By: #### L 100.0100, L500.4050, L501.9520, L500.4100 ####[facility] [address] [place], [address] CO2 [Moles/Vol] 27.0 mmol/L Normal 21.0-32.0 [facility] Comment on above: Performed By: #### L 100.0100, L500.4050, L501.9520, L500.4100 ####[facility] [address] [place], [address] Creatinine [Mass/Vol] 0.78 mg/dL Normal 0.70-1.30 [facility] Comment on above: Result Comment: The validity of the calculated GFR GFRAA in patients over 70 years has not been determined. Clinical correlation is essential. Performed By: #### L 100.0100, L500.4050, L501.9520, L500.4100 ####[facility] [address] [place], [address] EST GFR - AA 127 mL/min Normal >60 [facility] Comment on above: Result Comment: Afri can Czech GFR Calc Performed By: #### L 100.0100, L500.4050, L501.9520, L500.4100 ####[facility] [address] [place], [address] GAP 8 Normal 5-15 [facility] Comment on above: Performed By: #### L 100.0100, L500.4050, L501.9520, L500.4100 ####[facility] [address] [place], [address] GFR/1.73 sq M.predicted among non-blacks MDRD (S/P/Bld) [Vol rate/Area] 105 mL/min/{1.73_m2} Normal >60 [facility] Comment on above: Result Comment: Non- GFR Calc Performed By: #### L 100.0100, L500.4050, L501.9520, L500.4100 ####[facility] [address] [place], [address] Globulin (S) [Mass/Vol] 4.3 g/dL High 2.2-4.2 [facility] Comment on above: Performed By: #### L 100.0100, L500.4050, L501.9520, L500.4100 ####[facility] [address] [place], [address] Glucose [Mass/Vol] 99 mg/dL Normal 74-[address] [facility] Comment on above: Performed By: #### L 100.0100, L500.4050, L501.9520, L500.4100 ####[facility] [address] [place], [address] Potassium [Moles/Vol] 3.9 mmol/L Normal 3.5-5.1 [facility] Comment on above: Performed By: #### L 100.0100, L500.4050, L501.9520, L500.4100 ####[facility] [address] [place], [address] Sodium [Moles/Vol] 137 mmol/L Normal 136-[address] [facility] Comment on above: Performed By: #### L 100.0100, L500.4050, L501.9520, L500.4100 ####[facility] [address] [place], [address] T PROT 7.7 g/dL Normal 6.4-8.2 [facility] Comment on above: Performed By: #### L 100.0100, L500.4050, L501.9520, L500.4100 ####[facility] [address] [place], [address] Urea nitrogen [Mass/Vol] 7 mg/dL Normal 7-18 [facility] Comment on above: Performed By: #### L 100.0100, L500.4050, L501.9520, L500.4100 ####[facility] [address] [place], [address] Lipid Profileon 12-02-2023 Cholesterol [Mass/Vol] 161 mg/dL Normal 200 [facility] Comment on above: Result Comment: <200 mg/dL Desirable 200-240 mg/dL Borderline >240 mg/dL High Risk Performed By: #### L 100.0100, L500.4050, L501.9520, L500.4100 ####[facility] [address] [place], [address] Cholesterol in HDL [Mass/Vol] 93 mg/dL Normal [facility] Comment on above: Result Comment: The drugs N-Acetylcysteine and Metamizole may falsely depress this assay. Reference Range HDL <40 mg/dL Low HDL Cholesterol HDL >or= 60 mg/dL High HDL Cholesterol Performed By: #### L 100.0100, L500.4050, L501.9520, L500.4100 ####[facility] [address] [place], [address] Cholesterol in LDL [Mass/Vol] 50 mg/dL Normal 0-130 [facility] Comment on above: Performed By: #### L 100.0100, L500.4050, L501.9520, L500.4100 ####[facility] [address] [place], [address] Cholesterol in VLDL [Mass/Vol] 18 mg/dL Normal 5-40 [facility] Comment on above: Performed By: #### L 100.0100, L500.4050, L501.9520, L500.4100 ####[facility] [address] [place], [address] Triglyceride [Mass/Vol] 89 mg/dL Normal [facility] Comment on above: Result Comment: The drugs N-Acetylcysteine and Metamizole may falsely depress this assay. Serum Triglycerides Reference Interval Normal <150 mg/dL Borderline high 150 - 199 mg/dL High 200 - 499 mg/dL Very High > or = 500 mg/dL Performed By: #### L 100.0100, L500.4050, L501.9520, L500.4100 ####[facility] [id number] [place], [place], [id number] Thyroid Stim Hormone (TSH)on 12-02-2023 TSH 0.47 uIU/mL Normal 0.358-3.74 [facility] Comment on above: Performed By: #### L 100.0100, L500.4050, L501.9520, L500.4100 ####[facility] [id number] [place], [place], [id number] Vital Signs Date Time Vital Sign Value Performing Clinician Gavin you 11-01-2024 13:57-0400 Body mass index (BMI) [Ratio] 18 kg/m2 Cony Amena PA-C Work Phone: [facility] 11-01-2024 13:57-0400 Body weight 58.97 kg Cony Amena PA-C Work Phone: [facility] 11-01-2024 13:57-0400 Diastolic blood pressure 82 mm[Hg] Cony Amena PA-C Work Phone: [facility] 11-01-2024 13:57-0400 Heart rate 92 /min Cony Amena PA-C Work Phone: [facility] 11-01-2024 13:57-0400 SaO2% (BldA) [Mass fraction] 99 % Cony Amena PA-C Work Phone: [facility] 11-01-2024 13:57-0400 Systolic blood pressure 127 mm[Hg] Cony Amena PA-C Work Phone: [facility] 10-13-2024 13:42-0400 Body height 181 cm Renny Forrester MD Work Phone: [facility] 10-13-2024 13:42-0400 Body mass index (BMI) [Ratio] 18.13 kg/m2 Renny Forrester MD Work Phone: [facility] 10-13-2024 13:42-0400 Body weight 59.4 kg Renny Forrester MD Work Phone: [facility] 10-11-2024 10:57-0400 Body height 181 cm Pulm Wstr Work Phone: [facility] 10-11-2024 10:57-0400 Body mass index (BMI) [Ratio] 17.45 kg/m2 Pulm Wstr Work Phone: [facility] 10-11-2024 10:57-0400 Body weight 57.15 kg Pulm Wstr Work Phone: [facility] 10-04-2024 11:19-0400 Body height 181 cm Pulm Wstr Work Phone: [facility] 10-04-2024 11:19-0400 Body mass index (BMI) [Ratio] 17.45 kg/m2 Pulm Wstr Work Phone: [facility] 10-04-2024 11:19-0400 Body weight 57.15 kg Pulm Wstr Work Phone: [facility] 10-04-2024 09:51-0400 Diastolic blood pressure 82 mm[Hg] Cony Amena PA-C Work Phone: [facility] 10-04-2024 09:51-0400 Heart rate 75 /min Cony Amena PA-C Work Phone: [facility] 10-04-2024 09:51-0400 Respiratory rate 17 /min Cony Amena PA-C Work Phone: [facility] 10-04-2024 09:51-0400 SaO2% (BldA) [Mass fraction] 100 % Cony Amena PA-C Work Phone: [facility] 10-04-2024 09:51-0400 Systolic blood pressure 118 mm[Hg] Cony Amena PA-C Work Phone: [facility] 09-14-2024 14:23-0400 Diastolic blood pressure 102 mm[Hg] Cony Amena PA-C Work Phone: [facility] 09-14-2024 14:23-0400 Systolic blood pressure 150 mm[Hg] Cony Amena PA-C Work Phone: [facility] 09-14-2024 14:18-0400 Body weight 57.15 kg Cony Amena PA-C Work Phone: [facility] 09-14-2024 14:18-0400 Heart rate 108 /min Cony Amena PA-C Work Phone: [facility] 09-14-2024 14:18-0400 SaO2% (BldA) [Mass fraction] 98 % Cony Amena PA-C Work Phone: [facility] Encounters Encounter Date Encounter Type Care Provider Facility Start: 11-23-[address] [facility] Faci lity:[facility] Start: 11-01-2024 End: 11-01-2024 Patient encounter procedure Cony Amena PA-C Work Phone: Rheumatology Comment on above: Giant cell arteritis (HCC) (Primary Dx); PMR (polymyalgia rheumatica) (HCC); Lung nodule; MDA5 antibody positive; Chronic bilateral low back pain without sciatica; Chronic sacroiliac joint pain; Chronic neck pain; custodial (current) use of systemic steroids Start: 11-01-2024 End: 11-01-2024 ambulatory CONY AMENA Facility:[facility] Start: 10-30-2024 End: 10-30-2024 Telephone encounter Cony Amena PA-C Work Phone: Rheumatology Start: 10-26-2024 End: 10-26-2024 ambulatory JOSÉ MIGUEL JIANG Facility:[facility] Start: 10-25-2024 End: 10-25-2024 ambulatory RENNY FORRESTER Facility:[facility] Start: 10-18-2024 End: 10-18-2024 Telephone encounter Cony BENAVIDEZ-C Work Phone: Rheumatology Comment on above: GCA (giant cell matt ritis) ([facility]) (Primary Dx) Start: 10-17-[address] [facility] Faci lity:[facility] Start: 10-16-2024 End: 10-18-2024 Telephone encounter Cony BENAVIDEZ-C Work Phone: Rheumatology Comment on above: disability paperwork Start: 10-14-2024 End: 10-14-2024 Telephone encounter Guevara Jiménez MD Work Phone: Ophthalmology Start: 10-13-2024 End: 10-13-2024 Office outpatient visit 40 minutes Renny Forrester MD Work Phone: Rheumatology Comment on above: Polymyalgia rheumati ca ([facility]) (Primary Dx); MDA5 antibody positive; Lung nodule Start: 10-13-2024 End: 10-13-2024 Patient encounter procedure Emg 2 Neur Main (Max Weight: 1000) Work Phone: Neurology Start: 10-13-2024 End: 10-13-2024 ambulatory RENNY FORRESTER Neurology Start: 10-11-2024 End: 10-11-2024 Patient encounter procedure Pulm Lab [facility] Work Phone: PULM LAB [facility] Start: 10-11-2024 End: 10-11-2024 [facility] Work [facility] Comment on above: Spirometry Start: 10-11-2024 End: 10-11-2024 Subsequent hospital visit by physician Ct [facility] Wstr (I-Stat) Work Phone: Cat Scan Comment on above: Weakness [R53.1] Start: 10-04-2024 End: 10-04-2024 Telephone encounter Cony BENAVIDEZ-C Work Phone: Rheumatology Start: 10-04-2024 End: 10-04-2024 ambulatory Pulm Lab [facility] Wstr Work Phone: PUL LAB [facility] Comment on above: Spirometry Start: 10-04-2024 End: 10-04-2024 Patient encounter procedure Pulm Lab [facility] W[facility] Work Phone: PUL LAB [facility] Comment on above: Weakness (Primary Dx ); Polymyositis with myopathy (HCC); Chronic pain of both shoulders; Shortness of breath; Interstitial pulmonary disease (HCC) Start: 10-04-2024 End: 10-04-2024 ambulatory CONY AMENA Facility:[facility] Start: 09-28-2024 End: 10-04-2024 Telephone encounter Cony Amena PA-C Work Phone: Rheumatology Comment on above: Appointment Start: 09-27-2024 End: 09-27-2024 ambulatory CONY AMENA Facility:[facility] Start: 09-18-2024 End: 09-19-2024 Telephone encounter Cony Amena PA-C Work Phone: Rheumatology Comment on above: Insurance informatio n Start: 09-14-2024 End: 09-14-2024 Subsequent hospital visit by physician Xr [facility] Juan Pbalo Monroy Work Phone: Radiology Comment on above: Polyarthralgia [M25. 50] Start: 09-14-2024 End: 09-14-2024 ambulatory CONY AMENA Facility:[facility] Start: 09-14-2024 End: 09-14-2024 Patient encounter procedure Cony Amena PA-C Work Phone: Rheumatology Comment on above: Polyarthralgia (Prim nguyen Dx); Ganglion, left wrist; Dry eye syndrome of both eyes; Weakness; Chronic pain of both shoulders; Bilateral hip pain; Chronic pain of both knees; Essential (primary) hypertension Start: 09-14-2024 End: 09-18-2024 Telephone encounter Cony Amena PA-C Work Phone: Rheumatology Start: 08-10-2024 ambulatory [facility] Facility:[facility] Start: 07-18-2024 End: 07-18-2024 ambulatory [place] [facility] Facility:[facility] Start: 07-07-2024 End: 07-07-2024 ambulatory Holly [place] [facility] Facility:[facility] Start: 07-03-2024 End: 07-03-2024 ambulatory Holly [place] [facility] Facility:[facility] Start: 06-23-2024 End: 06-23-2024 ambulatory Holly [place] [facility] Facility:[facility] Start: 04-04-2024 End: 04-04-2024 ambulatory Holly [place] [facility] Facility[facility] Start: 03-30-2024 End: 03-30-2024 ambulatory Holly [place] [facility] Facility:[facility] Start: 03-23-2024 End: 03-23-2024 ambulatory Holly [place] [facility] Facility:[facility] Start: 02-21-2024 ambulatory Holly [place] [facility] Faci lity:[facility] Start: 02-08-2024 End: 02-08-2024 ambulatory [place] [facility] Facility:[facility] Start: 12-03-2023 ambulatory Holly [place] [facility] Faci lity:[facility] Start: 12-02-2023 End: 12-02-2023 ambulatory Holly [place] [facility] Facility:[facility] Procedures Date Procedure Procedure Detail Performing [...] RSV Vaccine (1 - 1-dose 75+ series) [facility] Start: 10-27-2027 Diabetes Screening Diabetes Screenin g [facility] Start: 09-15-2027 Diabetes Screening Diabetes Screenin g [facility] Start: 05-13-2026 Urine microalbumin profile DTaP,Tdap,Td Vaccine (2 - Td or Tdap) [facility] Start: 05-07-2025 End: 11-10-2025 CT Chest WO contrast CT CHEST WO IVCON Radiology Routine Lung nodule Expected: 05/07/2025, Expires: 11/10/2025 [facility] Work Phone: Comment on above: Expected: 05/07/2025 , Expires: 11/10/2025 Start: 02-05-2025 Influenza vaccination Influenz a Vaccine (Season Ended) [facility] Start: 11-21-2024 End: 11-21-2024 Patient encounter procedure 11/21/2024 11:00 AM EDT Office Visit Pulmonary Medicine [address] [place] [address] Irina Pretty MD [address] [facility] [place] [address] Comment: Lung nodule, R/O malignancy, [...] Chronic sacroiliac joint pain Chronic neck pain custodial (current) use of systemic steroids Expected: 11/01/2024, Expires: 01/31/2025 [facility] Comment on above: Expected: 11/01/2024 , Expires: 01/31/2025 Start: 11-01-2024 End: 01-31-2025 Erythrocyte sedimentation rate SEDIMENTATION RATE, WESTERGREN Lab Routine Giant cell arteritis (HCC) PMR (polymyalgia rheumatica) (HCC) Lung nodule MDA5 antibody positive Chronic bilateral low back pain without sciatica Chronic sacroiliac joint pain Chronic neck pain custodial (current) use of systemic steroids Expected: 11/01/2024, Expires: 01/31/2025 [facility] Comment on above: Expected: 11/01/2024 , Expires: 01/31/2025 Start: 11-01-2024 End: 01-31-2025 Ferritin [Mass/volume] in Serum or Plasma FERRITIN Lab Routine Giant cell arteritis (HCC) PMR (polymyalgia rheumatica) (HCC) Lung nodule MDA5 antibody positive Chronic bilateral low back pain without sciatica Chronic sacroiliac joint pain Chronic neck pain 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 Expected: 11/01/2024, Expires: 01/31/2025 [facility] Comment on above: Expected: 11/01/2024 , Expires: 01/31/2025 Start: 10-26-2024 End: 10-26-2024 Admission to same day surgery center 10/26/2024 2:26 PM EDT - 10/26/2024 4:25 PM EDT Surgery [facility] Surgery [address] [place] [address] José Miguel Jiang MD [address] [place] [id number] BIOPSY ARTERY TEMPORAL [facility] Surgery Comment on above: BIOPSY ARTERY TEMPOR AL Start: 10-26-2024 End: 10-26-2024 Ligation/biopsy temporal artery BIOPSY ARTERY TEMPORAL GCA (giant cell arteritis) (HCC) 10/26/2024 2:26 PM EDT ME OR Start: 10-26-2024 Subsequent hospital visit by physician 10/26/2024 2:26 PM EDT Hospital Encounter [facility] Surgery [address] [place] [id number] José Miguel Jiang MD [address] [address] GCA (giant cell arteritis) ([facility]) [M31.6] [facility] Surgery Comment on above: GCA (giant cell matt ritis) ([facility]) [M31.6] Start: 10-26-2024 End: 10-26-2024 ambulatory 10/26/2024 7:30 AM EDT [facility] Rheumatology [address] [address] Renny Forrester MD [address] [place] [address] add per provider Rheumatology Comment on above: add per provider Start: 10-20-2024 End: 10-20-2024 Patient encounter procedure 10/20/2024 9:00 AM EDT Appointment Radiology [address] [place] [address] *add on Approved by Elizabeth in [place] [facility]* Radiology Comment on above: *add on Approved by Elizabeth in [place] [facility]* Start: 10-13-2024 End: 10-13-2024 Patient encounter procedure 10/13/2024 3:00 PM EDT Office Visit Rheumatology [address] [place] [id number] Renny Forrester MD [address] [place] [address] myositis per clarence beckwith Rheumatology Comment on above: myositis per clarence beckwith Start: 10-13-2024 End: 10-13-2024 ambulatory 10/13/2024 8:00 AM EDT Procedure Neurology [address] [place] [id number] E MYOPATHY? Neurology Comment on above: E MYOPATHY? Start: 10-11-2024 End: 10-11-2024 ambulatory 10/11/2024 11:15 AM EDT Procedure PULM LAB [facility] WSTR [address] [place] [address] Wstr, Pulm Lab [address] [id number] Weakness [R53.1] PULM LAB [facility] WS Comment on above: Weakness [R53.1] Start: 10-11-2024 End: 10-11-2024 Patient encounter procedure 10/11/2024 10:40 AM EDT Appointment Cat Scan [address] [place] [place] [id number] Dx: Weakness [R53.1]; Polymyositis with myopathy (HCC) [...] 01-03-2025 Ferritin [Mass/volume] in Serum or Plasma [facility] Comment on above: Expected: 10/04/2024 , Expires: 01/03/2025 Start: 10-04-2024 End: 01-03-2025 TPMT PHENOTYPE/ENZYME ACTIVITY [facility] Comment on above: Expected: 10/04/2024 , Expires: 01/03/2025 Start: 09-27-2024 End: 09-27-2024 Patient encounter procedure 09/27/2024 8:30 AM EDT Office Visit Rheumatology [address] [place], [place] [id number] Cony Beckwith PA-C [address] [place], [place] [phone] Review results Rheumatology Comment on above: Review results Start: 09-14-2024 End: 12-14-2024 Aldolase [Enzymatic activity/volume] in Serum or Plasma [facility] Comment on above: Expected: 09/14/2024 , Expires: 12/14/2024 Start: 09-14-2024 End: 12-14-2024 KAREN BY IFA SCREEN KAREN BY IFA SCREEN Lab Routine Polyarthralgia Ganglion, left wrist Dry eye syndrome of both eyes Weakness Chronic pain of both shoulders Bilateral hip pain Chronic pain of both knees Essential (primary) hypertension Expected: 09/14/2024, Expires: 12/14/2024 [facility] Comment on above: Expected: 09/14/2024 , Expires: 12/14/2024 Start: 09-14-2024 End: 12-14-2024 C reactive protein [Mass/volume] in Serum or Plasma [facility] Comment on above: Expected: 09/14/2024 , Expires: 12/14/2024 Start: 09-14-2024 End: 12-14-2024 Creatine kinase [Enzymatic activity/volume] in Serum or Plasma [facility] Comment on above: Expected: 09/14/2024 , Expires: 12/14/2024 Start: 09-14-2024 End: 12-14-2024 Cyclic citrullinated peptide IgG Ab [Units/volume] in Serum or Plasma [facility] Comment on above: Expected: 09/14/2024 , Expires: 12/14/2024 Start: 09-14-2024 End: 12-14-2024 Erythrocyte sedimentation rate [facility] Comment on above: Expected: 09/14/2024 , Expires: 12/14/2024 Start: 09-14-2024 End: 12-14-2024 Rheumatoid factor [Units/volume] in Serum or Plasma [facility] Comment on above: Expected: 09/14/2024 , Expires: 12/14/2024 Start: 06-07-2024 Advance Directive Discussion Advance Directive Discussion [facility] Start: 02-06-2024 Covid-19 Vaccine () Covid-19 Vaccine () [facility] Start: 02-06-2024 Influenza vaccination Influenza Vacc ine (#1) [facility] Start: 01-04-2017 Lipid panel Lipid Screening [facility] Start: 01-04-2017 Prostate specific antigen measurement Prostate Cancer Screening Discussion [facility] Start: 2006 Shingrix Vaccine (1 of 2) Shingrix Vaccine (1 of 2) [facility] Start: 2001 Screening for malign ant neoplasm of colon [facility] Start: 10-04-1975 Pneumococcal Vaccine : 50+ (1 of 2 - PCV) Pneumococcal Vaccine: 50+ (1 of 2 - PCV) [facility] Start: 1974 Annual PCP Team [employer] zbigniew Disease Visit Annual PCP Team Chronic Disease Visit [facility] Start: 1974 Anxiety Screening Anxiety Screening [facility] Start: 1974 BP Controlled (<130/80) BP Controlle d (<130/80) [facility] Start: 1974 Depression Screening Depression Scre ening [facility] Start: 1974 Hepatitis C screening Hepatitis C Sc steph [facility] Start: 1956 Abdominal aortic aneurysm screening Abdominal Aortic Aneurysm Screening [facility] End: 11-03-2025 CT Chest WO contrast CT CHEST WO IVCON Radiology Routine Weakness Polymyositis with myopathy (HCC) Chronic pain of both shoulders Shortness of breath Interstitial pulmonary disease (HCC) 1 Occurrences starting 10/04/2024 until 11/03/2025 [facility] Comment on above: 1 Occurrences starti ng 10/04/2024 until 11/03/2025 End: 11-29-2025 CTA Abdominal vessels and Pelvis vessels WO and W contrast IV CTA ABD/PEL WO/W IVCON Radiology Routine Giant cell arteritis (HCC) 1 Occurrences starting 10/30/2024 until 11/29/2025 [facility] Comment on above: 1 Occurrences starti ng 10/30/2024 until 11/29/2025 End: 11-29-2025 CTA Chest vessels WO and W contrast IV CTA CHEST (NONGATED) WO/W IVCON Radiology Routine Giant cell arteritis (HCC) 1 Occurrences starting 10/30/2024 until 11/29/2025 [facility] Work Phone: Comment on above: 1 Occurrences starti ng 10/30/2024 until 11/29/2025 End: 10-04-2025 EMG(NEURO/NI) EMG(NEURO/NI) EMG Routine Weakness Polymyositis with myopathy (HCC) Chronic pain of both shoulders Shortness of breath 1 Occurrences starting 10/04/2024 until 10/04/2025 [facility] Work Phone: Comment on above: 1 Occurrences starti ng 10/04/2024 until 10/04/2025 LUNG DIFFUSION CAPAC ITY (DLCO) LUNG DIFFUSION CAPACITY (DLCO) PFT Routine Weakness Polymyositis with myopathy (HCC) Shortness of breath 10/04/2024 11:21 AM EDT [facility] Work Phone: End: 11-03-2025 LUNG VOLUMES LUNG VOLUMES PFT Routine Weakness Polymyositis with myopathy (HCC) Chronic pain of both shoulders Shortness of breath Interstitial pulmonary disease (HCC) 1 Occurrences starting 10/04/2024 until 11/03/2025 [facility] Comment on above: 1 Occurrences starti ng 10/04/2024 until 11/03/2025 Physical performance test/corinne w/reprt ea 15 min PHYSICAL PERFORMANCE TEST Procedures Routine Giant cell arteritis (HCC) PMR (polymyalgia rheumatica) (HCC) Lung nodule MDA5 antibody positive Ordered: 11/01/2024 [facility] Work Phone: Comment on above: Ordered: 11/01/2024 SPIROMETRY BASELINE ONLY SPIROME TRY BASELINE ONLY PFT Routine Weakness Polymyositis with myopathy (HCC) Shortness of breath 10/04/2024 11:21 AM EDT [facility] Work Phone: End: 11-12-2025 US.doppler Head US TEMPORAL ARTERY BILATERAL Radiology Routine Polymyalgia rheumatica (HCC) 1 Occurrences starting 10/13/2024 until 11/12/2025 [facility] Work Phone: Comment on above: 1 Occurrences starti ng 10/13/2024 until 11/12/2025 End: 12-01-2025 XR Cervical spine AP and Lateral and oblique XR CERV OTHER 4V AP/LAT/OBL Radiology Routine Chronic neck pain 1 Occurrences starting 11/01/2024 until 12/01/2025 [facility] Comment on above: 1 Occurrences starti ng 11/01/2024 until 12/01/2025 End: 10-14-2025 XR Knee - left 4 Views XR KNEE GENERAL 4V AP BOTH/PA BOTH/LAT/MERC LEFT Radiology Routine Polyarthralgia Dry eye syndrome of both eyes Weakness Chronic pain of both shoulders Bilateral hip pain Chronic pain of both knees 1 Occurrences starting 09/14/2024 until 10/14/2025 [facility] Work Phone: Comment on above: 1 Occurrences starti ng 09/14/2024 until 10/14/2025 XR Knee - left 4 Views XR KNEE G ENERAL 4V AP BOTH/PA BOTH/LAT/MERC LEFT Radiology Routine Polyarthralgia Dry eye syndrome of both eyes Weakness Chronic pain of both shoulders Bilateral hip pain Chronic pain of both knees 09/14/2024 3:43 PM EDT [facility] End: 12-01-2025 XR Sacroiliac Joint Views XR SACROILIAC JOINTS 2V AP PELVIS/FERGUESON Radiology Routine Giant cell arteritis (HCC) PMR (polymyalgia rheumatica) (HCC) Lung nodule MDA5 antibody positive Chronic bilateral low back pain without sciatica Chronic sacroiliac joint pain Chronic neck pain 1 Occurrences starting 11/01/2024 until 12/01/2025 [facility] Comment on above: 1 Occurrences starti ng 11/01/2024 until 12/01/2025 Immunizations Immunization Date Immunization Notes Care Provider Chadwick coppola 05-25-2022 influenza virus vacc ine, unspecified formulation Cony Beckwith PA-C Work Phone: [facility] Payers Date Payer Category Payer Self-pay 2023 Medicare (Managed Care) [employer] [place] [employer] [id number] 2023 Medicare [id number] 2021 Medicaid [id number] Unknown [id number]. 462 Unknown [id number] [id number]. 462 Unknown [id number] [id number]. 462 Unknown [id number] 2.16.840.1.274153.3.579.2. 462 Unknown [id number] 2.16.840.1.974587.3.579.2. 462 Unknown [id number] 2.16.840.1.716310.3.579.2. 462 Unknown [id number] 2.16.840.1.437036.3.579.2. 462 Unknown [id number] 2.16.840.1.813665.3.579.2. 462 Unknown [id number] 2.16.840.1.399658.3.579.2. 462 Unknown [id number] 2.16.840.1.024034.3.579.2. 462 Unknown [id number] 2.16.840.1.452775.3.579.2. 462 Unknown [id number] 2.16.840.1.284841.3.579.2. 462 Unknown [id number] 2.16.840.1.343470.3.579.2. 462 Unknown [id number] 2.16840.1.101303.3.579.2. 462 Unknown [id number] 2.16840.1.642920.3.579.2. 462 Unknown [id number] [id number]. 462 Social History Date Type Detail Facility Start: 09-14-2024 [facility] History of tobacco use Cigarette Smoker [facility] Start: 03-09-2023 End: 09-14-2024 Cigarettes smoked current (pack per day) - Reported 0.5 [facility] Start: 09-14-2024 Tobacco use and exposure Smoke less tobacco non-user [facility] Start: 09-14-2024 End: 11-01-2024 Alcoholic beverage intake Current drinker of alcohol (finding) [facility] Start: 03-09-2023 End: 09-14-2024 Tobacco use panel [facility] National Score (1-10 0), lower number is lower risk 89 [facility] Start: 09-14-2024 Alcohol Comment Beer everyday - 3- 16 oz cans [facility] Start: 1955 Sex assigned at Not on file [facility] Clinical Notes 09-14-2024 to 11-01-2024 Cony Beckwith [...] Service: 11/01/2024 Patient: Aroldo Navarrete Medical Record: [id number] Primary Care Physician: Marjorie Be DO History [...] CARDIOVASCULAR: GENITOURINARY: HEMATOLOGIC/LYMPHATIC: No Jaw claudication, no pentecostal swanson, no sudden vision loss. + Vision [...] 3.7 - 5.1 mmol/L 4.3 4.4 Potassium, [place] 3.5 - 5.0 mmol/L 4.7 Chloride 98 - 107 mmol/L 102 89 Chloride, [place] 98 - 110 mmol/L 102 CO2 22 - 30 mmol/L 28 24 CO2, [place] 23.0 - 32.0 mmol/L 29.6 Glucose 74 - 99 mg/dL 102 89 Glucose, [place] 65 - 100 mg/dL 97 BUN 9 - 24 mg/dL 11 13 BUN, [place] 10 - 25 mg/dL 9 Creatinine 0.73 - 1.22 mg/dL 0.97 0.84 Creatinine, [place] 0.7 - 1.4 mg/dL 1.1 Calcium, [place] 8.5 - 10.5 mg/dL 9.1 Calcium 8.5 - 10.2 mg/dL 10.0 9.1 AST 14 - 40 U/L 46 AST, [place] 7 - 40 U/L 18 ALT 10 [...] Negative KAREN Titer 1:320 KAREN Pattern Homogeneous SD-[address]-7 ANTIBODY Negative Negative [...] Unremarkable left knee. Right knee Owen-Stieda lesion. Vp Product Marketing: CLARISSA Transcribe Date/Time: Sep 17 2024 10:08P... Last XR Chest - Impression Only XR CHEST PA W RIBS LT Collected: 04/15/2015 12:03 PM (Final result) Impression: IMPRESSION: No radiographic evidence of rib fracture or other acute pathology. Vp Product Marketing: RADHA Transcribe Date/Time: Apr 16 2015 7:50A [...] (primary encounter diagnosis) (M35.3) PMR (polymyalgia rheumatica) ([facility]) Temporal artery biopsy was negative for active [...] MDA5 antibody positive Per Dr. 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 Patient/authorized textile designs sales representative agreed to proceed Follow up 3-4 weeks, pending above evaluation I spent a total of 40 minutes on the date of the service which included preparing to see the patient, [id number] patient care, completing clinical documentation, obtaining and/or reviewing separately obtained history, performing a medically appropriate examination, and counseling and educating the patient/family/caregiver. Cony Beckwith PA-C Rheumatology documented in this encounter [facility] 11-01-2024 Note HNO ID: [id number] Author: CONY BECKWITH PA-C Service: ? Author Type: Physician Chair And Couch Maker Type: Progress Notes Filed: 11/01/2024 16:24 Note Text: Rheumatology FOLLOW UP VISIT Date of Service: 11/01/2024 Patient: Aroldo Navarrete Medical Record: [id number] Primary Care Physician: Marjorie Be DO History [...] it. He rep (more content not included)... [facility] 10-30-2024 Telephone encounter Note Temporal Artery Biopsy result is negative for Giant Cell Arteritis I have been in discussion with Dr. Forrester from [facility]. She feels giant cell arteritis [...] with his prednisone taper. Thank you, Cony [facility] 10-30-2024 Miscellaneous Notes Temporal Artery Biopsy result is negative for Giant Cell Arteritis I have been in discussion with Dr. Forrester from [facility]. She feels giant cell arteritis [...] Thank you, Cony documented in this encounter [facility] 10-25-2024 Note HNO ID: [id number] Author: RENNY FORRESTER MD Service: ? Author Type: Physician Type: Progress Notes Filed: 10/25/2024 08:08 Note Text: Rheumatology Clinic Telephone Visit Date of Service: 10/25/2024 Patient: Aroldo Navarrete Medical Record: [id number] Primary Care Physician: Marjorie Be DO Last Rheumatology visit: 10/13/2024 (with Renny Forrester) I have communicated my name and active licensure. The patient's identity and physical location were verified at the time of this visit. Either the patient or their legal textile designs sales representative has been informed of the risks [...] consistent with s (more content not included)... [facility] 10-18-2024 Telephone encounter Note External order can be cancelled, pt had this done at [facility] on Wednesday. Cony Beckwith PA-C [facility] 10-18-2024 Miscellaneous Notes External order can be cancelled, pt had this done at [facility] on Wednesday. Cony Beckwith PA-C Received via fax: [facility] Date: 10/17/24 Noted: [facility] Ph. [phone] option #1 Requesting clarification to be faxed to their office regarding EMG on which side and which extremity Please fax back order to [phone] Ruby Fowler LPN documented in this encounter [facility] 10-18-2024 Telephone encounter Note Received via fax: [facility] Date: 10/17/24 Noted: Pulmonary[facility]Neurology[facility] Ph. [phone] option #1 Requesting clarification to be faxed to their office regarding EMG on which side and which extremity Please fax back order to [phone] Ruby Fowler LPN [facility] Work Phone: 10-18-2024 Telephone encounter Note Repeat Chest CT ordered for 6-12 mo in future per radiology recommendation for lung nodule Cony Beckwith PA-C [facility] 10-18-2024 Miscellaneous Notes Repeat Chest CT ordered for 6-12 mo in future per radiology recommendation for lung nodule Cony Beckwith PA-C documented in this encounter [facility] 10-18-2024 Telephone encounter Note Forms processed and records sent back to [employer] that have been requested. Confirmation received. [facility] 10-18-2024 Miscellaneous Notes Forms processed and records sent back to [facility] that have been requested. Confirmation received. Paperwork was received on 10/13/2024. I called and left a detailed message for the patient on his voicemail that it has been received, but has not been processed yet. Patient calling in wondering if his disability paperwork has been received via fax? Patient is requesting a call back. Roya Juarez LPN documented in this encounter [facility] 10-17-2024 Telephone encounter Note Paperwork was received on 10/13/2024. I called and left a detailed message for the patient on his voicemail that it has been received, but has not been processed yet. [facility] 10-16-2024 Telephone encounter Note Patient calling in wondering if his disability paperwork has been received via fax? Patient is requesting a call back. Roya Juarez LPN [facility] 10-14-2024 Telephone encounter Note Pre-Procedure Note Patient [...] the biopsy closer to his home in [place], [place]. [facility] Work Phone: 10-14-2024 Miscellaneous Notes Pre-Procedure Note [...] the biopsy closer to his home in [place], [place]. documented in this encounter [facility] 10-13-2024 Instructions Renny Forrester MD - 10/13/2024 [...] of Rheumatic & Immunologic Diseases Medical Specialties [place] Office: [phone] Appt: [phone] Address: [address] [place] [address] / [address] Central [phone] You can go to any [facility] lab location (link of locations below) for your labs and/or x-rays unless I have told you otherwise. You do not need an appointment for the labs or to bring the lab any additional information. If you would like to schedule an appointment, you can call [phone] to do so or schedule through [employer]. [email or web address] documented in this encounter [facility] 10-13-2024 History of Present illness Narrative Images from the original note were not included. Rheumatology Clinic Follow-up Visit Date of Service: 10/13/2024 Patient: Aroldo Navarrete Medical Record: [id number] Primary Care Physician: No primary care provider on file. Last Rheumatology visit: None at [facility] Interval History Aroldo Navarrete is a 69 [...] 4+/5 Wrist extension R 5/5, L 5/5 Armored Vehicle Officer strength R 5/5, L 5/5 Hip flexion [...] which included preparing to see the patient, [id number] patient care, completing clinical documentation, obtaining and/or reviewing separately obtained history, performing a medically appropriate examination, counseling and educating the patient/family/caregiver, and ordering medications, tests, or procedures. Parts of this note may be have been copied from previous progress notes, but all of it was reviewed for accuracy. Renny Forrester MD Department of Rheumatic & Immunologic Diseases Medical Special[facility] [place] documented in this encounter [facility] 10-13-2024 Note HNO ID: [id number] Author: RENNY FORRESTER MD Service: ? Author Type: Physician Type: Progress Notes Filed: 10/14/2024 14:11 Note Text: Rheumatology Clinic Follow-up Visit Date of Service: 10/13/2024 Patient: Aroldo Navarrete Medical Record: [id number] Primary Care Physician: No primary care provider on file. Last Rheumatology visit: None at [facility] Interval History Aroldo Navarrete is a 69 [...] - July 2024. He was seen at [facility] for headache, myalgia, fatigue, cough, congestion. [...] 4+/5 Wrist extension R 5/5, L 5/5 Armored Vehicle Officer strength R 5/5, L 5/5 Hip flexion R 4+/5, L 4+/5 Knee flexion R 4+/5, L 4+/5 Knee extension R 4+/5, L 4+/5 Ankle flexion R 4+/5, L 4+/5 Ankle extension R 4+/5, L 4+/5 MSK: Spine: No visible abnormalities. Full ROM. No tenderness to palpation. Upper extremities: Normal inspection of joints. Shoulder, elbow (more content not included)... [facility] 10-13-2024 Note HNO ID: [id number] Author: MARY XIONG MD Service: ? Author [...] when applicable. Foster BustilloNCS.T Mary Xiong MD [facility] 10-13-2024 History of Present illness Narrative UNIVERSAL [...] Mary Xiong MD documented in this encounter [facility] 10-11-2024 History of Present illness Narrative Radiology [...] PATIENT PRESENTS WITH AN IMPLANTABLE OR ATTACHED MARBLE POLISHER: No RADIOLOGY DEPARTMENT: CT; Exam(s) Completed: Chest PERIPHERAL IV DATA: Not applicable SIGNED BY: RT Jessica(Mitchel) October 11, 2024 12:22 PM documented in this encounter [facility] 10-11-2024 Note HNO ID: [id number] Author: ANGELLA NINO RT (R) Service: ? Author Type: Data Support Specialist Type: Progress Notes Filed: 10/11/2024 12:22 Note [...] PATIENT PRESENTS WITH AN IMPLANTABLE OR ATTACHED MARBLE POLISHER: No RADIOLOGY DEPARTMENT: CT; Exam(s) Completed: Chest PERIPHERAL IV DATA: Not applicable SIGNED BY: RT Jessica(Mitchel) October 11, 2024 12:22 PM [facility] 10-04-2024 Telephone encounter Note EMG order faxed to [facility] and Referral started. Made note asking for it to be done before 10/13/24. CT and Lung Volumes scheduled for 10/11. Called and left VM informing the patient. Sheryl Fried RN [facility] 10-04-2024 Miscellaneous Notes EMG order faxed to [facility] and Referral started. Made note asking for [...] and EMG preferably before he goes to [facility] next week. Can this be scheduled in [place]? documented in this encounter [facility] 10-04-2024 Telephone encounter Note Also, sorry for the trouble, but I forgot to order one of the pulmonary function tests before he went today (I wasn't expecting him to get in same day). Can we arrange for him to get that done before/After the CT scan? Order is in. Thanks! KG [facility] 10-04-2024 Note HNO ID: [id number] Author: CONY BECKWITH PA-C Service: ? Author Type: Physician Chair And Couch Maker Type: Progress Notes Filed: 10/04/2024 16:21 Note Text: Rheumatology FOLLOW UP VISIT Date of Service: 10/04/2024 Patient: Aroldo Navarrete Medical Record: [id number] Primary Care Physician: No primary care provider [...] week and may need documentation sent to [facility]. Pain Evaluation 04/15/2015 09/14/2024 09/27/2024 Pain Evaluation Pain Score 6 7 10 Location Chest -- -- Location Comment All over everywhere Description Aching;Sore Aching Cramping Duration (#) 1 4 -- Duration (Timeframe) Weeks Months Frequency Continuous Continuous Continuous Intervention Medication Other: See comment Patient-Entered Data None Review of Systems No Jaw claudication, no pentecostal swanson, no sudden vision loss. + Vision [...] 1.45 - 7.50 k/uL 2.73 Abs Lymp, [place] 1.00 - 4.00 k/uL 2.28 Latest Ref Rng AND Units 01/05/2012 09/14/2024 CMP Sodium 136 - 144 mmol/L 141 Sodium, [place] 135 - 146 mmol/L 142 Potassium 3.7 - 5.1 mmol/L 4.3 Potassium, [place] 3.5 - 5.0 mmol/L 4.7 Chloride 98 - 107 mmol/L 102 Chloride, [place] 98 - 110 mmol/L 102 CO2 22 - 30 mmol/L 28 CO2, [place] 23.0 - 32.0 mmol/L 29.6 Glucose 74 - 99 mg/dL 102 Glucose, [place] 65 - 100 mg/dL 97 BUN 9 [...] AND Units 09/27/2024 Antibodies KAREN Negative Negative SD-[address]-7 ANTIBODY Negative Negative [...] knee Owen-Stieda les (more content not included)... [facility] 10-04-2024 History of Present illness Narrative Images from the original note were not included. Rheumatology FOLLOW UP VISIT Date of Service: 10/04/2024 Patient: Aroldo Navarrete Medical Record: [id number] Primary Care Physician: No primary care provider [...] Review of Systems No Jaw claudication, no pentecostal swanson, no sudden vision loss. + Vision [...] 150 - 400 k/uL 173 Abs Neut, [place] 1.45 - 7.50 k/uL 2.73 Abs Lymp, [place] 1.00 - 4.00 k/uL 2.28 Latest Ref Rng & Units 01/05/2012 09/14/2024 CMP Sodium 136 - 144 mmol/L 141 Sodium, [place] 135 - 146 mmol/L 142 Potassium 3.7 - 5.1 mmol/L 4.3 Potassium, [place] 3.5 - 5.0 mmol/L 4.7 Chloride 98 - 107 mmol/L 102 Chloride, [place] 98 - 110 mmol/L 102 CO2 22 - 30 mmol/L 28 CO2, [place] 23.0 - 32.0 mmol/L 29.6 Glucose 74 - 99 mg/dL 102 Glucose, [place] 65 - 100 mg/dL 97 BUN 9 - 24 mg/dL 11 BUN, [place] 10 - 25 mg/dL 9 Creatinine 0.73 - 1.22 mg/dL 0.97 Creatinine, [place] 0.7 - 1.4 mg/dL 1.1 Calcium, Juan [...] & Units 09/27/2024 Antibodies KAREN Negative Negative SD-[address]-7 ANTIBODY Negative Negative [...] Unremarkable left knee. Right knee Owen-Stieda lesion. Vp Product Marketing: CLARISSA Transcribe Date/Time: Sep 17 2024 10:08P... Last XR Chest - Impression Only XR CHEST PA W RIBS LT Collected: 04/15/2015 12:03 PM (Final result) Impression: IMPRESSION: No radiographic evidence of rib fracture or other acute pathology. Vp Product Marketing: RADHA Transcribe Date/Time: Apr 16 2015 7:50A [...] Continue current prednisone dosage; refill sent to [facility] in [place]. - Ordered EMG and nerve conduction studies to be performed at [facility] within a week. - Referral to a specialist in polymyositis for further evaluation at [facility] # Shortness of breath (R06.02) [...] prescribed; a refill has been sent to [facility] in [place]. Schedule an EMG (nerve study) at any [facility] within the week - a referral has been provided to help confirm your diagnosis. Complete pulmonary function tests (breathing tests) to assess your lung function; these tests are important given your symptoms. - Schedule CT scan of chest. - Follow up next Wednesday with specialist at [facility] Recording using TowerMetriX software for draft documentation of the visit was discussed with the patient/authorized textile designs sales representative; all questions welcomed and answered. Patient/authorized textile designs sales representative agreed to proceed Refer for 1 week follow up with Dr. Forrester at [facility] 10/13/24 as scheduled Cancel my appointment next week Will send her a staff message for continuity of care I spent a total of 30 minutes on the date of the service which included preparing to see the patient, [id number] patient care, completing clinical documentation, obtaining and/or reviewing separately obtained history, performing a medically appropriate examination, counseling and educating the patient/family/caregiver, and ordering medications, tests, or procedures. Cony Beckwith PA-C Rheumatology Date: October 04, 2024 Time: 3:01 PM documented in this encounter [facility] 10-04-2024 Telephone encounter Note Patient needs CT scan, and EMG preferably before he goes to [facility] next week. Can this be scheduled in [place]? [facility] 10-04-2024 Instructions Cony Beckwith PA-C - 10/04/2024 10:37 AM EDT Continue taking your prednisone as prescribed; a refill has been sent to [facility] in [place]. Schedule an EMG (nerve study) at any [facility] within the week - a referral has been provided to help confirm your diagnosis. Complete pulmonary function tests (breathing tests) to assess your lung function; these tests are important given your symptoms. Expect to be contacted regarding scheduling a follow-up appointment with a specialist experienced in this condition, preferably at a location closer to [place] if possible. The note from your visit on September 19 is on file with your employer; if additional paperwork is needed, they can send a fax request. You have an appointment at [facility] on 10/13/2024 at 3:[address] Forrester of [facility] rheumatology. Please arrive at 2:45 for this appointment/. documented in this encounter [facility] 09-28-2024 Telephone encounter Note Patient called needing [...] VM notifying the patient. Sheryl Fried RN [facility] 09-28-2024 Miscellaneous Notes Patient called needing a [...] Sheryl Fried RN documented in this encounter [facility] 09-27-2024 Note HNO ID: [id number] Author: CONY BECKWITH PA-C Service: ? Author Type: Physician Chair And Couch Maker Type: Progress Notes Filed: 09/27/2024 16:29 Note Text: Rheumatology FOLLOW UP VISIT Date of Service: 09/27/2024 Patient: Aroldo Navarrete Medical Record: [id number] Primary Care Physician: No primary care provider on file. Last Rheumatology visit: None at [facility] History of Present Illness Aroldo is a [...] Review of Systems No Jaw claudication, no pentecostal swanson, no sudden vision loss. + Vision [...] Hemoglobin 13.0 - 17.0 g/dL 16.6 Hemoglobin, [place] 13.0 - 17.0 g/dL 16.7 Hematocrit 39.0 [...] Potassium 3.7 - 5.1 mmol/L 4.3 Potassium, [place] 3.5 - 5.0 mmol/L 4.7 Chloride 98 - 107 mmol/L 102 Chloride, [place] 98 - 110 mmol/L 102 CO2 22 - 30 mmol/L 28 CO2, [place] 23.0 - 32.0 mmol/L 29.6 Glucose 74 - 99 mg/dL 102 Glucose, [place] 65 - 100 mg/dL 97 BUN 9 - 24 mg/dL 11 BUN, [place] 10 - 25 mg/dL 9 Creatinine 0.73 - 1.22 mg/dL 0.97 Creatinine, [place] 0.7 - 1.4 mg/dL 1.1 Calcium, [place] 8.5 - 10.5 mg/dL 9.1 Calcium 8.5 - 10.2 mg/dL 10.0 AST 14 - 40 U/L 46 AST, [place] 7 - 40 U/L 18 ALT 10 [...] Unremarkable left knee. Right knee Owen-Stieda lesion. Vp Product Marketing: CLARISSA Transcribe Date/Time: Sep 17 2024 10:08P... Last XR Chest - Impression Only XR CHEST PA W RIBS LT Colle (more content not included)... [facility] 09-19-2024 Telephone encounter Note Forms received from [employer] asking for office notes from visit. Notes were faxed back to the fax number on the forms. Confirmation received. [facility] 09-19-2024 Miscellaneous Notes Forms received from [employer] asking for office notes from visit. Notes were faxed back to the fax number on the forms. Confirmation received. Patient calling in wondering if a fax has been received from his insurance [employer]. Patient requesting a call back. Roya Juarez LPN documented in this encounter [facility] 09-18-2024 Telephone encounter Note Patient calling in wondering if a fax has been received from his insurance [employer]. Patient requesting a call back. Roya Juarez LPN [facility] 09-14-2024 Telephone encounter Note [facility] calling to update us that the patient is having a nurse visit for BP and med check at 9:30am tomorrow. Sheryl Fried RN [facility] 09-14-2024 Miscellaneous Notes [facility] calling to update us that the patient is having a nurse visit for BP and med check at 9:30am tomorrow. Sheryl Fried RN Patient was referred here by [facility]. Patient had 3 high blood pressure readings today in the office. Provider asked if we could let [facility] know about the readings and see [...] from their office. documented in this encounter [facility] 09-14-2024 History of Present illness Narrative Radiology [...] PATIENT PRESENTS WITH AN IMPLANTABLE OR ATTACHED MARBLE POLISHER: No RADIOLOGY DEPARTMENT: General X-ray: Exam(s) Completed: Lower Extremity X-Ray(s): Knee, AP / Lat / Tunne / Merchant Left and Wt. Bearing PERIPHERAL IV DATA: Not applicable SIGNED BY: RT Jagdish(Mitchel) September 14, 2024 3:29 PM documented in this encounter [facility] 09-14-2024 Note HNO ID: [id number] Author: KAY NICHOLAS RT(R) Service: Radiology Author [...] PATIENT PRESENTS WITH AN IMPLANTABLE OR ATTACHED MARBLE POLISHER: No RADIOLOGY DEPARTMENT: General X-ray: Exam(s) Completed: Lower Extremity X-Ray(s): Knee, AP / Lat / Tunne / Merchant Left and Wt. Bearing PERIPHERAL IV DATA: Not applicable SIGNED BY: RT Jagdish(R) September 14, 2024 3:29 PM [facility] 09-14-2024 Telephone encounter Note Patient was referred here by [facility]. Patient had 3 high blood pressure readings today in the office. Provider asked if we could let [facility] know about the readings and see [...] to fax over records from their office. [facility] 09-14-2024 Instructions Cony Beckwith PA-C - 09/14/2024 [...] results next week. documented in this encounter [facility] 09-14-2024 Note HNO ID: [id number] Author: CONY BECKWITH PA-C Service: ? Author Type: Physician Chair And Couch Maker Type: Progress Notes Filed: 09/14/2024 15:51 Note Text: Rheumatology CONSULTATION Date of Service: 09/14/2024 Patient: Aroldo Navarrete Medical Record: [id number] Primary Care Physician: No primary care provider on file. Last Rheumatology visit: None at [facility] Referring Provider: Marjorie Be [address] [facility] [address] Aroldo Navarrete is here today at request of Dr. Marjorie Be specifically for consultation of my opinion in regards to the chief complaint listed below. Correspondence will be shared today via the [facility] electronic health record or through regular mail, [...] vapes marijuana - Occupation: Formerly employed at [employer] ([employer]) - Living conditions: Resides in [place] Current Medications Current Outpatient Medications Medication Sig [...] Ref Rng AND Units 01/05/2012 CBC Hemoglobin, [place] 13.0 - 17.0 g/dL 16.7 Abs Neut, [place] 1.45 - 7.50 k/uL 2.73 Abs Lymp, [place] 1.00 - 4.00 k/uL 2.28 Latest Ref Rng AND Units 01/05/2012 CMP Sodium, [place] 135 - 146 mmol/L 142 Potassium, [place] 3.5 - 5.0 mmol/L 4.7 Chloride, [place] 98 - 110 mmol/L 102 CO2, [place] 23.0 - 32.0 mmol/L 29.6 Glucose, [place] 65 - 100 mg/dL 97 BUN, [place] 10 - 25 mg/dL 9 Creatinine, [place] 0.7 - 1.4 mg/dL 1.1 Calcium, [place] 8.5 - 10.5 mg/dL 9.1 AST, [place] 7 - 40 U/L 18 ALT, [place] 5 - 50 U/L 12 [facility] Labs: (07/18/2024) - ESR: 25 (elevated) - CBC: - WBC: 5.3 (normal) - Platelets: 343 (normal) - Hemoglobin: 14.3 (normal) - Hematocrit: 41.4 (normal) - CRP: 29 (elevate (more content not included)... [facility] 09-14-2024 History of Present illness Narrative Images from the original note were not included. Rheumatology CONSULTATION Date of Service: 09/14/2024 Patient: Aroldo Navarrete Medical Record: [id number] Primary Care Physician: No primary care provider on file. Last Rheumatology visit: None at [facility] Referring Provider: Marjorie Be [address] [facility] [place] [address] Aroldo Navarrete is here today at request of Dr. Marjorie Be specifically for consultation of my opinion in regards to the chief complaint listed below. Correspondence will be shared today via the [employer] electronic health record or through regular mail, [...] vapes marijuana - Occupation: Formerly employed at [employer] - Living conditions: Resides in [place] Current Medications Current Outpatient Medications Medication Sig [...] Ref Rng & Units 01/05/2012 CMP Sodium, [place] 135 - 146 mmol/L 142 Potassium, [place] 3.5 - 5.0 mmol/L 4.7 Chloride, [place] 98 - 110 mmol/L 102 CO2, [place] 23.0 - 32.0 mmol/L 29.6 Glucose, [place] 65 - 100 mg/dL 97 BUN, [place] 10 - 25 mg/dL 9 Creatinine, [place] 0.7 - 1.4 mg/dL 1.1 Calcium, [place] 8.5 - 10.5 mg/dL 9.1 AST, [place] 7 - 40 U/L 18 ALT, [place] 5 - 50 U/L 12 [place] [facility] Labs: (07/18/2024) - ESR: 25 (elevated) - CBC: - WBC: 5.3 (normal) - Platelets: 343 (normal) - Hemoglobin: 14.3 (normal) - Hematocrit: 41.4 (normal) - CRP: 29 (elevated) - Double-stranded DNA: Normal - SSA: Normal - SSB: Normal - Chromatin Antibody: Normal - Ciarra-1 Antibody: Normal - BILLING REPRESENTATIVE Antibody: Normal - Scleroderma Antibody: Normal - Galdamez Antibody: Normal - Centromere Antibody: Normal - Magnesium: 2.3 - TSH: 1.26 (normal) - Thyroid Peroxidase Antibody: Normal at 15 - Thyroglobulin Antibody: Normal at 1 - T3: 2.3 (normal) - T4: 0.7 (normal) Imaging Imaging done at [facility]: (07/18/2024) - Chest X-ray: Moderate to [...] of rib fracture or other acute pathology. Vp Product Marketing: RADHA Transcribe Date/Time: Apr 16 2015 7:50A [...] Full ROM in flexion and extension. Full galley boy strength. No swelling or synovitis along the [...] to the Rheumatology activity and complete the [facility] joint exam. Joint Exam 09/14/2024 No joint [...] which included preparing to see the patient, [id number] patient care, completing clinical documentation, obtaining and/or reviewing separately obtained history, performing a medically appropriate examination, counseling and educating the patient/family/caregiver, and ordering medications, tests, or procedures. Cony Beckwith PA-C Rheumatology Date: September 14, 2024 Time: 3:48 PM documented in this encounter [facility] Evaluation note Diagnosis Polyarthralgia- Primary Pain in joint, multiple sites Ganglion, left wrist Dry eye syndrome of both eyes Weakness Other malaise and fatigue Chronic pain of both shoulders Pain in joint, shoulder region Bilateral hip pain Pain in joint, pelvic region and thigh Chronic pain of both knees Essential (primary) hypertension Unspecified essential hypertension [facility] Diagnosis Polyarthralgia Pain in joint, multiple [...] nodule Solitary pulmonary nodule PMR (polymyalgia rheumatica) ([facility]) Polymyalgia rheumatica [facility] Giant cell arteritis (HCC)- Primary Giant cell arteritis PMR (polymyalgia rheumatica) (HCC) Polymyalgia rheumatica Lung nodule Solitary pulmonary nodule MDA5 antibody positive Chronic bilateral low back pain without sciatica Chronic sacroiliac joint pain Disorders of sacrum Chronic neck pain 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 for visit Narrative* Diagnostic Procedure Only [...] KNEE COMPLETE 4/MORE VIEWS Cony Beckwith PA-C [address] [place] [address] Phone: tel: fax: [facility] [place] [phone] Referral ID Status Reason Start Date Expiration Date V isits Requested Visits Authorized [id number] Closed Auto-Generate d Referral 09/14/2024 10/14/2025 [address] 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[facility]) Chronic pain of both shoulders Shortness of [...] PA-C [address] [place] [address] Phone: tel: fax: Neurology [address] [place] [address] Phone: tel: Referral ID Status Reason Start Date Expiration Date V isits Requested Visits Authorized [id number] Closed Auto-Generate d Referral 10/12/2024 06/06/2025 1 1 [facility] N[facility]* Consult, Test, Treat (Routine) - Closed Specialty Diagnoses / Procedures Referred By Julio César mendez Referred To Contact Rheumatology / RHEUMATOLOGY Diagnoses myositis per clarence beckwith Procedures [facility] Renny Forrester MD [address] [place] [address] Phone: tel: fax: Renny Forrester MD [address] [place] [address] Phone: tel: fax: Referral ID Status Reason Start Date Expiration Date Visits Re quested Visits Authorized [id number] Closed 10/13/2024 06/06/2025 1 1 [facility] Summary Purpose Family History No Family History [...] or prosecute any alcohol or drug abuse patient.[facility] Center[facility] the event this information is protected by the Federal Confidentiality of Alcohol and Drug Abuse Patient Records regulations: The Federal rules restrict any use of the information to criminally investigate or prosecute any alcohol or drug abuse patient.[facility] the event this information is protected by the Federal Confidentiality of Alcohol and Drug Abuse Patient Records regulations: The Federal rules restrict any use of the information to criminally investigate or prosecute any alcohol or drug abuse patient.[facility] the event this information is protected by the Federal Confidentiality of Alcohol and Drug Abuse Patient Records regulations: The Federal rules restrict any use of the information to criminally investigate or prosecute any alcohol or drug abuse patient.[facility] Center[facility] the event this information is protected by the Federal Confidentiality of Alcohol and Drug Abuse Patient Records regulations: The Federal rules restrict any use of the information to criminally investigate or prosecute any alcohol or drug abuse patient.[facility] Center[facility] the event this information is protected by the Federal Confidentiality of Alcohol and Drug Abuse Patient Records regulations: The Federal rules restrict any use of the information to criminally investigate or prosecute any alcohol or drug abuse patient.[facility] Center[facility] the event this information is protected by the Federal Confidentiality of Alcohol and Drug Abuse Patient Records regulations: The Federal rules restrict any use of the information to criminally investigate or prosecute any alcohol or drug abuse patient.[facility] Center[facility] the event this information is protected by the Federal Confidentiality of Alcohol and Drug Abuse Patient Records regulations: The Federal rules restrict any use of the information to criminally investigate or prosecute any alcohol or drug abuse patient.[facility] Center[facility] the event this information is protected by the Federal Confidentiality of Alcohol and Drug Abuse Patient Records regulations: The Federal rules restrict any use of the information to criminally investigate or prosecute any alcohol or drug abuse patient.[facility] Center[facility] the event this information is protected by the Federal Confidentiality of Alcohol and Drug Abuse Patient Records regulations: The Federal rules restrict any use of the information to criminally investigate or prosecute any alcohol or drug abuse patient.[facility] Center[facility] the event this information is protected by the Federal Confidentiality of Alcohol and Drug Abuse Patient Records regulations: The Federal rules restrict any use of the information to criminally investigate or prosecute any alcohol or drug abuse patient.[facility] Center[facility] the event this information is protected by the Federal Confidentiality of Alcohol and Drug Abuse Patient Records regulations: The Federal rules restrict any use of the information to criminally investigate or prosecute any alcohol or drug abuse patient.[facility] Center[facility] the event this information is protected by the Federal Confidentiality of Alcohol and Drug Abuse Patient Records regulations: The Federal rules restrict any use of the information to criminally investigate or prosecute any alcohol or drug abuse patient.[facility] CenterIn the event this information is protected by the Federal Confidentiality of Alcohol and Drug Abuse Patient Records regulations: The Federal rules restrict any use of the information to criminally investigate or prosecute any alcohol or drug abuse patient.[facility] CenterIn the event this information is protected by the Federal Confidentiality of Alcohol and Drug Abuse Patient Records regulations: The Federal rules restrict any use of the information to criminally investigate or prosecute any alcohol or drug abuse patient.[facility] CenterIn the event this information is protected by the Federal Confidentiality of Alcohol and Drug Abuse Patient Records regulations: The Federal rules restrict any use of the information to criminally investigate or prosecute any alcohol or drug abuse patient.[facility] CenterIn the event this information is protected by the Federal Confidentiality of Alcohol and Drug Abuse Patient Records regulations: The Federal rules restrict any use of the information to criminally investigate or prosecute any alcohol or drug abuse patient.[facility] CenterIn the event this information is protected by the Federal Confidentiality of Alcohol and Drug Abuse Patient Records regulations: The Federal rules restrict any use of the information to criminally investigate or prosecute any alcohol or drug abuse patient.[facility] CenterIn the event this information is protected by the Federal Confidentiality of Alcohol and Drug Abuse Patient Records regulations: The Federal rules restrict any use of the information to criminally investigate or prosecute any alcohol or drug abuse patient.[facility] CenterIn the event this information is protected by the Federal Confidentiality of Alcohol and Drug Abuse Patient Records regulations: The Federal rules restrict any use of the information to criminally investigate or prosecute any alcohol or drug abuse patient.[facility] Reason for Visit (unrecogniz ed section and content) Reason Comments New patient Specialty Diagnoses / Procedures Referred By Contac t Referred To Contact Internal Medicine / RHEUMATOLOGY Diagnoses Joint pain M25.50 Joint pain Procedures OFFICE/OUTPATIENT [facility] 60 MINUTES [id number] [facility] Marjorie Love DO [address] [place] [address] Phone: tel: fax: Cony Beckwith PA-C [address] [place] [address] Phone: tel: fax: Referral ID Status Reason Start Date Expiration Date Visits Re quested Visits Authorized [id number] Closed 09/01/2024 06/06/2025 1 1 Reason Comments Insurance information Reason Comments Spirometry Specialty Diagnoses / Procedures Referred By Julio César t Referred To Contact [facility] Diagnoses Weakness Polymyositis with myopathy (HCC) Shortness of breath Procedures SPIROMETRY BASELINE ONLY SPMTRY W/VC EXPIRATORY LINH W/WO MXML VOL VNTJ Cony Beckwith PA-C [address] [place] [address] Phone: tel: fax: [facility] [place] [address] [place] [address] Referral ID Status Reason Start Date Expiration Date V isits Requested Visits Authorized [id number] Closed Auto-Generate d Referral 10/04/2024 11/03/2025 1 1 Specialty Diagnoses / Procedures Referred By Julio César mendez Referred To Contact [facility] Diagnoses Weakness Polymyositis with myopathy (HCC) Shortness of breath Procedures LUNG DIFFUSION CAPACITY (DLCO) DIFFUSING CAPACITY Cony Beckwith PA-C [address] [place] [address] Phone: tel: fax: Respiratory [place] [phone] Referral ID Status Reason Start Date Expiration Date V isits Requested Visits Authorized [id number] Closed Auto-Generate d Referral 10/04/2024 11/03/2025 1 [...] OFFICE/OUTPATIENT ESTABLISHED HIGH MDM 40 MIN [facility] Cony Beckwith PA-C [address] [place] [address] Phone: tel: fax: Cony Beckwith PA-C [address] [place] [address] Phone: tel: fax: Referral ID Status Reason Start Date Expiration Date V isits Requested Visits Authorized [id number] Authorized 09/19/2024 06/06/2025 99 99 Specialty Diagnoses / Procedures Referred By Contac t Referred To Contact [facility] Diagnoses Weakness Polymyositis with myopathy (HCC) Chronic pain of both shoulders Shortness of breath Interstitial pulmonary disease (HCC) SOB (shortness of breath) Procedures LUNG VOLUMES Cony Bcekwith PA-C [address] [place] [address] Phone: tel: fax: [facility] [place] [address] [place] [address] Referral ID Status Reason Start Date Expiration Date V isits Requested Visits Authorized [id number] Closed Auto-Generate d Referral 10/04/2024 11/03/2025 1 [...] Beckwith PA-C [address] [place] [address] Phone: tel: fax: [place] [phone] Referral ID Status Reason Start Date Expiration Date V isits Requested Visits Authorized [id number] Closed Auto-Generate d Referral 10/04/2024 11/03/2025 1 1 Reason Comments disability paperwork Reason Comments Established Patient Specialty Diagnoses / Procedures Referred By Contac t Referred To Contact Rheumatology / RHEUMATOLOGY Diagnoses Encounter for medical record review Review results Procedures OFFICE/OUTPATIENT ESTABLISHED SF MDM 10 MIN OFFICE/OUTPATIENT ESTABLISHED LOW MDM 20 MIN OFFICE/OUTPATIENT ESTABLISHED MOD MDM 30 MIN OFFICE/OUTPATIENT ESTABLISHED HIGH MDM 40 MIN [facility] Cony Beckwith PA-C [address] [place] [address] Phone: tel: fax: Cony Beckwith PA-C [address] [facility] [address] [place] [address] Phone: tel: fax: Care Teams (unrecognized sec tion and content) Computer Tester Relationship Specialty [place] [address] [place] [address] Referring Family Medicine 07/27/24 Computer Tester Relationship Specialty [place] [address] [place] [address] Referring Family Medicine 07/27/24 Computer Tester Relationship Specialty Start Date End Date Marjorie Be DO [address] [place] [address] Referring Family Medicine 07/27/24 Computer Tester Relationship Specialty Start Date End Date Marjorie Be DO [address] [place] [address] Referring Family Medicine 07/27/24 Computer Tester Relationship Specialty Start Date End Date Marjorie Be DO [address] [place] [address] Referring Family Medicine 07/27/24 Computer Tester Relationship Specialty [place] [address] [place] [address] Referring Family Medicine 07/27/24 Computer Tester Relationship Specialty Start Date End Date Marjorie Be DO [address] [place] [address] Referring Family Medicine 07/27/24 Computer Tester Relationship Specialty Start Date End Date Marjorie Be DO [address] [place] [address] Referring Family Medicine 07/27/24 Computer Tester Relationship Specialty Start Date End Date Marjorie Be DO [address] [place] [address] Referring Family Medicine 07/27/24 Computer Tester Relationship Specialty Start Date End Date Marjorie Be DO [address] [place] [address] Referring Family Medicine 07/27/24 Computer Tester Relationship Specialty [place] [address] [place] [address] Referring Family Medicine 07/27/24 Computer Tester Relationship Specialty Start Date End Date Marjorie Be DO [address] [place] [address] Referring Family Medicine 07/27/24 Computer Tester Relationship Specialty Start Date End Date Marjorie Be DO [address] [place] [address] Referring Family Medicine 07/27/24 Computer Tester Relationship Specialty Start Date End Date Marjorie Be DO [address] [place] [address] Referring Family Medicine 07/27/24 Computer Tester Relationship Specialty Start Date End Date Marjorie Be DO [facility] [place] [address] PCP - General Family Medicine 10/23/24 Marjorie Be DO [address] [place] [address] Referring Family Medicine 07/27/24 Computer Tester Relationship Specialty Start Date End Date Marjorie Be DO [address] [place] [address] PCP - General Family Medicine 10/23/24 Marjorie Be DO [address] [place] [address] Referring Family Medicine 07/27/24 (unrecognized sect ion and content) No Status Records FoundNo Status Records FoundNo Status Records Found INFORMATION SOURCE (unrecogn ized section and content) DATE CREATED AUTHOR 11/07/2024 [facility] DATE CREATED AUTHOR AUTHOR'S ORGANIZ ATION 11/08/2024 [facility] DATE CREATED AUTHOR AUTHOR'S ORGANIZ ATION 11/08/2024 [facility] FOR RECORDS PERTAINING TO PATIENTS WHO ARE [...] BE BASED ON THE PRIMARY CLINICAL RECORDS. [employer] provides no warranty or guarantee of the accuracy or completeness of information in this document.
--- OUTSIDE RECORDS SUMMARY | 2024-11-19 01:15 | XMS RPT_ITS | CCD ---
Author Organization [facility] CliniSyut Care Team Providers Care General Farmer Name Role Phone [place] ReyMarjoriemarcelo Jiméneze Unavailable Marjorie Be DO Primary Care Provider JOSÉ MIGUEL JIANG Admitting Unavailable JOSÉ MIGUEL JIANG Attending Unavailable INDIANAMARJORIE HUGO CAROLYN Primary Care Unavailabl e [place] VS, Holly Referring Unavailable Ghanshyam Stapleton Attending Unavailable [place] VS, Holly Primary Care Unavailable [place] VSC, Holly Primary Care Unavailable Cony Beckwith Referring Unavailable Cony Beckwith Attending Unavailable [place] VSC, Holly Primary Care Unavailable [place] VSC, Holly Attending Unavailable [place] VSC, Holly Primary Care Unavailable Steven Martinez Referring Unavailable Steven Martinez Attending Unavailable [place] VS, Holly Primary Care Unavailable Steven Martinez Referring Unavailable Steven Martinez Attending Unavailable [place] VSC, Holly Primary Care Unavailable [place] VSC, Holly Referring Unavailable Steven Martinez Attending Unavailable Janis Bethea Attending Unavailable [place] VSC, Holly Primary Care Unavailable [place] VSC, Holly Primary Care Unavailable [place] VSC, Holly Referring Unavailable Steven Martinez Attending Unavailable [place] VSC, Holly Primary Care Unavailable [place] VSC, Holly Referring Unavailable Steven Martinez Attending Unavailable [place] VSC, Holly Primary Care Unavailable Rico Parkril Attending Unavailable [place] VSC, Holly Primary Care Unavailable Xavier Presho Attending Unavailable [place] VSC, Holly Primary Care Unavailable Beam, Zebulun Referring [...] MITZY, RENNY BEAN Attending Unavailable [place], MARJORIE CAROLYN Primary Care Unavailabl e AMENA, CONY Referring Unavailable AMENA, CONY Referring Unavailable AMENA, CONY Referring Unavailable AMENA, CONY Referring Unavailable AMENA, CONY Referring Unavailable AMENA, CONY Attending Unavailable [place], MARJORIE EPPS Referring Unavailabl e AMENA, CONY Referring Unavailable AMENA, CONY Attending Unavailable AMENA, CONY Referring Unavailable AMENA, CONY Attending Unavailable AMENA, CONY Referring Unavailable MITZY, RENNY BEAN Attending Unavailable MITZY, RENNY BEAN Referring Unavailable AMENA, CONY Attending Unavailable AMENA, CONY Referring Unavailable [place], MARJORIE EPPS Primary Care Unavailabl e [place] DO, Holly Primary Care Provider Janis Bethea Attending Provider Unavailable Dr. Rober John MD Emergency Provider Dr. Susan Churchill DO Admit Provider Dr. Susan Churchill DO Attending Provider Allergies Allergy Classification Reported Allergen(s) Allergy Type Date of Onset Reaction(s) Facility (10 sources) Penicillins; Translations: [PENICILLINS] Drug Allergy 5 Other: See Comments [facility] (1 source) Penicillins Drug allergy (disorder) 5 [facility] Repository (1 source) Penicillins Allergy to substance 5 [facility] Medications Current Medications Medication Drug Class(es) Dates Sig (Normalized) Sig (Original) gabapentin 100 mg oral capsule (1 source) Anti-epileptic Agent Start: 11-18-2024 take 1 capsule by mouth twice daily Gabapentin 100 mg capsule Active 100 mg PO TWICE A DAY November 18, 2024 12:00am hydroCHLOROthiazide 25 mg / lisinopril 20 mg oral tablet (1 source) Thiazide Diuretic, Angiotensin Converting Enzyme Inhibitor Start: 02-08-2024 Lisinopril-Hydroch lorothiazide 20-25 mg tablet Active 1 {tbl} PO daily February 08, 2024 12:00am iv contrast (will be provided with radiology [...] pantoprazole 40 mg delayed release oral tablet (3 sources) Proton Pump Inhibitor Start: 10-25-2024 End: 01-23-2025 take 1 tablet by mouth once daily Pantoprazole 40 mg tablet,delayed release (DR/EC) Active 40 mg PO DAILY November 18, 2024 12:00am predniSONE 20 mg oral tablet (20 sources) Start: 11-18-2024 take 1 tablet by mouth once daily Prednisone 20 mg tablet Active 20 mg PO DAILY November 18, 2024 12:00am Start: 10-30-2024 End: 11-20-2024 take 2.5 tablets [...] once daily. 21 tablet 10/25/2024 Active Start: 10-13-2024 End: 11-18-2024 take 1 tablet by mouth once daily Prednisone 10 mg tablet Discontinued 10 mg PO DAILY October 13, 2024 12:00am November 18, 2024 10:38pm Start: 09-27-2024 End: 10-18-2024 take 1 tablet by mouth once daily predniSONE (DELTASONE) 20 mg tablet Take 1 tablet by mouth once daily for 14 days. Do not stop suddenly, call office when you are running low. 14 tablet 10/04/2024 10/13/2024 Discontinued Start: 04-04-2024 End: 04-14-2024 Prednisone 5 mg tablets,dose pack Discontinued 0 PO per package directions 48 April 04, 2024 12:00am April 13, 2024 1:00am April 14, 2024 1:09am PO PER PKG DIR Quinine-Vitamin E capsule (1 source) Start: 08-10-2024 Quinine-Vitamin E capsule Active 1 NMA PO daily August 10, 2024 1:00am tiZANidine 4 mg oral capsule (20 sources) Central alpha-2 Adrenergic Agonist Start: 06-18-2024 take 1 capsule by mouth at bedtime as needed Tizanidine 4 mg capsule Active 4 mg PO AT BEDTIME as needed for muscle spasticity August 10, 2024 1:00am Completed/Discontinued Medications Medication Drug Class(es) Dates Sig (Normalized) Sig (Original) hydroCHLOROthiazide 25 mg oral tablet (1 source) Thiazide Diuretic Start: End: take 1 tablet by mouth once daily Hydrochlorothiazide 25 mg tablet Discontinued 25 mg PO DAILY June 29, 2023 1:00am February 08, 2024 8:23am naproxen 500 mg oral tablet (13 sources) Nonsteroidal Anti-inflammator y Drug Start: 5 End: take 1 tablet by mouth twice daily as needed for pain naproxen (NAPROSYN) 500 mg tablet Indications: Rib pain on left side Take 1 tablet by mouth twice daily as needed (for pain/inflammation). Take with food. 20 tablet 0 04/15/2015 10/13/2024 Discontinued Problems Active Problems Problem Classification Problem Date Documented Da te Episodic/Chronic Administrative/social admission (1 source) Repeated prescription; Translations: [Encounter for issue of repeat prescription] 07-07-2023 Episodic Conditions associated with dizziness or vertigo (2 sources) Dizziness; Translations: [Dizziness and giddiness] 11-18-2024 Episodic Delirium, dementia, and amnestic and other cognitive disorders (1 source) Age-related physical debility; Translations: [Age-related physical debility] Onset: 08-01-2024 Chronic Essential hypertension (20 sources) Essential hypertension; Translations: [Essential (primary) hypertension] Onset: 12-03-2023 09-14-2024 Chronic Fluid and electrolyte disorders (2 sources) Acute hyponatremia; Translations: [Hypo-osmolality and hyponatremia] 11-18-2024 Episodic Immunizations and screening for infectious disease (6 sources) Autoantibody titer positive; Translations: [Other specified abnormal immunological findings in serum] Onset: 10-25-2024 10-14-2024 Episodic Malaise and fatigue (16 sources) Asthenia; Translations: [Weakness] Onset: 10-11-2024 09-14-2024 Episodic Osteoarthritis (1 source) Osteoarthritis of right knee joint; Translations: [Unilateral primary osteoarthritis, right knee] 04-04-2024 Chronic Other aftercare (1 source) Long-term current use of systemic steroid; 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] 11-01-2024 Episodic 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; Translations: [Other specified congenital malformations of skin] Onset: 01-31-2010 01-31-2010 Chronic Other connective tissue disease (6 sources) Polymyalgia rheumatica; Translations: [Polymyalgia rheumatica] Onset: 11-01-2024 10-14-2024 Chronic Other connective tissue disease (2 sources) Polymyalgia rheumatica; Translations: [PMR (polymyalgia rheumatica) ([facility])] Onset: 10-25-2024 Chronic Other connective tissue disease (1 source) Ganglion cyst of left wrist; Translations: [Ganglion, left wrist] 09-14-2024 Episodic Other connective tissue disease (2 sources) Ganglion, left wrist; Translations: [Ganglion, left wrist] Onset: 04-24-2024 Episodic Other connective tissue disease (1 source) Ganglion cyst of left dorsal wrist; Translations: [Ganglion, left wrist] 10-13-2024 Episodic Other connective tissue disease (1 source) Extensor tenosynovitis of wrist; Translations: [Extensor tenosynovitis of left wrist] 10-13-2024 Episodic Other eye disorders (3 sources) Tear film insufficiency; Translations: [Dry eye syndrome of bilateral lacrimal glands] 09-14-2024 Episodic Other eye disorders (1 source) Dry eye syndrome of bilateral lacrimal glands; Translations: [Dry eye syndrome of both eyes] Onset: 09-14-2024 Episodic Other gastrointestinal disorders (2 sources) Dysphagia; Translations: [Dysphagia, unspecified] 11-18-2024 Episodic Other gastrointestinal disorders (2 sources) Acute diarrhea; Translations: [Diarrhea, unspecified] 11-18-2024 Episodic Other lower respiratory disease (6 sources) [...] shoulder] 09-14-2024 Episodic Other non-traumatic joint disorders (5 sources) Pain in right knee; Translations: [Pain [...] pain of both knees] Onset: 09-14-2024 Episodic Other screening for suspected conditions (not mental disorders or infectious disease) (5 sources) Encounter for screening mammogram for malignant neoplasm of breast; Translations: [Abnormal results of thyroid function studies] Onset: 07-19-2024 08-10-2024 Episodic Residual codes; unclassified (20 sources) Tobacco user; Translations: [Tobacco use] Onset: 09-14-2024 09-14-2024 Episodic Spondylosis; intervertebral disc disorders; other back problems (7 sources) Chronic neck pain; Translations: [Chronic low back pain] 11-01-2024 Episodic Sprains and strains (2 sources) Sprain of medial collateral ligament of right knee, initial encounter; Translations: [Sprain of medial collateral ligament of right knee] Onset: 02-08-2024 10-13-2024 Episodic Systemic lupus erythematosus and connective tissue [...] disorders, unspecified joint] Onset: 01-31-2010 01-31-2010 Episodic Results Test Name Value Interpretation Reference Range Facility Absolute lymphocyte countOrd ered By: Rober John on 11-18-2024 Lymphocytes Auto (Unsp spec) [#/Vol] 1.36 10*3/uL 0.83-4.51 [facility] Absolute neutrophil countOrd ered By: Rober John on 11-18-2024 Neutrophils (Bld) [#/Vol] 2.8 10*3/uL 2.0-7.7 [facility] Anion gap in Serum or Plasma Ordered By: Rober John on 11-18-2024 Anion gap [Moles/Vol] 17 mmol/L High 5-15 [facility] Automated lymphocyte count a s percentage of total leukocytesOrdered By: Rober John on 11-18-2024 Lymphocytes/100 WBC Auto (Unsp spec) 30.8 % 19-41 [facility] BUN/creatinine ratioOrdered By: Rober John on 11-18-2024 Urea nitrogen/Creatinine [Mass ratio] 13.9 mg/mg 10-20 [facility] Basophil percentageOrdered B y: Rober John on 11-18-2024 Basophils/100 WBC (Bld) 0.0 % 0-1 [facility] Bilirubin, totalOrdered By: Rober John on 11-18-2024 Bilirubin [Mass/Vol] 0.63 mg/dL 0.00-1.30 [facility] Carbon dioxide, total [Moles /volume] in Central venous bloodOrdered By: Rober John on 11-18-2024 CO2 [Moles/Vol] 19.6 mmol/L Low 21.0-32.0 [facility] Chloride assayOrdered By: Trini John on 11-18-2024 Chloride [Moles/Vol] 85 mmol/L Low 98-108 [facility] Eosinophil percentageOrdered By: Rober John on 11-18-2024 Eosinophils/100 WBC (Bld) 0.0 % 0-5 [facility] Erythrocyte distribution wid th ratioOrdered By: Rober John on 11-18-2024 Erythrocyte distribution width (RBC) [Ratio] 14.0 % 11.6-14.6 [facility] Erythrocyte distribution wid th standard deviationOrdered By: Rober John on 11-18-2024 Erythrocyte distribution width (RBC) [Ratio] 43.0 fl 35.1-43.9 [facility] Glomerular filtration rate ( GFR) estimation/1.73 sq m using serum, plasma, or whole bOrdered By: Rober John on 11-18-2024 GFR/1.73 sq M.predicted among non-blacks MDRD (S/P/Bld) [Vol rate/Area] 94 mL/min/{1.73_m2} >60 [facility] Comment on above: mL/min/1.73m2 CKD-EP I Creatinine Equation (2020) Hematocrit Auto (Bld) [Volum e fraction]Ordered By: Rober John on 11-18-2024 Hematocrit (Bld) [Volume fraction] 40.7 % 40-54 [facility] Hemoglobin measurementOrdere d By: Rober John on 11-18-2024 Hemoglobin (Bld) [Mass/Vol] 15.0 g/dL 13.0-16.5 [facility] Immature granulocytes/100 WB C Auto (Bld)Ordered By: Rober John on 11-18-2024 Immature granulocytes/100 WBC (Bld) 0.500 % 0.0-0.9 [facility] Comment on above: IG% - Immature Granu locytes (promyelocytes, myelocytes and metamyelocytes) > 1% indicates that a LEFT SHIFT is Present. Laboratory - Chemistry and C hemistry - challengeOrdered By: Rober John on 11-18-2024 AST [Catalytic activity/Vol] 33 U/L <38 [facility] MCV (mean corpuscular volume ) determinationOrdered By: Rober John on 11-18-2024 MCV (RBC) [Entitic vol] 84.3 fL 80-94 [facility] Mean corpuscular hemoglobin (MCH) determinationOrdered By: Rober John on 11-18-2024 MCH (RBC) [Entitic mass] 31.1 pg 27.0-32.0 [facility] Mean corpuscular hemoglobin concentration (MCHC) determinationOrdered By: Rober John on 11-18-2024 MCHC (RBC) [Mass/Vol] 36.9 g/dL High 32-36 [facility] Mean platelet volume determi nationOrdered By: Rober John on 11-18-2024 Platelet mean volume (Bld) [Entitic vol] 9.9 fL 6.2-12.0 [facility] Monocyte percentageOrdered B y: Rober John on 11-18-2024 Monocytes/100 WBC (Bld) 5.7 % 0-10 [facility] Neutrophil percentageOrdered By: Rober John on 11-18-2024 Neutrophils/100 WBC (Bld) 63.0 % 47-70 [facility] Nucleated red blood cell per centageOrdered By: Rober John on 11-18-2024 Nucleated RBC/100 WBC (Bld) [Ratio] 0 % 0-5 [facility] Platelet countOrdered By: Trini John on 11-18-2024 Platelets (Bld) [#/Vol] 221 10*3/uL 150-450 [facility] Potassium measurement (mass/ volume)Ordered By: Rober John on 11-18-2024 Potassium (Unsp spec) [Mass/Vol] 4.2 mmol/L 3.3-5.1 [facility] RBC Auto (Bld) [#/Vol]Ordere d By: Rober John on 11-18-2024 RBC (Bld) [#/Vol] 4.83 10*6/uL 4.6-6.2 [facility] Serum creatinine measurement (mass/volume)Ordered By: Rober John on 11-18-2024 Creatinine [Mass/Vol] 0.88 mg/dL 0.70-1.20 [facility] Serum globulin measurementOr dered By: Rober John on 11-18-2024 Globulin (S) [Mass/Vol] 2.7 g/dL 2.2-4.2 [facility] Serum glucose measurement (m ass/volume)Ordered By: Rober John on 11-18-2024 Glucose [Mass/Vol] 106 mg/dL High 70-99 [facility] Serum or plasma alanine wen otransferase (ALT) measurementOrdered By: Rober John on 11-18-2024 ALT [Catalytic activity/Vol] 34 U/L <47 [facility] Serum or plasma albumin corinne urement (mass/volume)Ordered By: Rober John on 11-18-2024 Albumin [Mass/Vol] 3.9 g/dL 3.4-4.8 [facility] Serum or plasma albumin/glob ulin mass ratioOrdered By: Rober John on 11-18-2024 Albumin/Globulin [Mass ratio] 1.5 {ratio} 0.9-2.4 [facility] Serum or plasma alkaline robbi sphatase measurementOrdered By: Rober John on 11-18-2024 ALP [Catalytic activity/Vol] 75 U/L 40-129 [facility] Serum or plasma calcium corinne urement (mass/volume)Ordered By: Rober John on 11-18-2024 Calcium [Mass/Vol] 8.6 mg/dL 7.6-11.0 [facility] Serum or plasma urea nitroge n measurement (mass/volume)Ordered By: Rober John on 11-18-2024 Urea nitrogen [Mass/Vol] 12 mg/dL 4-19 [facility] Sodium levelOrdered By: Jin John on 11-18-2024 Sodium [Moles/Vol] 122 mmol/L Low 133-145 [facility] Total proteinOrdered By: Daniel Jhon on 11-18-2024 Protein [Mass/Vol] 6.6 g/dL 5.9-8.4 [facility] Troponin T.cardiac [Mass/vol ume] in Serum or Plasma by High sensitivity methodOrdered By: Rober John on 11-18-2024 Troponin T.cardiac High sensitivity method [Mass/Vol] 23 ng/L High <22 [facility] White blood cell (WBC) count Ordered By: Rober John on 11-18-2024 WBC (Bld) [#/Vol] 4.4 10*3/uL 4.4-11.0 [facility] CNPNon 11-07-2024 CNPN Telephone (RHWSTR) AROLDO NAVARRETE ([id number]) 1955 M Date Time Provider Department 11/07/24 CONY BECKWITH RUST During your visit today, we recorded the following information about you: Elizabeth Peters MA 11/07/2024 11:56 AM Signed Request for medical records from 10/05/2024 through present [facility] All records have been faxed as requested. [...] Encounter Status:Closed by ELIZABETH PETERS on 11/07/24 [facility] CNOVon 11-01-2024 CNOV Office Visit (RHWSTR ) AROLDO NAVARRETE ([id number]) 1955 M Date Time Provider Department 11/01/24 2:00 PM CONY BECKWITH RHWSTR During your visit today, we recorded the following information about you: Pulse Blood pressure Weight 92/minute 127/82 59 kg Cony Beckwith PA-C 11/01/2024 4:24 PM Signed Rheumatology FOLLOW UP VISIT Date of Service: 11/01/2024 Patient: Aroldo Navarrete Medical Record: [id number] Primary Care Physician: Marjorie Be DO History [...] for lung nodule, and continue prednisone taper ----- INTERVAL HISTORY Aroldo is a 69-year-old male [...] to these (more content not included)... [facility] NAVARRETE ([id number]) 1955 Date Time Provider Department 10/30/24 CONY BECKWITH RUST During your visit today, we recorded the following information about you: Cony Beckwith PA-C 10/30/2024 10:20 PM Signed Temporal Artery Biopsy result is negative for Giant Cell Arteritis I have been in discussion with Dr. Forrester from [facility]. She feels giant cell arteritis could still [...] or if he should return? Paperwork from [employer] received to submit records from 10/05/2024 to present. Patient was transferred to [facility] to set up CTA's, consult to pulmonology [...] (HCC) [M35.3] Order(s):CTA CHEST (NONGATED) WO/W IVCON [[id number]] Order #: [id number] FUTURE CTA ABD/PEL WO/W IVCON [[id number]] Order #: [id number] FUTURE iv contrast (will be provided with [...] 1 eachRfl: 0 CONSULT TO PULMONARY MEDICINE [[id number]] Order #: [id number]: 1 predniSONE (DELTASONE) 20 mg tabletTake 2.5 [...] specific nurs (more content not included)... [facility] Basic metabolic 2000 panelon 10-26-2024 Anion gap [Moles/Vol] 14 mmol/L Normal 8-15 [facility] Comment on above: Order Comment: Speci men Type: BLOOD SPECIMEN Ordering Facility: [facility] Address: [address] [place] [address] Performed By: #### 2 4321-2 #### [facility] CLIA [id number] [address] [place] [address] [place] Calcium [Mass/Vol] 9.1 mg/dL Normal 8.5-10.2 [facility] Comment on above: Order Comment: Speci men Type: BLOOD SPECIMEN Ordering Facility: [facility] Address: [address] [place] [address] Performed By: #### 2 4321-2 #### [facility] CLIA [id number] [address] [place] [address] [place] Chloride [Moles/Vol] 89 mmol/L Low 98-107 [facility] Comment on above: Order Comment: Speci men Type: BLOOD SPECIMEN Ordering Facility: [facility] Address: [address] [place] [address] Performed By: #### 2 4321-2 #### [facility] CLIA [id number] [address] [place] [address] [place] CO2 [Moles/Vol] 24 mmol/L Normal 22-30 [facility] Comment on above: Order Comment: Speci men Type: BLOOD SPECIMEN Ordering Facility: [facility] Address: [address] [place] [address] Performed By: #### 2 4321-2 #### [facility] CLIA [id number] [address] [place] [address] [place] Creatinine [Mass/Vol] 0.84 mg/dL Normal 0.73-1.22 [facility] Comment on above: Order Comment: Speci men Type: BLOOD SPECIMEN Ordering Facility: [facility] Address: [address] [place] [address] Performed By: #### 2 4321-2 #### [facility] CLIA [id number] [address] Creatinine and Glomerular filtration rate.predicted panel (S/P/Bld) 95 mL/min/1.73m??? Normal >=60 [facility] Comment on above: Order Comment: Kenneth vogt Type: BLOOD SPECIMEN Ordering Facility: [facility] Address: [address] [place] [address] Result Comment: Jeannette mated Glomerular Filtration Rate [...] GFR. Performed By: #### 2 4321-2 #### [facility] CLIA [id number] [address] [place] [address] [place] Glucose [Mass/Vol] 89 mg/dL Normal 74-99 [facility] Comment on above: Order Comment: Kenneth vogt Type: BLOOD SPECIMEN Ordering Facility: [facility] Address: [address] [place] [address] Result Comment: The [place] [employer] (ADA) [...] 1). Performed By: #### 2 4321-2 #### [facility] CLIA [id number] [address] [place] [facility] Potassium [Moles/Vol] 4.4 mmol/L Normal 3.7-5.1 [facility] Comment on above: Order Comment: Speci men Type: BLOOD SPECIMEN Ordering Facility: [facility] Address: [address] [place] [address] Performed By: #### 2 4321-2 #### [facility] CLIA [id number] [address] [place] Sodium [Moles/Vol] 127 mmol/L Low 136-144 [facility] Comment on above: Order Comment: Speci men Type: BLOOD SPECIMEN Ordering Facility: [facility] Address: [address] [place] [address] Performed By: #### 2 4321-2 #### [facility] CLIA [id number] [address] Urea nitrogen [Mass/Vol] 13 mg/dL Normal 9-24 [facility] Comment on above: Order Comment: Speci men Type: BLOOD SPECIMEN Ordering Facility: [facility] Address: [address] [place] [address] Performed By: #### 2 4321-2 #### [facility] CLIA [id number] [address] CBC panel Auto (Bld)on 10-26 Erythrocyte distribution width (RBC) [Ratio] 15.0 % Normal 11.5-15.0 [facility] Comment on above: Order Comment: Speci men Type: BLOOD SPECIMEN Ordering Facility: [facility] Address: [address] [place] [address] Performed By: #### 5 8410-2 #### [facility] CLIA [id number] [address] Hematocrit (Bld) [Volume fraction] 43.2 % Normal 39.0-51.0 [facility] Comment on above: Order Comment: Speci men Type: BLOOD SPECIMEN Ordering Facility: [facility] Address: [address] [place] [address] Performed By: #### 5 8410-2 #### [facility] CLIA [id number] [address] [facility] Hemoglobin (Bld) [Mass/Vol] 15.6 g/dL Normal 13.0-17.0 [facility] Comment on above: Order Comment: Speci men Type: BLOOD SPECIMEN Ordering Facility: [facility] Address: [address] [place] [address] Performed By: #### 5 8410-2 #### [facility] CLIA [id number] [address] [place] MCH (RBC) [Entitic mass] 30.8 pg Normal 26.0-34.0 [facility] Comment on above: Order Comment: Speci men Type: BLOOD SPECIMEN Ordering Facility: [facility] Address: [address] [place] [address] Performed By: #### 5 8410-2 #### [facility] CLIA [id number] [address] MCHC (RBC) [Mass/Vol] 36.1 g/dL High 30.5-36.0 [facility] Comment on above: Order Comment: Speci men Type: BLOOD SPECIMEN Ordering Facility: [facility] Address: [address] [place] [address] Performed By: #### 5 8410-2 #### [facility] CLIA [id number] [address] MCV (RBC) [Entitic vol] 85.4 fL Normal 80.0-100.0 [facility] Comment on above: Order Comment: Speci men Type: BLOOD SPECIMEN Ordering Facility: [facility] Address: [address] [place] [address] Performed By: #### 5 8410-2 #### [facility] CLIA [id number] [address] Nucleated RBC (Bld) [#/Vol] 10*3/uL Normal <0.01 [facility] Comment on above: Order Comment: Speci men Type: BLOOD SPECIMEN Ordering Facility: [facility] Address: [address] [place] [address] Performed By: #### 5 8410-2 #### [facility] CLIA [id number] [address] [place] [address] [place] Platelet mean volume (Bld) [Entitic vol] 9.4 fL Normal 9.0-12.7 [facility] Comment on above: Order Comment: Speci men Type: BLOOD SPECIMEN Ordering Facility: [facility] Address: [address] [place] [address] Performed By: #### 5 8410-2 #### [facility] CLIA [id number] 1000 [place] [address] [place] Platelets (Bld) [#/Vol] 222 10*3/uL Normal 150-400 [facility] Comment on above: Order Comment: Speci men Type: BLOOD SPECIMEN Ordering Facility: [facility] Address: [address] [place] [address] Performed By: #### 5 8410-2 #### [facility] CLIA [id number] [address] RBC (Bld) [#/Vol] 5.06 10*6/uL Normal 4.20-6.00 [facility] Comment on above: Order Comment: Speci men Type: BLOOD SPECIMEN Ordering Facility: [facility] Address: [address] [place] [address] Performed By: #### 5 8410-2 #### [facility] CLIA [id number] [address] [place] WBC (Bld) [#/Vol] 8.51 10*3/uL Normal 3.70-11.00 [facility] Comment on above: Order Comment: Speci men Type: BLOOD SPECIMEN Ordering Facility: [facility] Address: [address] [place] [address] Performed By: #### 5 8410-2 #### [facility] CLIA [id number] [address] HISTORY PHYSICALon HISTORY PHYSICAL HNO ID: [id number] Author: JOSÉ MIGUEL JIANG MD Service: Vascular [...] including but not limited to bleeding, infection, NE, wound healing problems, nerve injury, negative biopsy, [...] DATE: October 26, 2024 TIME: 1:46 PM [facility] OPERATIVE NOon 10-26-2024 OPERATIVE NO HNO ID: [id number] Author: JOSÉ MIGUEL JIANG MD Service: Vascular Surgery Author Type: Physician Type: Operative Report Filed: 11/06/2024 13:17 Note Text: OPERATIVE/PROCEDURE REPORT LOG ID: [id number] Surgery/Procedure Date: 10/26/2024 Incision/Procedure Start Time: 2:12 PM Incision Close/Procedure End Time: 2:40 PM Surgeon(s)/Procedural ist(s) and Engine Boss(s): Surgeons and Role: * José Miguel Jiang MD - Primary Registered Nurse Manager Cardiac: Megan Napier RN Procedure(s): left temporal artery biopsy Anesthesia: Local Operative Indication: 69 year old male with left-sided headache, pain, vision changes with concern for temporal arteritis. Presents for biopsy. Procedure Details: Patient taken to the OR and laid supine on the table. The procedure as done under local. The patient's ipsilateral anglican and forehead were prepped and draped in [...] Pre-Op/Pre-Procedure Diagnosis: left-sided headache, pain, vision changes Post-Op/Post-Procedur e Diagnosis: same Estimated Blood Loss: 5 mls Specimens: left temporal artery Implantable Devices: None Drains: None Complications: None No qualified resident/fellow was available. I/primary surgeon/proceduralist performed the entire procedure. SIGNATURE: José Miguel Jiang MD PATIENT NAME: Aroldo Navarrete DATE: 10/26/2024 TIME: 2:41 PM PAGER/CONTACT #: [facility] Pathology biopsy report Ag (Tiss)on 10-26-2024 AP DISCLAIMER [facility] Comment on above: Order Comment: Speci men Type: TISSUE SPECIMEN Ordering Facility: [facility] Address: [address] [place] [address] Result Comment: Li Calhoun Test (LDT) Disclaimer: Performance characteristics of immunohistochemical, immunofluorescent, and chromogenic in-situ hybridization tests have been determined by the performing laboratory within [facility]'s [facility] Pathology and Laboratory Medicine Department ([facility], [facility], [facility], [facility], [facility], [facility], or [facility]) in a manner consistent with CLIA requirements. One or more of these tests may not have been cleared or approved by the FDA. RT-PLM is regulated under CLIA as qualified to perform high-complexity testing. These tests are used for clinical purposes. These should not be regarded as investigational or for research. Positive and negative controls stain appropriately. Performed By: #### 6 6121-5 #### [facility] CLIA [id number] [address] [place] [address] [place] CASE REPORT Normal [facility] Comment on above: Order Comment: Kenneth vogt Type: TISSUE SPECIMEN Ordering Facility: [facility] Address: [address] [place] [address] Result Comment: Surg ica Pathology Report Case: [id number] Authorizing Provider: José Miguel Jiang MD Collected: 10/26/2024 02:12 PM Ordering Location: [facility] Surgery Received: 10/26/2024 02:55 PM Pathologist: Yani Trejo MD Specimen: Artery, Temporal, Biopsy, Left temporal artery Performed By: #### 6 6121-5 #### [facility] CLIA [id number] [address] [place] [address] CLINICAL HISTORY Normal [facility] Comment on above: Order Comment: Kenneth vogt Type: TISSUE SPECIMEN Ordering Facility: [facility] Address: [address] [place] [address] Result Comment: Pre- op diagnosis: GCA (giant cell arteritis) (HCC) [M31.6] Performed By: #### 6 6121-5 #### [facility] CLIA [id number] [address] [place] [address] DIAGNOSIS COMMENT Movat stain was performed to [...] evidence of active or healed arteritis. [facility] Comment on above: Order Comment: Speci men Type: TISSUE SPECIMEN Ordering Facility: [facility] Address: [address] [place] [address] Performed By: #### 6 6121-5 #### [facility] CLIA [id number] [address] [place] [address] OF [facility] FINAL DIAGNOSIS [facility] Comment on above: Order Comment: Speci men Type: TISSUE SPECIMEN Ordering Facility: [facility] Address: [address] [place] [address] Result Comment: A. L eft temporal artery, biopsy: - Negative for arteritis. at 1553 EDT Performed By: #### 6 6121-5 #### [facility] CLIA [id number] [address] [place] [address] OF [facility] FINAL PERFORMING LAB [facility] Comment on above: Order Comment: Speci men Type: TISSUE SPECIMEN Ordering Facility: [facility] Address: [address] [place] [address] Result Comment: Diag nostic interpretation performed at: [facility], [address] [place] [address] CLIA# [id number] Customs Entry Clerk: Caleb Hooper MD Performed By: #### 6 6121-5 #### [facility] CLIA [id number] [address] [place] [address] OF [facility] GROSS DESCRIPTION [facility] Comment on above: Order Comment: Speci men Type: TISSUE SPECIMEN Ordering Facility: [facility] Address: [address] [place] [address] Result Comment: A. A rtery, Temporal, Biopsy Received in formalin on Telfa gauze is one segment of cylindrical tissue measuring 1.5 x 0.3 x 0.2 cm, trejo-red and of a rubbery consistency. Totally submitted in one cassette. Gross examination performed at [facility], [address] [place] [address] [facility] October 26, 2024 5:31 PM Performed By: #### 6 6121-5 #### [facility] CLIA [id number] [address] [place] [address] [place] [id number] [facility] Brennen 10-18-2024 CNPN Telephone (RHWSTR) AROLDO NAVARRETE ([id number]) 1955 M Date Time Provider Department 10/18/24 CONY BECKWITH WSTR During your visit today, [...] Diagnosis:Lung nodule [R91.1] Order(s):CT CHEST WO NUNO [[id number]] Order #: [id number] FUTURE Prescriptions as of 10/18/2024 - predniSONE [...] Encounter Status:Closed by CONY BECKWITH on 10/18/24 [facility] Telephone (FRITZ) AROLDO NAVARRETE ([id number]) 1955 M Date Time Provider Department 10/18/24 CONY BECKWITH During your visit today, we recorded the following information about you: Ruby Fowler LPN 10/18/2024 2:11 PM Signed Received via fax: [facility] Date: 10/17/24 Noted: Pulmonary/Neurology/S [facility] Ph. [phone] option #1 Requesting clarification to be faxed to their office regarding EMG on which side and which extremity Please fax back order to [phone] NILAY Aguilar Kaitlyn, PA-C 10/18/2024 3:19 PM Signed External order can be cancelled, pt had this done at [facility] on Wednesday. Cony Beckwith PA-C Allergies As [...] Encounter Status:Closed by RUBY FOWLER on 10/18/24 Normal [facility] AROL[facility] NAV[facility]TE ([id number]) 1955 M Date Time Provider Department 10/16/24 CONY BECKWITH RUST During your visit today, we recorded the [...] Forms processed [facility]. Confirmation received. Allergies [...] Encounter Status:Closed by ELIZABETH PETERS on 10/18/24 [facility] 10-14-2024 CNPN Telephone (OPHTMN) AROLDO NAVARRETE ([id number]) 1955 Date Time Provider Department 10/14/24 GUEVARA JIMÉNEZ [facility] During your visit today, [...] the biopsy closer to his home in [place], [place]. Allergies As of Date: 10/14/2024 Noted [...] Encounter Status:Closed by GUEVARA JIMÉNEZ on 10/14/24 [facility] Gail 10-13-2024 CNOV Office Visit (RHEUMN ) AROLDO NAVARRETE ([id number]) 1955 M Date Time Provider Department 10/13/24 3:00 PM RENNY FORRESTER During your visit today, we recorded the following information about you: Weight Height 59.4 kg 1.81 m Renny Forrester MD 10/14/2024 2:11 PM Addendum Rheumatology Clinic Follow-up Visit Date of Service: 10/13/2024 Patient: Aroldo Navarrete Medical Record: [id number] Primary Care Physician: No primary care provider on file. Last Rheumatology visit: None at [facility] Interval History Aroldo Navarrete is a [...] - July 2024. He was seen at [facility] for headache, myalgia, fatigue, cough, congestion. [...] swelling GENITOURINARY: Negative for: Dysuria and Hematuria HEMATOLOGIC/LYMPHATIC : Negative for: Swollen glands All other reviewed [...] 4+/5 Wrist extension R 5/5, L 5/5 De Icer Finisher strength R 5/5, L 5/5 Hip flexion R 4+/5, L 4+/5 Knee flexion R 4+/5, L 4+/5 Knee (more content not included)... [facility] EMG(NEURO/NI)on 10-13-2024 Results can be seen in attached scanned documents. If you are a patient reviewing this test result, call the doctor who ordered the test with any questions. [facility] CNCOon 10-12-2024 CNCO Letter Text [facility] CT CHEST WO IVCONon 10-12-19 CT CHEST WO IVCON * * *Final Report* * * DATE OF EXAM: Oct 11 2024 10:57AM [facility] 0541 - CT CHEST WO IVCON [...] upper lobe groundglass nodule, which may be infectious/inflammato ry vs. Lesion along the adenocarcinoma spectrum. Attention [...] from the initial exam) --END OF FINDING-- Creative Writing English Professor: CLARISSA Transcribe Date/Time: Oct 11 2024 10:03P Dictated by : JEAN STOVER MD This examination was interpreted and the report reviewed and electronically signed by: JEAN STOVER MD on Oct 11 2024 10:07PM EST [id number] ACTIONABLE Invalid Interpretation Code [facility] CT Chest WO contrastOrdered By: Ccf Provider on 10-11-2024 Interpretation and review of laboratory results Abnormal [facility] Radiology Result ACTIONABLE Abnormal [facility] Comment on above: This report contains an [...] contact your provider for the next steps. [facility] CT Chest WO contraston 10-11 IMPRESSION: 1. A 1 cm right upper lobe groundglass nodule, which may be infectious/inflammato ry vs. Lesion along the adenocarcinoma spectrum. Attention [...] from the initial exam) --END OF FINDING-- Creative Writing English Professor: CLARISSA Transcribe Date/Time: Oct 11 2024 10:03P Dictated by : JEAN STOVER MD This examination was interpreted and the report reviewed and electronically signed by: JEAN STOVER MD on Oct 11 2024 10:07PM [facility] DIVISION OF RADIOLOGY * * *Final Report* * * DATE OF EXAM: Oct 11 2024 10:57AM [facility] 0541 - CT CHEST WO IVCON [...] No additional findings. DIVISION OF RADIOLOGY Provider, [facility] - 10/11/2024 * * *Final Report* * * DATE OF EXAM: Oct 11 2024 10:57AM [facility] 0541 - CT CHEST WO IVCON [...] upper lobe groundglass nodule, which may be infectious/inflammato ry vs. Lesion along the adenocarcinoma spectrum. Attention [...] from the initial exam) --END OF FINDING-- Creative Writing English Professor: CLARISSA Transcribe Date/Time: Oct 11 2024 10:03P Dictated by : JEAN STOVER MD This examination was interpreted and the report reviewed and electronically signed by: JEAN STOVER MD on Oct 11 2024 10:07PM EST [facility] Radiology Study observation (narrative) [facility] LUNG VOLUMESon 10-11-2024 ERV BOX (L) 1.78 L [facility] ERV PREDICTED (L) 1.44 L/S [facility] FRC Box (L) 4.7 L [facility] IC BOX (L) 2.02 L [facility] IC PREDICTED (L) 2.88 L/S [facility] RV Box (L) 2.91 L [facility] RV Box PREDICTED (L) 2.48 [facility] RV/TLC Box (%) 43 % [facility] RV/TLC Box PREDICTED (%) 35 % [facility] SVC LLN (L) 3.22 L/S [facility] SVC PREDICTED (L) 4.32 L/S [facility] SVC ULN (L) 5.43 L/S [facility] TLC Box (L) 6.69 L [facility] TLC Box PREDICTED (L) 7.27 L [facility] VC (L) BOX 3.8 L [facility] [address] [place] [address] Test Date: 2024-10-11 Pat Name: AROLDO NAVARRETE Department: Room: Gender: Male Pier Hand: : 1955 Requested By: Order Number: [id number] Reading MD: Irina Pretty MD Interpretive Statements Current ATS/ERS acceptability and repeatability standards for lung volumes met. IMPRESSION: Elevated lung volumes (RV and/or RV/TLC) indicate minimal air trapping. Electronically Signed On 10-11-2024 11:38:37 EDT by Irina Pretty MD ID: [id number] Name: AROLDO NAVARRETE Race: Black or Ht: 71.26 in Wt: 126.00 lbs Age: 69 Gender: Male : 1955 Dx: Shortness of breath Smoking Hx: Non-smoker Doctor: CONY BECKWITH Test Date: 10/11/2024 Site: Tech: Salma Wilder PRE-BRONCH POST-BRONCH Corinne [...] for lung volumes met. PULMONARY FUNCTION LAB [facility] LUNG VOLUMES [facility] [address] [place] [address] Test Date: 2024-10-11 Pat Name: AROLDO NAVARRETE Department: Room: Gender: Male Pier Hand: : 1955 Requested By: Order Number: [id number] Reading MD: Irina Pretty MD Interpretive Statements Current ATS/ERS acceptability and repeatability standards for lung volumes met. IMPRESSION: Elevated lung volumes (RV and/or RV/TLC) indicate minimal air trapping. Electronically Signed On 10-11-2024 11:38:37 EDT by Irina Pretty MD ID: [id number] Name: AROLDO NAVARRETE Race: Black or Ht: 71.26 in Wt: 126.00 lbs Age: 69 Gender: Male : 1955 Dx: Shortness of breath Smoking Hx: Non-smoker Doctor: CONY BECKWITH Test Date: 10/11/2024 Site: Tech: Miriam Wildersea PRE-BRONCH POST-BRONCH Corinne LLN Pred ULN %Pred [...] % RV_TLC_PLETH_PRED (%) : 35 % [facility] CNOVon 10-04-2024 CNOV Office Visit (RHWSTR ) AROLDO NAVARRETE ([id number]) 1955 M Date Time Provider Department 10/04/24 10:00 AM CONY BECKWITH RHWSTR During your visit today, we recorded the following information about you: Pulse Respiration Blood pressure 75/minute 17/minute 118/82 Cony Beckwith PA-C 10/04/2024 11:13 AM Addendum Continue taking your prednisone as prescribed; a refill has been sent to [facility] in [place]. Schedule an EMG (nerve study) at any [facility] within the week - a referral has been provided to help confirm your diagnosis. Complete pulmonary function tests (breathing tests) to assess your lung function; these tests are important given your symptoms. Expect to be contacted regarding scheduling a follow-up appointment with a specialist experienced in this condition, preferably at a location closer to [place] if possible. The note from your visit on September 19 is on file with your employer; if additional paperwork is needed, they can send a fax request. You have an appointment at [facility] on 10/13/2024 at 3:[address] Forrester of [facility] rheumatology. Please arrive at 2:45 for this appointment/. Cony Beckwith PA-C 10/04/2024 4:21 PM Signed Rheumatology FOLLOW UP VISIT Date of Service: 10/04/2024 Patient: Aroldo Navarrete Medical Record: [id number] Primary Care Physician: No primary care provider [...] week and may need documentation sent to [facility]. Pain Evaluation 04/15/2015 09/14/2024 09/27/2024 Pain Evaluation Pain Score 6 7 10 Location Chest -- -- Location Comment All over everywhere Description Aching;Sore Aching Cramping Duration (#) 1 4 -- Duration (Timeframe) Weeks Months Frequency Continuous Continuous Continuous Intervention Medication Other: See comment Patient-Entered Data None Review of Systems No Jaw claudication, no anglican swanson, no sudden vision loss. + Vision [...] Hemoglobin 13.0 - 17.0 g/dL 16.6 Hemoglobin, [place] 13.0 - 17.0 g/dL 16.7 Hematocrit 39.0 - 51.0 % 48.1 Platelet Count 150 - 400 k/uL 173 Abs Neut, [place] 1.45 - 7.50 k/uL 2.73 Abs Lymp, [place] 1.00 - 4.00 k/uL 2.28 Latest Ref Rng AND Units 01/05/2012 09/14/2024 CMP Sodium 136 - 144 mmol/L 141 Sodium, [place] 135 - 146 mmol/L 142 Potassium 3.7 - 5.1 mmol/L 4.3 Potassium, [place] 3.5 - 5.0 mmol/L 4.7 Chloride 98 - 107 mmol/L 102 Chloride, [place] 98 - 110 mmol/L 102 CO2 22 - 30 mmol/L 28 CO2, [place] 23.0 - 32.0 mmol/L 29.6 Glucose 74 - 99 mg/dL 102 Glucose, [place] 65 - 100 mg/dL 97 BUN 9 - 24 mg/dL 11 BUN, [place] 10 - 25 mg/dL 9 Creatinine 0.73 - 1.22 mg/dL 0.97 Creatinine, [place] 0.7 - 1.4 mg/dL 1.1 Calcium, [place] 8.5 - 10.5 mg/dL 9.1 Calcium 8.5 - 10.2 mg/dL 10.0 AST 14 - 40 U/L 46 AST, [place] 7 - 40 (more content not included)... [facility] Brennen 10-04-2024 CADY Telephone (RHWSTR) AROLDO NAVARRETE ([id number]) 1955 M Date Time Provider Department 10/04/24 CONY BECKWITH During your visit today, we recorded the following information about you: Cony Beckwith PA-C 10/04/2024 11:59 AM Signed Patient needs CT scan, and EMG preferably before he goes to [facility] next week. Can this be scheduled in [...] 3:31 PM Signed EMG order faxed to [facility] and Referral started. Made note asking for it to be done before 10/13/24. CT and Lung Volumes scheduled for 10/11. Called and left VM informing the patient. ELIZABETH Welch Amy M, MA 10/10/2024 11:37 AM Signed Received fax back from [facility] that the EMG order needs to be changed to include which side and whether this is upper or lower extremities. Cony Beckwith PA-C 10/10/2024 1:13 PM Signed New order placed. Lower extremity, would defer which extremity to the performing neurologist. Symptoms are bilateral in nature. If not able to get done at [facility] prior to Wednesday, maybe see if it can be done Wednesday at [facility] at the same time as the Rheum apt? Thanks Cony Christianson PA-C 10/10/2024 1:13 PM Signed Addended by: CONY BECKWITH on: 10/10/2024 01:13 PM Modules accepted: Sheryl Wu RN 10/11/2024 8:34 AM Signed New EMG order faxed to [facility]. Included request that they call us if patient unable to have done before Wednesday10/13/24. ELIZABETH Welch Amy M, MA 10/11/2024 9:31 AM Addendum Received a call from [facility] Neurology scheduling. They just received a new order, but it needs to specifically state which side is to be performed. Please addend and resend. They are currently scheduling out into November as they only perform testing one day per week. Sheryl Fried RN 10/11/2024 9:42 AM Signed Patient needs testing done before Rheumatology Appointment on 10/13 at [facility]. PSS to work on scheduling at [facility] 10/13. ELIZABETH Welch Danelle, RN 10/11/2024 11:10 AM Signed EMG scheduled for 10/13. Patient notified in person. ELIZABETH Welch Danelle, RN 10/12/2024 3:23 PM Signed Disability paperwork received with request for medical records. Forms given to Cony to fill out. Patient has testing and office visit at [facility]. Will wait for results to fax. ELIZABETH Welch Amy M, MA 10/18/2024 9:34 AM Signed Records sent to [facility]. Confirmation received. 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] Order(s):EMG(NEURO/NI ) [[id number]] Order #: [id number]: 1 FUTURE Prescriptions as of 10/18/2024 - [...] Status:Closed by CONY BECKWITH on 10/04/24 [facility] Ferritin SerPl-mCncon 2024 Ferritin [Mass/Vol] 801.0 ng/mL High 30.3-565.7 [facility] Comment on above: Order Comment: Speci men Type: BLOOD SPECIMEN Ordering Facility: [facility] Address: [address] [place] [address] Performed By: #### 4 537-7 #### [facility] CLIA [id number] [address] [place] [address] [place] [address] [place] LUNG DIFFUSION CAPACITY (HAI O)on 10-04-2024 LUNG DIFFUSION CAPACITY (DLCO) [facility] [address] [address] Test Date: 2024-10-04 Pat Name: AROLDO NAVARRETE Department: Room: Gender: Male Pier Hand: : 1955 Requested By: Order Number: [id number] Reading MD: Irina Pretty MD Interpretive Statements [...] Signed On 10-05-2024 12:47:57 EDT by Irina Prtety MD ID: [id number] Name: AROLDO NAVARRETE Race: Black or Ht: 71.26 in Wt: 126.00 lbs Age: 69 Gender: Male : 1955 Dx: Shortness of breath Smoking Hx: Non-smoker Doctor: CONY BECKWITH Test Date: 10/04/2024 Site: [facility]: Salma Wilder PRE-BRONCH POST-BRONCH Corinne LLN Pred ULN %Pred ZScore Corinne %Pred %Chg ZScore SPIROMETRY FVC 3.97 3.22 4.32 5.43 91 -0.52 FEV1 2.09 2.39 3.27 4.09 64 -2.18 FEV1/FVC 0.53 0.64 0.77 0.87 68 -2.72 FEFMax 5.73 5.65 8.40 11.15 68 -1.60 FEF50 0.95 2.23 4.35 6.48 21 -2.63 FIF50 5.09 FEF50/FIF50 0.19 90-100 FIVC 3.77 GMZ39-44 0.67 0.85 2.28 4.42 29 -1.93 ExpiredTime [...] 77 % FEV1/FVC_LLN (%) : 64 % CZT48_BWP (L/S) : 3.02 L/S QPZ41_WKU (L/S) : 0.22 L/S OGW98_GVBF (L/S) : 0.55 L/S AZJ86_AWV (L/S) : 0.18 L/S JSN28_PLC (L/S) : 1.56 L/S KGE07-54%_PRE (L/S) : 0.67 L/S ANB11-71%_PRED (L/S) : 2.28 L/S MBW28-25%_LLN (L/S) : 0.85 L/S PEF_PRE (L/S) : [...] ml/min/mmHg DLCO/VACOR (ML/MIN/MMHG/L) : 0.03 ml/min/mmHg/L [facility] SPIROMETRY BASELINE ONLYon 0 10-04-2024 SPIROMETRY BASELINE ONLY [facility] [place] [address] [place] [address] Test Date: 2024-10-04 Pat Name: AROLDO NAVARRETE Department: Room: Gender: Male Pier Hand: : 1955 Requested By: Order Number: [id number] Reading MD: Irina Pretty MD Interpretive Statements [...] 12:47:57 EDT by Irina Pretty MD ID: [id number] Name: AROLDO NAVARRETE Race: Black or Ht: [...] FIF50 5.09 FEF50/FIF50 0.19 90-100 FIVC 3.77 TZS98-98 0.67 0.85 2.28 4.42 29 -1.93 ExpiredTime [...] DLCO met with 2 acceptable maneuvers. [facility] TPMT PHENOTYPE/ENZYME ACTIVI Shobha 10-04-2024 TPMT ACTIVITY 24.5 U/mL Normal 24.0-44.0 [facility] Comment on above: Order Comment: Speci men Type: BLOOD SPECIMENOrdering Facility: [facility] Address: [address] [place] [address] Result Comment: INTE RPRETIVE INFORMATION: Thiopurine Methyltransferase, [...] developed and its performance characteristics determined by [employer]. It has not been cleared or approved by the US Food and Drug Administration. This test was performed in a CLIA certified laboratory and is intended for clinical purposes. Performed By: [facility] [address] [place] [address] Customs Entry Clerk: Easton Wilde MD, PhD CLIA Number: [id number] Performed By: #### P CLARE ####[facility]ESS[facility] [id number] [place] [address] [facility] 09-28-2024 [facility] LANDONAROLDO ([id number]) 1955 M Date Time Provider Department 09/28/24 CONY BECKWITH RUST During your visit today, we recorded the [...] for same time and called and left notifying the patient. Sheryl Fried RN Allergies [...] Status:Closed by SHERYL FRIED on 10/04/24 [facility] KAREN BY IFA SCREENon 09-28-19 Nuclear Ab Ql (S) Negative Normal Negative [facility] Comment on above: Order Comment: Speci men Type: BLOOD SPECIMEN [facility]ing Facility: [facility] Address: [address] [place] [address] Result Comment: Anti -nuclear antibody test is used as an aid in diagnosis of systemic autoimmune diseases. Where positive and clinically warranted, follow-up using disease-specific testing is recommended. Low positive titers are not uncommon with advanced age, certain chronic infections, and malignancies among others. Test methodology: Indirect fluorescence immunoassay (IFA) using HEp-2 cells. Performed By: #### 4 537-7 #### [facility] CLIA [id number] [address] [place] [address] [place] ANTINUCLEAR AB, ALEXI GEIGER RN (REFLEX ONLY)on 09-27-2024 KAREN PATTERN [facility] Comment on above: Order Comment: Speci men Type: BLOOD SPECIMEN Ordering Facility: [facility] Address: [address] [place] [address] Performed By: #### 4 537-7 #### [facility] CLIA [id number] [address] [place] [address] [place] KAREN TITER 1:320 [facility] Comment on above: Order Comment: Speci men Type: BLOOD SPECIMEN Ordering Facility: [facility] Address: [address] [place] [address] Result Comment: Perf ormed By: [facility] [address] [place] [address] Customs Entry Clerk: Easton Wilde MD, PhD CLIA Number: [id number] Performed By: #### 4 537-7 #### [facility] CLIA [id number] [address] [place] [address] [place] CNOVon 09-27-2024 CNOV Office Visit (RHWSTR ) AROLDO NAVARRETE ([id number]) 1955 M Date Time Provider Department 09/27/24 8:30 AM CONY BECKWITH RHWSTR During your visit today, we recorded the following information about you: Pulse Blood pressure Weight 97/minute 110/79 57.2 kg Cony Beckwith PA-C 09/27/2024 4:29 PM Signed Rheumatology FOLLOW UP VISIT Date of Service: 09/27/2024 Patient: Aroldo Navarrete Medical Record: [id number] Primary Care Physician: No primary care provider on file. Last Rheumatology visit: None at [facility] History of Present Illness Aroldo is [...] Review of Systems No Jaw claudication, no anglican swanson, no sudden vision loss. + Vision [...] Hemoglobin 13.0 - 17.0 g/dL 16.6 Hemoglobin, Monroe 13.0 - 17.0 g/dL 16.7 Hematocrit 39.0 [...] Potassium 3.7 - 5.1 mmol/L 4.3 Potassium, [place] 3.5 - 5.0 mmol/L 4.7 Chloride 98 - 107 mmol/L 102 Chloride, [place] 98 - 110 mmol/L 102 CO2 22 - 30 mmol/L 28 CO2, [place] 23.0 - 32.0 mmol/L 29.6 Glucose 74 - 99 mg/dL 102 Glucose, [place] 65 - 100 mg/dL 97 BUN 9 - 24 mg/dL 11 BUN, Juan Pablo 10 - 25 mg/dL 9 Creatinine 0.73 - 1.22 mg/dL 0.97 Creatinine, Juan Pablo 0.7 - 1.4 mg/dL 1.1 Calcium, [place] 8.5 - 10.5 mg/dL 9.1 Calcium 8.5 [...] PM (F (more content not included)... [facility] POLYMYOSITIS AND DERMATOMYOS ITIS PANELon 09-27-2024 KAREN INTERP COMMENT See Note [facility] Comment on above: Order Comment: Speci men Type: BLOOD SPECIMEN Ordering Facility: [facility] Address: [address] [place] [address] Result Comment: Homo geneous Pattern Clinical associations: [...] SARD. Performed By: #### 4 537-7 #### [facility] CLIA [id number] [address] [place] [address] [place] ANTINUCLEAR ANTIBODY (KAREN) HEP-2, IGG Detected High <1:80 [facility] Comment on above: Order Comment: Speci men Type: BLOOD SPECIMEN Ordering Facility: [facility] Address: [address] [place] [address] Performed By: #### 4 537-7 #### [facility] CLIA [id number] [address] [place] [address] [place] EJ (GLYCYL-TRNA SYNTHETASE) ANTIBODY Negative Normal [facility] Comment on above: Order Comment: Speci men Type: BLOOD SPECIMEN Ordering Facility: [facility] Address: [address] [place] [address] Performed By: #### 4 537-7 #### [facility] CLIA [id number] [address] [place] [address] [place] ZHAO (TYROSYL-TRNA SYNTHETASE) AB Negative Normal [facility] Comment on above: Order Comment: Speci men Type: BLOOD SPECIMEN Ordering Facility: [facility] Address: [address] [place] [address] Result Comment: Zhao a ntibody negative by line immunoassay. No band corresponding to 65 kDa observed by immunoprecipitation. Performed By: #### 4 537-7 #### [facility] CLIA [id number] [address] [place] [address] [place] CIARRA-1 (HISTIDYL-TRNA SYNTHETASE) AB, IGG 2 AU/mL Normal 0-40 [facility] Comment on above: Order Comment: Speci men Type: BLOOD SPECIMEN Ordering Facility: [facility] Address: [address] [place] [address] Result Comment: INTE RPRETIVE INFORMATION: Ciarra-1 Antibody, IgG 29 AU/mL or less.........Negative 30-40 AU/mL..............Equivocal 41 AU/mL or greater......Positive Presence of Ciarra-1 (antihistidyl transfer RNA [t-RNA] synthetase) antibody is associated with polymyositis and may also be seen in patients with dermatomyositis. Ciarra-1 antibody is associated with pulmonary involvement (interstitial lung disease), Raynaud phenomenon, arthritis, and chief mechanical officer's hands (implicated in antisynthetase syndrome). Performed By: #### 4 537-7 #### [facility] CLIA [id number] [address] [place] [address] [place] KS (ASPARAGINYL-TRNA SYNTHETASE) AB Negative Normal [facility] Comment on above: Order Comment: Speci men Type: BLOOD SPECIMEN Ordering Facility: [facility] Address: [address] [place] [address] Result Comment: Ks a ntibody negative by line immunoassay. No band corresponding to 65 kDa observed by immunoprecipitation. Performed By: #### 4 537-7 #### [facility] CLIA [id number] [address] [place] [address] [place] MDA5 (CADM-140) AB Positive Abnormal Negative [facility] Comment on above: Order Comment: Speci men Type: BLOOD SPECIMEN Ordering Facility: [facility] Address: [address] [place] [address] Performed By: #### 4 537-7 #### [facility] CLIA [id number] [address] [place] [address] OF [place] NE-2 (NUCLEAR HELICASE PROTEIN) ANTIBODY Negative Normal [facility] Comment on above: Order Comment: Speci men Type: BLOOD SPECIMEN Ordering Facility: [facility] Address: [address] [place] [address] Performed By: #### 4 537-7 #### [facility] CLIA [id number] [address] [place] [address] [place] MYOSITIS INTERPRETIVE INFORMATION See Note [facility] Comment on above: Order Comment: Speci men Type: BLOOD SPECIMEN Ordering Facility: [facility] Address: [address] [place] [address] Result Comment: INTE RPRETIVE INFORMATION: Dermatomyositis and [...] developed and its performance characteristics determined by [facility]. It has not been cleared or approved by the [place] Food and Drug Administration. This test was performed in a CLIA certified laboratory and is intended for clinical purposes. Performed By: #### 4 537-7 #### [facility] CLIA [id number] [address] [place] [address] [place] NXP2 (NUCLEAR MATRIX PROTEIN-2) AB Negative Normal [facility] Comment on above: Order Comment: Speci men Type: BLOOD SPECIMEN Ordering Facility: [facility] Address: [address] [place] [address] Performed By: #### 4 537-7 #### [facility] CLIA [id number] [address] [place] [address] [place] OJ (ISOLEUCYL-TRNA SYNTHETASE) ANTIBODY Negative Normal [facility] Comment on above: Order Comment: Speci men Type: BLOOD SPECIMEN Ordering Facility: [facility] Address: [address] [place] [address] Performed By: #### 4 537-7 #### [facility] CLIA [id number] [address] [place] [address] [place] P155/140 ANTIBODY Negative Normal Negative [facility] Comment on above: Order Comment: Speci men Type: BLOOD SPECIMEN Ordering Facility: [facility] Address: [address] [place] [address] Performed By: #### 4 537-7 #### [facility] CLIA [id number] [address] [place] [address] [place] PL-12 (ALANYL-TRNA SYNTHETASE) ANTIBODY Negative Normal [facility] Comment on above: Order Comment: Speci men Type: BLOOD SPECIMEN Ordering Facility: [facility] Address: [address] [place] [address] Performed By: #### 4 537-7 #### [facility] CLIA [id number] [address] [place] [address] [place] PL-7 (THREONYL-TRNA SYNTHETASE) ANTIBODY Negative Normal [facility] Comment on above: Order Comment: Speci men Type: BLOOD SPECIMEN Ordering Facility: [facility] Address: [address] [place] [address] Performed By: #### 4 537-7 #### [facility] CLIA [id number] [address] [place] [address] [place] SAE1 (SUMO ACTIVATING ENZYME) AB Negative Normal [facility] Comment on above: Order Comment: Speci men Type: BLOOD SPECIMEN Ordering Facility: [facility] Address: [address] [place] [address] Performed By: #### 4 537-7 #### [facility] CLIA [id number] [address] [place] [address] [place] SRP (SIGNAL RECOGNITION PARTICLE) AB Negative Normal [facility] Comment on above: Order Comment: Speci men Type: BLOOD SPECIMEN Ordering Facility: [facility] Address: [address] [place] [address] Performed By: #### 4 537-7 #### [facility] CLIA [id number] [address] [place] [address] [place] TIF-1 GAMMA (155 KDA) AB Negative Normal [facility] Comment on above: Order Comment: Speci men Type: BLOOD SPECIMEN Ordering Facility: [facility] Address: [address] [place] [address] Performed By: #### 4 537-7 #### [facility] CLIA [id number] [address] [place] [address] [place] ZO (PHENYLALANYL-TRNA SYNTHETASE) AB Negative Normal [facility] Comment on above: Order Comment: Speci men Type: BLOOD SPECIMEN Ordering Facility: [facility] Address: [address] [place] [address] Result Comment: Zo a ntibody negative by line immunoassay. No bands corresponding to 68 and 58 kDa observed by immunoprecipitation. Performed By: [facility] [address] [place] [address] Customs Entry Clerk: Easton Wilde MD, PhD CLIA Number: [id number] Performed By: #### 4 537-7 #### [facility] CLIA [id number] [address] [place] [address] [place] Brennen 09-18-2024 CNPN [facility] AROLDO NAVARRETE ([id number]) 1955 M Date Time Provider Department 09/18/24 CONY BECKWITH RUST During your visit today, we recorded the following information about you: Roya Juarez LPN 09/18/2024 11:24 AM Signed Patient calling in wondering if a fax has been received from his insurance company [employer]. Patient requesting a call back. NILAY Fontenot Amy M, MA 09/19/2024 1:58 PM Signed Forms received from insurance company asking for office notes from visit. Notes [...] Status:Closed by ELIZABETH PETERS on 09/19/24 [facility] Aldolase SerPl-cCncon 2024 Aldolase [Catalytic activity/Vol] 6.7 mU/mL Normal 1.5-8.1 [facility] Comment on above: Order Comment: Speci men Type: BLOOD SPECIMEN Order[facility] Facility: [facility] Address: [address] [place] [address] Result Comment: This test was developed, and its performance characteristics determined by the [facility] Department of Pathology and Laboratory Medicine. It has not been cleared or approved by the FDA. The [facility] Department of Pathology and Laboratory Medicine is regulated under CLIA as qualified to perform high-complexity testing. This test is used for clinical purposes. It should not be regarded as investigational or for research. Performed By: #### 4 537-7 #### [facility] CLIA [id number] [address] [place], [place] [id number] [place] CBC panel Auto (Bld)on 09-14 Erythrocyte distribution width (RBC) [Ratio] 14.6 % 11.5 - 15.0 % [facility] Hematocrit (Bld) [Volume fraction] 48.1 % 39.0 - 51.0 % [facility] Hemoglobin (Bld) [Mass/Vol] 16.6 g/dL 13.0 - 17.0 g/dL [facility] Interpretation and review of laboratory results Normal [facility] MCH (RBC) [Entitic mass] 29.8 pg 26.0 - 34.0 pg [facility] MCHC (RBC) [Mass/Vol] 34.5 g/dL 30.5 - 36.0 g/dL [facility] MCV (RBC) [Entitic vol] 86.4 fL 80.0 - 100.0 fL [facility] Nucleated RBC (Bld) [#/Vol] NINF [facility] Platelet mean volume (Bld) [Entitic vol] 9.9 fL 9.0 - 12.7 fL [facility] Platelets (Bld) [#/Vol] 173 10*3/uL [facility] RBC (Bld) [#/Vol] 5.57 10*6/uL 4.20 - 6.0 0 m/uL [facility] WBC (Bld) [#/Vol] 7.43 10*3/uL [facility] Erythrocyte distribution width (RBC) [Ratio] 14.6 % Normal 11.5-15.0 [facility] Comment on above: Order Comment: Speci men Type: BLOOD SPECIMENOrdering Facility: [facility] Address: [address] [place] [address] Performed By: #### 5 8410-2 ####[facility] [id number] [address] [place] Hematocrit (Bld) [Volume fraction] 48.1 % Normal 39.0-51.0 [facility] Comment on above: Order Comment: Speci men Type: BLOOD SPECIMENOrdering Facility: [facility] Address: [address] [place] [address] Performed By: #### 5 8410-2 ####[facility] PENNIEOLEGARIO [id number] [place] [address] [place] Hemoglobin (Bld) [Mass/Vol] 16.6 g/dL Normal 13.0-17.0 [facility] Comment on above: Order Comment: Speci men Type: BLOOD SPECIMENOrdering Facility: [facility] Address: [address] [place] [address] Performed By: #### 5 8410-2 ####[facility]ENTER[facility]HELLEGUNN[facility] [id number] [place] [address] [place] MCH (RBC) [Entitic mass] 29.8 pg Normal 26.0-34.0 [facility] Comment on above: Order Comment: Speci men Type: BLOOD SPECIMENOrdering Facility: [facility] Address: [address] [place] [address] Performed By: #### 5 8410-2 ####[facility]ENTERNCA [id number] [address] [place] MCHC (RBC) [Mass/Vol] 34.5 g/dL Normal 30.5-36.0 [facility] Comment on above: Order Comment: Speci men Type: BLOOD SPECIMENOrdering Facility: [facility] Address: [address] [place] [address] Performed By: #### 5 8410-2 ####[facility]ENTERNCLIA [id number] [place] [address] [place] MCV (RBC) [Entitic vol] 86.4 fL Normal 80.0-100.[address] [facility] Comment on above: Order Comment: Speci men Type: BLOOD SPECIMENOrdering Facility: [facility] Address: [address] [place] [address] Performed By: #### 5 8410-2 ####[facility] MILLMAXWELLWNCLIA [id number] [place] [address] [place] Nucleated RBC (Bld) [#/Vol] 10*3/uL Normal <0.01 [facility] Comment on above: Order Comment: Speci men Type: BLOOD SPECIMENOrdering Facility: [facility] Address: [address] [place] [address] Performed By: #### 5 8410-2 ####[facility] PENNIEWNCLIA [id number] [place] [address] [place] Platelet mean volume (Bld) [Entitic vol] 9.9 fL Normal 9.0-12.7 [facility] Comment on above: Order Comment: Speci men Type: BLOOD SPECIMENOrdering Facility: [facility] Address: [address] [place] [address] Performed By: #### 5 8410-2 ####[facility]ENTERNCLIA [id number] [place] [address] [place] Platelets (Bld) [#/Vol] 173 10*3/uL Normal 150-400 [facility] Comment on above: Order Comment: Speci men Type: BLOOD SPECIMENOrdering Facility: [facility] Address: [address] [place] [address] Performed By: #### 5 8410-2 ####[facility] PENNIEWNCLIA [id number] [place] [address] [place] RBC (Bld) [#/Vol] 5.57 10*6/uL Normal 4.20-6.00 [facility] Comment on above: Order Comment: Speci men Type: BLOOD SPECIMENOrdering Facility: [facility] Address: [address] [place] [address] Performed By: #### 5 8410-2 ####[facility]ENTERMICHELLEGUNN[facility] [id number] [place] [address] [place] WBC (Bld) [#/Vol] 7.43 10*3/uL Normal 3.70-11.00 [facility] Comment on above: Order Comment: Speci men Type: BLOOD SPECIMENOrdering Facility: [facility] Address: [address] [place] [address] Performed By: #### 5 8410-2 ####[facility] [id number] [place] [address] [place] CK SerPl-cCncon 09-14-2024 CK [Catalytic activity/Vol] 107 U/L Normal 51-298 [facility] Comment on above: Order Comment: Speci men Type: BLOOD SPECIMEN [facility] Address: [address] [place] [address] Performed By: #### 4 537-7 #### [facility] CLIA [id number] [address] [place] [address] [place] CNCOon 09-14-2024 CNCO Letter Text [facility] CNOVon 09-14-2024 CNOV Office Visit (RHWSTR ) AROLDO NAVARRETE ([id number]) 1955 M Date Time Provider Department 09/14/24 2:30 PM CONY BECKWITH RHWSTR During your visit today, we recorded the following information about you: Pulse Blood pressure Weight 108/minute 150/102 57.2 kg Cony Beckwith PA-C 09/14/2024 3:51 PM Signed Rheumatology CONSULTATION Date of Service: 09/14/2024 Patient: Aroldo Navarrete Medical Record: [id number] Primary Care Physician: No primary care provider on file. Last Rheumatology visit: None at [facility] Referring Provider: Marjorie Be [address] [facility] [address] Aroldo Navarrete is here today at request of Dr. Marjroie Be specifically for consultation of my opinion in regards to the chief complaint listed below. Correspondence will be shared today via the [facility] electronic health record or through regular [...] his breath) Negative for: Leg swelling GENITOURINARY: HEMATOLOGIC/LYMPHATIC : All other reviewed and negative other than [...] vapes marijuana - Occupation: Formerly employed at [employer]) - Living conditions: Resides in [place] Current Medications Current Outpatient Medications Medication Sig [...] Ref Rng AND Units 01/05/2012 CMP Sodium, Juan Pablo 135 - 146 mmol/L 142 Potassium, [place] 3.5 - 5.0 mmol/L 4.7 Chloride, [place] 98 - 110 mmol/L 102 CO2, [place] 23.0 - 32.0 mmol/L 29.6 Glucose, [place] 65 - 100 mg/dL 97 BUN, [place] 10 - 25 mg/dL 9 Creatinine, [place] Pablo 0.7 - 1.4 mg/dL 1.1 Calcium, [place] 8.5 - 10.5 mg/dL 9.1 AST, Juan Pablo 7 - 40 U/L 18 (more content not included)... [facility] CNPAlissa 09-14-2024 CNPN Telephone (RHWSTR) AROLDO NAVARRETE ([id number]) 1955 M Date Time Provider Department 09/14/24 CONY BECKWITH RUST During your visit today, we recorded the following information about you: Elizabeth Peters MA 09/14/2024 3:43 PM Signed Patient was referred here by [facility]. Patient had 3 high blood pressure readings today in the office. Provider asked if we could let [facility] know about the readings and see if they can follow up with the patient in the next day or two. I called and left a detailed message on nurse [employer]. Asked for them to contact the office back to confirm they received the message. If I don't hear back from them, I will follow up again tomorrow. Also, asked for them to fax over records from their office. Sheryl Fried RN 09/14/2024 4:31 PM Signed [facility] calling to update us that the patient is having a nurse visit for BP and med check at 9:30am tomorrow. ELIZABETH Welch Danelle, ELIZABETH 09/18/2024 12:50 PM Signed Notes from recent office visit with [facility] received and sent to [employer]. BP at was 138/84. ELIZABETH Welch Kaitlyn, [...] Status:Closed by SHERYL FRIED on 09/18/24 [facility] CRP SerPl-mCncon 09-14-2024 CRP [Mass/Vol] mg/L Normal <0.9 [facility] Comment on above: Order Comment: Speci men Type: BLOOD SPECIMEN [facility] Address: [address] [place] [address] Performed By: #### 4 537-7 #### [facility] CLIA [id number] [address] [place] [address] [place] [address] [place] Comprehensive metabolic 2000 panelOrdered By: Lyric Kirby on 09-14-2024 Albumin [Mass/Vol] 4.7 g/dL 3.9 - 4.9 g/dL [facility] ALP [Catalytic activity/Vol] 105 U/L 38 - 113 U/L [facility] ALT [Catalytic activity/Vol] 34 U/L 10 - 54 U/L [facility] Anion gap [Moles/Vol] 11 mmol/L 8 - 15 mmol/L [facility] AST [Catalytic activity/Vol] 46 U/L High 14 - 40 U/L [facility] Bilirubin [Mass/Vol] 0.8 mg/dL 0.2 - 1 .3 mg/dL [facility] Calcium [Mass/Vol] 10 mg/dL 8.5 - 10. 2 mg/dL [facility] Chloride [Moles/Vol] 102 mmol/L 98 - 10 7 mmol/L [facility] CO2 [Moles/Vol] 28 mmol/L 22 - 30 mmol/L [facility] Creatinine [Mass/Vol] 0.97 mg/dL 0.73 - 1.22 mg/dL [facility] GFR/1.73 sq M.predicted among non-blacks MDRD (S/P/Bld) [Vol rate/Area] 86 mL/min/{1.73_m2} - PINF [facility] Comment on above: Estimated Glomerular Filtration [...] 102 mg/dL High 74 - 99 mg/dL [facility] Comment on above: [employer] [...] Interpretation and review of laboratory results Abnormal [facility] Potassium [Moles/Vol] 4.3 mmol/L 3.7 - 5.1 mmol/L [facility] Protein [Mass/Vol] 7.9 g/dL 6.3 - 8.0 g/dL [facility] Sodium [Moles/Vol] 141 mmol/L 136 - 144 mmol/L [facility] Urea nitrogen [Mass/Vol] 11 mg/dL 9 - 24 mg/dL [facility] Comprehensive metabolic 2000 panelon 09-14-2024 Albumin [Mass/Vol] 4.7 g/dL Normal 3.9-4.9 [facility] Comment on above: Order Comment: Speci men Type: BLOOD SPECIMEN [facility] Address: [address] [place] [address] Performed By: #### 2 4323-8 #### [facility] CLIA [id number] [address] [place] [address] [place] ALP [Catalytic activity/Vol] 105 U/L Normal 38-113 [facility] Comment on above: Order Comment: Speci men Type: BLOOD SPECIMEN [facility] Facility[facility] Address: [address] [place] [address] Performed By: #### 2 4323-8 #### [facility] CLIA [id number] [address] [place] [address] [place] ALT [Catalytic activity/Vol] 34 U/L Normal 10-54 [facility] Comment on above: Order Comment: Speci men Type: BLOOD SPECIMEN Ordering Facility: [facility] Address: [address] [place] [address] Performed By: #### 2 4323-8 #### [facility] CLIA [id number] [address] [place] [address] [place] Anion gap [Moles/Vol] 11 mmol/L Normal 8-15 [facility] Comment on above: Order Comment: Speci men Type: BLOOD SPECIMEN Ordering Facility: [facility] Address: [address] [place] [address] Performed By: #### 2 4323-8 #### [facility] CLIA [id number] [address] [place] [address] [place] AST [Catalytic activity/Vol] 46 U/L High 14-40 [facility] Comment on above: Order Comment: Speci men Type: BLOOD SPECIMEN Ordering Facility: [facility] Address: [address] [place] [address] Performed By: #### 2 4323-8 #### [facility] CLIA [id number] [address] [place] [address] [place] Bilirubin [Mass/Vol] 0.8 mg/dL Normal 0.2-1.3 [facility] Comment on above: Order Comment: Speci men Type: BLOOD SPECIMEN Ordering Facility: [facility] Address: [address] [place] [address] Performed By: #### 2 4323-8 #### [facility] CLIA [id number] [address] [place] [address] [place] Calcium [Mass/Vol] 10.0 mg/dL Normal 8.5-10.2 [facility] Comment on above: Order Comment: Speci men Type: BLOOD SPECIMEN Ordering Facility: [facility] Address: [address] [place] [address] Performed By: #### 2 4323-8 #### [facility] CLIA [id number] [address] [place] [address] [place] Chloride [Moles/Vol] 102 mmol/L Normal 98-107 [facility] Comment on above: Order Comment: Speci men Type: BLOOD SPECIMEN Ordering Facility: [facility] Address: [address] [place] [address] Performed By: #### 2 4323-8 #### [facility] CLIA [id number] [address] [place] [address] [place] CO2 [Moles/Vol] 28 mmol/L Normal 22-30 [facility] Comment on above: Order Comment: Speci men Type: BLOOD SPECIMEN Ordering Facility: [facility] Address: [address] [place] [address] Performed By: #### 2 4323-8 #### [facility] CLIA [id number] [address] [place] [address] [place] Creatinine [Mass/Vol] 0.97 mg/dL Normal 0.73-1.22 [facility] Comment on above: Order Comment: Speci men Type: BLOOD SPECIMEN Ordering Facility: [facility] Address: [address] [place] [address] Performed By: #### 2 4323-8 #### [facility] CLIA [id number] [address] [place] [address] [place] Creatinine and Glomerular filtration rate.predicted panel (S/P/Bld) 86 mL/min/1.73m??? Normal >=60 [facility] Comment on above: Order Comment: Speci men Type: BLOOD SPECIMEN Ordering Facility: [facility] Address: [address] [place] [address] Result Comment: Jeannette mated Glomerular Filtration Rate [...] GFR. Performed By: #### 2 4323-8 #### [facility] CLIA [id number] [address] [place] [address] [place] Glucose [Mass/Vol] 102 mg/dL High 74-99 [facility] Comment on above: Order Comment: Speci men Type: BLOOD SPECIMEN Ordering Facility: [facility] Address: [address] [place] [address] Result Comment: The [place] [employer] (ADA) [...] 1). Performed By: #### 2 4323-8 #### [facility] CLIA [id number] [address] [place] [address] [place] Potassium [Moles/Vol] 4.3 mmol/L Normal 3.7-5.1 [facility] Comment on above: Order Comment: Ashleyi torie Type: BLOOD SPECIMEN Ordering Facility: [facility] Address: [address] [place] [address] Performed By: #### 2 4323-8 #### [id number] [address] [place] [address] [place] Protein [Mass/Vol] 7.9 g/dL Normal 6.3-8.0 [facility] Comment on above: Order Comment: Ashleyi torie Type: BLOOD SPECIMEN Ordering Facility: [facility] Address: [address] [place] [address] Performed By: #### 2 4323-8 #### [facility] CLIA [id number] [address] [place] [address] [place] Sodium [Moles/Vol] 141 mmol/L Normal 136-144 [facility] Comment on above: Order Comment: Speci men Type: BLOOD SPECIMEN Ordering Facility: [facility] Address: [address] [place] [address] Performed By: #### 2 4323-8 #### [facility] CLIA [id number] [address] [place] [address] [place] Urea nitrogen [Mass/Vol] 11 mg/dL Normal 9-24 [facility] Comment on above: Order Comment: Speci men Type: BLOOD SPECIMEN Ordering Facility: [facility] Address: [address] [place] [address] Performed By: #### 2 4323-8 #### [facility] CLIA [id number] [address] [place] [address] [place] Cyclic citrullinated peptide IgG Qnon 09-14-2024 CCP ANTIBODY IGG QUALITATIVE Negative Normal Negative [facility] Comment on above: Order Comment: Speci men Type: BLOOD SPECIMENOrdering Facility: [facility] Address: [address] [place] [address] Performed By: #### 3 3935-8 ####[facility]IA [id number] [place] [address] [place] ESR Westergren method (Bld) [Velocity]on 09-14-2024 ESR (Bld) [Velocity] 2 mm/h Normal 0-15 [facility] Comment on above: Order Comment: Speci men Type: BLOOD SPECIMEN Ordering Facility: [facility] Address: [address] [place] [address] Performed By: #### 4 537-7 #### [facility] CLIA [id number] [address] [place] [address] [place] Rheumatoid fact SerPl-aCncon 09-14-2024 Rheumatoid factor Qn 12 [IU]/mL Normal <16 [facility] Comment on above: Order Comment: Speci men Type: BLOOD SPECIMEN Ordering Facility: [facility] Address: [address] [place] [address] Performed By: #### 4 537-7 #### [facility] CLIA [id number] [address] [place] [address] [place] XR KNEE 4V [...] Unremarkable left knee. Right knee Owen-Stieda lesion. Creative Writing English Professor: PSCB Transcribe Date/Time: Sep 17 2024 10:08P Dictated by : JOE MUSA MD This examination was interpreted and the report reviewed and electronically signed by: JOE MUSA MD on Sep 17 2024 10:10PM EST [id number] [facility] cCP IgG SerPl-aCncon 025 Cyclic citrullinated peptide IgG Qn <15 Normal <20 [facility] Comment on above: Order Comment: Speci men Type: BLOOD SPECIMENOrdering Facility: [facility] Address: [address] [place] [address] Performed By: #### 3 3935-8 ####[facility] LABCLIA [id number] [place] [address] [place] KAREN Comprehensive Panelon ANTI-DNA (DS)AB 1 IU/mL Normal 0-9 [facility] Comment on above: Result Comment: Nega tive <5 Equivocal 5 - 9 Positive >9 Performed By: #### L 101.9900, L100.0100, L3100.5440, L501.6710 #### [facility] [address] [place], [address] ANTISCLERODERM <0.2 Normal 0.0-0.9 [facility] Comment on above: Performed By: #### L 101.9900, L100.0100, L3100.5440, L501.6710 #### [facility] [address] [place], [address] Abdomen Single Viewon 2024 Abdomen Single View [facility] [address] [place] [address] Abdomen Single View MR#: [id number] Acct: [id number] Name: AROLDO NAVARRETE Rep #: [id number] : 1955 M 68 From: Edd Ayers MD PCP: Holly Be DO Status: REG CLI Study: Abdomen Single View Date of Exam: 07/18/24 Exam# [id number] Ordering Dr: Fede Davenport [facility] COLLECTION SYSTEMS ADMINISTRATOR- C EXAM: XR Abdomen, 1 View CLINICAL INDICATION: TECHNIQUE: Frontal supine view of the abdomen/pelvis. COMPARISON: No relevant prior studies available. FINDINGS: GASTROINTESTINAL TRACT: Unremarkable. No dilation. ORGANS: Probable punctate right nephrolithiasis. BONES/JOINTS: Unremarkable. No acute fracture. RAD/Abdomen Single View IMPRESSION: Probable punctate right nephrolithiasis. Reading Location: [facility] CC: Holly Be DO; Fede [facility] COLLECTION SYSTEMS ADMINISTRATOR-C Ethel Creative Writing English Professor: Signed Normal [facility] CBC W/Diff, Automatedon 07-08 Absolute Lymph 2.06 X10 3/uL Normal 0.83-4.51 [facility] Comment on above: Performed By: #### L 101.9900, L100.0100, L3100.5440, L501.6710 #### [facility] [address] [place], [address] Absolute Neut 2.5 X10 3/uL Normal 2.0-7.7 [facility] Comment on above: Performed By: #### L 101.9900, L100.0100, L3100.5440, L501.6710 #### [facility] [address] [place], [address] Basophils/100 WBC (Bld) 0.6 % Normal 0-1 [facility] Comment on above: Performed By: #### L 101.9900, L100.0100, L3100.5440, L501.6710 #### [facility] [address] [place], [address] Eosinophils/100 WBC (Bld) 1.7 % Normal 0-5 [facility] Comment on above: Performed By: #### L 101.9900, L100.0100, L3100.5440, L501.6710 #### [facility] [address] [place], [address] Erythrocyte distribution width (RBC) [Ratio] 13.5 % Normal 11.6-14.6 [facility] Comment on above: Performed By: #### L 101.9900, L100.0100, L3100.5440, L501.6710 #### [facility] [address] [place], [address] Hematocrit (Bld) [Volume fraction] 41.4 % Normal 40-54 [facility] Comment on above: Performed By: #### L 101.9900, L100.0100, L3100.5440, L501.6710 #### [facility] [address] [place], [address] Hemoglobin (Bld) [Mass/Vol] 14.3 g/dL Normal 13.0-16.5 [facility] Comment on above: Performed By: #### L 101.9900, L100.0100, L3100.5440, L501.6710 #### [facility] [address] [place], [address] IG% 0.400 Normal 0.0-0.9 [facility] Comment on above: Result Comment: IG% - Immature Granulocytes (promyelocytes, myelocytes and metamyelocytes) > 1% indicates that a LEFT SHIFT is Present. Performed By: #### L 101.9900, L100.0100, L3100.5440, L501.6710 #### [facility] [address] [place], [address] Lymphocytes/100 WBC (Bld) 38.6 % Normal 19-41 [facility] Comment on above: Performed By: #### L 101.9900, L100.0100, L3100.5440, L501.6710 #### [facility] [address] [place], [address] MCH (RBC) [Entitic mass] 29.7 pg Normal 27.0-32.0 [facility] Comment on above: Performed By: #### L 101.9900, L100.0100, L3100.5440, L501.6710 #### [facility] [address] [place], [address] MCHC (RBC) [Mass/Vol] 34.5 g/dL Normal 32-36 [facility] Comment on above: Performed By: #### L 101.9900, L100.0100, L3100.5440, L501.6710 #### [facility] [address] [place], [address] MCV (RBC) [Entitic vol] 86.1 fL Normal 80-94 [facility] Comment on above: Performed By: #### L 101.9900, L100.0100, L3100.5440, L501.6710 #### [facility] [address] [place], [address] Monocytes/100 WBC (Bld) 12.4 % High 0-10 [facility] Comment on above: Performed By: #### L 101.9900, L100.0100, L3100.5440, L501.6710 #### [facility] [address] [place], [address] Neutrophils/100 WBC (Bld) 46.3 % Low 47-70 [facility] Comment on above: Performed By: #### L 101.9900, L100.0100, L3100.5440, L501.6710 #### [facility] [address] [place], [address] Nucleated RBC (Bld) [#/Vol] 0 10*3/uL Normal 0-5 [facility] Comment on above: Performed By: #### L 101.9900, L100.0100, L3100.5440, L501.6710 #### [facility] [address] [place], [address] Platelet mean volume (Bld) [Entitic vol] 10.3 fL Normal 6.2-12.0 [facility] Comment on above: Performed By: #### L 101.9900, L100.0100, L3100.5440, L501.6710 #### [facility] [address] [place], [address] Platelets (Bld) [#/Vol] 343 10*3/uL Normal 150-450 [facility] Comment on above: Performed By: #### L 101.9900, L100.0100, L3100.5440, L501.6710 #### [facility] [address] [place], [address] RBC (Bld) [#/Vol] 4.81 10*6/uL Normal 4.6-6.2 [facility] Comment on above: Performed By: #### L 101.9900, L100.0100, L3100.5440, L501.6710 #### [facility] [address] [place], [address] RDW SD 42.5 fl Normal 35.1-43.9 [facility] Comment on above: Performed By: #### L 101.9900, L100.0100, L3100.5440, L501.6710 #### [facility] [address] [place], [address] WBC (Bld) [#/Vol] 5.3 10*3/uL Normal 4.4-11.0 [facility] Comment on above: Performed By: #### L 101.9900, L100.0100, L3100.5440, L501.6710 #### [facility] [address] [place], [address] CRPon 07-18-2024 C-REACTIVE PROT 29.30 mg/L High 0.0-3.0 [facility] Comment on above: Result Comment: C-Re active Protein (CRP) provides useful information for the diagnosis, therapy and monitoring of inflammatory processes and associated diseases. For the evaluation of Relative Risk for Cardiovascular Disease, a High Sensitivity CRP (HSCRP) should be ordered. Performed By: #### L 101.9900, L100.0100, L3100.5440, L501.6710 ####[facility] [address] [place], [address] Chest PA and Lateralon 07-18 Chest PA and Lateral [facility] [address] [place] [address] Chest PA and Lateral MR#: [id number] Acct: [id number] Name: AROLDO NAVARRETE Rep #: [id number] : 1955 M 68 From: Soren Garcia PCP: Holly Be DO Status: REG CLI Study: Chest PA and Lateral Date of Exam: 07/18/24 Exam# [id number] Ordering Dr: Fede Davenport [facility] COLLECTION SYSTEMS ADMINISTRATOR- C PROCEDURE: CHEST PA AND LATERAL REASON [...] evidence of acute cardiopulmonary disease. Reading Location: [address] CC: Holly Be DO; Fede [facility] COLLECTION SYSTEMS ADMINISTRATOR-C Beam Creative Writing English Professor: Signed [facility] Erythrocyte Sed Rateon 07-18 SED RATE 25 mm/hr High 0-20 [facility] Comment on above: Performed By: #### L 101.9900, L100.0100, L3100.5440, L501.6710 #### [facility] [address] [facility] [place], [place], [address] Breast Limited Unilateralon 07-07-2024 Breast Limited Unilateral [facility] [address] [place], [place] [address] Breast Limited Unilateral MR#: [id number] Acct: [id number] Name: AROLDO NAVARRETE Rep #: [id number] : 1955 M 68 From: Yuval winston MD PCP: Holly Be DO Status: REG CLI Study: Breast Limited Unilateral Date of Exam: Exam# [id number] Ordering Dr: Holly Be [facility] D O PROCEDURE: BREAST LIMITED [...] NEGATIVE. RECOMMEND ANNUAL MAMMOGRAPHIC SCREENING. Reading Location: [facility] CC: Holly Be DO Creative Writing English Professor: Signed [facility] SCRN MAMM (CAD)W/JOCELYNN BILATo n 07-07-2024 SCRN MAMM (CAD)W/JOCELYNN BILAT [facility] [address] [place], [place] [address] SCRN MAMM (CAD)W/JOCELYNN BILAT MR#: [id number] Acct: [id number] Name: AROLDO NAVARRETE Rep #: [id number] : 1955 M 68 From: Yuval winston MD PCP: Holly Be DO Status: REG CLI Study: SCRN MAMM (CAD)W/JOCELYNN BILAT Date of Exam: 06/09 07/01 Exam# [id number] Ordering Dr: Holly Be [facility] D O PROCEDURE: SCRN MAMM [...] of the results by letter. Reading Location: [facility] CC: Holly Be DO Creative Writing English Professor: Signed [facility] Thyroid Antibodieson 025 TG AB < 1.0 Normal 0.0-0.9 [facility] Comment on above: Result Comment: Thyr oglobulin Antibody measured by Tabatha Ailin Methodology It should be noted that the presence of thyroglobulin antibodies may not be pathogenic nor diagnostic, especially at very low levels. The assay wharf attendant has found that four percent of individuals without evidence of thyroid disease or autoimmunity will have positive TgAb levels up to 4 IU/mL. Performed at: [address] [id number] Cooking Teacher: Ovidio Edwards MD, Phone: [phone] Performed at: [address] [id number] Cooking Teacher: Felipe Johnson PhD, Phone: [phone] Performed By: #### L 501.21971, L506.0400, L3400.4700, L501.9520, L3300.6750 ####[facility] [address] [place], [place], [address] THYR PEROX AB 15 IU/mL Normal 0-34 [facility] Comment on above: Performed By: #### L 501.41398, L506.0400, L3400.4700, L501.9520, L3300.6750 ####[facility] [address] [place], [place], [address] Thyroid Stim Immunoglobon THY STIM IMMUNO <0.10 Normal 0.00-0.55 [facility] Comment on above: Performed By: #### L 501.52595, L506.0400, L3400.4700, L501.9520, L3300.6750 ####[facility] [address] [place], [place], [address] Free T3on 07-03-2024 Free T3 [Mass/Vol] 2.4 pg/mL Normal 2.18-3.98 [facility] Comment on above: Performed By: #### L 501.46573, L506.0400, L3400.4700, L501.9520, L3300.6750 ####[facility] [address] [place], [address] T4 Free Directon 07-03-2024 T4 FREE DIRECT 0.77 ng/dL Normal 0.76-1.46 [facility] Comment on above: Performed By: #### L 501.16249, L506.0400, L3400.4700, L501.9520, L3300.6750 ####[facility] [address] [place], [address] Thyroid Stim Hormone (TSH)on 07-03-2024 TSH 1.260 uIU/mL Normal 0.358-3.740 [facility] Comment on above: Performed By: #### L 501.42026, L506.0400, L3400.4700, L501.9520, L3300.6750 ####[facility] [address] [place], [address] Magnesiumon 06-23-2024 Magnesium [Mass/Vol] 2.3 mg/dL Normal 1.6-2.6 [facility] Comment on above: Performed By: #### L 501.5200 ####[facility] [address] [place], [address] Orthopedic Visit Reporton Orthopedic Visit Report [facility] [address] [place], [place] [address] OFFICE VISIT Date of Service: 04/04/24 MR#: [id number] Acct: [id number] Name: AROLDO NAVARRETE Rep #: [id number] : 1955 Provider: Dr. Steven warren MD Age/Sex: 68/M Location[place] [facility] Status: Signed Intake Vital Signs 04/03/24 13:59 Height 5 ft 11 in Intake Visit Reasons: LEFT HAND Chief Complaint: ultrasound review Accompanied by: Self Is patient in pain?: No Allergies Penicillins Allergy (Verified 04/04/24 10:29) Hives Medications ???Medication ???Instructions ???Recorded ???Confirmed ???Type lisinopril 20 1 tab PO QDAY 02/08/24 04/04/24 History mg-hydrochlorothiazid e 25 mg tablet prednisone 5 mg tablets [...] swelling is slowly improving. The patient is uabr-jzlg-mfzeyajm. Patient is using a brace he has [...] he twisted his knee wrong. Supplemental Info [facility] [address] [place], [place] [id number] Ext Non Vasc Limited/Soft Tiss MR#: [id number] Acct: [id number] Name: AROLDO NAVARRETE Rep #: [id number] : 1955 M 68 From: Cortes Waterman MD PCP: Holly Be DO Status: REG CLI Study: Ext Non Vasc Limited/Soft Tiss Date of Exam: 03/30/24 Exam# [id number] Ordering Dr: Steven Martinez MD [id number] STUDY: SUPERFICIAL ULTRASOUND - LEFT WRIST REASON [...] are also diffusely swollen and edematous. Moderate tendinopathy/tendinos is is also present. This should be evaluated [...] are also diffusely swollen and edematous. Moderate tendinopathy/tendinos is is also present. This should be evaluated by MRI if the patient meets the criteria for MR imaging. Electronically Signed: Cortes Waterman MD at 13:44 EDT Reading Location ID and State: [facility] / [place] , Service support , [facility] [address] [place] [address] Knee 4 or More Views MR#: [id number] Acct: [id number] Name: AROLDO NAVARRETE Rep #: [id number] : 1955 M 68 From: Nilson Churchill MD PCP: Holly Be DO Status: DEP AMB Study: Knee 4 or More Views Date of Exam: 02/08/24 Exam# [id number] Ordering Dr: Steven Martinez MD (more content not included)... [facility] Ext Non Vasc Limited/Soft Ti sson 03-30-2024 Ext Non Vasc Limited/Soft Tiss [facility] [address] [place] [address] Ext Non Vasc Limited/Soft Tiss MR#: [id number] Acct: [id number] Name: AROLDO NAVARRETE Rep #: [id number] : 1955 M 68 From: Cortes dumont MD PCP: Holly Be DO Status: REG CLI Study: Ext Non Vasc Limited/Soft Tiss Date of Exam: Exam# [id number] Ordering Dr: Steven Martinez MD [id number] STUDY: SUPERFICIAL ULTRASOUND - LEFT WRIST REASON [...] are also diffusely swollen and edematous. Moderate tendinopathy/tendinos is is also present. This should be evaluated [...] are also diffusely swollen and edematous. Moderate tendinopathy/tendinos is is also present. This should be evaluated by MRI if the patient meets the criteria for MR imaging. Electronically Signed: Cortes Waterman MD at 13:44 EDT Reading Location ID and State: [facility] / [place] , Service support , CC: Dr. Steven Martinez MD; Holly Be DO Creative Writing English Professor: Signed [facility] Orthopedic Visit Reporton Orthopedic Visit Report [facility] [address] [place] [address] [address] [place] [address] OFFICE VISIT Date of Service: 03/23/24 MR#: [id number] Acct: [id number] Name: AROLDO NAVARRETE Rep #: [id number] : 1955 Provider: Dr. Steven warren MD Age/Sex: 68/M Location: [facility] Status: Signed Intake Vital Signs 02/03/24 10:26 Height 5 ft 11 in Intake Visit Reasons: LET HAND Chief Complaint: cyst on left hand Accompanied by: Self Is patient in pain?: Yes Allergies Penicillins Allergy (Verified 03/23/24 08:18) Hives Medications ???Medication ???Instructions ???Recorded ???Confirmed ???Type lisinopril 20 1 tab PO QDAY 02/08/24 03/23/24 History mg-hydrochlorothiazid e 25 mg tablet Have you fallen in [...] Yes 03/23/24 0842 Date Steven Martinez MD Cosigner Signature: Date (if applicable) CC: [facility] Wrist min 3 Viewson 03-23-20 Wrist min 3 Views [facility] [address] [place] [address] Wrist min 3 Views MR#: [id number] Acct: [id number] Name: AROLDO NAVARRETE Rep #: [id number] : 1955 M 68 From: Malvin Garcia PCP: Holly Be DO Status: DEP AMB Study: Wrist min 3 Views Date of Exam: 03/23/24 Exam# [id number] Ordering Dr: Steven Martinez MD [id number] EXAM: XR LEFT WRIST COMPLETE, 3 OR [...] Signed: Malvin Pizano MD at 19:22 EDT , CC: Dr. Steven Martinez MD; Holly Be DO Creative Writing English Professor: Signed [facility] Knee 4 or More Viewson 02-07 Knee 4 or More Views [facility] [address] [place] [address] Knee 4 or More Views MR#: [id number] Acct: [id number] Name: AROLDO NAVARRETE Rep #: [id number] : 1955 M 68 From: Nilson Churchill MD PCP: Holly Be DO Status: DEP AMB Study: Knee 4 or More Views Date of Exam: 02/08/24 Exam# [id number] Ordering Dr: Steven Martinez MD [id number] STUDY: X-RAY - RIGHT KNEE REASON FOR [...] 9:02 EDT Reading Location ID and State: [facility] / [place] , Service support , CC: Dr. Steven Martinez MD; Holly Be DO Creative Writing English Professor: Signed Normal [facility] Orthopedic Visit Reporton Orthopedic Visit Report [facility] [address] [place] [address] OFFICE VISIT Date of Service: 02/08/24 MR#: [id number] Acct: [id number] Name: AROLDO NAVARRETE Rep #: [id number] : 1955 Provider: Dr. Steven warren MD Age/Sex: 68/M Location[facility] Status: Signed Intake Vital Signs 06/29/23 08:54 02/03/24 10:26 Height 5 ft 11 in 5 ft 11 in Intake Visit Reasons: RIGHT KNEE Accompanied by: Self Is patient in pain?: Yes Pain scale (1-10): 6 Allergies Penicillins Allergy (Verified 02/08/24 08:22) Hives Medications ???Medication ???Instructions ???Recorded ???Confirmed ???Type lisinopril 20 1 tab PO QDAY 02/08/24 02/08/24 History mg-hydrochlorothiazid e 25 mg tablet Have you fallen in [...] Carrasquillo Signature: Date (if applicable) CC: Normal [facility] CBC W/Diff, Automatedon - Absolute Lymph 1.48 X10 3/uL Normal 0.83-4.51 [facility] Comment on above: Performed By: #### L 100.0100, L500.4050, L501.9520, L500.4100 ####[facility] [address] [place], [address] Absolute Neut 4.4 X10 3/uL Normal 2.0-7.7 [facility] Comment on above: Performed By: #### L 100.0100, L500.4050, L501.9520, L500.4100 ####[facility] [address] [place], [address] Basophils/100 WBC (Bld) 0.6 % Normal 0-1 [facility] Comment on above: Performed By: #### L 100.0100, L500.4050, L501.9520, L500.4100 ####[facility] [address] [place], [address] Eosinophils/100 WBC (Bld) 3.0 % Normal 0-5 [facility] Comment on above: Performed By: #### L 100.0100, L500.4050, L501.9520, L500.4100 ####[facility] [address] [place], [address] Erythrocyte distribution width (RBC) [Ratio] 13.1 % Normal 11.6-14.6 [facility] Comment on above: Performed By: #### L 100.0100, L500.4050, L501.9520, L500.4100 ####[facility] [address] [place], [address] Hematocrit (Bld) [Volume fraction] 40.2 % Normal 40-54 [facility] Comment on above: Performed By: #### L 100.0100, L500.4050, L501.9520, L500.4100 ####[facility] [address] [place], [address] Hemoglobin (Bld) [Mass/Vol] 13.4 g/dL Normal 13.0-16.5 [facility] Comment on above: Performed By: #### L 100.0100, L500.4050, L501.9520, L500.4100 ####[facility] [address] [place], [address] IG% 0.100 Normal 0.0-0.9 [facility] Comment on above: Result Comment: IG% - Immature Granulocytes (promyelocytes, myelocytes and metamyelocytes) > 1% indicates that a LEFT SHIFT is Present. Performed By: #### L 100.0100, L500.4050, L501.9520, L500.4100 ####[facility] [address] [place], [address] Lymphocytes/100 WBC (Bld) 21.9 % Normal 19-41 [facility] Comment on above: Performed By: #### L 100.0100, L500.4050, L501.9520, L500.4100 ####[facility] [address] [place], [address] MCH (RBC) [Entitic mass] 31.8 pg Normal 27.0-32.0 [facility] Comment on above: Performed By: #### L 100.0100, L500.4050, L501.9520, L500.4100 ####[facility] [address] [place], [address] MCHC (RBC) [Mass/Vol] 33.3 g/dL Normal 32-36 [facility] Comment on above: Performed By: #### L 100.0100, L500.4050, L501.9520, L500.4100 ####[facility] [address] [place], [address] MCV (RBC) [Entitic vol] 95.3 fL High 80-94 [facility] Comment on above: Performed By: #### L 100.0100, L500.4050, L501.9520, L500.4100 ####[facility] [address] [place], [address] Monocytes/100 WBC (Bld) 8.7 % Normal 0-10 [facility] Comment on above: Performed By: #### L 100.0100, L500.4050, L501.9520, L500.4100 ####[facility] [address] [place], [address] Neutrophils/100 WBC (Bld) 65.7 % Normal 47-70 [facility] Comment on above: Performed By: #### L 100.0100, L500.4050, L501.9520, L500.4100 ####[facility] [address] [place], [address] Nucleated RBC (Bld) [#/Vol] 0 10*3/uL Normal 0-5 [facility] Comment on above: Performed By: #### L 100.0100, L500.4050, L501.9520, L500.4100 ####[facility] [address] [place], [address] Platelet mean volume (Bld) [Entitic vol] 11.2 fL Normal 6.2-12.0 [facility] Comment on above: Performed By: #### L 100.0100, L500.4050, L501.9520, L500.4100 ####[facility] [address] [place], [address] Platelets (Bld) [#/Vol] 256 10*3/uL Normal 150-450 [facility] Comment on above: Performed By: #### L 100.0100, L500.4050, L501.9520, L500.4100 ####[facility] [address] [place], [address] RBC (Bld) [#/Vol] 4.22 10*6/uL Low 4.6-6.2 [facility] Comment on above: Performed By: #### L 100.0100, L500.4050, L501.9520, L500.4100 ####[facility] [address] [place], [address] RDW SD 45.8 fl High 35.1-43.9 [facility] Comment on above: Performed By: #### L 100.0100, L500.4050, L501.9520, L500.4100 ####[facility] [address] [place], [address] WBC (Bld) [#/Vol] 6.8 10*3/uL Normal 4.4-11.0 [facility] Comment on above: Performed By: #### L 100.0100, L500.4050, L501.9520, L500.4100 ####[facility] [address] [place], [address] Comprehensive Metabolic Prof [facility] 12-02-2023 Albumin [Mass/Vol] 3.4 g/dL Normal 3.2-5.0 [facility] Comment on above: Performed By: #### L 100.0100, L500.4050, L501.9520, L500.4100 ####[facility] [address] [place], [address] Albumin/Globulin [Mass ratio] 0.8 {ratio} Low 0.9-2.4 [facility] Comment on above: Performed By: #### L 100.0100, L500.4050, L501.9520, L500.4100 ####[facility] [address] [place], [address] ALK P 98 U/L Normal 45-117 [facility] Comment on above: Performed By: #### L 100.0100, L500.4050, L501.9520, L500.4100 ####[facility] [address] [place], [address] ALT [Catalytic activity/Vol] 23 U/L Normal 16-61 [facility] Comment on above: Performed By: #### L 100.0100, L500.4050, L501.9520, L500.4100 ####[facility] [address] [place], [address] AST [Catalytic activity/Vol] 26 U/L Normal 15-37 [facility] Comment on above: Performed By: #### L 100.0100, L500.4050, L501.9520, L500.4100 ####[facility] [address] [place], [address] Bilirubin [Mass/Vol] 0.40 mg/dL Normal 0.20-1.00 [facility] Comment on above: Result Comment: For patients on eltrombopag therapy, use of Dimension [place] TBIL is not recommended. Performed By: #### L 100.0100, L500.4050, L501.9520, L500.4100 ####[facility] [address] [place], [address] BUN/CRE 8.9 RATIO Low 10-20 [facility] Comment on above: Performed By: #### L 100.0100, L500.4050, L501.9520, L500.4100 ####[facility] [address] [place], [address] CA,Total 9.1 mg/dL Normal 8.5-10.1 [facility] Comment on above: Performed By: #### L 100.0100, L500.4050, L501.9520, L500.4100 ####[facility] [address] [place], [address] Chloride [Moles/Vol] 102 mmol/L Normal 98-107 [facility] Comment on above: Performed By: #### L 100.0100, L500.4050, L501.9520, L500.4100 ####[facility] [address] [place], [address] CO2 [Moles/Vol] 27.0 mmol/L Normal 21.0-32.0 [facility] Comment on above: Performed By: #### L 100.0100, L500.4050, L501.9520, L500.4100 ####[facility] [address] [place], [address] Creatinine [Mass/Vol] 0.78 mg/dL Normal 0.70-1.30 [facility] Comment on above: Result Comment: The validity of the calculated GFR GFRAA in patients over 70 years has not been determined. Clinical correlation is essential. Performed By: #### L 100.0100, L500.4050, L501.9520, L500.4100 ####[facility] [address] [place], [address] EST GFR - AA 127 mL/min Normal >60 [facility] Comment on above: Result Comment: Afri can Georgian GFR Calc Performed By: #### L 100.0100, L500.4050, L501.9520, L500.4100 ####[facility] [address] [place], [address] GAP 8 Normal 5-15 [facility] Comment on above: Performed By: #### L 100.0100, L500.4050, L501.9520, L500.4100 ####[facility] [address] [place], [address] GFR/1.73 sq M.predicted among non-blacks MDRD (S/P/Bld) [Vol rate/Area] 105 mL/min/{1.73_m2} Normal >60 [facility] Comment on above: Result Comment: Non- GFR Calc Performed By: #### L 100.0100, L500.4050, L501.9520, L500.4100 ####[facility] [address] [place], [address] Globulin (S) [Mass/Vol] 4.3 g/dL High 2.2-4.2 [facility] Comment on above: Performed By: #### L 100.0100, L500.4050, L501.9520, L500.4100 ####[facility] [address] [place], [address] Glucose [Mass/Vol] 99 mg/dL Normal 74-106 [facility] Comment on above: Performed By: #### L 100.0100, L500.4050, L501.9520, L500.4100 ####[facility] [address] [place], [address] Potassium [Moles/Vol] 3.9 mmol/L Normal 3.5-5.1 [facility] Comment on above: Performed By: #### L 100.0100, L500.4050, L501.9520, L500.4100 ####[facility] [address] [place], [address] Sodium [Moles/Vol] 137 mmol/L Normal 136-145 [facility] Comment on above: Performed By: #### L 100.0100, L500.4050, L501.9520, L500.4100 ####[facility] [address] [place], [address] T PROT 7.7 g/dL Normal 6.4-8.2 [facility] Comment on above: Performed By: #### L 100.0100, L500.4050, L501.9520, L500.4100 ####[facility] [address] [place], [address] Urea nitrogen [Mass/Vol] 7 mg/dL Normal 7-18 [facility] Comment on above: Performed By: #### L 100.0100, L500.4050, L501.9520, L500.4100 ####[facility] [address] [place], [address] Lipid Profileon 12-02-2023 Cholesterol [Mass/Vol] 161 mg/dL Normal 200 [facility] Comment on above: Result Comment: <200 mg/dL Desirable 200-240 mg/dL Borderline >240 mg/dL High Risk Performed By: #### L 100.0100, L500.4050, L501.9520, L500.4100 ####[facility] [address] [place], [address] Cholesterol in HDL [Mass/Vol] 93 mg/dL Normal [facility] Comment on above: Result Comment: The drugs N-Acetylcysteine and Metamizole may falsely depress this assay. Reference Range HDL <40 mg/dL Low HDL Cholesterol HDL >or= 60 mg/dL High HDL Cholesterol Performed By: #### L 100.0100, L500.4050, L501.9520, L500.4100 ####[facility] [address] [place], [address] Cholesterol in LDL [Mass/Vol] 50 mg/dL Normal 0-130 [facility] Comment on above: Performed By: #### L 100.0100, L500.4050, L501.9520, L500.4100 ####[facility] [address] [place], [address] Cholesterol in VLDL [Mass/Vol] 18 mg/dL Normal 5-40 [facility] Comment on above: Performed By: #### L 100.0100, L500.4050, L501.9520, L500.4100 ####[facility] [address] [place], [place], [address] Triglyceride [Mass/Vol] 89 mg/dL Normal [facility] Comment on above: Result Comment: The drugs N-Acetylcysteine and Metamizole may falsely depress this assay. Serum Triglycerides Reference Interval Normal <150 mg/dL Borderline high 150 - 199 mg/dL High 200 - 499 mg/dL Very High > or = 500 mg/dL Performed By: #### L 100.0100, L500.4050, L501.9520, L500.4100 ####[facility] [address] [place], [place], [id number] Thyroid Stim Hormone (TSH)on 12-02-2023 TSH 0.47 uIU/mL Normal 0.358-3.74 [facility] Comment on above: Performed By: #### L 100.0100, L500.4050, L501.9520, L500.4100 ####[facility] [address] [place], [place], [id number] Vital Signs Date Time Vital Sign Value Performing Clinician Gavin you 11-19-2024 00:30-0400 Body temperature 97.6 [degF] Holly Indiana DO Work Phone: [facility] 11-19-2024 00:30-0400 Diastolic blood pressure 79 mm[Hg] Holly Indiana DO Work Phone: [facility] 11-19-2024 00:30-0400 Heart rate 62 /min Holly Indiana DO Work Phone: [facility] 11-19-2024 00:30-0400 Respiratory rate 18 /min Holly Indiana DO Work Phone: [facility] 11-19-2024 00:30-0400 SaO2% (BldA) [Mass fraction] 98 % Holly Indiana DO Work Phone: [facility] 11-19-2024 00:30-0400 Systolic blood pressure 133 mm[Hg] Holly Indiana DO Work Phone: [facility] 11-18-2024 22:16-0400 Body height 180.34 cm Holly Indiana DO Work Phone: [facility] 11-18-2024 22:16-0400 Body mass index (BMI) [Ratio] 17.4 kg/m2 Holly Indiana DO Work Phone: [facility] 11-18-2024 22:16-0400 Body weight 56.69 kg Holly Indiana DO Work Phone: [facility] 11-01-2024 13:57-0400 Body mass index (BMI) [Ratio] 18 kg/m2 Cony Amnea PA-C Work Phone: [facility] 11-01-2024 13:57-0400 Body weight 58.97 kg Cony Amena PA-C Work Phone: [facility] 11-01-2024 13:57-0400 Diastolic blood pressure 82 mm[Hg] Cony Amena PA-C Work Phone: [facility] 11-01-2024 13:57-0400 Heart rate 92 /min Cony Amena PA-C Work Phone: [facility] 11-01-2024 13:57-0400 SaO2% (BldA) [Mass fraction] 99 % Cony Amena PA-C Work Phone: [facility] 11-01-2024 13:57-0400 Systolic blood pressure 127 mm[Hg] Cony Amena PA-C Work Phone: [facility] 10-13-2024 13:42-0400 Body height 181 cm Renny Forrester MD Work Phone: [facility] 10-13-2024 13:42-0400 Body mass index (BMI) [Ratio] 18.13 kg/m2 Renny Forrester MD Work Phone: [facility] 10-13-2024 13:42-0400 Body weight 59.4 kg Renny Forrester MD Work Phone: [facility] 10-11-2024 10:57-0400 Body height 181 cm Pulm Wstr Work Phone: [facility] 10-11-2024 10:57-0400 Body mass index (BMI) [Ratio] 17.45 kg/m2 Pulm Wstr Work Phone: [facility] 10-11-2024 10:57-0400 Body weight 57.15 kg Pulm Wstr Work Phone: [facility] 10-04-2024 11:19-0400 Body height 181 cm Pulm Wstr Work Phone: [facility] 10-04-2024 11:19-0400 Body mass index (BMI) [Ratio] 17.45 kg/m2 Pulm Wstr Work Phone: [facility] 10-04-2024 11:19-0400 Body weight 57.15 kg Pulm Wstr Work Phone: [facility] 10-04-2024 09:51-0400 Diastolic blood pressure 82 mm[Hg] Cony Amena PA-C Work Phone: [facility] 10-04-2024 09:51-0400 Heart rate 75 /min Cony Amena PA-C Work Phone: [facility] 10-04-2024 09:51-0400 Respiratory rate 17 /min Cony Amena PA-C Work Phone: [facility] 10-04-2024 09:51-0400 SaO2% (BldA) [Mass fraction] 100 % Cony Amena PA-C Work Phone: [facility] 10-04-2024 09:51-0400 Systolic blood pressure 118 mm[Hg] Cony Amena PA-C Work Phone: [facility] 09-14-2024 14:23-0400 Diastolic blood pressure 102 mm[Hg] Cony Amena PA-C Work Phone: [facility] 09-14-2024 14:23-0400 Systolic blood pressure 150 mm[Hg] Cony Amena PA-C Work Phone: [facility] 09-14-2024 14:18-0400 Body weight 57.15 kg Cony Amena PA-C Work Phone: [facility] 09-14-2024 14:18-0400 Heart rate 108 /min Cony Amena PA-C Work Phone: [facility] 09-14-2024 14:18-0400 SaO2% (BldA) [Mass fraction] 98 % Cony Amena PA-C Work Phone: [facility] 08-10-2024 09:37-0500 Body mass index (BMI) [Ratio] 17.8 kg/m2 Holly Be DO Work Phone: [facility] 08-10-2024 09:37-0500 Body weight 58.05 kg Holly Be DO Work Phone: [facility] Encounters Encounter Date Encounter Type Care Provider Facility Start: 11-23-2024 ambulatory Holly Be [facility] Faci lity:[facility] Start: 11-19-2024 Evaluation and manag ement of inpatient Dr. Susan Churchill DO -Progressive Care Unit Work Phone: Start: 11-01-2024 End: 11-01-2024 Patient encounter procedure Cony Amena PA-C Work Phone: Rheumatology Comment on above: Giant cell arteritis (HCC) (Primary Dx); PMR (polymyalgia rheumatica) (HCC); Lung nodule; MDA5 antibody positive; Chronic bilateral low back pain without sciatica; Chronic sacroiliac joint pain; Chronic neck pain; USP (current) use of systemic steroids Start: 11-01-2024 End: 11-01-2024 ambulatory CONY BECKWITH Facility:[facility] Start: 10-30-2024 End: 10-30-2024 Telephone encounter Cony Beckwith PA-C Work Phone: Rheumatology Start: 10-26-2024 End: 10-26-2024 ambulatory JOSÉ MIGUEL JIANG Facility:[facility] Start: 10-25-2024 End: 10-25-2024 ambulatory RENNY FORRESTER Facility:[facility] Start: 10-18-2024 End: 10-18-2024 Telephone encounter Cony Beckwith PA-C Work Phone: Rheumatology Comment on above: GCA (giant cell matt ritis) (HCC) (Primary Dx) Start: 10-17-2024 ambulatory Holly Blankenshipnger [facility] Faci lity:[facility] Start: 10-16-2024 End: 10-18-2024 Telephone encounter Cony Beckwith PA-C Work Phone: Rheumatology Comment on above: disability paperwork Start: 10-14-2024 End: 10-14-2024 Telephone encounter Guevara Jiménez MD Work Phone: Ophthalmology Start: 10-13-2024 End: 10-13-2024 Office outpatient visit 40 minutes Renny Forrester MD Work Phone: Rheumatology Comment on above: Polymyalgia rheumati ca (HCC) (Primary Dx); MDA5 antibody positive; Lung nodule Start: 10-13-2024 End: 10-13-2024 Patient encounter procedure Emg 2 Neur Main (Max Weight: 1000) Work Phone: Neurology Start: 10-13-2024 End: 10-13-2024 ambulatory RENNY FORRESTER Neurology Start: 10-11-2024 End: 10-11-2024 Patient encounter procedure Pulm [facility] Work Phone: PULM LAB [facility] Start: 10-11-2024 End: 10-11-2024 ambulatory Pulm Lab [facility] Work Phone: PULM LAB [facility] Comment on above: Spirometry Start: 10-11-2024 End: 10-11-2024 Subsequent hospital visit by physician Ct [facility] (I-Stat) Work Phone: Cat Scan Comment on above: Weakness [R53.1] Start: 10-04-2024 End: 10-04-2024 Telephone encounter Cony Amena PA-C Work Phone: Rheumatology Start: 10-04-2024 End: 10-04-2024 ambulatory Pulm Lab [facility] Work Phone: [facility]UL[facility] LAB [facility] Comment on above: Spirometry Start: 10-04-2024 End: 10-04-2024 Patient encounter procedure Pulm Lab [facility] Work Phone: [facility]UL[facility] LAB [facility] Comment on above: Weakness (Primary Dx ); Polymyositis with myopathy (HCC); Chronic pain of both shoulders; Shortness of breath; Interstitial pulmonary disease (HCC) Start: 10-04-2024 End: 10-04-2024 ambulatory CONY AMENA Facility:[facility] Start: 09-28-2024 End: 10-04-2024 Telephone encounter Cony Amena PA-C Work Phone: Rheumatology Comment on above: Appointment Start: 09-27-2024 End: 09-27-2024 ambulatory CONY AMENA Facility:[facility] Start: 09-18-2024 End: 09-19-2024 Telephone encounter Cony Amena PA-C Work Phone: Rheumatology Comment on above: Insurance informatio n Start: 09-14-2024 End: 09-14-2024 Subsequent hospital visit by physician Xr [facility] Work Phone: Radiology Comment on above: Polyarthralgia [M25. 50] Start: 09-14-2024 End: 09-14-2024 ambulatory CONY AMENA Facility:[facility] Start: 09-14-2024 End: 09-14-2024 Patient encounter procedure Cony Amena PA-C Work Phone: Rheumatology Comment on above: Polyarthralgia (Prim nguyen Dx); Ganglion, left wrist; Dry eye syndrome of both eyes; Weakness; Chronic pain of both shoulders; Bilateral hip pain; Chronic pain of both knees; Essential (primary) hypertension Start: 09-14-2024 End: 09-18-2024 Telephone encounter Cony Beckwith PA-C Work Phone: Rheumatology Start: 08-10-2024 Non-patient / Non-visit Yaakov Be DO Work Phone: [facility] Work Phone: Start: 08-10-2024 ambulatory [facility] Facility[facility] Start: 07-18-2024 End: 07-18-2024 ambulatory Holly Keyeser [facility] Facility:[facility] Start: 07-07-2024 End: 07-07-2024 ambulatory Holly Indiana [facility] Facility:[facility] Start: 07-03-2024 End: 07-03-2024 ambulatory Holly Indiana [facility] Facility:[facility] Start: 06-23-2024 End: 06-23-2024 ambulatory Holly Indiana [facility] Facility:[facility] Start: 04-04-2024 End: 04-04-2024 ambulatory Holly Keyeser [facility] Facility:[facility] Start: 03-30-2024 End: 03-30-2024 ambulatory Holly Indiana [facility] Facility:[facility] Start: 03-23-2024 End: 03-23-2024 ambulatory Holly Indiana [facility] Facility:[facility] Start: 02-21-2024 ambulatory Holly Indiana C Faci lity:[facility] Start: 02-08-2024 End: 02-08-2024 ambulatory Holly Indiana [facility] Start: 12-03-2023 ambulatory Holly Indiana [facility] Faci lity:[facility] Start: 12-02-2023 End: 12-02-2023 ambulatory Holly Indiana [facility] Facility:[facility] Procedures Date Procedure Procedure Detail Performing Clinician Start: 11-18-2024 X-ray of chest, PA a nd lateral views Holly Indiana DO Work Phone: Start: 11-18-2024 CT of head without contrast Holly Be DO Work Phone: Start: 11-18-2024 Estimated creatinine clearance Holly Be DO Work Phone: Start: 10-13-2024 Nerve conduction anton dies 5-6 [...] RSV Vaccine (1 - 1-dose 75+ series) [facility] Start: 10-27-2027 Diabetes Screening Diabetes Screenin g [facility] Start: 09-15-2027 Diabetes Screening Diabetes Screenin g [facility] Start: 05-13-2026 Urine microalbumin profile DTaP,Tdap,Td Vaccine (2 - Td or Tdap) [facility] Start: 05-07-2025 End: 11-10-2025 CT Chest WO contrast CT CHEST WO IVCON Radiology Routine Lung nodule Expected: 05/07/2025, Expires: 11/10/2025 [facility] Work Phone: Comment on above: Expected: 05/07/2025 , Expires: 11/10/2025 Start: 02-05-2025 Influenza vaccination Influenz a Vaccine (Season Ended) [facility] Start: 11-21-2024 End: 11-21-2024 Patient encounter procedure 11/21/2024 11:00 AM EDT Office Visit Pulmonary Medicine [address] [place] [address] Irina Pretty MD [address] [place] [address] Comment: Lung nodule, R/O malignancy, patient with longstanding history of smoking, ? Paraneoplastic PMR and Positive MDA5 Ab Pulmonary Medicine Comment on above: Comment: Lung nodule , R/O malignancy, patient with longstanding history of smoking, ? Paraneoplastic PMR and Positive MDA5 Ab Start: 11-19-2024 [facility] Start: 11-19-2024 MRI of brain with contrast Brain W/WO Contrast [facility] Start: 11-19-[address] [facility] Start: 11-19-2024 Hospital admission, emergency, from emergency room, medical nature [facility] Start: 11-19-2024 Admission procedure [facility] Start: 11-19-2024 Enteric precautions [facility] Start: 11-19-2024 Clostridioides diffi cile DNA [Presence] in Unspecified specimen by CÉSAR with probe detection [facility] Start: 11-19-2024 Lactoferrin [Presenc e] in Stool by Immunoassay [facility] Start: 11-19-2024 Nucleic acid assay [facility] Start: 11-19-2024 Osmolality measureme nt, serum [facility] Start: 11-19-2024 Osmolality of Urine [facility] Start: 11-19-2024 Sodium [Moles/volume ] in Urine [facility] Start: 11-19-2024 Thyroid stimulating hormone measurement [facility] Start: 11-19-2024 Urinalysis complete panel - Urine [facility] Start: 11-18-2024 End: 11-18-2024 [facility] Start: 11-01-2024 End: 01-31-2025 C reactive protein [Mass/volume] in Serum or Plasma C-REACTIVE PROTEIN Lab Routine Giant cell arteritis (HCC) PMR (polymyalgia rheumatica) (HCC) Lung nodule MDA5 antibody positive Chronic bilateral low back pain without sciatica Chronic sacroiliac joint pain Chronic neck 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 Expected: 11/01/2024, Expires: 01/31/2025 [facility] Comment on above: Expected: 11/01/2024 , Expires: 01/31/2025 Start: 11-01-2024 End: 01-31-2025 Erythrocyte sedimentation rate SEDIMENTATION RATE, WESTERGREN Lab Routine Giant cell arteritis (HCC) PMR (polymyalgia rheumatica) (HCC) Lung nodule MDA5 antibody positive Chronic bilateral low back pain without sciatica Chronic sacroiliac joint pain Chronic neck pain USP (current) use of systemic steroids Expected: 11/01/2024, Expires: 01/31/2025 [facility] Comment on above: Expected: 11/01/2024 , Expires: 01/31/2025 Start: 11-01-2024 End: 01-31-2025 Ferritin [Mass/volume] in Serum or Plasma FERRITIN Lab Routine Giant cell arteritis (HCC) PMR (polymyalgia rheumatica) (HCC) Lung nodule MDA5 antibody positive Chronic bilateral low back pain without sciatica Chronic sacroiliac joint pain Chronic neck pain USP (current) use of systemic steroids Expected: 11/01/2024, Expires: 01/31/2025 [facility] Comment on above: Expected: 11/01/2024 , Expires: 01/31/2025 Start: 10-26-2024 End: 10-26-2024 Admission to same day surgery center 10/26/2024 2:26 PM EDT - 10/26/2024 4:25 PM EDT Surgery [facility] Surgery [address] [place] [id number] José Miguel Jiang MD [address], [address] [place] [address] BIOPSY ARTERY TEMPORAL [facility] Comment on above: BIOPSY ARTERY TEMPOR AL Start: 10-26-2024 End: 10-26-2024 Ligation/biopsy temporal artery BIOPSY ARTERY TEMPORAL GCA (giant cell arteritis) (HCC) 10/26/2024 2:26 PM EDT ME OR Start: 10-26-2024 Subsequent hospital visit by physician 10/26/2024 2:26 PM EDT Hospital Encounter [facility] Surgery [address] [place] [address] José Miguel Jiang MD [address] [facility], [address] [place] [address] GCA (giant cell arteritis) (HCC) [M31.6] [facility] Comment on above: GCA (giant cell matt ritis) (HCC) [M31.6] Start: 10-26-2024 End: 10-26-2024 ambulatory 10/26/2024 7:30 AM EDT [facility] Rheumatology [address] [address] Renny Forrester MD [address] [place] [address] add per provider Rheumatology Comment on above: add per provider Start: 10-20-2024 End: 10-20-2024 Patient encounter procedure 10/20/2024 9:00 AM EDT Appointment Radiology [address] [place] [address] *add on Approved by Elizabeth in [place] [facility]* Radiology Comment on above: *add on Approved by Elizabeth in [place] [facility]* Start: 10-13-2024 End: 10-13-2024 Patient encounter procedure 10/13/2024 3:00 PM EDT Office Visit Rheumatology [address] [address] Renny Forrester MD [address] [place] [address] myositis per clarence beckwith Rheumatology Comment on above: myositis per clarence beckwith Start: 10-13-2024 End: 10-13-2024 ambulatory 10/13/2024 8:00 AM EDT Procedure Neurology [address] [place] [address] E MYOPATHY? Neurology Comment on above: E MYOPATHY? Start: 10-11-2024 End: 10-11-2024 ambulatory 10/11/2024 11:15 AM EDT Procedure [facility]ULM LAB [facility] WSTR [address] [place] [address] Wstr, Pulm Lab [facility] [address] [place] [address] Weakness [R53.1] PULM LAB [facility] Comment on above: Weakness [R53.1] Start: 10-11-2024 End: 10-11-2024 Patient encounter procedure 10/11/2024 10:40 AM EDT Appointment Cat Scan [address] [place] [address] Dx: Weakness [R53.1]; Polymyositis with myopathy (HCC) [...] 01-03-2025 Ferritin [Mass/volume] in Serum or Plasma [facility] Comment on above: Expected: 10/04/2024 , Expires: 01/03/2025 Start: 10-04-2024 End: 01-03-2025 TPMT PHENOTYPE/ENZYME ACTIVITY [facility] Comment on above: Expected: 10/04/2024 , Expires: 01/03/2025 Start: 09-27-2024 End: 09-27-2024 Patient encounter procedure 09/27/2024 8:30 AM EDT Office Visit Rheumatology [address] [place] [address] Cony Beckwith PA-C [address] [place] [address] Review results Rheumatology Comment on above: Review results Start: 09-14-2024 End: 12-14-2024 Aldolase [Enzymatic activity/volume] in Serum or Plasma [facility] Comment on above: Expected: 09/14/2024 , Expires: 12/14/2024 Start: 09-14-2024 End: 12-14-2024 KAREN BY IFA SCREEN KAREN BY IFA SCREEN Lab Routine Polyarthralgia Ganglion, left wrist Dry eye syndrome of both eyes Weakness Chronic pain of both shoulders Bilateral hip pain Chronic pain of both knees Essential (primary) hypertension Expected: 09/14/2024, Expires: 12/14/2024 [facility] Comment on above: Expected: 09/14/2024 , Expires: 12/14/2024 Start: 09-14-2024 End: 12-14-2024 C reactive protein [Mass/volume] in Serum or Plasma [facility] Comment on above: Expected: 09/14/2024 , Expires: 12/14/2024 Start: 09-14-2024 End: 12-14-2024 Creatine kinase [Enzymatic activity/volume] in Serum or Plasma [facility] Comment on above: Expected: 09/14/2024 , Expires: 12/14/2024 Start: 09-14-2024 End: 12-14-2024 Cyclic citrullinated peptide IgG Ab [Units/volume] in Serum or Plasma [facility] Comment on above: Expected: 09/14/2024 , Expires: 12/14/2024 Start: 09-14-2024 End: 12-14-2024 Erythrocyte sedimentation rate [facility] Comment on above: Expected: 09/14/2024 , Expires: 12/14/2024 Start: 09-14-2024 End: 12-14-2024 Rheumatoid factor [Units/volume] in Serum or Plasma [facility] Comment on above: Expected: 09/14/2024 , Expires: 12/14/2024 Start: 06-07-2024 Advance Directive Discussion Advance Directive Discussion [facility] Start: 02-06-2024 Covid-19 Vaccine () Covid-19 Vaccine () [facility] Start: 02-06-2024 Influenza vaccination Influenza Vacc ine (#1) [facility] Start: 01-04-2017 Lipid panel Lipid Screening [facility] Start: 01-04-2017 Prostate specific antigen measurement Prostate Cancer Screening Discussion [facility] Start: 2006 Shingrix Vaccine (1 of 2) Shingrix Vaccine (1 of 2) [facility] Start: 2001 Screening for malign ant neoplasm of colon [facility] Start: 10-04-1975 Pneumococcal Vaccine : 50+ (1 of 2 - PCV) Pneumococcal Vaccine: 50+ (1 of 2 - PCV) [facility] Start: 1974 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 Annual PCP Team Chronic Disease Visit [facility] Start: 1974 Anxiety Screening Anxiety Screening [facility] Start: 1974 BP Controlled (<130/80) BP Controlle d (<130/80) [facility] Start: 1974 Depression Screening Depression Scre ening [facility] Start: 1974 Hepatitis C screening Hepatitis C Sc reening [facility] Start: 1956 Abdominal aortic aneurysm screening Abdominal Aortic Aneurysm Screening [facility] Anion gap in Serum o r Plasma [facility] Anion gap in Serum o r Plasma [facility] Anion gap in Serum o r Plasma [facility] Anion gap in Serum o r Plasma [facility] Anion gap in Serum o r Plasma [facility] Anion gap in Serum o r Plasma [facility] Bilirubin measuremen t, urine [facility] BUN/Creatinine ratio [facility] BUN/Creatinine ratio [facility] BUN/Creatinine ratio [facility] BUN/Creatinine ratio [facility] BUN/Creatinine ratio [facility] BUN/Creatinine ratio [facility] Calcium [Mass/volume ] in Serum or Plasma [facility] Calcium [Mass/volume ] in Serum or Plasma [facility] Calcium [Mass/volume ] in Serum or Plasma [facility] Calcium [Mass/volume ] in Serum or Plasma [facility] Calcium [Mass/volume ] in Serum or Plasma [facility] Calcium [Mass/volume ] in Serum or Plasma [facility] Carbon dioxide, tota l [Moles/volume] in Central venous blood [facility] Carbon dioxide, tota l [Moles/volume] in Central venous blood [facility] Carbon dioxide, tota l [Moles/volume] in Central venous blood [facility] Carbon dioxide, tota l [Moles/volume] in Central venous blood [facility] Carbon dioxide, tota l [Moles/volume] in Central venous blood [facility] Carbon dioxide, tota l [Moles/volume] in Central venous blood [facility] Colonoscopy [facility] Cortisol [Mass/volum e] in Serum or Plasma [facility] Creatinine [Mass/vol ume] in Serum or Plasma [facility] Creatinine [Mass/vol ume] in Serum or Plasma [facility] Creatinine [Mass/vol ume] in Serum or Plasma [facility] Creatinine [Mass/vol ume] in Serum or Plasma [facility] Creatinine [Mass/vol ume] in Serum or Plasma [facility] Creatinine [Mass/vol ume] in Serum or Plasma [facility] End: 11-03-2025 CT Chest WO contrast CT CHEST WO IVCON Radiology Routine Weakness Polymyositis with myopathy (HCC) Chronic pain of both shoulders Shortness of breath Interstitial pulmonary disease (HCC) 1 Occurrences starting 10/04/2024 until 11/03/2025 [facility] Comment on above: 1 Occurrences starti ng 10/04/2024 until 11/03/2025 End: 11-29-2025 CTA Abdominal vessels and Pelvis vessels WO and W contrast IV CTA ABD/PEL WO/W IVCON Radiology Routine Giant cell arteritis (HCC) 1 Occurrences starting 10/30/2024 until 11/29/2025 [facility] Comment on above: 1 Occurrences starti ng 10/30/2024 until 11/29/2025 End: 11-29-2025 CTA Chest vessels WO and W contrast IV CTA CHEST (NONGATED) WO/W IVCON Radiology Routine Giant cell arteritis (HCC) 1 Occurrences starting 10/30/2024 until 11/29/2025 [facility] Work Phone: Comment on above: 1 Occurrences starti ng 10/30/2024 until 11/29/2025 End: 10-04-2025 EMG(NEURO/NI) EMG(NEURO/NI) EMG Routine Weakness Polymyositis with myopathy (HCC) Chronic pain of both shoulders Shortness of breath 1 Occurrences starting 10/04/2024 until 10/04/2025 [facility] Work Phone: Comment on above: 1 Occurrences starti ng 10/04/2024 until 10/04/2025 Glucose [Mass/volume ] in Serum or Plasma [facility] Glucose [Mass/volume ] in Serum or Plasma [facility] Glucose [Mass/volume ] in Serum or Plasma [facility] Glucose [Mass/volume ] in Serum or Plasma [facility] Glucose [Mass/volume ] in Serum or Plasma [facility] Glucose [Mass/volume ] in Serum or Plasma [facility] Hemoglobin [Presence ] in Urine [facility] LUNG DIFFUSION CAPAC ITY (DLCO) LUNG DIFFUSION CAPACITY (DLCO) PFT Routine Weakness Polymyositis with myopathy (HCC) Shortness of breath 10/04/2024 11:21 AM EDT [facility] Work Phone: End: 11-03-2025 LUNG VOLUMES LUNG VOLUMES PFT Routine Weakness Polymyositis with myopathy (HCC) Chronic pain of both shoulders Shortness of breath Interstitial pulmonary disease (HCC) 1 Occurrences starting 10/04/2024 until 11/03/2025 [facility] Comment on above: 1 Occurrences starti ng 10/04/2024 until 11/03/2025 Measurement of keton es in urine using dipstick [facility] Measurement of renal function [facility] Measurement of renal function [facility] Measurement of renal function [facility] Measurement of renal function [facility] Measurement of renal function [facility] Measurement of renal function [facility] Microscopic urinalysis [facility] Patient referral [facility] Work Phone: pH of Urine [facility] Physical performance test/corinne w/reprt ea 15 min PHYSICAL PERFORMANCE TEST Procedures Routine Giant cell arteritis (HCC) PMR (polymyalgia rheumatica) (HCC) Lung nodule MDA5 antibody positive Ordered: 11/01/2024 [facility] Work Phone: Comment on above: Ordered: 11/01/2024 Potassium measurement [facility] Potassium measurement [facility] Potassium measurement [facility] Potassium measurement [facility] Potassium measurement [facility] Potassium measurement [facility] Serum chloride measurement [facility] Serum chloride measurement [facility] Serum chloride measurement [facility] Serum chloride measurement [facility] Serum chloride measurement [facility] Serum chloride measurement [facility] Sodium measurement [facility] Sodium measurement [facility] Sodium measurement [facility] Sodium measurement [facility] Sodium measurement [facility] Sodium measurement [facility] Specific gravity of Urine [facility] SPIROMETRY BASELINE ONLY SPIROME TRY BASELINE ONLY PFT Routine Weakness Polymyositis with myopathy (HCC) Shortness of breath 10/04/2024 11:21 AM EDT [facility] Work Phone: Troponin T.cardiac [Mass/volume] in Serum or Plasma by High sensitivity method [facility] Troponin T.cardiac [Mass/volume] in Serum or Plasma by High sensitivity method [facility] Urate [Mass/volume] in Serum or Plasma [facility] Urea nitrogen [Mass/volume] in Serum or Plasma [facility] Urea nitrogen [Mass/volume] in Serum or Plasma [facility] Urea nitrogen [Mass/volume] in Serum or Plasma [facility] Urea nitrogen [Mass/volume] in Serum or Plasma [facility] Urea nitrogen [Mass/volume] in Serum or Plasma [facility] Urea nitrogen [Mass/volume] in Serum or Plasma [facility] Urine blood test [facility] Urine dipstick for glucose [facility] Urine dipstick for leukocyte esterase [facility] Urine dipstick for nitrite [facility] Urine dipstick for protein [facility] Urine examination [facility] Urine microscopy: epithelial cells [facility] Urine Microscopy: wh ite cells [facility] Urobilinogen [Presen ce] in Urine [facility] End: 11-12-2025 US.doppler Head US TEMPORAL ARTERY BILATERAL Radiology Routine Polymyalgia rheumatica (HCC) 1 Occurrences starting 10/13/2024 until 11/12/2025 [facility] Work Phone: Comment on above: 1 Occurrences starti ng 10/13/2024 until 11/12/2025 End: 12-01-2025 XR Cervical spine AP and Lateral and oblique XR CERV OTHER 4V AP/LAT/OBL Radiology Routine Chronic neck pain 1 Occurrences starting 11/01/2024 until 12/01/2025 [facility] Comment on above: 1 Occurrences starti ng 11/01/2024 until 12/01/2025 End: 10-14-2025 XR Knee - left 4 Views XR KNEE GENERAL 4V AP BOTH/PA BOTH/LAT/MERC LEFT Radiology Routine Polyarthralgia Dry eye syndrome of both eyes Weakness Chronic pain of both shoulders Bilateral hip pain Chronic pain of both knees 1 Occurrences starting 09/14/2024 until 10/14/2025 [facility] Work Phone: Comment on above: 1 Occurrences starti ng 09/14/2024 until 10/14/2025 XR Knee - left 4 Views XR KNEE G ENERAL 4V AP BOTH/PA BOTH/LAT/MERC LEFT Radiology Routine Polyarthralgia Dry eye syndrome of both eyes Weakness Chronic pain of both shoulders Bilateral hip pain Chronic pain of both knees 09/14/2024 3:43 PM EDT [facility] End: 12-01-2025 XR Sacroiliac Joint Views XR SACROILIAC JOINTS 2V AP PELVIS/FERGUESON Radiology Routine Giant cell arteritis (HCC) PMR (polymyalgia rheumatica) (HCC) Lung nodule MDA5 antibody positive Chronic bilateral low back pain without sciatica Chronic sacroiliac joint pain Chronic neck pain 1 Occurrences starting 11/01/2024 until 12/01/2025 [facility] Comment on above: 1 Occurrences starti ng 11/01/2024 until 12/01/2025 Immunizations Immunization Date Immunization Notes Care Provider Chadwick coppola 05-25-2022 influenza virus vacc ine, unspecified formulation Cony Beckwith PA-C Work Phone: [facility] Payers Date Payer Category Payer Self-pay 2023 Medicare (Managed Care) ANKUSH HENDRICKSON [id number] 2023 Medicare [id number] 2021 Medicaid [id number] Unknown [id number]. 462 Unknown [id number] [id number]. 462 Unknown [id number] 2.16.840.1.258335.3.579.2. 462 Unknown [id number] 2.16.840.1.687381.3.579.2. 462 Unknown [id number] 2.16.840.1.097393.3.579.2. 462 Unknown [id number] 2.16.840.1.778335.3.579.2. 462 Unknown [id number] 2.16.840.1.986028.3.579.2. 462 Unknown [id number] 2.16.840.1.940187.3.579.2. 462 Unknown [id number] 2.16.840.1.528156.3.579.2. 462 Unknown [id number] 2.16.840.1.693659.3.579.2. 462 Unknown [id number] 2.16.840.1.128947.3.579.2. 462 Unknown [id number] 2.16.840.1.933475.3.579.2. 462 Unknown [id number] 2.16.840.1.064062.3.579.2. 462 Unknown [id number] 2.16.840.1.960688.3.579.2. 462 Unknown [id number] 2.16.840.1.244622.3.579.2. 462 Unknown [id number] 2.16.840.1.025034.3.579.2. 462 Social History Date Type Detail Facility Start: 09-14-2024 End: 11-18-2024 Tobacco smoking status NHIS Smokes tobacco daily [facility] History of tobacco use [facility]igarette [facility] Start: 03-09-2023 End: 09-14-2024 Cigarettes smoked current (pack per day) - Reported 0.5 [facility] Start: 09-14-2024 Tobacco use and exposure Smokeless tobacco non-user [facility] Start: 09-14-2024 End: 11-01-2024 Alcoholic beverage intake Current drinker of alcohol (finding) [facility] Start: 03-09-2023 End: 09-14-2024 Tobacco use panel [facility] National Score (1-10 0), lower number is lower risk 89 [facility] Start: 09-14-2024 Alcohol Comment Beer everyday - 3- 16 oz cans [facility] Start: 1955 Sex assigned at Not on file [facility] Start: 1955 Sex Assigned At Male W [facility] Goals Date Patient Goal Desired Activity /State Mental Status Date Assessment Result Facility 11-18-2024 Cognitive function Awake;Alert;A ppropriate;Fol lows Commands [facility] Work Phone: Clinical Notes 09-14-2024 to 11-18-2024 Cony Beckwith PA-C - 11/01/2024 2:00 PM EDTTelephone Encounter - Cony Beckwith PA-C - 10/30/2024 10:08 PM EDTTelephone Encounter - Cony Beckwith PA-C - 10/30/2024 10:08 PM EDT Note Date & Type Note Facility 11-18-2024 Radiology Diagnostic study note [facility] Services [address] [place] [address] Chest PA and Lateral MR#: [id number] Acct: [id number] Name: AROLDO NAVARRETE Rep #: [id number] : [id number] M 69 From: Jennifer Mattson MD PCP: Holly Be DO Status: REG ER Study:Chest PA and Lateral Date of Exam: 11/18/24 Exam# [id number] Ordering Dr: Love John MD PROCEDURE: CHEST PA AND LATERAL 11/18/2024 REASON FOR EXAM: WEAKNESS TECHNIQUE: CHEST PA AND LATERAL COMPARISON: Chest radiograph 07/18/2024. FINDINGS: Hardware: None. Heart: The heart size is normal. Mediastinum: The mediastinal contour is unremarkable. Lungs: No focal consolidation, pleural effusion or pneumothorax. Bones: Degenerative changes are identified within the thoracic spine. RAD/Chest PA and Lateral IMPRESSION: NO ACUTE FINDINGS. Reading Location: [facility] CC: Dr. Rober John MD; Holly Be DO ~ Creative Writing English Professor: Signed [facility] 11-18-2024 Radiology Diagnostic study note [facility] Services [address] [place], [place] [address] Brain/Head without Contrast MR#: [id number] Acct: [id number] Name: AROLDO NAVARRETE Rep #: [id number] : [id number] M [id number] From: Jennifer Mattson MD PCP: Holly Be DO Status: REG ER Study:Brain/Head without Contrast Date of Exa m: 11/18/24 Exam# [id number] Ordering Dr: Love John MD EXAM: BRAIN/HEAD WITHOUT CONTRAST CLINICAL HISTORY: 69 y/o M with DIZZINESS, HEADACHE. COMPARISON: None. TECHNIQUE: Routine CT imaging of the head without IV contrast. Additional multiplanar reformats were obtained. Dose reduction techniques were used including intermediate exposure control (AEC),iterative reconstruction technique, and/or mA and/or KV dose adjustments based on patient's size. FINDINGS: The ventricles, sulci and cisterns are prominent, suggestive of brain parenchymal volume loss. Asymmetric distention of the right lateral ventricle compared to the left with intraventricular septal bowing. There is no evidence of intracranial hemorrhage. There is no midline shift, mass effect, or extra-axial collection. Moderate patchy supratentorial white matter hypodensities. The orbits, visualized paranasal sinuses and mastoids are unremarkable. No acute calvarial fracture or scalp hematoma. CT/Brain/Head without Contrast IMPRESSION: 1. Asymmetric distention of the right lateral ventricle compared to the left with intraventricular septal bowing. Findings are indeterminate and may be an anatomic variant. Correlation with prior brain imaging recommended. 2. No acute intracranial finding. Reading Location: [facility] CC: Dr. Rober John MD; Holly Be DO ~ Creative Writing English Professor: Signed [facility] 11-01-2024 History of Present illness Narrative Images from the original note were not included. Rheumatology FOLLOW UP VISIT Date of Service: 11/01/2024 Patient: Aroldo Navarrete Medical Record: [id number] Primary Care Physician: Marjorie Be DO History [...] CARDIOVASCULAR: GENITOURINARY: HEMATOLOGIC/LYMPHATIC: No Jaw claudication, no anglican swanson, no sudden vision loss. + Vision [...] - 400 k/uL 173 222 Abs Neut, Monroe 1.45 - 7.50 k/uL 2.73 Abs Lymp, Monroe 1.00 - 4.00 k/uL 2.28 Latest Ref Rng & Units 01/05/2012 09/14/2024 10/26/2024 CMP Sodium 136 - 144 mmol/L 141 127 Sodium, Monroe 135 - 146 mmol/L 142 Potassium 3.7 - 5.1 mmol/L 4.3 4.4 Potassium, Juan Pablo 3.5 - 5.0 mmol/L 4.7 Chloride 98 - 107 mmol/L 102 89 Chloride, [place] 98 - 110 mmol/L 102 CO2 22 - 30 mmol/L 28 24 CO2, Monroe 23.0 - 32.0 mmol/L 29.6 Glucose 74 - 99 mg/dL 102 89 Glucose, [place] 65 - 100 mg/dL 97 BUN 9 - 24 mg/dL 11 13 BUN, Monroe 10 - 25 mg/dL 9 Creatinine 0.73 - 1.22 mg/dL 0.97 0.84 Creatinine, [place] 0.7 - 1.4 mg/dL 1.1 Calcium, Monroe 8.5 - 10.5 mg/dL 9.1 Calcium 8.5 - 10.2 mg/dL 10.0 9.1 AST 14 - 40 U/L 46 AST, Monroe 7 - 40 U/L 18 ALT 10 [...] Negative KAREN Titer 1:320 KAREN Pattern Homogeneous NE-[address]-7 ANTIBODY Negative Negative [...] Unremarkable left knee. Right knee Owen-Stieda lesion. Creative Writing English Professor: CLARISSA Transcribe Date/Time: Sep 17 2024 10:08P... Last XR Chest - Impression Only XR CHEST PA W RIBS LT Collected: 04/15/2015 12:03 PM (Final result) Impression: IMPRESSION: No radiographic evidence of rib fracture or other acute pathology. Creative Writing English Professor: RADHA Transcribe Date/Time: Apr 16 2015 7:50A [...] (primary encounter diagnosis) (M35.3) PMR (polymyalgia rheumatica) ([facility]) Temporal artery biopsy was negative for active [...] MDA5 antibody positive Per Dr. 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 Patient/authorized commercial sales representative agreed to proceed Follow up 3-4 weeks, pending above evaluation I spent a total of 40 minutes on the date of the service which included preparing to see the patient, [id number] patient care, completing clinical documentation, obtaining and/or reviewing separately obtained history, performing a medically appropriate examination, and counseling and educating the patient/family/caregiver. Cony Beckwith PA-C Rheumatology documented in this encounter [facility] 11-01-2024 Note HNO ID: [id number] Author: CONY BECKWITH PA-C Service: ? Author Type: Physician Engine Boss Type: Progress Notes Filed: 11/01/2024 16:24 Note Text: Rheumatology FOLLOW UP VISIT Date of Service: 11/01/2024 Patient: Aroldo Navarrete Medical Record: [id number] Primary Care Physician: Marjorie Be DO History [...] it. He rep (more content not included)... [facility] 10-30-2024 Telephone encounter Note Temporal Artery Biopsy result is negative for Giant Cell Arteritis I have been in discussion with Dr. Forrester [facility] [facility]. She feels giant cell arteritis could still [...] with his prednisone taper. Thank you, Cony [facility] 10-30-2024 Miscellaneous Notes Temporal Artery Biopsy result is negative for Giant Cell Arteritis I have been in discussion with Dr. Forrester from [facility]. She feels giant cell arteritis could still [...] Thank you, Cony documented in this encounter [facility] 10-25-2024 Note HNO ID: [id number] Author: RENNY FORRESTER MD Service: ? Author Type: Physician Type: Progress Notes Filed: 10/25/2024 08:08 Note Text: Rheumatology Clinic Telephone Visit Date of Service: 10/25/2024 Patient: Aroldo Navarrete Medical Record: [id number] Primary Care Physician: Marjorie Be DO Last Rheumatology visit: 10/13/2024 (with Renny Forrester) I have communicated my name and active licensure. The patient's identity and physical location were verified at the time of this visit. Either the patient or their legal commercial sales representative has been informed of the [...] RUL ground glass nodule. - October 2024 appt with me. No signs/symptoms of dermatomyositis. [...] (mg/dL) Date Value 09/14/2024 <0.3 Sed Rate, Cherylren (mm/hr) Date Value 09/14/2024 2 Current Medications [...] consistent with s (more content not included)... [facility] Telephone encounter Note External order can be cancelled, pt had this done at [facility] on Wednesday. Cony Beckwith PA-C [facility] 10-18-2024 Miscellaneous Notes External order can be cancelled, pt had this done at [facility] on Wednesday. Cony Beckwith PA-C Received via fax: [facility] Date: 10/17/24 Noted: [facility] Ph. [phone] option #1 Requesting clarification to be faxed to their office regarding EMG on which side and which extremity Please fax back order to [phone] Ruby Fowler LPN documented in this encounter [facility] 10-18-2024 Telephone encounter Note Received via fax: [facility] Date: 10/17/24 Noted: [facility] Ph. [phone] option #1 Requesting clarification to be faxed to their office regarding EMG on which side and which extremity Please fax back order to [phone] Ruby Fowler LPN [facility] Work Phone: 10-18-2024 Telephone encounter Note Repeat Chest CT ordered for 6-12 mo in future per radiology recommendation for lung nodule Cony Beckwith PA-C [facility] 10-18-2024 Miscellaneous Notes Repeat Chest CT ordered for 6-12 mo in future per radiology recommendation for lung nodule [facility]NA [facility] documented in this encounter [facility] 10-18-2024 Telephone encounter Note Forms processed and records sent [facility] been requested. Confirmation received. [facility] 10-18-2024 Miscellaneous Notes Forms processed and records sent back to [employer] that have been requested. Confirmation received. Paperwork was received on 10/13/2024. I called and left a detailed message for the patient on his voicemail that it has been received, but has not been processed yet. Patient calling in wondering if his disability paperwork has been received via fax? Patient is requesting a call back. Roya Juarez LPN documented in this encounter [facility] 10-17-2024 Telephone encounter Note Paperwork was received on 10/13/2024. I called and left a detailed message for the patient on his voicemail that it has been received, but has not been processed yet. [facility] 10-16-2024 Telephone encounter Note Patient calling in wondering if his disability paperwork has been received via fax? Patient is requesting a call back. Roya Juarez LPN [facility] 10-14-2024 Telephone encounter Note Pre-Procedure Note [...] need for post op appt with Dr. iJménez. A false negative result is possible and [...] the biopsy closer to his home in [place], [place]. [facility] Work Phone: 10-14-2024 Miscellaneous Notes Pre-Procedure [...] the biopsy closer to his home in [place], [place]. documented in this encounter [facility] 10-13-2024 Instructions Renny Forrester MD - [...] of Rheumatic & Immunologic Diseases [facility] [place] Office: [phone] Appt: [phone] Address: [address] [place] [address] / [address] Central [phone] You can go to any [facility] lab location (link of locations below) for your labs and/or x-rays unless I have told you otherwise. You do not need an appointment for the labs or to bring the lab any additional information. If you would like to schedule an appointment, you can call [phone] to do so or schedule through [employer]. [email or web address] documented in this encounter [facility] 10-13-2024 History of Present illness Narrative Images from the original note were not included. Rheumatology Clinic Follow-up Visit Date of Service: 10/13/2024 Patient: Aroldo Navarrete Medical Record: [id number] Primary Care Physician: No primary care provider on file. Last Rheumatology visit: None at [facility] Interval History Aroldo Navarrete is a [...] - July 2024. He was seen at [facility] for headache, myalgia, fatigue, cough, congestion. [...] 4+/5 Wrist extension R 5/5, L 5/5 De Icer Finisher strength R 5/5, L 5/5 Hip flexion [...] Orders this visit: Office Visit on 10/13/24 TEMPORAL ARTERY BILATERAL predniSONE (DELTASONE) 20 mg tablet CC: PCP: No primary care provider on file. No primary provider on file. Phone #: None I spent a total of 52 minutes on the date of the service which included preparing to see the patient, [id number] patient care, completing clinical documentation, obtaining and/or reviewing separately obtained history, performing a medically appropriate examination, counseling and educating the patient/family/caregiver, and ordering medications, tests, or procedures. Parts of this note may be have been copied from previous progress notes, but all of it was reviewed for accuracy. Renny Forrester MD Department of Rheumatic & Immunologic Diseases [facility] [place] documented in this encounter [facility] 10-13-2024 Note HNO ID: [id number] Author: RENNY FORRESTER MD Service: ? Author Type: Physician Type: Progress Notes Filed: 10/14/2024 14:11 Note Text: Rheumatology Clinic Follow-up Visit Date of Service: 10/13/2024 Patient: Aroldo Navarrete Medical Record: [id number] Primary Care Physician: No primary care provider on file. Last Rheumatology visit: None at [facility] Interval History Aroldo Navarrete is a [...] - July 2024. He was seen at [facility] for headache, myalgia, fatigue, cough, congestion. [...] 4+/5 Wrist extension R 5/5, L 5/5 De Icer Finisher strength R 5/5, L 5/5 Hip flexion R 4+/5, L 4+/5 Knee flexion R 4+/5, L 4+/5 Knee extension R 4+/5, L 4+/5 Ankle flexion R 4+/5, L 4+/5 Ankle extension R 4+/5, L 4+/5 MSK: Spine: No visible abnormalities. Full ROM. No tenderness to palpation. Upper extremities: Normal inspection of joints. Shoulder, elbow (more content not included)... [facility] 10-13-2024 Note HNO ID: [id number] Author: MARY XIONG MD Service: ? Author [...] Plan of Care Visit completed when applicable. JESSICA Bustillo.Riri Xiong MD [facility] 10-13-2024 History of Present illness Narrative [facility]ERS[facility] [...] Plan of Care Visit completed when applicable. JESSICA Bustillo.T Mary Xiong MD documented in this encounter [facility] 10-11-2024 History of Present illness Narrative [...] PATIENT PRESENTS WITH AN IMPLANTABLE OR ATTACHED TRUCK TERMINAL MANAGER: No RADIOLOGY DEPARTMENT: CT; Exam(s) Completed: Chest PERIPHERAL IV DATA: Not applicable SIGNED BY: RT Jessica(R) October 11, 2024 12:22 PM documented in this encounter [facility] 10-11-2024 Note HNO ID: [id number] Author: ANGELLA NINO RT(R) Service: ? Author Type: Pier Hand Type: Progress Notes Filed: 10/11/2024 12:22 Note [...] PATIENT PRESENTS WITH AN IMPLANTABLE OR ATTACHED TRUCK TERMINAL MANAGER: No RADIOLOGY DEPARTMENT: CT; Exam(s) Completed: Chest PERIPHERAL IV DATA: Not applicable SIGNED BY: SOLEDAD Lopez) October 11, 2024 12:22 PM [facility] 10-04-2024 Telephone encounter Note EMG order faxed to [facility] and Referral started. Made note asking for it to be done before 10/13/24. CT and Lung Volumes scheduled for 10/11. Called and left VM informing the patient. Sheryl Fried RN [facility] 10-04-2024 Miscellaneous Notes EMG order faxed to [facility] and Referral started. Made note asking for it to be done before 10/13/24. CT and Lung Volumes scheduled for 10/11. Called and left VM informing the patient. Sheryl Fried RN Also, sorry for the trouble, but I forgot to order one of the pulmonary function tests before he went today (I wasn't expecting him to get in same day). Can we arrange for him to get that done before/After the CT scan? Order is in. Thanks! KG Patient needs CT scan, and EMG preferably before he goes to [facility] next week. Can this be scheduled in [place]? documented in this encounter [facility] 10-04-2024 Telephone encounter Note Also, sorry for the trouble, but I forgot to order one of the pulmonary function tests before he went today (I wasn't expecting him to get in same day). Can we arrange for him to get that done before/After the CT scan? Order is in. Thanks! KG [facility] 10-04-2024 Note HNO ID: [id number] Author: CONY BECKWITH PA-C Service: ? Author Type: Physician Engine Boss Type: Progress Notes Filed: 10/04/2024 16:21 Note Text: Rheumatology FOLLOW UP VISIT Date of Service: 10/04/2024 Patient: Aroldo Navarrete Medical Record: [id number] Primary Care Physician: No primary care provider [...] week and may need documentation sent to [facility]. Pain Evaluation 04/15/2015 09/14/2024 09/27/2024 Pain Evaluation Pain Score 6 7 10 Location Chest -- -- Location Comment All over everywhere Description Aching;Sore Aching Cramping Duration (#) 1 4 -- Duration (Timeframe) Weeks Months Frequency Continuous Continuous Continuous Intervention Medication Other: See comment Patient-Entered Data None Review of Systems No Jaw claudication, no anglican swanson, no sudden vision loss. + Vision [...] 150 - 400 k/uL 173 Abs Neut, [place] 1.45 - 7.50 k/uL 2.73 Abs Lymp, [place] 1.00 - 4.00 k/uL 2.28 Latest Ref Rng AND Units 01/05/2012 09/14/2024 CMP Sodium 136 - 144 mmol/L 141 Sodium, [place] 135 - 146 mmol/L 142 Potassium 3.7 - 5.1 mmol/L 4.3 Potassium, [place] 3.5 - 5.0 mmol/L 4.7 Chloride 98 - 107 mmol/L 102 Chloride, [place] 98 - 110 mmol/L 102 CO2 22 - 30 mmol/L 28 CO2, [place] 23.0 - 32.0 mmol/L 29.6 Glucose 74 - 99 mg/dL 102 Glucose, [place] 65 - 100 mg/dL 97 BUN 9 - 24 mg/dL 11 BUN, [place] 10 - 25 mg/dL 9 Creatinine 0.73 - 1.22 mg/dL 0.97 Creatinine, [place] 0.7 - 1.4 mg/dL 1.1 Calcium, [place] 8.5 - 10.5 mg/dL 9.1 Calcium 8.5 [...] AND Units 09/27/2024 Antibodies KAREN Negative Negative NE-[address]-7 ANTIBODY Negative Negative [...] knee Owen-Stieda les (more content not included)... [facility] 10-04-[facility] History of Present illness Narrative Images from the original note were not included. Rheumatology FOLLOW UP VISIT Date of Service: 10/04/2024 Patient: Aroldo Navarrete Medical Record: [id number] Primary Care Physician: No primary care provider [...] Review of Systems No Jaw claudication, no anglican swanson, no sudden vision loss. + Vision [...] 1.45 - 7.50 k/uL 2.73 Abs Lymp, [place] 1.00 - 4.00 k/uL 2.28 Latest Ref Rng & Units 01/05/2012 09/14/2024 CMP Sodium 136 - 144 mmol/L 141 Sodium, [place] 135 - 146 mmol/L 142 Potassium 3.7 - 5.1 mmol/L 4.3 Potassium, [place] 3.5 - 5.0 mmol/L 4.7 Chloride 98 - 107 mmol/L 102 Chloride, [place] 98 - 110 mmol/L 102 CO2 22 - 30 mmol/L 28 CO2, [place] 23.0 - 32.0 mmol/L 29.6 Glucose 74 - 99 mg/dL 102 Glucose, [place] 65 - 100 mg/dL 97 BUN 9 - 24 mg/dL 11 BUN, [place] 10 - 25 mg/dL 9 Creatinine 0.73 - 1.22 mg/dL 0.97 Creatinine, [place] 0.7 - 1.4 mg/dL 1.1 Calcium, [place] 8.5 - 10.5 mg/dL 9.1 Calcium 8.5 - 10.2 mg/dL 10.0 AST 14 - 40 U/L 46 AST, [place] 7 - 40 U/L 18 ALT 10 [...] & Units 09/27/2024 Antibodies KAREN Negative Negative NE-[address]-7 ANTIBODY Negative Negative [...] Unremarkable left knee. Right knee Owen-Stieda lesion. Creative Writing English Professor: CLARISSA Transcribe Date/Time: Sep 17 2024 10:08P... Last XR Chest - Impression Only XR CHEST PA W RIBS LT Collected: 04/15/2015 12:03 PM (Final result) Impression: IMPRESSION: No radiographic evidence of rib fracture or other acute pathology. Creative Writing English Professor: RADHA Transcribe Date/Time: Apr 16 2015 7:50A [...] Continue current prednisone dosage; refill sent to [facility] in [place]. - Ordered EMG and nerve conduction studies to be performed at [facility] within a week. - Referral to a specialist in polymyositis for further evaluation at [facility] # Shortness of breath (R06.02) # Interstitial [...] prescribed; a refill has been sent to [facility] in [place]. Schedule an EMG (nerve study) at any [facility] within the week - a referral has been provided to help confirm your diagnosis. Complete pulmonary function tests (breathing tests) to assess your lung function; these tests are important given your symptoms. - Schedule CT scan of chest. - Follow up next Wednesday with specialist at [facility] Recording using [employer] software for draft documentation of the visit was discussed with the patient/authorized commercial sales representative; all questions welcomed and answered. Patient/authorized commercial sales representative agreed to proceed Refer for 1 week follow up with Dr. Forrester at [facility] 10/13/24 as scheduled Cancel my appointment next week Will send her a staff message for continuity of care I spent a total of 30 minutes on the date of the service which included preparing to see the patient, [id number] patient care, completing clinical documentation, obtaining and/or reviewing separately obtained history, performing a medically appropriate examination, counseling and educating the patient/family/caregiver, and ordering medications, tests, or procedures. Cony Beckwith PA-C Rheumatology Date: October 04, 2024 Time: 3:01 PM documented in this encounter [facility] 10-04-2024 Telephone encounter Note Patient needs CT scan, and EMG preferably before he goes to [facility] next week. Can this be scheduled in [place]? [facility] 10-04-2024 Instructions Cony Beckwith PA-C - 10/04/2024 10:37 AM EDT Continue taking your prednisone as prescribed; a refill has been sent to [facility] in [place]. Schedule an EMG (nerve study) at any [facility] within the week - a referral has been provided to help confirm your diagnosis. Complete pulmonary function tests (breathing tests) to assess your lung function; these tests are important given your symptoms. Expect to be contacted regarding scheduling a follow-up appointment with a specialist experienced in this condition, preferably at a location closer to [place] if possible. The note from your visit on September 19 is on file with your employer; if additional paperwork is needed, they can send a fax request. You have an appointment at [facility] on 10/13/2024 at 3:[address] Forrester of [facility] rheumatology. Please arrive at 2:45 for this appointment/. documented in this encounter [facility] 09-28-2024 Telephone encounter Note Patient called [...] VM notifying the patient. Sheryl Fried RN [facility] 09-28-2024 Miscellaneous Notes Patient called needing [...] Sheryl Fried RN documented in this encounter [facility] 09-27-2024 Note HNO ID: [id number] Author: CONY BECKWITH PA-C Service: ? Author Type: Physician Engine Boss Type: Progress Notes Filed: 09/27/2024 16:29 Note Text: Rheumatology FOLLOW UP VISIT Date of Service: 09/27/2024 Patient: Aroldo Navarrete Medical Record: [id number] Primary Care Physician: No primary care provider on file. Last Rheumatology visit: None at [facility] History of Present Illness Aroldo is [...] Review of Systems No Jaw claudication, no anglican swanson, no sudden vision loss. + Vision [...] 150 - 400 k/uL 173 Abs Neut, [place] 1.45 - 7.50 k/uL 2.73 Abs Lymp, [place] 1.00 - 4.00 k/uL 2.28 Latest Ref Rng AND Units 01/05/2012 09/14/2024 CMP Sodium 136 - 144 mmol/L 141 Sodium, [place] 135 - 146 mmol/L 142 Potassium 3.7 - 5.1 mmol/L 4.3 Potassium, [place] 3.5 - 5.0 mmol/L 4.7 Chloride 98 - 107 mmol/L 102 Chloride, [place] 98 - 110 mmol/L 102 CO2 22 - 30 mmol/L 28 CO2, [place] 23.0 - 32.0 mmol/L 29.6 Glucose 74 - 99 mg/dL 102 Glucose, [place] 65 - 100 mg/dL 97 BUN 9 - 24 mg/dL 11 BUN, [place] 10 - 25 mg/dL 9 Creatinine 0.73 - 1.22 mg/dL 0.97 Creatinine, [place] 0.7 - 1.4 mg/dL 1.1 Calcium, [place] 8.5 - 10.5 mg/dL 9.1 Calcium 8.5 [...] Unremarkable left knee. Right knee Owen-Stieda lesion. Creative Writing English Professor: CLARISSA Transcribe Date/Time: Sep 17 2024 10:08P... Last XR Chest - Impression Only XR CHEST PA W RIBS LT Colle (more content not included)... [facility] 09-19-2024 Telephone encounter Note Forms received from insurance [employer] asking for office notes from visit. Notes were faxed back to the fax number on the forms. Confirmation received. [facility] 09-19-2024 Miscellaneous Notes Forms received from [employer] asking for office notes from visit. Notes were faxed back to the fax number on the forms. Confirmation received. Patient calling in wondering if a fax has been received from his insurance company [employer]. Patient requesting a call back. Roya Juarez LPN documented in this encounter [facility] 09-18-2024 Telephone encounter Note Patient calling in wondering if a fax has been received from his insurance [employer]. Patient requesting a call back. Roya Juarez LPN [facility] 09-14-2024 Telephone encounter Note [facility] calling to update us that the patient is having a nurse visit for BP and med check at 9:30am tomorrow. Sheryl Fried RN [facility] 09-14-2024 Miscellaneous Notes [facility] calling to update us that the patient is having a nurse visit for BP and med check at 9:30am tomorrow. Sheryl Fried, RN Patient was referred here by [facility]. Patient had 3 high blood pressure readings today in the office. Provider asked if we could let [facility] know about the readings and see if [...] from their office. 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 Bearing PERIPHERAL IV DATA: Not applicable SIGNED BY: RT Jagdish(Mitchel) September 14, 2024 3:29 PM documented in this encounter [facility] 09-14-2024 Note HNO ID: [id number] Author: KAY NICHOLAS RT(Mitchel) Service: Radiology Author Type: Technologist Type: Progress [...] PATIENT PRESENTS WITH AN IMPLANTABLE OR ATTACHED TRUCK TERMINAL MANAGER: No RADIOLOGY DEPARTMENT: General X-ray: Exam(s) Completed: Lower Extremity X-Ray(s): Knee, AP / Lat / Tunne / Merchant Left and Wt. Bearing PERIPHERAL IV DATA: Not applicable SIGNED BY: RT Jagdish(R) September 14, 2024 3:29 PM [facility] 09-14-2024 Telephone encounter Note Patient was referred here by [facility]. Patient had 3 high blood pressure readings today in the office. Provider asked if we could let [facility] know about the readings and see if [...] to fax over records from their office. [facility] 09-14-2024 Instructions Cony Beckwith PA-C - [...] results next week. documented in this encounter [facility] 09-14-2024 Note HNO ID: [id number] Author: CONY BECKWITH PA-C Service: ? Author Type: Physician Engine Boss Type: Progress Notes Filed: 09/14/2024 15:51 Note Text: Rheumatology CONSULTATION Date of Service: 09/14/2024 Patient: Aroldo Navarrete Medical Record: [id number] Primary Care Physician: No primary care provider on file. Last Rheumatology visit: None at [facility] Referring Provider: Marjorie Be [address] [facility] [id number] Aroldo Navarrete is here today at request of Dr. Marjorie Be specifically for consultation of my opinion in regards to the chief complaint listed below. Correspondence will be shared today via the [facility] electronic health record or through regular mail, [...] vapes marijuana - Occupation: Formerly employed at [employer]) - Living conditions: Resides in [place] Current Medications Current Outpatient Medications Medication Sig [...] Ref Rng AND Units 01/05/2012 CBC Hemoglobin, [place] 13.0 - 17.0 g/dL 16.7 Abs Neut, [place] 1.45 - 7.50 k/uL 2.73 Abs Lymp, [place] 1.00 - 4.00 k/uL 2.28 Latest Ref Rng AND Units 01/05/2012 CMP Sodium, [place] 135 - 146 mmol/L 142 Potassium, [place] 3.5 - 5.0 mmol/L 4.7 Chloride, [place] 98 - 110 mmol/L 102 CO2, [place] 23.0 - 32.0 mmol/L 29.6 Glucose, [place] 65 - 100 mg/dL 97 BUN, [place] 10 - 25 mg/dL 9 Creatinine, [place] 0.7 - 1.4 mg/dL 1.1 Calcium, [place] 8.5 - 10.5 mg/dL 9.1 AST, [place] 7 - 40 U/L 18 ALT, [place] 5 - 50 U/L 12 [facility] Labs: (07/18/2024) - ESR: 25 (elevated) - CBC: - WBC: 5.3 (normal) - Platelets: 343 (normal) - Hemoglobin: 14.3 (normal) - Hematocrit: 41.4 (normal) - CRP: 29 (elevate (more content not included)... [facility] 09-14-[facility] History of Present illness Narrative Images from the original note were not included. Rheumatology CONSULTATION Date of Service: 09/14/2024 Patient: Aroldo Navarrete Medical Record: [id number] Primary Care Physician: No primary care provider on file. Last Rheumatology visit: None at [facility] Referring Provider: Marjorie Be [address] [facility] [address] Aroldo Navarrete is here today at request of Dr. Marjorie Be specifically for consultation of my opinion in regards to the chief complaint listed below. Correspondence will be shared today via the [facility] electronic health record or through regular [...] vapes marijuana - Occupation: Formerly employed at [employer]) - Living conditions: Resides in [place] Current Medications Current Outpatient Medications Medication Sig [...] Ref Rng & Units 01/05/2012 CBC Hemoglobin, [place] 13.0 - 17.0 g/dL 16.7 Abs Neut, [place] 1.45 - 7.50 k/uL 2.73 Abs Lymp, [place] 1.00 - 4.00 k/uL 2.28 Latest Ref Rng & Units 01/05/2012 CMP Sodium, [place] 135 - 146 mmol/L 142 Potassium, [place] 3.5 - 5.0 mmol/L 4.7 Chloride, [place] 98 - 110 mmol/L 102 CO2, [place] 23.0 - 32.0 mmol/L 29.6 Glucose, [place] 65 - 100 mg/dL 97 BUN, [place] 10 - 25 mg/dL 9 Creatinine, [place] 0.7 - 1.4 mg/dL 1.1 Calcium, [place] 8.5 - 10.5 mg/dL 9.1 AST, [place] 7 - 40 U/L 18 ALT, [place] 5 - 50 U/L 12 [facility] Labs: (07/18/2024) - ESR: 25 (elevated) - CBC: - WBC: 5.3 (normal) - Platelets: 343 (normal) - Hemoglobin: 14.3 (normal) - Hematocrit: 41.4 (normal) - CRP: 29 (elevated) - Double-stranded DNA: Normal - SSA: Normal - SSB: Normal - Chromatin Antibody: Normal - Ciarra-1 Antibody: Normal - AIRPLANE DISPATCH CLERK Antibody: Normal - Scleroderma Antibody: Normal - Galdamez Antibody: Normal - Centromere Antibody: Normal - Magnesium: 2.3 - TSH: 1.26 (normal) - Thyroid Peroxidase Antibody: Normal at 15 - Thyroglobulin Antibody: Normal at 1 - T3: 2.3 (normal) - T4: 0.7 (normal) Imaging Imaging done at [facility]: (07/18/2024) - Chest X-ray: Moderate to [...] of rib fracture or other acute pathology. Creative Writing English Professor: RADHA Transcribe Date/Time: Apr 16 2015 7:50A [...] Full ROM in flexion and extension. Full overcaster strength. No swelling or synovitis along the [...] is currently no information documented on the [facility]. Go to the Rheumatology activity and complete the [facility] joint exam. Joint Exam 09/14/2024 No joint [...] which included preparing to see the patient, [id number] patient care, completing clinical documentation, obtaining and/or reviewing separately obtained history, performing a medically appropriate examination, counseling and educating the patient/family/caregiver, and ordering medications, tests, or procedures. Cony Beckwith PA-C Rheumatology Date: September 14, 2024 Time: 3:48 PM documented in this encounter [facility] Evaluation note Diagnosis Polyarthralgia- Primary Pain in joint, multiple sites Ganglion, left wrist Dry eye syndrome of both eyes Weakness Other malaise and fatigue Chronic pain of both shoulders Pain in joint, shoulder region Bilateral hip pain Pain in joint, pelvic region and thigh Chronic pain of both knees Essential (primary) hypertension Unspecified essential hypertension [facility] Polyarthralgia Pain in joint, multiple [...] nodule Solitary pulmonary nodule PMR (polymyalgia rheumatica) (HCC) Polymyalgia rheumatica [facility] Diagnosis Giant cell arteritis (HCC)- Primary Giant cell arteritis PMR (polymyalgia rheumatica) (HCC) Polymyalgia rheumatica Lung nodule Solitary pulmonary nodule MDA5 antibody positive Chronic bilateral low back pain without sciatica Chronic sacroiliac joint pain Disorders of sacrum Chronic neck pain 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 [facility] Diagnosis Onset Date Resolution Status Admit Date Abnormal brain CT acute November 192024 12:54am Acute diarrhea acute November 19, 2024 12:54am Acute hyponatremia acute November 052024 12:54am Dizziness acute November 19 12:54am Dysphagia acute November 19 12:54am [facility] Work Phone: Reason for referral (narrative)No reason for referral information [facility] Work Phone: Reason for visit Narrative* Diagnostic Procedure Only (Routine) - Closed Specialty Diagnoses / Procedures Referred By Julio César t Referred To Contact XR IMAGING Diagnoses Polyarthralgia Dry eye syndrome of both eyes Weakness Chronic pain of both shoulders Bilateral hip pain Chronic pain of both knees Procedures XR KNEE GENERAL 4V AP BOTH/PA BOTH/LAT/MERC LEFT RADIOLOGIC EXAM KNEE COMPLETE 4/MORE VIEWS Cony Beckwith PA-C [address] [place] [address] Phone: tel: fax: [place] [id number] Referral ID Status Reason Start Date Expiration Date V isits Requested Visits Authorized [id number] Closed Auto-Generate d Referral 09/14/2024 10/14/2025 1 1 [facility] for visit Narrative* Outpatient Procedure (Routine) - Closed Specialty Diagnoses / Procedures Referred By Julio César mendez Referred To [facility] Diagnoses Weakness Polymyositis with myopathy (HCC) [...] PA-C [address] [place] [address] Phone: tel: fax: Neurology [address] [place] [address] Phone: tel: Referral ID Status Reason Start Date Expiration Date V isits Requested Visits Authorized [id number] Closed Auto-Generate d Referral 10/12/2024 06/06/2025 1 1 [facility] Consult, Test, Treat (Routine) - Closed Specialty Diagnoses / Procedures Referred By Julio César mendez Referred To Contact Rheumatology / RHEUMATOLOGY Diagnoses myositis per clarence beckwith Procedures [facility] Renny Forrester MD [address] [place] [address] Phone: tel: fax: Renny Forrester MD [address] [place] [address] Phone: tel: fax: Referral ID Status Reason Start Date Expiration Date Visits Re quested Visits Authorized [id number] Closed 10/13/2024 06/06/2025 1 1 [facility] Summary Purpose Family History No Family History Records FoundNo Family History Records FoundNo Family History Records Found Advance Directives Advance Directive Response Recorded Date/ Time Do you have a Healthcare Power of Medicare Sales Representative? No November 18, 2024 10:34pm Chief Complaint and Reason for Visit Chief Complaint Admit Date Amb Documentation August 10, 2024 9:31 am DIZZINESS November 19, 2024 12:5 4am Reason for Visit Admit Date Abnormal brain CT November 19, 2024 12:5 4am Acute diarrhea November 19, 2024 12:5 4am Acute hyponatremia November 19, 2024 12:5 4am Dizziness November 19, 2024 12:5 4am Dysphagia November 19, 2024 12:5 4am Additional Source Comments Source Comments (unrecognize d section and content) In the event this informatio n is protected by the Federal Confidentiality of Alcohol and Drug Abuse Patient Records regulations: The Federal rules restrict any use of the information to criminally investigate or prosecute any alcohol or drug abuse patient.[facility] the event this information is protected by the Federal Confidentiality of Alcohol and Drug Abuse Patient Records regulations: The Federal rules restrict any use of the information to criminally investigate or prosecute any alcohol or drug abuse patient.[facility] the event this information is protected by the Federal Confidentiality of Alcohol and Drug Abuse Patient Records regulations: The Federal rules restrict any use of the information to criminally investigate or prosecute any alcohol or drug abuse patient.[facility] the event this information is protected by the Federal Confidentiality of Alcohol and Drug Abuse Patient Records regulations: The Federal rules restrict any use of the information to criminally investigate or prosecute any alcohol or drug abuse patient.[facility] HospitalIn the event this information is protected by the Federal Confidentiality of Alcohol and Drug Abuse Patient Records regulations: The Federal rules restrict any use of the information to criminally investigate or prosecute any alcohol or drug abuse patient.[facility] Hospital[facility] the event this information is protected by the Federal Confidentiality of Alcohol and Drug Abuse Patient Records regulations: The Federal rules restrict any use of the information to criminally investigate or prosecute any alcohol or drug abuse patient.[facility] the event this information is protected by the Federal Confidentiality of Alcohol and Drug Abuse Patient Records regulations: The Federal rules restrict any use of the information to criminally investigate or prosecute any alcohol or drug abuse patient.[facility] HospitalIn the event this information is protected by the Federal Confidentiality of Alcohol and Drug Abuse Patient Records regulations: The Federal rules restrict any use of the information to criminally investigate or prosecute any alcohol or drug abuse patient.[facility] Hospital[facility] the event this information is protected by the Federal Confidentiality of Alcohol and Drug Abuse Patient Records regulations: The Federal rules restrict any use of the information to criminally investigate or prosecute any alcohol or drug abuse patient.[facility] HospitalIn the event this information is protected by the Federal Confidentiality of Alcohol and Drug Abuse Patient Records regulations: The Federal rules restrict any use of the information to criminally investigate or prosecute any alcohol or drug abuse patient.[facility] HospitalIn the event this information is protected by the Federal Confidentiality of Alcohol and Drug Abuse Patient Records regulations: The Federal rules restrict any use of the information to criminally investigate or prosecute any alcohol or drug abuse patient.[facility] HospitalIn the event this information is protected by the Federal Confidentiality of Alcohol and Drug Abuse Patient Records regulations: The Federal rules restrict any use of the information to criminally investigate or prosecute any alcohol or drug abuse patient.[facility] HospitalIn the event this information is protected by the Federal Confidentiality of Alcohol and Drug Abuse Patient Records regulations: The Federal rules restrict any use of the information to criminally investigate or prosecute any alcohol or drug abuse patient.[facility] HospitalIn the event this information is protected by the Federal Confidentiality of Alcohol and Drug Abuse Patient Records regulations: The Federal rules restrict any use of the information to criminally investigate or prosecute any alcohol or drug abuse patient.[facility] HospitalIn the event this information is protected by the Federal Confidentiality of Alcohol and Drug Abuse Patient Records regulations: The Federal rules restrict any use of the information to criminally investigate or prosecute any alcohol or drug abuse patient.[facility] HospitalIn the event this information is protected by the Federal Confidentiality of Alcohol and Drug Abuse Patient Records regulations: The Federal rules restrict any use of the information to criminally investigate or prosecute any alcohol or drug abuse patient.[facility] HospitalIn the event this information is protected by the Federal Confidentiality of Alcohol and Drug Abuse Patient Records regulations: The Federal rules restrict any use of the information to criminally investigate or prosecute any alcohol or drug abuse patient.[facility] HospitalIn the event this information is protected by the Federal Confidentiality of Alcohol and Drug Abuse Patient Records regulations: The Federal rules restrict any use of the information to criminally investigate or prosecute any alcohol or drug abuse patient.[facility] HospitalIn the event this information is protected by the Federal Confidentiality of Alcohol and Drug Abuse Patient Records regulations: The Federal rules restrict any use of the information to criminally investigate or prosecute any alcohol or drug abuse patient.[facility] HospitalIn the event this information is protected by the Federal Confidentiality of Alcohol and Drug Abuse Patient Records regulations: The Federal rules restrict any use of the information to criminally investigate or prosecute any alcohol or drug abuse patient.[facility] Reason for Visit (unrecogniz ed section and content) Reason Comments New patient Specialty Diagnoses / Procedures Referred By Julio César t Referred To Contact Internal Medicine / RHEUMATOLOGY Diagnoses Joint pain M25.50 Joint pain Procedures OFFICE/OUTPATIENT [facility] 60 MINUTES [id number] [facility] Marjorie Be, DO [address] [place] [address] Phone: tel: fax: Cony Beckwith PA-C [address] [facility] [address] [place] [address] Phone: tel: fax: Referral ID Status Reason Start Date Expiration Date Visits Re quested Visits Authorized [id number] Closed 09/01/2024 06/06/2025 1 1 Reason Comments Insurance information Reason Comments Spirometry Specialty Diagnoses / Procedures Referred By Contac t Referred To Contact [facility] Diagnoses Weakness Polymyositis with myopathy (HCC) Shortness of breath Procedures SPIROMETRY BASELINE ONLY SPMTRY W/VC EXPIRATORY LINH W/WO MXML VOL VNTJ Cony Beckwith PA-C [address] [facility] [address] [place] [address] Phone: tel: fax: [facility] [place] [address] [place] [address] Referral ID Status Reason Start Date Expiration Date V isits Requested Visits Authorized [id number] Closed Auto-Generate d Referral 10/04/2024 11/03/2025 1 1 Specialty Diagnoses / Procedures Referred By Germainac t Referred To Contact [facility] Diagnoses Weakness Polymyositis with myopathy (HCC) Shortness of breath Procedures LUNG DIFFUSION CAPACITY (DLCO) DIFFUSING CAPACITY Cony Beckwith PA-C [address] [facility] [address] [place] [address] Phone: tel: fax: [facility] [place] [address] [place] [address] Referral ID Status Reason Start Date Expiration Date V isits Requested Visits Authorized [id number] Closed Auto-Generate d Referral 10/04/2024 11/03/2025 1 1 Reason Comments Appointment Reason Comments Follow Up Specialty Diagnoses / Procedures Referred By Contac t Referred To Contact Rheumatology / RHEUMATOLOGY Diagnoses Encounter for medical record review Review results Procedures OFFICE/OUTPATIENT ESTABLISHED SF MDM 10 MIN OFFICE/OUTPATIENT ESTABLISHED LOW MDM 20 MIN OFFICE/OUTPATIENT ESTABLISHED MOD MDM 30 MIN OFFICE/OUTPATIENT ESTABLISHED HIGH MDM 40 MIN [facility] Cony Beckwith PA-C [address] [place] [address] Phone: tel: fax: Cony Beckwith PA-C [address] [place] [address] Phone: tel: fax: Referral ID Status Reason Start Date Expiration Date V isits Requested Visits Authorized [id number] Authorized 09/19/2024 06/06/2025 99 99 Specialty Diagnoses / Procedures Referred By Julio César mendez Referred To Contact [facility] Diagnoses Weakness Polymyositis with myopathy (HCC) Chronic pain of both shoulders Shortness of breath Interstitial pulmonary disease (HCC) SOB (shortness of breath) Procedures LUNG VOLUMES Cony Beckwith PA-C [address] [place] [address] Phone: tel: fax: [facility] [place] [address] [place] [address] Referral ID Status Reason Start Date Expiration Date V isits Requested Visits Authorized [id number] Closed Auto-Generate d Referral 10/04/2024 11/03/2025 [address] Specialty Diagnoses / Procedures Referred By Julio César mendez Referred To Contact CT IMAGING Diagnoses Weakness Polymyositis with myopathy (HCC) Chronic pain of both shoulders Shortness of breath Interstitial pulmonary disease (HCC) SOB (shortness of breath) Procedures CT CHEST WO IVCON DIAGNOSTIC COMPUTED TOMOGRAPHY THORAX W/O CNTRST Cony Beckwith PA-C [address] [place] [address] Phone: tel: fax: [place] [address] Referral ID Status Reason Start Date Expiration Date V isits Requested Visits Authorized [id number] Closed Auto-Generate d Referral 10/04/2024 11/03/2025 1 1 Reason Comments disability paperwork Reason Comments Established Patient Specialty Diagnoses / Procedures Referred By Julio César mendez Referred To Contact Rheumatology / RHEUMATOLOGY Diagnoses Encounter for medical record review Review results Procedures OFFICE/OUTPATIENT ESTABLISHED SF MDM 10 MIN OFFICE/OUTPATIENT ESTABLISHED LOW MDM 20 MIN OFFICE/OUTPATIENT ESTABLISHED MOD MDM 30 MIN OFFICE/OUTPATIENT ESTABLISHED HIGH MDM 40 MIN [facility] Cony Beckwith PA-C [address] [place] [address] Phone: tel: fax: Cony Beckwith PA-C [address] [place] [address] Phone: tel: fax: Care Teams (unrecognized sec tion and content) General Farmer Relationship Specialty Start Date End Date Marjorie Be DO [address] [place] [address] Referring Family Medicine 07/27/24 General Farmer Relationship Specialty Start Date End Date Marjorie Be DO [address] [place] [address] Referring Family Medicine 07/27/24 General Farmer Relationship Specialty Start Date End Date Marjorie Be DO [address] [place] [address] Referring Family Medicine 07/27/24 General Farmer Relationship Specialty Start Date End Date Marjorie Be DO [address] [place] [address] Referring Family Medicine 07/27/24 General Farmer Relationship Specialty Start Date End Date Marjorie Be DO [address] [place] [address] Referring Family Medicine 07/27/24 General Farmer Relationship Specialty Start Date End Date Marjorie Be DO [address] [place] [address] Referring Family Medicine 07/27/24 General Farmer Relationship Specialty Start Date End Date Marjorie Be DO [address] [place] [address] Referring Family Medicine 07/27/24 General Farmer Relationship Specialty [place] [address] [place] [address] Referring Family Medicine 07/27/24 General Farmer Relationship Specialty Start Date End Date Marjorie Be DO [address] [place] [address] Referring Family Medicine 07/27/24 General Farmer Relationship Specialty Start Date End Date Marjorie Be DO [address] [place] [address] Referring Family Medicine 07/27/24 General Farmer Relationship Specialty Start [place] [address] [place] [address] Referring Family Medicine 07/27/24 General Farmer Relationship Specialty Start Date End Date Marjorie Be DO [address] [place] [address] Referring Family Medicine 07/27/24 General Farmer Relationship Specialty [place] [address] [place] [address] Referring Family Medicine 07/27/24 General Farmer Relationship Specialty Start Date End Date Marjorie Be DO [address] [place] [address] Referring Family Medicine 07/27/24 General Farmer Relationship Specialty Start Date End Date Marjorie Be DO [address] [place] [address] PCP - General Family Medicine 10/23/24 [place] [address] [place] [address] Referring Family Medicine 07/27/24 General Farmer Relationship Specialty Start Date End Date Marjorie Be DO [address] [place] [address] PCP - General Family Medicine 10/23/24 [place] [address] [place] [address] Referring Family Medicine 07/27/24 Team Status: Active Member Role Status Dates Holly Be [facility], Primary Care Provider Active Team Status: Active Member Role Status Dates Holly Be [facility], Primary Care Provider Active Start: August 10, 2024 Janis Bethea Attending Provider Active Start: [facility] 2024 Team Status: Active Member Role Status Dates Holly Be [facility], Primary Care Provider Active Start: November 19, 2024 Dr. Rober John MD Emergency Provider Active Start: November 19, 2024 Dr. Susan Churchill , Admit Provider Active Start : November 19, 2024 Dr. Susan Churchill DO Attending Provider Active S tart: November 19, 2024 (unrecognized sect ion and content) No Status Records FoundNo Status Records FoundNo Status Records Found INFORMATION SOURCE (unrecogn ized section and content) DATE CREATED AUTHOR 11/07/2024 [facility] DATE CREATED AUTHOR AUTHOR'S ORGANIZ ATION 11/08/2024 [facility] DATE CREATED AUTHOR AUTHOR'S ORGANIZ ATION 11/08/2024 [facility] FOR RECORDS PERTAINING TO PATIENTS WHO ARE [...] BE BASED ON THE PRIMARY CLINICAL RECORDS. [facility] [employer] [facility]. provides no warranty or guarantee of the accuracy or completeness of information in this document.
--- NOTE | 2024-11-19 03:30 | NURSING ---
Gave report to Anish Saunders RN
[2024-11-19 04:42] LABS: Bacteria 0 SEEN /hpf (None Seen); Mucous, Urine 0 SEEN /hpf (<or=2+); White Blood Cells 0 SEEN /hpf (0-5)
[2024-11-19 04:45] LABS: Color, Urine Straw (Yellow); Glucose, Dipstick Normal (Normal); Ketone-Dipstick Negative (Negative); Leukocyte Esterase-Dipstick Negative /ul (Negative); Nitrite-Dipstick Negative (Negative); Occult Blood-Urine 25 /ul (Negative); Protein-Dipstick Negative (Negative); Specific Gravity, Urine 1.005 (1.002-1.030); Urine Bilirubin Dipstick Negative (Negative); Urine Clarity Clear (Clear); Urine Urobilinogen Normal (Normal)
[2024-11-19 05:09] LABS: Red Blood Cells-Urine 0-5 SEEN /hpf (0-5); Squamous Epithelial Cells - UA 0-5 SEEN /hpf (0-5)
[2024-11-19 05:11] LABS: Urine Sodium 37 mmol/L (Not Establ.)
[2024-11-19 05:57] LABS: Troponin T High Sens 2 HR 21 ng/L (<=22)
[2024-11-19] MEDS: 0.9% Normal Saline (1000mL) 1,000 ML 100 ML IV ×3 (06:40→16:47)
[2024-11-19 06:53] LABS: Anion Gap 14 (5-15); BUN 11 mg/dL (4-19); BUN/Creat Ratio 12.7 RATIO (10-20); Calcium,Total 8.5 mg/dL (7.6-11.0); Carbon Dioxide 22.2 mmol/L (21.0-32.0); Chloride 89 mmol/L (98-108); Creatinine, Serum 0.86 mg/dL (0.70-1.20); EST Glomerular Filtration Rate 94 (>60); Estimated Creatinine Clearance 65.58 ml/min (50-250); Glucose 90 mg/dL (70-99); Potassium 4.6 mmol/L (3.3-5.1); Sodium Level 125 mmol/L (133-145)
[2024-11-19 07:04] LABS: Absolute Lymphocyte Count 2.12 X10^3/uL (0.83-4.51); Basophil# 0.01 X10^3/uL; Basophil% 0.2 % (0-1); Eosinophil# 0.02 X10^3/uL; Eosinophils% 0.3 % (0-5); Hematocrit 36.5 % (40-54); Hemoglobin 13.4 g/dL (13.0-16.5); Lymphocyte # 2.12 X10^3/ul (0.83-4.51); Mean Corp Hgb Conc 36.7 g/dL (32-36); Mean Corpuscular Volume 84.5 fL (80-94); Mean Platelet Vol. 9.3 fl (6.2-12.0); Monocyte% 10.5 % (0-10); NRBC Flagged by Analyzer 0 % (0-5); Neutrophil # 2.96 X10^3/uL (2.7-7.7); Neutrophil % 51.7 % (47-70); Platelet Count 172 K/mm3 (150-450); RBC Distribution Width CV 13.8 % (11.6-14.6); RBC Distribution Width SD 42.7 fl (35.1-43.9); Red Blood Count 4.32 M/mm3 (4.6-6.2); White Blood Count 5.7 K/mm3 (4.4-11.0)
[2024-11-19 07:07] LABS: CORTISOL AM 1.06 ug/dL (6.02-18.40); Thyroid Stim Hormone (TSH) 0.669 uIU/mL (0.300-4.200)
[2024-11-19 07:21] LABS: Uric Acid 7.2 mg/dL (3.5-7.2)
[2024-11-19 07:34] LABS: ALB/GLOB Ratio 1.5 RATIO (0.9-2.4); AST(SGOT) 28 U/L (<=37); Alanine Aminotransfer ALT/SGPT 27 U/L (<=46); Albumin, Serum 3.4 g/dL (3.4-4.8); Alkaline Phosphatase 62 U/L (40-129); Anion Gap 12 (5-15); BUN 10 mg/dL (4-19); Calcium,Total 8.2 mg/dL (7.6-11.0); Carbon Dioxide 22.4 mmol/L (21.0-32.0); Chloride 92 mmol/L (98-108); Creatinine, Serum 0.73 mg/dL (0.70-1.20); EST Glomerular Filtration Rate 99 (>60); Globulin 2.2 g/dL (2.2-4.2); Glucose 84 mg/dL (70-99); Magnesium 1.9 mg/dL (1.5-2.2); Potassium 3.6 mmol/L (3.3-5.1); Protein, Total 5.5 g/dL (5.9-8.4); Sodium Level 126 mmol/L (133-145); Total Bilirubin 0.76 mg/dL (0.00-1.30)
[2024-11-19 08:12] LABS: Troponin T High Sens 4 HR 22 ng/L (<=22)
[2024-11-19 08:25] LABS: Phosphorus 2.2 mg/dL (2.7-4.5)
[2024-11-19] MEDS: Enoxaparin 40 MG/0.4 ML Syringe SC (10:08)
[2024-11-19] MEDS: Gabapentin 100 MG Capsule PO ×2 (10:09→21:36)
[2024-11-19] MEDS: predniSONE 20 MG Tablet 40 MG PO (10:09)
[2024-11-19] MEDS: Lisinopril 20 MG Tablet PO (10:09)
[2024-11-19] MEDS: Pantoprazole Sodium 40 MG Tablet PO (10:09)
[2024-11-19] MEDS: Vancomycin 125 MG/5 ML Susp PO.SYRINGE PO ×3 (12:07→23:56)
[2024-11-19] MEDS: Multivitamins,Therapeutic Tablet 1 TABLET PO ×2 (12:07)
--- NOTE | 2024-11-19 12:32 | PCM.HOSP.N ---
Hospitalist Note Patient was admitted early this morning for lightheadedness/dizziness and significant recent diarrhea. Was found to have low sodium 122 and chloride 85. Was orthostatic positive in the ED. Was started on maintenance IV normal saline and sodium has been coming up well with most recent sodium 126. Importantly, patient was found to be positive for C. difficile this morning. Will start p.o. vancomycin for him. No recent antibiotics and no history of C. difficile that he reports. Patient did have a left temporal biopsy about a month ago to evaluate for giant cell arteritis and it appears he has been getting treatment for temporal arteritis with p.o. prednisone. CT brain on admit showed right lateral ventricle distention with interventricular septal bowing, unclear if anatomic variant versus an acute concern. MRI brain has been ordered for further evaluation and will be done tomorrow. Will continue IV maintenance fluids today and continue to check sodium level every 6 hours for today. Full progress note to follow tomorrow.
[2024-11-19 14:43] LABS: Osmolality, Urine 147 mOsm/KG
[2024-11-19 14:43] LABS: Osmolality, Serum 265 mOsm/KG (280-301)
[2024-11-19 18:43] LABS: Anion Gap 11 (5-15); BUN 11 mg/dL (4-19); BUN/Creat Ratio 11.2 RATIO (10-20); Carbon Dioxide 21.7 mmol/L (21.0-32.0); Chloride 93 mmol/L (98-108); Creatinine, Serum 0.95 mg/dL (0.70-1.20); EST Glomerular Filtration Rate 87 (>60); Estimated Creatinine Clearance 59.37 ml/min (50-250); Glucose 166 mg/dL (70-99); Potassium 4.1 mmol/L (3.3-5.1); Sodium Level 126 mmol/L (133-145)
[2024-11-19] MEDS: Ensure Plus High Protein 120 ML LIQUID PO (21:36)
[2024-11-20] MEDS: 0.9% Normal Saline (1000mL) 1,000 ML 100 ML IV ×2 (02:30→13:02)
[2024-11-20 03:18] VITALS: BP 141/80; PULSE 54; RESP 18; TEMP 36.4; O2SAT 100
[2024-11-20 03:25] VITALS: BMI 17.2
[2024-11-20] MEDS: Vancomycin 125 MG/5 ML Susp PO.SYRINGE PO ×2 (05:26→11:13)
[2024-11-20 06:02] LABS: Hematocrit 32.8 % (40-54); Hemoglobin 11.8 g/dL (13.0-16.5); Mean Corpuscular Hgb 31.2 pg (27.0-32.0); Mean Corpuscular Volume 86.8 fL (80-94); Platelet Count 177 K/mm3 (150-450); RBC Distribution Width CV 14.5 % (11.6-14.6); RBC Distribution Width SD 45.9 fl (35.1-43.9); Red Blood Count 3.78 M/mm3 (4.6-6.2); White Blood Count 6.5 K/mm3 (4.4-11.0)
[2024-11-20 06:30] LABS: Anion Gap 8 (5-15); BUN 9 mg/dL (4-19); BUN/Creat Ratio 10.5 RATIO (10-20); Calcium,Total 8.1 mg/dL (7.6-11.0); Carbon Dioxide 25.4 mmol/L (21.0-32.0); Chloride 99 mmol/L (98-108); Creatinine, Serum 0.86 mg/dL (0.70-1.20); EST Glomerular Filtration Rate 94 (>60); Estimated Creatinine Clearance 65.35 ml/min (50-250); Glucose 87 mg/dL (70-99); Potassium 3.9 mmol/L (3.3-5.1); Sodium Level 133 mmol/L (133-145)
[2024-11-20 06:53] VITALS: O2SAT 94
[2024-11-20 09:20] VITALS: BP 145/89; PULSE 57; RESP 16; TEMP 36.3; O2SAT 100
[2024-11-20] MEDS: Gabapentin 100 MG Capsule PO (09:56)
[2024-11-20] MEDS: Enoxaparin 40 MG/0.4 ML Syringe SC (09:57)
[2024-11-20] MEDS: Pantoprazole Sodium 40 MG Tablet PO (09:57)
[2024-11-20] MEDS: Ensure Plus High Protein 120 ML LIQUID PO (09:57)
[2024-11-20] MEDS: predniSONE 20 MG Tablet 40 MG PO (09:57)
[2024-11-20] MEDS: Lisinopril 20 MG Tablet PO (09:57)
--- NOTE | 2024-11-20 14:17 | PCM.DC ---
Discharge Instructions Diet Discharge Diet: Low fat / Low cholesterol DC O2, CPAP, BIPAP needs Home O2 Discharge instructions: No Dressing / Incision Discharge Activity: Return to Normal Activity Dressing / Incision Call your doctor if you observe: Fever of 101 or Higher, Shortness of breath, Dizziness, Fainting spells, Swelling in the ankles, Chest pain and Increased palpitations (irregular heartbeat) Follow Up Care Test Results: Test results from this visit will be discussed in further detail at your follow-up appointment, if applicable. Discharge Plan Admission Admit Date/Time: 11/19/24 00:23 Attending Provider: Bryan Mora Primary Care Provider: Holly Be Consulting Providers: Susan Churchill; Guevara Goldstein Discharge Orders/Prescriptions Prescriptions: New lisinopril 20 mg Tablet 20 mg PO DAILY 30 Days Qty: 30 0RF vancomycin 125 mg capsule 125 mg PO Q6H 10 Days Qty: 40 0RF Continued prednisone 20 mg tablet 20 mg PO DAILY pantoprazole 40 mg tablet,delayed release (DR/EC) 40 mg PO DAILY gabapentin 100 mg capsule 100 mg PO BID multivitamin [Daily Multi-Vitamin] Tablet 1 tab PO DAILY Discontinued lisinopril-hydrochlorothiazide 20-25 mg tablet 1 tab PO QDAY Referrals / Follow Up: Holly Be, DO [Primary Care Provider] - Within 1 Week Disposition Disposition (needs filled in before D/C Order can be placed): Home, Self Care
--- NOTE | 2024-11-20 14:28 | DS.PCM_ITS ---
Providers Date of Admission: 11/19/24 Primary Care Physician: Hloly Be [facility], DO Reason For Visit: HYPONATREMIA/LIGHTHEADNESS Diagnosis Discharge Diagnosis (1) Abnormal brain CT: Status: Acute Code(s): R90.89 - Other abnormal findings on diagnostic imaging of central nervous system (2) Dysphagia: Status: Acute Code(s): R13.10 - Dysphagia, unspecified (3) Dizziness: Status: Acute Code(s): R42 - Dizziness and giddiness (4) Acute diarrhea: Status: Acute Code(s): R19.7 - Diarrhea, unspecified (5) Acute hyponatremia: Status: Acute Code(s): E87.1 - Hypo-osmolality and hyponatremia Medications at Discharge Home Medications gabapentin 100 mg capsule 100 mg PO BID nerve 11/18/24 pantoprazole 40 mg tablet,delayed release 40 mg PO DAILY stomach 11/18/24 prednisone 20 mg tablet 20 mg PO DAILY steriod 11/18/24 multivitamin (Daily Multi-Vitamin tablet) 1 tab PO DAILY supplement 11/19/24 lisinopril 20 mg tablet 20 mg PO DAILY 30 days #30 tabs 11/20/24 vancomycin 125 mg capsule 125 mg PO Q6H 10 days #40 caps 11/20/24 Hospital Course Operations None Procedures None Summary of Care Provided Minutes Spent on Discharge: 37 Hospital Course: Per HPI: AROLDO NAVARRETE, is a 69 M who presented to the emergency department at [facility] on 11/18/2024 with a chief complaint of lightheadedness/dizziness. Patient reported that he feels like he could pass out when he stands up. He is fine when he is lying down or sitting but when he goes from sitting to standing he gets significantly lightheaded. It is transient and goes away. He also complains of associated dysphagia. He states over about the last week he has had diarrhea and some nausea with some abdominal cramping. He is still having diarrhea at the time of presentation but still able to drink alcohol. He close drink about 3-6 tall beers a day. He also states he has been having difficulty swallowing. He had a left temporal biopsy about a month ago as he had been having headaches but denied vision changes. Unclear where this was performed and he is unable to tell us but it does appear that he may be getting treatment for temporal arteritis as he is currently on prednisone which was written by a PA for rheumatological office. Vital signs on presentation showed temperature 96.5, heart rate 93, respiratory rate 16, blood pressure was 131/85 pulse ox was 100% on room air. CBC is unremarkable. Chemistry panel shows significant hyponatremia with a sodium of 122, chloride of 85, serum bicarb of 19.6 with an anion gap of 17. Creatinine is normal. Glucose is 106. Liver functions normal. Initial troponin was 23. CT (8 minutes symmetric distention of the right lateral ventricle compared to the left with intraventricular septal bowing which may be anatomic variant per report. Chest x-ray showed no acute findings but does show hyperinflation with flattened diaphragms consistent with COPD. IV fluids were initiated in the emergency department as we do suspect this is hypovolemic hyponatremia plus his orthostatic vital signs were positive. Will admit to telemetry given marked hyponatremia and anticipate length of stay will be greater than 2 midnights. Hospital Course: 1. Lightheadedness and dizziness secondary to nausea and diarrhea from C. difficile colitis with hypovolemic hyponatremia?69-year-old male presented to the hospital with lightheadedness and dizziness and has been having some abdominal pain as well as nausea and diarrhea. C. difficile testing came back positive and he was started on p.o. vancomycin, this is improved his diarrhea significantly. He was started on IV fluids as he was found to be hypovolemic hyponatremic with a significant improvement in his sodium faster than anticipated, he went from 1.5 on admission to 133 today on the day of discharge. There are some concern that this is likely worsened by the fact that he drinks 3-4 tall boys a day and was also on hydrochlorothiazide. The hydrochlorothiazide was discontinued on admission and on discharge and he was given a prescription for just lisinopril 20 mg p.o. daily for him to follow-up with his PCP to monitor his blood pressure and to make adjustments as an outpatient. Cortisol levels were also obtained on admission however he has been on chronic prednisone sleeves were falsely low but I do recommend outpatient follow-up once he completes his prednisone course to make sure that his cortisol levels do return to normal. He had also had a CT brain on admission due to the dizziness which showed an anatomic variant of asymmetric ventricular distention which was confirmed on MRI without any other findings. Since he was feeling better and all of his lab work had improved I discussed with him the possibility for discharge today and he expressed understanding of the risks and benefits of going home and he would like to go home today as he has a 0745 appointment in the morning tomorrow with one of his physicians. Dysphagia appears to have resolved as he is on a regular diet. 2. Essential hypertension, neuropathy, history of alcohol abuse, tobacco abuse, marijuana use, GERD, temporal arteritis are all chronic medical conditions which complicate his care. His home medications were continued where appropriate Physical Exam Narrative General: Alert, Oriented x3, Cooperative, No apparent distress HEENT: Atraumatic, PERRLA, EOMI, Normocephalic Oral: Moist Mucosa Neck: Supple, No JVD Lungs: Diminished, Normal air movement, No rhonchi, No wheeze, No rales Cardiovascular: Regular rate, Regular Rhythm, Normal S1, Normal S2, No murmurs Abdomen: Soft, Non Tender, Non-Distended, No Hepato-splenomegaly Extremities: No edema, Capillary Refill Less than 3 Seconds Skin: No rashes, No breakdown Musculoskeletal: No Tenderness to Palpation of Joints or Extremities Neurological: No focal neurological deficits, Motor Exam 5/5 strength throughout, Sensory exam intact to light touch and pain Psych/Mental Status: Normal Affect, Appropriate Medical Records Data Medical Nutrition Assessment Dietitian: Malnutrition Criteria Met Start: 11/19/24 11:02 Freq: Status: Active Protocol: Document 11/19/24 13:35 RMA (Rec: 11/19/24 13:35 RMA [id number]) Nutrition Malnutrition Evidence of Yes Malnutrition Exists Malnutrition (severe Chronic ): Evidenced By Suboptimal Energy Intake (Severe),Weight Loss (Severe), Physical Changes (Severe) Intake Problem Inadequate Oral Intake Etiology related to altered GI function/nausea and difficulty swallowing Signs/Symptoms as evidenced by PO meeting less than 50% estimated nutrition needs x past 1-2 months Status Active Problem Clinical Problem Chronic Disease or Condition Related Malnutrition Etiology Severe protein-calorie malnutrition in the context of acute illness related to inadequate oral/energy intake, altered GI function/diarrhea and nausea in addition to difficulty swallowing/chewing Signs/Symptoms as evidenced ~8% unintentional weight loss x last 3 months, oral intake meeting less than 50% estimated nutrition needs x last 1-2 months, severe muscle wasting/fat depletion in clavicle, face, arms and legs noted; BMI 17.3; need for soft/bite-sized food Status Active Problem Recommendation Dietitian Will continue liberalized regular diet with consistency Recommendations/ /texture as per SECURITY SERVICES SPECIALIST. Changes Will continue 120mL ensure plus HP 4 times per day w/ medpass. Will add magic cup w/ lunch and dinner. Monitor weight trend and offer additional ONS as needed . Weight / BMI Weight Weight: 123 lb 14.397 oz Body Mass Index (BMI) 17.2 ABG / Lab / Microbiology Data 11/20/24 04:35 11/20/24 04:35 Laboratory: Laboratory Results - last 24 hr 11/19/24 04:20: Serum Osmolality 265 L 11/19/24 04:30: Urine Osmolality 147 11/19/24 18:01: Sodium 126 L, Potassium 4.1, Chloride 93 L, Carbon Dioxide 21.7, Anion Gap 11, BUN 11, Creatinine 0.95, Estim Creat Clear Calc 59.37, Est GFR (MDRD) Non-Af 87, BUN/Creatinine Ratio 11.2, Glucose 166 H, Calcium 8.0 11/20/24 04:35: WBC 6.5, RBC 3.78 L, Hgb 11.8 L, Hct 32.8 L, MCV 86.8, MCH 31.2, MCHC 36.0, RDW Std Deviation 45.9 H, RDW Coeff of Brittany 14.5, Plt Count 177, MPV 10.0, Sodium 133, Potassium 3.9, Chloride 99, Carbon Dioxide 25.4, Anion Gap 8, BUN 9, Creatinine 0.86, Estim Creat Clear Calc 65.35, Est GFR (MDRD) Non-Af 94, BUN/Creatinine Ratio 10.5, Glucose 87, Calcium 8.1 Microbiology: Microbiology 11/19/24 01:56 Stool Enteric Bacteriology - Final 11/19/24 01:56 Stool C. difficile GDH Antigen & Toxins - Final Toxigenic C. difficile 11/19/24 01:56 Stool Clostridioides difficile (PCR) - Final 11/19/24 01:56 Stool Stool Lactoferrin - Final Radiography Diagnostic Testing: Radiology Impression Brain MRI 11/19/24 00:48 IMPRESSION: Asymmetric ventricular enlargement, most commonly a normal variant, but nonspecific. Other findings as above. Reading Location: [facility] Instructions Discharge Diet: Low fat / Low cholesterol Call your doctor if you observe: Fever of 101 or Higher, Shortness of breath, Dizziness, Fainting spells, Swelling in the ankles, Chest pain and Increased palpitations (irregular heartbeat) DC O2, CPAP, BIPAP Needs Home O2 Discharge instructions: No Meaningful Use Info Meaningful Use Meaningful Use Diagnoses (Choose all that apply): None applicable Ischemic Stroke Statin Dosing Therapy Reference: STATIN DOSE THERAPY REFERENCE: * Patients > 75 years receive moderate or high dose statin therapy. * Patients 75 years or YOUNGER should receive HIGH intensity statin dose unless contraindicated. You will be required to document reason for non-treatment if statin daily dose does not meet guidelines. HIGH DOSE STATIN THERAPY DAILY Atorvastatin > than or = to 40 mg Rosuvastatin > than or = to 20 mg Amlodipine + Atorvastatin > than or = to 2.5/40 mg Ezetimibe + Simvastatin 10/80 mg Simvastatin 80mg Discharge Plan Admission Admit Date/Time: 11/19/24 00:23 Attending Provider: Bryan Mora Primary Care Provider: Holly Be Consulting Providers: Susan Churchill; Guevara Goldstein Discharge Orders/Prescriptions Prescriptions: New lisinopril 20 mg Tablet 20 mg PO DAILY 30 Days Qty: 30 0RF vancomycin 125 mg capsule 125 mg PO Q6H 10 Days Qty: 40 0RF Continued prednisone 20 mg tablet 20 mg PO DAILY pantoprazole 40 mg tablet,delayed release (DR/EC) 40 mg PO DAILY gabapentin 100 mg capsule 100 mg PO BID multivitamin [Daily Multi-Vitamin] Tablet 1 tab PO DAILY Discontinued lisinopril-hydrochlorothiazide 20-25 mg tablet 1 tab PO QDAY Referrals / Follow Up: Holly Be, [Primary Care Provider] - Within 1 Week Disposition Disposition (needs filled in before D/C Order can be placed): Home, Self Care Charges/Coding Visit Charges Inpatient E&M: 89055 Disch Hosp >30min
[2024-11-20 14:36] VITALS: BP 128/75; PULSE 62; RESP 16; O2SAT 100
--- NOTE | 2024-11-20 15:10 | CASEMGMT ---
ELIZABETH DHILLON Face to Face with patient for initial transition planning/care coordination assessment. ELIZABETH DHILLON introduced self and role at [facility]. Patient lying in bed, alert and oriented. Patient willing to participate in assessment and is able to answer all questions appropriately. Care providers, pharmacy, and demographics verified. Strata: 1 PCP: [place] Specialists: none Preferred Pharmacy: [facility] Insurance: [employer] [facility] Prescription Benefit: yes Living Will/HPOA: none LNOK: sister Living Arrangements: Patient lives alone in a 2nd floor apt. Patient is independent and able to ambulate stairs. Transportation: self DME/HHC: Patient states he has walker at home. No previous HHC or SNF. Patient is discharging on Vancomycin Capsules, RN JACQUIE called [facility] no prior auth required. Patient wishes to discharge home, denies need for home health at this time. Patient states he has no further needs or concerns at this time. CM to follow for discharge planning needs that may arise. Disposition Plan: Patient to discharge home with family support and follow-up plans in place. Stephanie NORTONN, RN, CM
== END 2024-11-20 15:45 | disposition home or self-care (01) | DRG 371 ==
LOC: ED 11-19 00:14 → PCU 11-19 01:13
PROVIDERS: Hospitalist; Admitting Provider Internal Medicine; Emergency Provider Emergency Medicine; PCP Family Medicine; Visit Provider Family Medicine
DX: A04.72 Enterocolitis due to Clostridium difficile, not specified as recurrent (principal); E43 Unspecified severe protein-calorie malnutrition; E87.1 Hypo-osmolality and hyponatremia; Z68.1 Body mass index [BMI] 19.9 or less, adult; M31.6 Other giant cell arteritis; R13.10 Dysphagia, unspecified; J44.9 Chronic obstructive pulmonary disease, unspecified; I10 Essential (primary) hypertension; F10.10 Alcohol abuse, uncomplicated; G62.9 Polyneuropathy, unspecified; K21.9 Gastro-esophageal reflux disease without esophagitis; F12.90 Cannabis use, unspecified, uncomplicated; F17.210 Nicotine dependence, cigarettes, uncomplicated; E86.1 Hypovolemia; R42 Dizziness and giddiness; Z79.899 Other long term (current) drug therapy; Z79.52 Long term (current) use of systemic steroids; R90.89 Other abnormal findings on diagnostic imaging of central nervous system
CPT/HCPCS: 36415; 70450; 70553; 71046; 80048; 80053; 81001; 82533; 83630; 83735; 83930; 83935; 84100; 84300; 84443; 84484; 84550; 85025; 85027; 87493; 87506; 93005; 94668; 97802; 99252; 99285; A9575; A4216; G0463

== ENCOUNTER → 2024-11-28 | Outpatient (CLI) | payer MEDICARE, SELFPAY ==
[2024-11-28 13:15] LABS: ALB/GLOB Ratio 1.5 RATIO (0.9-2.4); AST(SGOT) 234 U/L (<=37); Alanine Aminotransfer ALT/SGPT 148 U/L (<=46); Albumin, Serum 3.5 g/dL (3.4-4.8); Alkaline Phosphatase 71 U/L (40-129); Anion Gap 12 (5-15); BUN 20 mg/dL (4-19); BUN/Creat Ratio 19.7 RATIO (10-20); Calcium,Total 8.7 mg/dL (7.6-11.0); Carbon Dioxide 25.5 mmol/L (21.0-32.0); Chloride 99 mmol/L (98-108); Creatinine, Serum 1.03 mg/dL (0.70-1.20); EST Glomerular Filtration Rate 79 (>60); Globulin 2.3 g/dL (2.2-4.2); Glucose 87 mg/dL (70-99); Potassium 4.2 mmol/L (3.3-5.1); Protein, Total 5.7 g/dL (5.9-8.4); Sodium Level 136 mmol/L (133-145); Total Bilirubin 0.58 mg/dL (0.00-1.30)
== END | disposition home or self-care (01) ==
LOC: VSLAB 09:32
PROVIDERS: PCP Family Medicine; Visit Provider Family Medicine
DX: E87.1 Hypo-osmolality and hyponatremia (principal)
CPT/HCPCS: 36415; 80053